=== PATIENT | female | born 1950 | race Caucasian/White ===

== ENCOUNTER → 2020-04-02 10:35 | Outpatient (BNVA) | payer MEDICARE, SELFPAY | PROVIDERS: Visit Provider Advanced Practice Midwife | DX: Z76.89 Persons encountering health services in other specified circumstances (principal) ==

== ENCOUNTER 2020-04-08 11:00 | Outpatient (RCR) | payer MEDICARE, SELFPAY | END 2020-04-10 07:53 | disposition other institution (70) | LOC: HO.OT 11:00 | PROVIDERS: PCP Internal Medicine; Visit Provider Internal Medicine | DX: M65.321 Trigger finger, right index finger (principal); M65.341 Trigger finger, right ring finger | CPT/HCPCS: 29130; 97035; 97110; 97140; 97530; 97760 ==

== ENCOUNTER 2020-05-06 09:59 | Outpatient (REF) | payer MEDICARE, SELFPAY ==
[2020-05-06 10:53] LABS: Basophils Absolute Auto 0.1 X10*3/uL (0.0-0.2); Basophils Percent Auto 1.9 % (0-2); Eosinophils Absolute Auto 0.1 X10*3/uL (0.0-0.4); Eosinophils Percent Auto 2.6 % (0-4); Hematocrit 44.5 % (37-47); Hemoglobin 14.5 g/dl (12.0-16.0); Imm Gran Abs Auto 0.02 X10*3/uL (0.00-0.03); Imm Gran Pct Auto 0.5 % (0.0-0.4); Lymphocytes Absolute Auto 1.5 X10*3/uL (1.2-4.9); MANUAL DIFF FLAG NO; Mean Corpuscular HGB Conc 32.6 g/dl (31.0-35.0); Mean Corpuscular Hemoglobin 29.7 pg (27.0-33.0); Mean Corpuscular Volume 91.2 fL (80-98); Mean Platelet Volume 11.1 fL (9.4-12.3); Monocytes Absolute Auto 0.4 X10*3/uL (0.1-1.2); Monocytes Percent Auto 8.2 % (2-11); Neutrophils Absolute Auto 2.2 X10*3/uL (2.0-8.3); Neutrophils Percent Auto 51.8 % (45-73); Platelet Count 344 X10*3/uL (160-400); Red Blood Count 4.88 X10*6/uL (4.20-5.50); Red Cell Distribution Width 13.9 % (11.0-16.0); White Blood Count 4.3 X10*3/uL (4.8-10.8)
[2020-05-06 11:23] LABS: Alanine Aminotransferase 18 U/L (0-31); Albumin Level 4.4 g/dL (3.5-5.0); Alkaline Phosphatase 97 U/L (39-117); Anion Gap 14 (12-20); Aspartate Amino Transferase 27 U/L (5-31); Bilirubin Total 0.5 mg/dL (0.0-1.0); Blood Urea Nitrogen 12 mg/dL (9-16); Calcium 10.2 mg/dL (8.4-10.2); Carbon Dioxide 26 mmol/L (22-29); Chloride 107 mmol/L (96-108); Cholesterol 219 mg/dL; Estimated Glomerular Filt Rate 56; Glucose Fasting 103 mg/dL (60-99); HDL Cholesterol 67 mg/dL; LDL Cholesterol Calculated 129 mg/dl; Potassium 5.2 mmol/l (3.3-5.1); Sodium 142 mmol/L (135-145); Total Protein 7.9 g/dL (6.5-8.0); Triglycerides 118 mg/dL
== END 2020-05-06 10:00 | disposition home or self-care (01) ==
LOC: HO.LAB 09:59
PROVIDERS: PCP Internal Medicine; Visit Provider Internal Medicine
DX: Z83.3 Family history of diabetes mellitus (principal)
CPT/HCPCS: 36415; 80053; 80061; 85025

== ENCOUNTER 2020-05-07 07:42 | Day surgery (SDC) | payer MEDICARE, SELFPAY ==
[2020-04-28 13:43] VITALS: BMI 31.2
--- NOTE | 2020-05-06 09:02 | HO.ANESPROP2 ---
Documented by User: Nuvia Jackson 05/06/20 09:02 HPI - Anesthesia Eval Consult details Narrative: 70yo F for Colonoscopy PMFSH Past Medical History Medical History Anxiety Arm paresthesia, right Carpal tunnel syndrome CKD (chronic kidney disease), stage III Family history of diabetes mellitus Hair loss Muscle cramps Neuropathy Trigger finger Family History Family History Father Prostate cancer Mother No problems noted. Family/Other FH: mental illness Maternal Aunt No problems noted. Surgical History Surgical History H/O exploratory laparotomy History of cataract surgery History of section History of surgery History of tubal ligation Hx of breast reduction, elective Hx of colonoscopy Social History Social History Smoking Status: Former smoker Tobacco Type: Cigarette Smoking Quit Date: > 10 yrs ago Advance Directives: No Advance Directives Information Provided: No Advance Directives on File: No Meds Allergies Allergy/AdvReac Type Severity Reaction Status Date / Time gabapentin Allergy Unknown somnolence Verified 05/07/20 07:52 pregabalin Allergy Unknown somnolence Verified 05/07/20 07:52 Influenza Vac Split Quad AdvReac Unknown throat pain Verified 05/07/20 07:52 Home Medications Medication Instructions Recorded Confirmed Type amitriptyline 50 mg tablet 50 mg PO BEDTIME 04/01/20 04/28/20 History cholecalciferol (vitamin D3) 50 mcg PO DAILY 04/28/20 04/28/20 History [Vitamin D3] clonazepam 1 tab PO BEDTIME 04/28/20 04/28/20 History diclofenac sodium 1 tab PO BID 04/28/20 04/28/20 History gabapentin 300 mg PO BEDTIME 04/28/20 04/28/20 History Exam Exam Date and Time: May 06, 2020901 Height,Weight and Vital Signs: Height 5 ft Weight 72.575 kg Assessment and Plan Assessment Anesthesia Assessment: Chart Reviewed Documented by User: Jing Mccall 05/07/20 07:53 PMF Past Medical History Medical History Anxiety Arm paresthesia, right Carpal tunnel syndrome CKD (chronic kidney disease), stage III Family history of diabetes mellitus Hair loss Muscle cramps Neuropathy Trigger finger Family History Family History Father Prostate cancer Mother No problems noted. Family/Other FH: mental illness Maternal Aunt No problems noted. Surgical History Surgical History H/O exploratory laparotomy History of cataract surgery History of section History of surgery History of tubal ligation Hx of breast reduction, elective Hx of colonoscopy Social History Social History Smoking Status: Former smoker Tobacco Type: Cigarette Smoking Quit Date: > 10 yrs ago Advance Directives: No Advance Directives Information Provided: No Advance Directives on File: No Meds Allergies Allergy/AdvReac Type Severity Reaction Status Date / Time gabapentin Allergy Unknown somnolence Verified 05/07/20 07:52 pregabalin Allergy Unknown somnolence Verified 05/07/20 07:52 Influenza Vac Split Quad AdvReac Unknown throat pain Verified 05/07/20 07:52 Home Medications Medication Instructions Recorded Confirmed Type amitriptyline 50 mg tablet 50 mg PO BEDTIME 04/01/20 04/28/20 History cholecalciferol (vitamin D3) 50 mcg PO DAILY 04/28/20 04/28/20 History [Vitamin D3] clonazepam 1 tab PO BEDTIME 04/28/20 04/28/20 History diclofenac sodium 1 tab PO BID 04/28/20 04/28/20 History gabapentin 300 mg PO BEDTIME 04/28/20 04/28/20 History Exam Airway Mallampati Class: II TM Dist: >3cm Neck ROM: Full Denture: Upper and Lower Heart: RRR Lungs: CTa BL Assessment and Plan Assessment Anesthesia Assessment: Anesthesia Plan Discussed and Chart Reviewed Final Anesthetic Review NPO: Yes ASA Class: III Final Preanesthetic Review: Meds/Allgs Chart Reviewed and Consent Obtained/Reviewed Patient Risk: Intermediate Procedure Risk: Intermediate Anesthetic Plan Anesthetic Plan: MAC: Disposition: Standard PACU
[2020-05-07 07:53] VITALS: BP 118/72; PULSE 91; RESP 16; TEMP 36.1; O2SAT 96
[2020-05-07] MEDS: Lactated Ringers 1,000 ML 100 ML IVCONT (08:15)
--- NOTE | 2020-05-07 08:40 | P.HPSUR_ITS ---
Pre-Procedural Eval Section B Chief Complaint: HX OF POLYPS Relevant Family History (Specify if Yes): No Relevant Social History: None Present Medications: see Short Stay Collaborative assessment Medical History: Significant History (Anxiety Arm paresthesia, right Carpal tunnel syndrome CKD (chronic kidney disease), stage III Family history of diabetes mellitus Hair loss Muscle cramps Neuropathy Trigger finger) History of Previous Operations: Relevant previous surgery/procedure and date(s) (ex lap, appendectomy, rib surgery) Allergies: Allergies Allergy/AdvReac Type Severity Reaction Status Date / Time gabapentin Allergy Unknown somnolence Verified 05/07/20 07:52 pregabalin Allergy Unknown somnolence Verified 05/07/20 07:52 Influenza Vac Split Quad AdvReac Unknown throat pain Verified 05/07/20 07:52 Review of Systems Sugical H&P ROS: Negative: Constitution, Cardiovascular, Respiratory, Neurological, Psychiatric, Hem-Onc, Allergic/Immunologic, Gastrointestinal, Genitourinary, Musculoskeletal, Integumentary, Endocrine and Eyes/Ears/Nose/Throat Exam Surgical H&P Exam: Normal: HEENT, Normal: Heart, Normal: Lungs, Normal: Ext remities, Normal: Abdomen, Normal: Skin and Normal: Neurological Plan Diagnosis/Plan: Unchanged Patient has been examined and remains a candidate for the planned procedure
--- NOTE | 2020-05-07 08:49 | PM.OP ---
Brief Operative Note Date of Service: 05/07/20 Pre-op diagnosis: hx of polyps, colon screen Post-op diagnosis: same Procedure: see op note Surgeon: Enrico Figueroa MD Anesthesia: MAC Estimated blood loss (mL): 0 Condition: stable Disposition: PACU
--- NOTE | 2020-05-07 08:50 | W.PM.OPN ---
Operative Note Operative Note Date of Service: 05/07/20 Narrative: Operative Information Procedure Description: Colonoscopy COLONOSCOPY Instrument: Olympus variable stiffness pediatric scope 190L Colonoscopy Monitoring: Vital signs and clinical assessment, continuous EKG monitoring, Pulse oximetry, Carbon Dioxide monitoring and blood pressure monitoring were done throughout the procedure. Colon withdrawal time was 10 minutes. Procedure: The patient was placed in the left lateral decubitis position and pre-procedure medications were administered. After a digital rectal examination of the ano-rectum, the video colonoscope was inserted into the rectum and advanced through the colon to the cecum/TI. The colonoscope was slowly withdrawn in a retrograde panoramic fashion and the colon mucosa was carefully examined including a retroflexed view of the rectum. Findings and interventions are described below. Procedure Difficulty: difficult, LLQ pressure applied, looping due to severe diverticular disease Findings: Terminal Ileum-not intubated Cecum: 8-10 mm sessile polyp removed with cold snare, one clip applied due to oozing, which ceased Ascending Colon: normal Transverse Colon -normal Descending Colon:normal Sigmoid Colon: severe diverticulosis with mucosal hypertrophy and narrowing of sigmoid Rectum: Retroflexion with moderate sized internal hemorrhoids, grade I Anorectum - normal Colon preparation: Lolita Bowel Preparation Scale Right colon; 3 Transverse colon: 3 Left colon; 3 (0 = Unprepared colon segment with mucosa not seen due to solid stool that cannot be cleared. 1 = Portion of mucosa of the colon segment seen, but other areas of the colon segment not well seen due to staining, residual stool and/or opaque liquid. 2 = Minor amount of residual staining, small fragments of stool and/or opaque liquid, but mucosa of colon segment seen well. 3 = Entire mucosa of colon segment seen well with no residual staining, small fragments of stool or opaque liquid) Impression and Post Procedure Diagnosis: polyp diverticulosis internal hemorrhoids Plan: High fiber diet leaflet Avoid straining at stool, epsom salts and sitz bath, anusol supps or cream Repeat Colonoscopy in 5-7 years or earlier if clinically indicated Above findings were reviewed with the patient and relevant handouts were provided if indicated.
[2020-05-07 09:18] VITALS: BP 105/37; PULSE 92; RESP 16; TEMP 36.5; O2SAT 97
[2020-05-07 09:34] VITALS: BP 94/51; PULSE 80; RESP 16; O2SAT 99
[2020-05-07 09:35] VITALS: BP 111/65
--- NOTE | 2020-05-07 09:55 | HO.POSTANES ---
Post Anesthesia Evaluation Post Anesthesia Evaluation Vital Signs: Vital Signs Temp Pulse Resp BP Pulse Ox 05/07/20 09:35 111/65 05/07/20 09:34 97.7 F 80 16 94/51 L 99 05/07/20 09:18 97.7 F 92 16 105/37 L 97 05/07/20 07:53 97 F 91 16 118/72 96 Anesthesia: Monitored Mental Status: Awake Pain Control: Satisfactory Nausea/Vomiting: None Hydration: Adequate Anesthesia-Related Issues: No Anes. Related Issues
== END 2020-05-07 10:04 | disposition home or self-care (01) ==
PROVIDERS: PCP Internal Medicine; Visit Provider Internal Medicine Gastroenterology
PROC: 0DJD8ZZ Inspection of Lower Intestinal Tract, Via Natural or Artificial Opening Endoscopic (ICD-10-PCS; CPT 45378; principal; 2020-05-07 08:30)
DX: Z12.11 Encounter for screening for malignant neoplasm of colon (principal); Z86.010 Personal history of colon polyps; D12.0 Benign neoplasm of cecum; K57.30 Diverticulosis of large intestine without perforation or abscess without bleeding; K64.0 First degree hemorrhoids; N18.30 Chronic kidney disease, stage 3 unspecified; Z79.899 Other long term (current) drug therapy; Z88.8 Allergy status to other drugs, medicaments and biological substances; Z88.7 Allergy status to serum and vaccine
CPT/HCPCS: 45385; 88305

== ENCOUNTER 2020-05-14 12:52 | Outpatient (REF) | payer MEDICARE, SELFPAY ==
--- NOTE | 2020-05-14 12:57 | MM_ITS ---
EXAMINATION: MM SCREENING DIGITAL MAMMOGRAPHY, BILATERAL CLINICAL INFORMATION: Screening. Asymptomatic. The lifetime risk of breast cancer based on the Tyrer-Cuzick Model is 4.6%. COMPARISON: Mammography: None TECHNIQUE: Digital mammography is performed in craniocaudal and mediolateral oblique views along with computer-aided detection (CAD). FINDINGS: The breasts are almost entirely fatty (ACR BI-RADS breast composition Category a). There are no significant masses, abnormal calcifications, or other abnormalities. Clips are seen within the right axilla. Dystrophic calcifications are seen retroareolar region of the left breast. MM/MM screening mammo BI IMPRESSION: No specific mammographic findings to suggest malignancy. ASSESSMENT: BI-RADS 1: Negative RECOMMENDATION: Routine annual mammography screening. This patient's information was entered into a reminder system with a target due date for their next mammogram.
== END 2020-05-14 12:53 | disposition home or self-care (01) ==
LOC: HO.MAMMO 12:52
PROVIDERS: PCP Internal Medicine; Visit Provider Internal Medicine
DX: Z12.31 Encounter for screening mammogram for malignant neoplasm of breast (principal)
CPT/HCPCS: 77067

== ENCOUNTER → 2020-06-25 10:08 | Outpatient (BNVA) | payer MEDICARE, SELFPAY | PROVIDERS: PCP Internal Medicine; Visit Provider Nurse Practitioner | DX: D12.6 Benign neoplasm of colon, unspecified (principal) | CPT/HCPCS: Q3014 ==

== ENCOUNTER 2020-06-30 15:00 | Outpatient (RCR) | payer MEDICARE, SELFPAY | END 2020-06-30 16:02 | disposition other institution (70) | LOC: HO.OT 15:00 | PROVIDERS: Visit Provider Physician Assistant | DX: Z47.89 Encounter for other orthopedic aftercare (principal); Z48.811 Encounter for surgical aftercare following surgery on the nervous system | CPT/HCPCS: 97033; 97035; 97110; 97140; 97165; 97530 ==

== ENCOUNTER 2021-01-22 09:12 | Outpatient (REF) | payer MEDICARE, SELFPAY | END 2021-01-22 09:13 | disposition home or self-care (01) | LOC: HO.LAB 09:12 | PROVIDERS: PCP Internal Medicine; Visit Provider Internal Medicine | DX: Z20.822 Contact with and (suspected) exposure to COVID-19 (principal) | CPT/HCPCS: C9803; U0003; U0005 ==

== ENCOUNTER → 2021-05-05 13:36 | Outpatient (BNVA) | payer MEDICARE, SELFPAY | PROVIDERS: Visit Provider Obstetrics & Gynecology ==

== ENCOUNTER 2021-05-07 09:15 | Outpatient (REF) | payer MEDICARE, SELFPAY ==
[2021-05-07 10:51] LABS: Alanine Aminotransferase 22 U/L (0-31); Albumin Level 4.3 g/dL (3.5-5.0); Alkaline Phosphatase 87 U/L (39-117); Anion Gap 14 (12-20); Aspartate Amino Transferase 28 U/L (5-31); Bilirubin Total 0.6 mg/dL (0.0-1.0); Blood Urea Nitrogen 11 mg/dL (9-16); Calcium 10.1 mg/dL (8.4-10.2); Carbon Dioxide 26 mmol/L (22-29); Chloride 106 mmol/L (96-108); Estimated Glomerular Filt Rate 58; Glucose Random 105 mg/dL (60-115); Potassium 4.8 mmol/L (3.3-5.1); Sodium 141 mmol/L (135-145); Total Protein 7.5 g/dL (6.5-8.0)
== END 2021-05-07 09:16 | disposition home or self-care (01) ==
LOC: HO.LAB 09:15
PROVIDERS: PCP Internal Medicine; Visit Provider Internal Medicine
DX: E87.5 Hyperkalemia (principal)
CPT/HCPCS: 36415; 80053

== ENCOUNTER 2021-09-22 11:06 | Outpatient (REF) | payer OTHER, SELFPAY ==
--- NOTE | ~2021-09-22 | MM_ITS ---
EXAMINATION: BONE DENSITOMETRY CLINICAL INDICATION: Asymptomatic menopausal state. COMPARISON: This is the patient's baseline examination. TECHNIQUE: Using a [employer] DXA System (software version: 13.1) manufactured by [employer], dual-energy x-ray absorptiometry was performed of the lumbar spine and left hip. The images are of good technical quality. Summary results are attached. FINDINGS: AP SPINE L1-L4: BMD 1.036 g/cm2, Z-score 0.3, T-score -1.2, osteopenia. LEFT FEMUR, NECK: BMD 0.769 g/cm2, Z-score -0.3, T-score -1.9, osteopenia. LEFT FEMUR, TOTAL: BMD 0.820 g/cm2, Z-score 0.0, T-score -1.5, osteopenia. IDENTIFIED RISK FACTORS: Height loss, menopause. HISTORY OF FRACTURE: None listed. MEDICATIONS: None listed. MM/XR DEXA axial skeleton IMPRESSION: 1. DIAGNOSIS: Osteopenia based on the lowest T-score value of -1.9 in the femoral neck applying World Health Organization criteria. 2. 10-YEAR FRACTURE RISK PREDICTION, FRAX: Major osteoporotic fracture (clinical spine, forearm, hip or shoulder) 6.9%. Hip fracture 1.5%. 3. Treatment Recommendations: NOF guidelines recommend consideration for treatment in postmenopausal women and men age 50 and older presenting with the following: -A hip or vertebral (clinical or morphometric) fracture. -T-score less than or equal to -2.5 at the femoral neck or spine after appropriate evaluation to exclude secondary causes. -Low bone mass at the hip or spine and a 10-year fracture probability by FRAX of greater than or equal to 3% for hip fracture or greater than or equal to 20% for major osteoporotic fracture based on the [place] adapted WHO algorithm. 4. Other Recommendations: All treatment decisions require clinical judgment and consideration of individual patient factors, including patient preferences, comorbidities, previous drug use, risk factors not captured in the FRAX model (e.g. frailty, falls, vitamin D deficiency, increased bone turnover, interval significant decline in bone density) and possible under or overestimation of fracture risk by FRAX. Additional medical evaluation for secondary cause of low bone mineral density may be appropriate. FUTURE SCAN RECOMMENDATION: People with diagnosed cases of osteoporosis or at high risk for fracture should have regular bone mineral density tests. For patients eligible for Medicare, routine testing is allowed once every 2 years. The testing frequency can be increased to one year for patients who have rapidly progressing disease, those who are receiving or discontinuing medical therapy to restore bone mass, or have additional risk factors.
[2021-09-22 11:34] LABS: MANUAL DIFF FLAG NO
[2021-09-22 12:27] LABS: Basophils Absolute Auto 0.1 X10*3/uL (0.0-0.2); Basophils Percent Auto 2.3 % (0-2); Eosinophils Absolute Auto 0.1 X10*3/uL (0.0-0.4); Eosinophils Percent Auto 3.6 % (0-4); Hematocrit 41.9 % (37.0-47.0); Hemoglobin 13.7 g/dl (12.0-16.0); Imm Gran Abs Auto 0.01 X10*3/uL (0.00-0.03); Imm Gran Pct Auto 0.3 % (0.0-0.4); Lymphocytes Absolute Auto 1.1 X10*3/uL (1.2-4.9); Lymphocytes Percent Auto 35.2 % (20-40); Mean Corpuscular HGB Conc 32.7 g/dl (31.0-35.0); Mean Corpuscular Volume 91.7 fL (80.0-98.0); Mean Platelet Volume 11.1 fL (9.4-12.3); Monocytes Absolute Auto 0.3 X10*3/uL (0.1-1.2); Monocytes Percent Auto 9.9 % (2-11); Neutrophils Absolute Auto 1.5 x10*3/uL (2.0-8.3); Neutrophils Percent Auto 48.7 % (45-73); Platelet Count 311 X10*3/uL (160-400); Red Blood Count 4.57 X10*6/uL (4.20-5.50); Red Cell Distribution Width 14.3 % (11.0-16.0)
[2021-09-22 12:58] LABS: Alanine Aminotransferase 17 U/L (0-31); Albumin Level 4.1 g/dL (3.5-5.0); Alkaline Phosphatase 82 U/L (39-117); Anion Gap 13 (12-20); Aspartate Amino Transferase 25 U/L (5-31); Bilirubin Total 0.8 mg/dL (0.0-1.0); Blood Urea Nitrogen 9 mg/dL (9-16); Calcium 10.1 mg/dL (8.4-10.2); Carbon Dioxide 26 mmol/L (22-29); Chloride 108 mmol/L (96-108); Cholesterol 172 mg/dL; Estimated Glomerular Filt Rate 57; Glucose Fasting 94 mg/dL (60-99); HDL Cholesterol 63 mg/dL; LDL Cholesterol Calculated 95 mg/dl; Potassium 5.1 mmol/L (3.3-5.1); Sodium 142 mmol/L (135-145); Total Protein 7.1 g/dL (6.5-8.0); Triglycerides 72 mg/dL
[2021-09-22 13:16] LABS: Appearance Urine HAZY; Color Urine YELLOW; Glucose Urine UA NEG (NEG); Leukocyte Esterase Urine NEG (NEG); Nitrite Urine NEG (NEG); PH 5.5 (5.0-8.0); Specific Gravity - Urine 1.025 (1.005-1.025); Urine Blood NEG (NEG); Urine Ketones NEG (NEG); Urine Protein NEG (NEG-TRACE)
[2021-09-22 13:21] LABS: Thyroid Stimulating Hormone 1.63 uIU/mL (0.32-4.0)
[2021-09-22 13:23] LABS: Folate 17.7 ng/mL (> or = 4.0); Vitamin B12 335 pg/mL (200-900)
== END 2021-09-22 11:07 | disposition home or self-care (01) ==
LOC: HO.MAMMO 11:06
PROVIDERS: Absent Provider Internal Medicine; PCP Internal Medicine; Visit Provider Obstetrics & Gynecology
DX: Z13.820 Encounter for screening for osteoporosis (principal); Z78.0 Asymptomatic menopausal state; R30.0 Dysuria; N18.30 Chronic kidney disease, stage 3 unspecified; E78.5 Hyperlipidemia, unspecified; E55.9 Vitamin D deficiency, unspecified; D64.9 Anemia, unspecified; G62.9 Polyneuropathy, unspecified; M85.80 Other specified disorders of bone density and structure, unspecified site
CPT/HCPCS: 36415; 77080; 80053; 80061; 81003; 82306; 82607; 82746; 84443; 85025

== ENCOUNTER 2021-10-19 12:40 | Outpatient (REF) | payer OTHER, SELFPAY ==
--- NOTE | ~2021-10-19 | MM_ITS ---
EXAMINATION: MM SCREENING DIGITAL BREAST TOMOSYNTHESIS, BILATERAL CLINICAL INFORMATION: Screening. Asymptomatic. Prior reduction mammoplasty, 1994. She or prevertebral The lifetime risk of breast cancer based on the Tyrer-Cuzick Model is 4%. COMPARISON: Mammography: 05/14/2020 (new baseline) TECHNIQUE: Digital breast tomosynthesis is performed in both the craniocaudal and mediolateral oblique views along with computer-aided detection (CAD). Synthesized 2D images are generated from the tomosynthesis. FINDINGS: There are scattered areas of fibroglandular density (ACR BI-RADS breast composition Category b). Parenchymal pattern is similar to prior exam. There is again minor scarring, left retroareolar dystrophic calcifications, and right surgical clips consistent with the prior breast surgery. There is no significant mass or interval architectural abnormality or abnormal calcifications. No significant changes. MM/MM tomosynthesis screening BI IMPRESSION: No significant changes from prior new baseline exam. ASSESSMENT: BI-RADS 2: Benign RECOMMENDATION: Routine annual mammography screening. This patient's information was entered into a reminder system with a target due date for their next mammogram.
== END 2021-10-19 12:41 | disposition home or self-care (01) ==
LOC: HO.MAMMO 12:40
PROVIDERS: PCP Internal Medicine; Visit Provider Internal Medicine
DX: Z12.31 Encounter for screening mammogram for malignant neoplasm of breast (principal)
CPT/HCPCS: 77063; 77067

== ENCOUNTER → 2021-11-05 13:49 | Outpatient (BNVA) | payer OTHER, SELFPAY | PROVIDERS: Visit Provider Obstetrics & Gynecology | DX: M85.80 Other specified disorders of bone density and structure, unspecified site (principal) | CPT/HCPCS: 99212 ==

== ENCOUNTER 2022-01-28 07:59 | Outpatient (REF) | payer OTHER, SELFPAY ==
--- NOTE | ~2022-01-28 | XR_ITS ---
EXAMINATION: XR HAND, RIGHT CLINICAL INFORMATION: Pain. COMPARISON: None TECHNIQUE: PA, lateral, and oblique views of the right hand. FINDINGS: Bony mineralization is mildly diminished. No fracture or dislocation is seen. There is mild osteoarthritic change of the first interphalangeal joint and the second, third and fifth distal interphalangeal joints. There is mild osteoarthritic change of the second proximal interphalangeal joint. There is moderate osteoarthritic change of the first carpometacarpal joint. No erosions or soft tissue calcifications. XR/XR hand RT min 3V IMPRESSION: 1. There are multi-focal osteoarthritic changes of the right hand and wrist, as detailed above. 2. No fracture or dislocation is seen. 3. There is no focal bone erosion. EXAMINATION: XR HAND, LEFT CLINICAL INFORMATION: Pain. COMPARISON: None TECHNIQUE: PA, lateral, and oblique views of the left hand. FINDINGS: Bony mineralization is mildly diminished. No fracture or dislocation is seen. Alignment is anatomic, with a neutral ulnar variance. Joint spaces are maintained. There is mild peripheral osteophyte formation of the second, third and fifth distal interphalangeal joints. There is a small periarticular calcification of the second distal interphalangeal joint. No focal erosions are seen. IMPRESSION: 1. No fracture or dislocation is seen. 2. There is very mild osteoarthritic change of the left second, third and fifth distal interphalangeal joints.
--- NOTE | ~2022-01-28 | XR_ITS ---
EXAMINATION: XR HAND, RIGHT CLINICAL INFORMATION: Pain. COMPARISON: None TECHNIQUE: PA, lateral, and oblique views of the right hand. FINDINGS: Bony mineralization is mildly diminished. No fracture or dislocation is seen. There is mild osteoarthritic change of the first interphalangeal joint and the second, third and fifth distal interphalangeal joints. There is mild osteoarthritic change of the second proximal interphalangeal joint. There is moderate osteoarthritic change of the first carpometacarpal joint. No erosions or soft tissue calcifications. XR/XR hand LT min 3V IMPRESSION: 1. There are multi-focal osteoarthritic changes of the right hand and wrist, as detailed above. 2. No fracture or dislocation is seen. 3. There is no focal bone erosion. EXAMINATION: XR HAND, LEFT CLINICAL INFORMATION: Pain. COMPARISON: None TECHNIQUE: PA, lateral, and oblique views of the left hand. FINDINGS: Bony mineralization is mildly diminished. No fracture or dislocation is seen. Alignment is anatomic, with a neutral ulnar variance. Joint spaces are maintained. There is mild peripheral osteophyte formation of the second, third and fifth distal interphalangeal joints. There is a small periarticular calcification of the second distal interphalangeal joint. No focal erosions are seen. IMPRESSION: 1. No fracture or dislocation is seen. 2. There is very mild osteoarthritic change of the left second, third and fifth distal interphalangeal joints.
== END 2022-01-28 08:00 | disposition home or self-care (01) ==
LOC: HO.HOSX 07:59
PROVIDERS: Visit Provider Physician Assistant
DX: M65.331 Trigger finger, right middle finger (principal); M79.642 Pain in left hand; M79.641 Pain in right hand
CPT/HCPCS: 73130; 99202

== ENCOUNTER 2022-02-18 11:01 | Day surgery (SDC) | payer OTHER, SELFPAY ==
[2022-02-12 11:15] VITALS: BMI 29.5
[2022-02-18 11:56] VITALS: BP 111/67; PULSE 103; RESP 16; TEMP 36.3; O2SAT 98
[2022-02-18 13:34] VITALS: BP 112/63; PULSE 97; RESP 20; O2SAT 99
--- NOTE | 2022-02-18 13:38 | MHC.SHP ---
Pre-Procedural Eval Section A Date of Service: 02/18/22 The patient is an INPATIENT: No Changes since office visit: No Cold of Flu in the past 2 weeks, No New Medical Problems, No Changes in Medication and No Patient answered all questions The History & Physical has been completed within 30 days and I have reviewed it.: Yes Section B Chief Complaint: Trigger finger, right middle finger Allergies: Allergies Allergy/AdvReac Type Severity Reaction Status Date / Time gabapentin Allergy Intermediate somnolence Verified 11/05/21 13:54 pregabalin Allergy Intermediate somnolence Verified 11/05/21 13:54 Influenza Vac Split Quad AdvReac Intermediate throat pain Verified 11/05/21 13:54 Plan I have reviewed the history and physical and performed a pertinent physical examination on my patient. No changes have occurred unless specified.
--- NOTE | 2022-02-18 13:38 | W.PM.OPN ---
Operative Note Operative Note Date of Service: 02/18/22 Narrative: Operative Note Preop diagnosis: 1. Right middle finger Trigger finger Postop diagnosis: 1. Right middle finger Trigger finger Procedure: 1. Right middle finger A1 holly release Surgeon: Bernarda Santillan MD Anesthesia: local block using 1% lidocaine with epinephrine Findings: No locking or catching after A1 holly release EBL: Less than 5 mL Tourniquet time: None Specimens: None Complications: None Disposition: Brought to recovery room in stable condition Plan: Follow-up for 10-14 days for wound check and suture removal Indications: The patient is 71 years old, with a right middle finger trigger finger that has been unresponsive to nonoperative management. The risks and benefits of operative treatment including but not limited to risk of damage to blood vessels, nerves, tendons, infection, persistent pain, persistent symptoms, recurrence or possible need for additional surgery were discussed with the patient and the patient wishes to proceed with surgery. Procedure: Once consent was obtained a local block was performed in the preop area using a combination of 1% lidocaine with epinephrine. The patient was then brought back to the operating suite and placed on the operative table in supine position. A tourniquet was applied to the proximal aspect of the right upper extremity and the limb was prepped and draped in a standard surgical fashion. Once assured that we had a good block, a 1.5 cm oblique incision was made centered over the A1 holly of the right middle finger . The incision was made through the skin to the subcutaneous tissues using a #15 blade. Careful dissection was made down to the level of the A1 holly using tenotomy scissors, with care being taken to protect the nearby neurovascular structures. A longitudinal incision was made in the A1 holly 1st using a #15 blade, then using tenotomy scissors under direct visualization. The A1 holly was noted to be thickened. Following our A1 holly release, we no longer saw any locking or catching of the digit with flexion and extension. Once satisfied with our A1 holly release the wound was copiously irrigated with normal saline and hemostasis was obtained with a brief period of local pressure. The skin edges were reapproximated with some 5.0 nylon suture material and a sterile dressing was applied. The patient appears to have tolerated the procedure well and with no complications. All digits were well vascularized at the conclusion of the case.
== END 2022-02-18 14:08 | disposition home or self-care (01) ==
PROVIDERS: PCP Internal Medicine; Visit Provider Orthopaedic Surgery
PROC: (CPT 26055; principal; 2022-02-18 12:40)
DX: M65.331 Trigger finger, right middle finger (principal); R20.2 Paresthesia of skin; N18.30 Chronic kidney disease, stage 3 unspecified; G62.9 Polyneuropathy, unspecified; E55.9 Vitamin D deficiency, unspecified; E87.5 Hyperkalemia; E78.00 Pure hypercholesterolemia, unspecified; F41.8 Other specified anxiety disorders; L65.9 Nonscarring hair loss, unspecified; Z88.8 Allergy status to other drugs, medicaments and biological substances; Z88.7 Allergy status to serum and vaccine; Z87.891 Personal history of nicotine dependence; Z98.890 Other specified postprocedural states
CPT/HCPCS: 26055; J0171

== ENCOUNTER → 2022-03-30 12:59 | Outpatient (BNVA) | payer OTHER, SELFPAY | PROVIDERS: PCP Internal Medicine; Visit Provider Orthopaedic Surgery | DX: M65.331 Trigger finger, right middle finger (principal); M65.332 Trigger finger, left middle finger; M65.4 Radial styloid tenosynovitis [de Quervain]; G56.01 Carpal tunnel syndrome, right upper limb | CPT/HCPCS: 20550; 99212; J1100 ==

== ENCOUNTER → 2022-07-21 09:56 | Outpatient (REF) | payer OTHER, SELFPAY ==
--- NOTE | 2022-07-21 10:02 | ECG_ITS ---
Test Reason : CHEST PAIN Blood Pressure : / mmHG Vent. Rate : 098 BPM Atrial Rate : 098 BPM P-R Int : 142 ms QRS Dur : 082 ms QT Int : 340 ms P-R-T Axes : 070 002 031 degrees QTc Int : 434 ms Normal sinus rhythm Normal ECG When compared with ECG of 30-JAN-2020 08:43, No significant change was found Referred By: Olivia Palmer Electronically Signed By:Dakota Wu
== END ==
LOC: HO.CARD 09:56
PROVIDERS: PCP Internal Medicine; Visit Provider Internal Medicine
DX: R07.9 Chest pain, unspecified (principal)
CPT/HCPCS: 93005

== ENCOUNTER → 2022-08-23 14:04 | Outpatient (REF) | payer OTHER, SELFPAY ==
--- NOTE | 2022-08-23 14:06 | CA_ITS ---
Acquisition Time: 2022-08-23 14:13:51 Total Exercise Time: 00:04:00 Test Indications: CP Medications: SEE H Protocol: DEMETRIUS Max HR: 155 BPM 106% of Pred: 146 BPM Max BP: 132/078 mmHG Max Work Load: 4.6 METS Exercise stress test with exercise 4 min of Demetrius stage 1 ( stage held due to heart rate 100% MPHR at end of true stage 1), achieving 104% MPHR, with fatigue, without anginal symptoms, with isolated PVCs, with normotensive and brisk chronotropic response to exercise ( heart rate 68% MPHR at baseline with radha to 95% MPHR with 2 min of walking), without EKG changes meeting criteria for ischemia. Test reviewed with Dr Duarte Referred By: Olivia Palmer Overread By: JEFFREY VALDES
== END ==
LOC: HO.CARD 14:04
PROVIDERS: PCP Internal Medicine; Visit Provider Internal Medicine
DX: R07.9 Chest pain, unspecified (principal)
CPT/HCPCS: 93017

== ENCOUNTER 2022-08-27 10:51 | Outpatient (REF) | payer OTHER, SELFPAY ==
--- NOTE | ~2022-08-27 | XR_ITS ---
EXAMINATION: XR WRIST, RIGHT CLINICAL INFORMATION: Wrist pain. COMPARISON: 01/28/2022, right hand. TECHNIQUE: PA, lateral, oblique, and scaphoid views of the right wrist. FINDINGS: Again seen are moderate degenerative changes at the 1st CMC joint with sclerosis and osteophytes. There is no interval change when compared to 01/28/2022. No fractures or dislocations are seen. No chondrocalcinosis. XR/XR wrist RT 2V IMPRESSION: Degenerative changes at the 1st CMC joint without evidence of an acute injury.
--- NOTE | ~2022-08-27 | XR_ITS ---
EXAMINATION: XR BILATERAL HIPS WITH AP PELVIS CLINICAL INFORMATION: Bilateral hip pain. COMPARISON: Lumbar spine 04/24/2019. TECHNIQUE: AP view of the pelvis and 2 additional views of each hip were obtained. FINDINGS: The bones and soft tissues are normal. No fracture. Sacroiliac and hip joints are normal. Pubic symphysis is normal. No abnormal soft tissue calcifications. XR/XR hip BI w PEL1V IMPRESSION: Normal pelvis and hips.
--- NOTE | ~2022-08-27 | XR_ITS ---
EXAMINATION: XR LUMBOSACRAL SPINE WITH OBLIQUES CLINICAL INFORMATION: Bilateral hip and lower back pain. COMPARISON: None available. TECHNIQUE: AP, both oblique, and lateral views of the lumbar spine. Lateral view of the lumbosacral junction. FINDINGS: Some mild spondylitic endplate changes are present. Disc heights are well maintained. Intervertebral disc spaces are well maintained with the exception of some minimal narrowing at the L4-L5 disc space where there is a mild grade 1 anterolisthesis of L4 upon L5. No fractures or bony destructive lesions are seen. XR/XR lumbar spine 6V w bending IMPRESSION: Mild degenerative changes in the spine with mild grade 1 anterolisthesis of L4 upon L5.
== END 2022-08-27 10:52 | disposition home or self-care (01) ==
LOC: HO.XRAY 10:51
PROVIDERS: Absent Provider Internal Medicine; PCP Internal Medicine; Visit Provider Nurse Practitioner Family
DX: M25.531 Pain in right wrist (principal); M47.816 Spondylosis without myelopathy or radiculopathy, lumbar region; M53.3 Sacrococcygeal disorders, not elsewhere classified; M85.80 Other specified disorders of bone density and structure, unspecified site; M25.551 Pain in right hip; M25.552 Pain in left hip
CPT/HCPCS: 72114; 73100; 73521; 99202

== ENCOUNTER → 2022-09-16 13:50 | Outpatient (BNVA) | payer OTHER, SELFPAY | PROVIDERS: PCP Internal Medicine; Visit Provider Nurse Practitioner Family | DX: G89.4 Chronic pain syndrome (principal); M53.3 Sacrococcygeal disorders, not elsewhere classified; M47.816 Spondylosis without myelopathy or radiculopathy, lumbar region; M62.830 Muscle spasm of back; M25.531 Pain in right wrist | CPT/HCPCS: 99212 ==

== ENCOUNTER 2022-09-22 13:00 | Outpatient (RCR) | payer OTHER, SELFPAY ==
--- NOTE | 2022-08-19 14:46 | MHC.OT.EP ---
[address] [phone] Occupational Therapy Plan of Care Patient Name: Clara Carpio Date of Evaluation: 08/19/22 Diagnosis: Right wrist pain Pain Location: 810 right radial wrist, palm and MF, right shoulder. Pain Score: 8 Pain Scale Used: Numeric (0 - 10) Aggravating Factors: Gripping, lifting , pushing.... wrist pain Shoulder pain Alleviating Factors: Heat and cold Assessment: Pt is a 72 yo female with worsening right radial wrist pain over the past few months, now 4 mo s/p CTR and trigger finger release. 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 Pt also with complaint of right shoulder pain with shoulder ROM WFL after AAROM ex. Submax bus assistant strength with Dynamometer bus assistant strength testing. At this time pt will benefit from OT to address right DeQuervains sx and hand strengthening as pain improves Frequency and Duration: The patient will be seen 2 x wk x 6 wks. Short Term Goals: Demo jt protection techniques for right thumb and radial wrist Demo indep with HEP Dec Quick DASH score by 20 pts to 55 pts Tolerate isometric wrist and hand strengthening without inc pain Data Center Architect Goals: Indep with ADL and IADL with activity modifications as needed Indep with HEP for RUE strengthening Demo pain-free wrist and hand AROM Quick DASH score to < 30 pts Treatment Plan: Therapeutic Exercise Therapeutic Activity Home Exercise Program Splinting Patient Education ADL Training Ultrasound Iontophoresis Electronically Signed By: Janelle Le OT CHT CLT Please Sign and return to therapist. Thank you once again for your referral.
--- NOTE | 2022-10-13 09:50 | MHC.OT.DC ---
[address] [phone] F: [phone] Occupational Therapy Discharge Note Patient Name: Clara Carpio Provider: Olivia Palmer Diagnosis: Right wrist pain Date of Surgery: Date of Evaluation: 08/19/22 Date of Discharge: 10/13/22 Treatments to Date: 3 Cancellations to Date: No Shows to Date: Discharge Status: Discharge Summary: Pt last seen 09/22/22 with a 3 wks lapse in treatment due to pt having Covid. Pt with worsening MF PIPj contracture, radial wrist pain with mild edema noted, low strength with wrist ther ex. Pt will benefit from the hand based thumb spica for CMCj support to alternate with forearm based thumb spica for DeQuervains sx. Pt had a scheduled appt with Dr Spangler and has not returned Electronically Signed By: Janelle Le OT CHT CLT Reviewed/agree with student documentation: N/A Therapist: Please Sign and return to therapist, thank you for your referral.
== END 2022-10-13 09:53 | disposition home or self-care (01) ==
LOC: HO.OT 13:00
PROVIDERS: PCP Internal Medicine; Visit Provider Internal Medicine
DX: M79.641 Pain in right hand (principal)
CPT/HCPCS: 29125; 29130; 97033; 97110; 97166; 97760

== ENCOUNTER 2022-10-15 11:11 | Emergency (ER) | payer OTHER, SELFPAY ==
--- NOTE | ~2022-10-15 | XR_ITS ---
EXAMINATION: XR CHEST CLINICAL INFORMATION: Chest pain COMPARISON: None available. TECHNIQUE: 2 views of the chest were obtained. FINDINGS: The lungs are fairly well-expanded and clear of acute process. There is a 5 mm calcified nodule right lower lobe. The heart size and pulmonary vascularity is normal. No gross bony abnormality seen. XR/XR chest 2V IMPRESSION: 5 mm calcified nodule right lower lobe. Otherwise no acute process seen.
--- NOTE | 2022-10-15 11:13 | ECG_ITS ---
Test Reason : chest pain Blood Pressure : / mmHG Vent. Rate : 082 BPM Atrial Rate : 082 BPM P-R Int : 140 ms QRS Dur : 074 ms QT Int : 362 ms P-R-T Axes : 066 006 021 degrees QTc Int : 422 ms Normal sinus rhythm Normal ECG When compared with ECG of 21-JUL-2022 10:10, No significant change was found Referred By: Generic ED Physician Electronically Signed By:DEANNA CAMARENA
--- NOTE | 2022-10-15 11:16 | ED_ITS ---
HPI - General Adult General Chief complaint: Chest Pain Stated complaint: Chest pain, near syncope per EMS Time Seen by Provider: 10/15/22 11:16 Source: patient, EMS and certified court/medical interpreter Mode of arrival: EMS Limitations: language barrier History of Present Illness HPI narrative: Patient is a 72-year-old female with past history of CKD, high cholesterol, and chronic pain presenting with 2 days of constant chest pain. She reports history of intermittent chest pain over the past several years and states she recently h ad a stress test which was ordered by her PCP which she believes was normal. She states her pain was initially 8/10 and completely resolved after receiving nitro from EMS, states pain has returned but is now mild. She also complains of nausea and shortness of breath. She denies any recent lower extremity edema. She denies any cough or fevers. Related Data Previous Rx's Medication Instructions Recorded acetaminophen 500 mg capsule 500 mg PO Q6H PRN fever or pain 30 10/01/21 days #120 caps cholecalciferol (vitamin D3) 50 50 mcg PO DAILY 90 days #90 caps 10/01/21 mcg (2,000 unit) capsule (Vitamin D3) calcium carbonate 600 mg calcium 600 mg PO BID 90 days #180 tabs 03/25/22 (1,500 mg) tablet diclofenac sodium 1 % topical gel 4 g topical QID PRN pain 30 days 08/27/22 (Arthritis Pain (diclofenac)) #100 grams lidocaine 5 % topical patch 1 patch topical DAILY pain 30 days 08/27/22 #30 ea methocarbamol 500 mg tablet 500 mg PO BID PRN muscle spasm 30 09/16/22 days #60 tabs Allergies Allergy/AdvReac Type Severity Reaction Status Date / Time gabapentin Allergy Intermediate somnolence Verified 09/16/22 13:56 pregabalin Allergy Intermediate somnolence Verified 09/16/22 13:56 Influenza Virus Vaccines AdvReac Intermediate Throat pain Verified 09/16/22 1 3:56 Review of Systems Review of Systems: As per HPI Yes all other systems are reviewed and are negative Constitutional: Constitutional: Reports as per HPI PMFSH Past Medical History Medical History Anxiety Arm paresthesia, right Carpal tunnel syndrome CKD (chronic kidney disease), stage III Depression with anxiety Family history of diabetes mellitus Hair loss Hyperkalemia Hypovitaminosis D Insomnia Muscle cramps Neuropathy Obesity (BMI 30-39.9) Osteopenia Pure hypercholesterolemia Trigger finger Surgical History H/O exploratory laparotomy History of carpal tunnel release History of cataract surgery History of section History of surgery History of tubal ligation Hx of breast reduction, elective Hx of colonoscopy Family History Family History Father Prostate cancer Mother No problems noted. Family/Other FH: mental illness Hypertension Tachycardia Maternal Aunt No problems noted. 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 Cognitive needs: No Hearing needs: No Vision needs: No Physical Exam ED Vital Signs: Vital Signs - 24 hr 10/15/22 11:24 10/15/22 14:54 10/15/22 18:41 Temperature 98.4 F 98.5 F Pulse Rate 88 80 81 Respiratory Rate 12 10 L 12 Blood Pressure 103/61 98/59 L 113/68 Pulse Oximetry 96 98 97 Oxygen Delivery Method Room Air Room Air Room Air 10/15/22 19:09 10/16/22 00:36 10/15/22 23:36 Temperature 98.1 F 98.3 F Pulse Rate 73 76 89 Respiratory Rate 11 L 13 Blood Pressure 113/60 104/56 L 113/63 Pulse Oximetry 99 98 Oxygen Delivery Method Room Air Room Air 10/16/22 02:19 10/16/22 03:18 10/16/22 05:19 Temperature 98.1 F Pulse Rate 81 92 87 Respiratory Rate 12 15 12 Blood Pressure 118/69 98/50 L 106/67 Pulse Oximetry 97 97 98 Oxygen Delivery Method Room Air Room Air Room Air 10/16/22 05:46 10/16/22 08:08 Temperature 98.6 F Pulse Rate 86 83 Respiratory Rate 12 16 Blood Pressure 109/72 98/65 Pulse Oximetry 99 98 Oxygen Delivery Method Room Air Room Air BMI result Body Mass Index 27.1 Const General: cooperative, healthy appearing and no acute distress Orientation/consciousness: oriented to person, oriented to place, oriented to time and patient oriented x3 Limitations: no limitations HENMT Head: Yes normocephalic and Yes atraumatic Ears: external ears normal General nose exam: Normal external nose present Face and sinus: Yes face symmetric Mouth: oropharynx normal and moist mucous membranes Throat: Yes uvula midline Eyes Pupils: Equal, round and reactive pupils present Neck Neck: Yes normal visual inspection and Yes supple Resp Effort & Inspection: normal respiratory effort and able to speak in complete sentences Auscultation: clear to auscultation bilaterally Cardio Rate: regular rate Rhythm: regular rhythm Heart sounds: S1 normal heart sound present and S2 normal heart sound present GI Palpation (GI): Soft to palpation and nontender Auscultation: normoactive bowel sounds General: Yes no CVA tenderness Back/Spine/Pelvis Back: no CVA tenderness Skin General skin exam: elasticity normal and turgor normal Neuro General: oriented to person, oriented to place, oriented to time, patient oriented x3, moves all extremities, no focal motor deficits and CN's II-XI intact bilaterally Cranial nerves: Yes Equal, round and reactive pupils present Cognition (Neuro): normal cognition Extrem General: Yes full ROM, Yes no pedal edema and Yes no calf tenderness Psych Mental Status: mental status grossly normal Affect: normal affect Thought process: Normal thought process present Course Course Course Narrative: 13:06 FINDINGS: The lungs are fairly well-expanded and clear of acute process. There is a 5 mm calcified nodule right lower lobe. The heart size and pulmonary vascularity is normal. No gross bony abnormality seen. XR/XR chest 2V IMPRESSION: ?5 mm calcified nodule right lower lobe. Otherwise no acute process seen. Initial troponin negative, HEART score 4, patient reports pain is waxing and waning between 0/10-5/10 Reevaluation(s) Reevaluation #1: Presented case to Dr. Jean, recommends repeat troponin and complete echo. Time: 14:10 Reevaluation #2: Patient signed out to JAC Coker pending results of echo Time: 16:24 Reevaluation #3: Echo results have not transferred over, medical unit secretary reached out to [facility] states that they are unable to see these results. Spoke to patient and patient's son, patient pain free. Will hold patient till echo results are posted. Patient's vital signs are stable. Time: 19:00 Additional Reevaluation(s): Still no results for echo, patient will be held overnight toe results are posted. Still pain free. Vital signs stable. Consultations Consultation #1: I discussed this case with Dr. Jean the [employer] and he reported that he did the ultrasound bedside and he told the PA that the echo was normal. He is unsure why the results did not cross into the computer although he reports that the patient could be discharged as long as she had 2- troponin and is chest pain-free. Patient had 2- troponins her troponins are 2.7. She continues to remain chest pain-free. I explained to her she develops any new or worsening symptoms she can return although she can follow-up with her PCP and call Cardiology for follow-up within the next few weeks. Patient understands. Son was called and updated about this he understands with the plan. Will discharge at this time. Time: 08:49 Medications Administered Discontinued Medications Generic Name Dose Route Start Last Admin Trade Name Laz PRN Reason Stop Dose Admin Acetaminophen 975 mg 10/15/22 13:22 10/15/22 14:26 Acetaminophen 325 Mg Tablet PO 10/15/22 13:23 975 mg ONCE ONE Administration Medical Decision Making Medical Decision Making MDM Narrative: Patient is a 72-year-old female with past history of CKD, high cholesterol, and chronic pain presenting with 2 days of constant chest pain. On exam patient is A+Ox3, well appearing, in no acute distress, VS WNL, BP on low side, will hold off on any additional NTG at this time. EKG without evidence of STEMI. Concern for ACS, ordered labs including troponin, BNP, PT/INR. Lower suspicion for CHF, acute PE (low risk Wells), pneumohorax, aortic dissection, cardiac effusion/tamponade. Patient already received ASA from EMS. Plan: EKG, labs, CXR, pain control, reassess Please refer to course for remaining clinical decision making. Differential Diagnosis Differential Diagnoses: The differential diagnosis associated with the presentation includes As above Admission/Observation Consideration of admission/observation: Escalation of care including admission/observation considered Consult Healthcare Provider Management of the patient was discussed with: Commercial Singer (Dr. Jean) Lab Data MDM Lab Attestation statement: I reviewed the patient's lab results. 10/15/22 12:03 10/15/22 12:03 Labs: Lab Results 10/15/22 10/15/22 10/15/22 Range/Units 12:03 12:03 12:03 WBC 3.8 L (4.8-10.8) X10*3/uL RBC 4.06 L (4.20-5.50) X10*6/uL Hgb 12.1 (12.0-16.0) g/dl Hct 36.9 L (37.0-47.0) % MCV 90.9 (80.0-98.0) fL MCH 29.8 (27.0-33.0) pg MCHC 32.8 (31.0-35.0) g/dl RDW 14.1 (11.0-16.0) % Plt Count 249 (160-400) X10*3/uL MPV 10.0 (9.4-12.3) fL Immature Gran % (Auto) 0.3 (0.0-0.4) % Neut % (Auto) 50.2 (45-73) % Lymph % (Auto) 34.4 (20-40) % [place] % (Auto) 10.6 (2-11) % Eos % (Auto) 2.9 (0-4) % Baso % (Auto) 1.6 (0-2) % Lymph # (Auto) 1.3 (1.2-4.9) X10*3/uL [place] # (Auto) 0.4 (0.1-1.2) X10*3/uL Eos # (Auto) 0.1 (0.0-0.4) X10*3/uL Baso # (Auto) 0.1 (0.0-0.2) X10*3/uL Abs Immat Gran (auto) 0.01 (0.00-0.03) X10*3/uL Absolute Neuts (auto) 1.9 L (2.0-8.3) x10*3/uL Absolute Nucleated RBC 0.000 (0.0-0.012) X10*3/uL Nucleated RBC % (auto) 0.0 (0.0-0.2) /100WBC PT 11.5 (10.0-13.1) SEC INR 1.0 (0.9-1.1) Sodium 142 (135-145) mmol/L Potassium 4.0 D (3.3-5.1) mmol/L Chloride 111 H (96-108) mmol/L Carbon Dioxide 28 (22-29) mmol/L Anion Gap 7 L (12-20) BUN 13 (9-16) mg/dL Creatinine 0.80 (0.5-1.4) mg/dL Estim Creat Clear Calc 59.8 Estimated GFR > 60 Random Glucose 94 (60-115) mg/dL Calcium 9.0 D (8.4-10.2) mg/dL Total Bilirubin 0.5 (0.0-1.0) mg/dL AST 18 (5-31) U/L ALT 12 (0-31) U/L Alkaline Phosphatase 74 (39-117) U/L Troponin I High Sens (<3.5-17.0) ng/L B-Natriuretic Peptide (<100) pg/mL Total Protein 6.0 L (6.5-8.0) g/dL Albumin 3.5 (3.5-5.0) g/dL 10/15/22 10/15/22 10/15/22 Range/Units 12:03 12:03 14:03 WBC (4.8-10.8) X10*3/uL RBC (4.20-5.50) X10*6/uL Hgb (12.0-16.0) g/dl Hct (37.0-47.0) % MCV (80.0-98.0) fL MCH (27.0-33.0) pg MCHC (31.0-35.0) g/dl RDW (11.0-16.0) % Plt Count (160-400) X10*3/uL MPV (9.4-12.3) fL Immature Gran % (Auto) (0.0-0.4) % Neut % (Auto) (45-73) % Lymph % (Auto) (20-40) % [place] % (Auto) (2-11) % Eos % (Auto) (0-4) % Baso % (Auto) (0-2) % Lymph # (Auto) (1.2-4.9) X10*3/uL [place] # (Auto) (0.1-1.2) X10*3/uL Eos # (Auto) (0.0-0.4) X10*3/uL Baso # (Auto) (0.0-0.2) X10*3/uL Abs Immat Gran (auto) (0.00-0.03) X10*3/uL Absolute Neuts (auto) (2.0-8.3) x10*3/uL Absolute Nucleated RBC (0.0-0.012) X10*3/uL Nucleated RBC % (auto) (0.0-0.2) /100WBC PT (10.0-13.1) SEC INR (0.9-1.1) Sodium (135-145) mmol/L Potassium (3.3-5.1) mmol/L Chloride (96-108) mmol/L Carbon Dioxide (22-29) mmol/L Anion Gap (12-20) BUN (9-16) mg/dL Creatinine (0.5-1.4) mg/dL Estim Creat Clear Calc Estimated GFR Random Glucose (60-115) mg/dL Calcium (8.4-10.2) mg/dL Total Bilirubin (0.0-1.0) mg/dL AST (5-31) U/L ALT (0-31) U/L Alkaline Phosphatase (39-117) U/L Troponin I High Sens < 2.7 < 2.7 (<3.5-17.0) ng/L B-Natriuretic Peptide 45 (<100) pg/mL Total Protein (6.5-8.0) g/dL Albumin (3.5-5.0) g/dL Independent Interpretation I performed an independent interpretation of an: EKG and Plain X-Ray Interpretation: EKG: normal sinus rhythm, rate 82bpm, normal GA interval. I independently reviewed the x-ray and agree with the radiologist's interpretation. Radiology Impression Discussion of test interpretation with radiology: I have reviewed the rad iologist's reading. Radiologist Impression: FINDINGS: The lungs are fairly well-expanded and clear of acute process. There is a 5 mm calcified nodule right lower lobe. The heart size and pulmonary vascularity is normal. No gross bony abnormality seen. XR/XR chest 2V IMPRESSION: ?5 mm calcified nodule right lower lobe. Otherwise no acute process seen. ? External Record Review External record reviewed: Inpatient record, Office record and Outpatient record Prescription Management I considered prescription management with: Pain Medication Chronic Conditions Patient?s care impacted by: Other (HLD, CKD) Scores Heart Score History: -1- moderately suspicious ECG: -0- normal Age: -2- > or = 65 Risk factory: -1- 1 or 2 risk factors Troponin: -0- < or = normal limit Score: 4 Risk: 16.6% Critical Care Time Critical Care Time Critical Care Time: No Discharge Plan Discharge Clinical Impression: Chest pain Patient Disposition: Home, Self-Care Instructions: Chest Pain (ED) Prescriptions: No Action calcium carbonate 600 mg calcium (1,500 mg) tablet 600 mg PO BID 90 Days Qty: 180 3RF acetaminophen 500 mg capsule 500 mg PO Q6H PRN (Reason: fever or pain) 30 Days Qty: 120 3RF cholecalciferol (vitamin D3) [Vitamin D3] 50 mcg (2,000 unit) capsule 50 mcg PO DAILY 90 Days Qty: 90 3RF lidocaine 5 % adhesive patch,medicated 1 patch topical DAILY 30 Days Qty: 30 1RF diclofenac sodium [Arthritis Pain (diclofenac)] 1 % gel 4 g topical QID PRN (Reason: pain) 30 Days Qty: 100 1RF Rx Instructions: apply to single knee, ankle, foot; for foot includes sole/toes/top of foot methocarbamol 500 mg tablet 500 mg PO BID PRN (Reason: muscle spasm) 30 Days Qty: 60 0RF Referrals: Olivia Andrade MD [Primary Care Provider] - 2 days Charles Jean MD [Physician] - (call to make a follow up appointment ) Print Language: Turkish
[2022-10-15 11:24] VITALS: BP 103/61; PULSE 88; PULSE 90; RESP 12; TEMP 36.9; O2SAT 100; O2SAT 96; BMI 27.1
--- NOTE | 2022-10-15 11:49 | PC.NURSE ---
Pt is mostly nepali speaking, interp at bedside with provider, reporting the chest pain has been constant today until EMS gave nitro which has resolved the pain. Lab work ordered, EKG obtained, pt reporting dizziness and seeing stars when standing. Son at bedside.
[2022-10-15 12:06] LABS: MANUAL DIFF FLAG NO
[2022-10-15 12:10] LABS: Basophils Absolute Auto 0.1 X10*3/uL (0.0-0.2); Basophils Percent Auto 1.6 % (0-2); Eosinophils Absolute Auto 0.1 X10*3/uL (0.0-0.4); Eosinophils Percent Auto 2.9 % (0-4); Hematocrit 36.9 % (37.0-47.0); Hemoglobin 12.1 g/dl (12.0-16.0); Imm Gran Abs Auto 0.01 X10*3/uL (0.00-0.03); Imm Gran Pct Auto 0.3 % (0.0-0.4); Lymphocytes Absolute Auto 1.3 X10*3/uL (1.2-4.9); Lymphocytes Percent Auto 34.4 % (20-40); Mean Corpuscular HGB Conc 32.8 g/dl (31.0-35.0); Mean Corpuscular Hemoglobin 29.8 pg (27.0-33.0); Mean Corpuscular Volume 90.9 fL (80.0-98.0); Monocytes Absolute Auto 0.4 X10*3/uL (0.1-1.2); Monocytes Percent Auto 10.6 % (2-11); Neutrophils Absolute Auto 1.9 x10*3/uL (2.0-8.3); Neutrophils Percent Auto 50.2 % (45-73); Platelet Count 249 X10*3/uL (160-400); Red Blood Count 4.06 X10*6/uL (4.20-5.50); Red Cell Distribution Width 14.1 % (11.0-16.0); White Blood Count 3.8 X10*3/uL (4.8-10.8)
[2022-10-15 12:12] LABS: Prothrombin Time 11.5 SEC (10.0-13.1)
[2022-10-15 12:22] LABS: Alanine Aminotransferase 12 U/L (0-31); Albumin Level 3.5 g/dL (3.5-5.0); Alkaline Phosphatase 74 U/L (39-117); Anion Gap 7 (12-20); Aspartate Amino Transferase 18 U/L (5-31); Bilirubin Total 0.5 mg/dL (0.0-1.0); Blood Urea Nitrogen 13 mg/dL (9-16); Carbon Dioxide 28 mmol/L (22-29); Chloride 111 mmol/L (96-108); Creatinine Clr Calc Pharmacy 59.8; Estimated Glomerular Filt Rate > 60; Glucose Random 94 mg/dL (60-115); Sodium 142 mmol/L (135-145)
[2022-10-15 12:28] LABS: B Type Natriuretic Peptide 45 pg/mL (<100)
[2022-10-15 12:33] LABS: Troponin-I High Sensitivity < 2.7 ng/L (<3.5-17.0)
[2022-10-15] MEDS: Acetaminophen 325 MG TABLET 975 MG PO (14:26)
[2022-10-15 14:54] VITALS: BP 98/59; PULSE 80; RESP 10; TEMP 36.9; O2SAT 98
--- NOTE | 2022-10-15 15:00 | CA_ITS ---
Transthoracic Echocardiogram Patient (Last, First, Middle): Clara Cruz, Gender: Female Date of : 1950 Age: 72 Procedure Date: 10/15/2022 Procedure Type: Transthoracic Echocardiogram Location: ER Height: 162.56 cm Weight: 71.22 kg BSA: 1.76 m2 Heart Rate: bpm BP: 103 / 61 mmHg Energy Project Engineer: Referring MD: Priscila Moran CLERICAL AIDE Symptoms: chest pain Study Quality: Good ECG Rhythm: Sinus Conclusions: - The left ventricular systolic function is normal. The visually estimated ejection fraction is between 55-60%. - There is mild tricuspid valve regurgitation. Findings Left Ventricle Normal left ventricular cavity size. There is normal left ventricular wall thickness. The left ventricular systolic function is normal. The visually estimated ejection fraction is between 55-60%. There is no evidence of regional wall motion abnormalities. Diastolic function is normal for age. Right Ventricle Normal right ventricular cavity size and systolic function. Atria Both atria are normal in size. Aortic Valve There is a normal trileaflet aortic valve. There is no aortic valve stenosis. There is no aortic valve regurgitation. Mitral Valve The mitral valve appears normal. There is trace mitral valve regurgitation. There is no mitral valve stenosis. Pulmonic Valve The pulmonic valve is likely normal. Tricuspid Valve There is mild tricuspid valve regurgitation. There is no evidence of pulmonary hypertension. Great Vessels The asc aorta is normal in size. Venous The inferior vena cava is normal in size and collapses greater than 50% with inspiration. Pericardium/Pleural There is no evidence of pericardial effusion. Prior Study Comparison No prior study available for comparison. Measurements 2D Linear Measurements IVSd: 0.66 0.6-0.9/0.6-1.0 cm LVIDd: 4.61 3.9-5.3/4.2-5.9 cm LVIDd Index: 2.62 2.4-3.2/2.2-3.1 cm/m2 LVIDs: 3.08 2.0-3.6 cm LVPWd: 0.78 0.7-1.1 cm Ao Root: 2.90 2.1-3.5 cm LA Diam: 3.00 2.7-3.8/3.0-4.0 cm LAIDs Index: 1.70 1.5-2.3 cm/m2 LV Mass: 127.50 67-162/88-224 g LV Mass Index: 72.44 43-95/49-115 g/m2 LVOT Diam: 2.00 3.0+(-)1.3 cm 2D Systolic Function EF 4C: 68.00 >55% EF 2C: 55.10 >55% EF BiP: 60.90 >55% Mitral Valve MV Pk E: 0.62 MV PK A: 1.00 MV Decel Time: 149.00 E/A: 0.60 E'Lateral: 8.70 E'Medial: 6.64 E/E' Med: 9.40 E/E' Lat: 7.20 PHT: 44.00 MVA PHT: 5.00 Decel [place]: 4.18 Aortic Valve AoV Pk [place]: 1.16 AoV Mn [place]: 0.74 AoV VTI: 0.30 AoV Pk Grad: 5.00 Aov Mn Grad: 3.00 TRINA Cont.VTI: 1.90 LVOT LVOT Pk [place]: 0.77 LVOT Mn [place]: 0.50 LVOT VTI: 0.18 LVOT Pk Grad: 2.00 LVOT Mn Grad: 1.00 LVOT Diam: 2.00 LVOT Area: 3.14 Diastolic Function MV Pk E: 0.62 MV Pk A: 1.00 E/A: 0.60 E'Medial: 6.64 E/E' Med: 9.40 E' Laterial: 8.70 E/E' Lat: 7.20 Tricuspid Valve TR Pk [place]: 2.73 TR Pk Grad: 30.00 RA Press: 3.00 RVSP: 33.00 Great Vessels Aorta Ao Root-2D: 2.90 2.0-3.7 cm Ao Asc: 2.50 2.1-3.4 cm Pulmonary Valve PV Pk [place]: 0.67 Peak PV Grad: 2.00 Updated in Other Vendor System with Status of Final Charles Jean MD electronically signed on 10/18/2022 8:38:33 AM with status of Final
[2022-10-15 15:06] LABS: Troponin-I High Sensitivity < 2.7 ng/L (<3.5-17.0)
[2022-10-15 18:41] VITALS: BP 113/68; PULSE 81; RESP 12; O2SAT 97
[2022-10-15 19:09] VITALS: BP 113/60; PULSE 73; RESP 11; TEMP 36.7; O2SAT 99
--- NOTE | 2022-10-15 19:27 | PC.NURSE ---
Pt assessed, denies any chest pain, NSR on monitoring engineer
--- NOTE | 2022-10-15 19:36 | MHC.EDTECH ---
Vital signs stable . warm blanket given.
[2022-10-15 23:36] VITALS: BP 113/63; PULSE 89
[2022-10-16 00:36] VITALS: BP 104/56; PULSE 76; RESP 13; TEMP 36.8; O2SAT 98
[2022-10-16 02:19] VITALS: BP 118/69; PULSE 81; RESP 12; TEMP 36.7; O2SAT 97
[2022-10-16 03:18] VITALS: BP 98/50; PULSE 92; RESP 15; O2SAT 97
[2022-10-16 05:19] VITALS: BP 106/67; PULSE 87; RESP 12; O2SAT 98
--- NOTE | 2022-10-16 05:21 | PC.NURSE ---
pt assessed, slept during the shift
[2022-10-16 05:46] VITALS: BP 109/72; PULSE 86; RESP 12; O2SAT 99
--- NOTE | 2022-10-16 07:21 | PC.NURSE ---
Pt sleeping in bed, respirations even and unlabored. Awaiting echo this morning
[2022-10-16 08:08] VITALS: BP 98/65; PULSE 83; RESP 16; TEMP 37; O2SAT 98
--- NOTE | 2022-10-16 08:10 | PC.NURSE ---
Awake, alert and oriented resp even and unlabored. Pt denies any chest pain or any other complaints, vss
== END 2022-10-16 08:55 | disposition home or self-care (01) ==
PROVIDERS: Registered Nurse Emergency; Emergency Provider Emergency Medicine; PCP Internal Medicine
DX: R07.9 Chest pain, unspecified (principal); R06.02 Shortness of breath; E78.00 Pure hypercholesterolemia, unspecified; N18.30 Chronic kidney disease, stage 3 unspecified; Z79.899 Other long term (current) drug therapy
CPT/HCPCS: 36415; 71046; 80053; 83880; 84484; 85025; 85610; 93005; 93306; 99283; 99285; Q9957

== ENCOUNTER 2022-10-20 13:53 | Outpatient (REF) | payer OTHER, SELFPAY ==
--- NOTE | ~2022-10-20 | MM_ITS ---
EXAMINATION: MM SCREENING DIGITAL BREAST TOMOSYNTHESIS, BILATERAL CLINICAL INFORMATION: Screening. Asymptomatic. Status post reduction mammoplasty. The lifetime risk of breast cancer based on the Tyrer-Cuzick Model is 4%. COMPARISON: Mammography: October 19, 2021 and May 14, 2020 TECHNIQUE: Digital breast tomosynthesis is performed in both the craniocaudal and mediolateral oblique views along with computer-aided detection (CAD). Synthesized 2D images are generated from the tomosynthesis. Additional right breast exaggerated craniocaudal view performed. FINDINGS: The breasts are almost entirely fatty (ACR BI-RADS breast composition Category a). There are no new significant masses, abnormal calcifications, or other abnormalities. Postsurgical change seen bilaterally. MM/MM tomosynthesis screening BI IMPRESSION: No significant changes from prior exam. ASSESSMENT: BI-RADS 2: Benign RECOMMENDATION: Routine annual mammography screening. This patient's information was entered into a reminder system with a target due date for their next mammogram.
== END 2022-10-20 13:54 | disposition home or self-care (01) ==
LOC: HO.MAMMO 13:53
PROVIDERS: PCP Internal Medicine; Visit Provider Internal Medicine
DX: Z12.31 Encounter for screening mammogram for malignant neoplasm of breast (principal)
CPT/HCPCS: 77063; 77067

== ENCOUNTER → 2022-11-09 11:09 | Outpatient (BNVA) | payer OTHER, SELFPAY | PROVIDERS: PCP Internal Medicine; Visit Provider Nurse Practitioner | DX: K21.9 Gastro-esophageal reflux disease without esophagitis (principal); R10.10 Upper abdominal pain, unspecified | CPT/HCPCS: 99212 ==

== ENCOUNTER 2022-11-09 18:18 | Outpatient (REF) | payer OTHER, SELFPAY ==
[2022-11-11 16:12] LABS: H Pylori Breath Test Positive (Negative)
== END 2022-11-09 18:19 | disposition home or self-care (01) ==
LOC: HO.LNP 18:18
PROVIDERS: Visit Provider Nurse Practitioner
DX: R10.10 Upper abdominal pain, unspecified (principal); K21.9 Gastro-esophageal reflux disease without esophagitis
CPT/HCPCS: 83013

== ENCOUNTER 2022-11-22 14:00 | Outpatient (RCR) | payer OTHER, SELFPAY ==
--- NOTE | 2022-11-15 16:37 | MHC.PT.EP ---
[facility] [place] Office [place] Office [place] Office [address] [phone] F: [phone] F: [phone] F: [phone] F: [phone] Physical Therapy Plan of Care Date of Evaluation: Date of Surgery: Diagnosis: RIGHT hip pain LEFT hip pain mild grade 1 anterolisthesis of L4 upon L5 Assessment: Patient is a 72 y.o. mongolian speaking female who is referred to PT by DARIA Bray, with Dx of RIGHT and LEFT hip pain. PT diagnosis is lumbar spine mild grade 1 anterolisthesis of L4 upon L5 with imbalance of core and hip musculature that has caused chronic hip pain. Patient impairments include pain, weakness in LEs and core, limited AROM of hips and lumbar spine, poor posture. Patient current functional limitations are putting on shoes/socks, standing, walking, bathing, dressing, prolonged positions, sleeping. Patient will benefit from skilled PT to address aforementioned impairments and functional limitations to meet established goals. Frequency and Duration: The patient will be seen 2x/week for 4 weeks Short Term Goals: 2 weeks Patient demonstrates consistency and independence with HEP to self manage symptoms. Patient presents with increased R hip flexion 100 degrees to get in/out of tub. Cdl Team Truck Driver Goals: 4 weeks Patient presents with increased R hip flexion strength 4/5 to be able to perform sit to stand without use of hands. Patient presents with increased lumbar flexion AROM 80 degrees to improve lower body dressing. Treatment Plan: Modalities to reduce pain, spasms and effusion. Manual therapy to restore motion and function. Therapeutic exercise to improve strength and flexibility. Neuromuscular re-education for posture and balance. Therapeutic activities to return to functional activities of daily living. Electronically signed by: Saritha Elizondo, PT, DPT Please sign and return to therapist. Thank you for your referral.
--- NOTE | 2022-11-29 15:52 | MHC.PT.DC ---
[facility] [place] Office [place] [facility] [place] [facility] [address] Mehrdad Perez [address] [phone] F: [phone] F: [phone] F: [phone] F: [phone] Physical Therapy Discharge Report Diagnosis: RIGHT hip pain LEFT hip pain mild grade 1 anterolisthesis of L4 upon L5 Date of Surgery: Date of Evaluation: 11/15/22 Date of Discharge: 11/29/22 Treatments to Date: 3 Cancellations to Date: No Shows to Date: Discharge Status: Patient Elected to Stop Physician Discontinued Tx Discharge Summary: Patient most recent visist on 11/22 assessment reads, pt has limited homer for ex. multiple positions trialed. with increase of sx. Pt advised to discuss plan with MD. Patient came to clinic to discontinue remaining PT appointments due to unbearable pain after sessions. Therefore she is discharged at this time. Electronically signed by: Saritha Elizondo, PT, DPT Please sign and return to therapist. Thank you for your referral.
== END 2022-11-29 15:53 | disposition home or self-care (01) ==
LOC: HO.PT 14:00
PROVIDERS: PCP Internal Medicine; Visit Provider Nurse Practitioner Family
DX: M25.551 Pain in right hip (principal); M25.552 Pain in left hip
CPT/HCPCS: 97110; 97162

== ENCOUNTER 2022-11-26 08:13 | Outpatient (REF) | payer OTHER, SELFPAY ==
--- NOTE | ~2022-11-26 | US_ITS ---
EXAMINATION: US ABDOMEN COMPLETE CLINICAL INFORMATION: Upper abdominal pain, unspecified. COMPARISON: None available. TECHNIQUE: Real-time imaging of the abdominal viscera. FINDINGS: PANCREAS: Normal. The visualized pancreatic head and body are normal in appearance. The remainder of the pancreas is obscured from visualization by the overlying bowel gas. ABDOMINAL AORTA: The proximal, mid, and distal segments are normal in caliber. INFERIOR VENA CAVA: Visualized portions are normal. LIVER: Normal. The liver is normal in size. The liver contour is normal. Parenchymal echogenicity is normal. No focal hepatic lesion. There is no intrahepatic biliary duct dilatation seen. GALLBLADDER: Normal. The gallbladder is physiologically distended without evidence of stones, sludge, polyps, wall thickening or pericholecystic fluid. COMMON BILE DUCT: Normal in caliber measuring 0.4 cm in diameter. RIGHT KIDNEY: Normal. No hydronephrosis. No renal calculi or focal parenchymal lesions. The kidney measures 9.5 cm in maximum dimension. LEFT KIDNEY: At the lower pole, a 1.2 cm in maximal diameter benign, simple cyst is seen. No hydronephrosis or renal calculi. The kidney measures 7.9 cm in maximum dimension. SPLEEN: No focal finding. The spleen measures 7.3 cm in maximum dimension. FREE FLUID: None. US/US abdomen complete IMPRESSION: A 1.2 cm benign, simple left renal cyst is seen. This requires no imaging follow-up. The examination is otherwise unremarkable, with imaging of the pancreatic tail technically limited.
== END 2022-11-26 08:14 | disposition home or self-care (01) ==
LOC: HO.US 08:13
PROVIDERS: PCP Internal Medicine; Visit Provider Nurse Practitioner
DX: R10.10 Upper abdominal pain, unspecified (principal); K21.9 Gastro-esophageal reflux disease without esophagitis
CPT/HCPCS: 76700

== ENCOUNTER 2022-12-02 12:57 | Outpatient (REF) | payer OTHER, SELFPAY ==
--- NOTE | ~2022-12-02 | XR_ITS ---
EXAMINATION: XR CLAVICLE, LEFT CLINICAL INFORMATION: Pain. COMPARISON: None available. TECHNIQUE: Straight AP and cephalad angulated AP views of the left clavicle. FINDINGS: There is bony demineralization. The glenohumeral joint is intact and shows mild osteoarthritic change. The acromioclavicular and coracoclavicular intervals are normal. There is moderate osteoarthritic change of the acromioclavicular joint. No fracture or dislocation is seen. There is no soft tissue calcification or foreign body. No left pneumothorax is seen. XR/XR clavicle LT IMPRESSION: 1. There is mild osteoarthritic change of the left glenohumeral joint, and moderate osteoarthritic changes seen of the left acromioclavicular joint. 2. No fracture or dislocation is seen.
== END 2022-12-02 12:58 | disposition home or self-care (01) ==
LOC: HO.XRAY 12:57
PROVIDERS: PCP Internal Medicine; Visit Provider Internal Medicine
DX: M25.512 Pain in left shoulder (principal); G89.4 Chronic pain syndrome
CPT/HCPCS: 73000

== ENCOUNTER 2022-12-02 13:12 | Outpatient (REF) | payer OTHER, SELFPAY ==
[2022-12-02 14:43] LABS: Alanine Aminotransferase 14 U/L (0-31); Albumin Level 3.8 g/dL (3.5-5.0); Alkaline Phosphatase 70 U/L (39-117); Anion Gap 13 (12-20); Aspartate Amino Transferase 21 U/L (5-31); Bilirubin Total 0.6 mg/dL (0.0-1.0); Blood Urea Nitrogen 13 mg/dL (9-16); Calcium 9.9 mg/dL (8.4-10.2); Carbon Dioxide 23 mmol/L (22-29); Chloride 110 mmol/L (96-108); Cholesterol 204 mg/dL; Estimated Glomerular Filt Rate > 60; Glucose Fasting 119 mg/dL (60-99); HDL Cholesterol 54 mg/dL; LDL Cholesterol Calculated 125 mg/dl; Potassium 3.8 mmol/L (3.3-5.1); Sodium 142 mmol/L (135-145); Triglycerides 127 mg/dL
[2022-12-02 14:53] LABS: Vitamin D 25-OH Total 52.1 ng/mL (>30)
== END 2022-12-02 13:13 | disposition home or self-care (01) ==
LOC: HO.LAB 13:12
PROVIDERS: PCP Internal Medicine; Visit Provider Internal Medicine
DX: Z00.00 Encounter for general adult medical examination without abnormal findings (principal); M79.642 Pain in left hand; M79.641 Pain in right hand; M47.816 Spondylosis without myelopathy or radiculopathy, lumbar region; M51.36 Other intervertebral disc degeneration, lumbar region; M25.519 Pain in unspecified shoulder; G89.4 Chronic pain syndrome; R25.2 Cramp and spasm; E55.9 Vitamin D deficiency, unspecified; E78.5 Hyperlipidemia, unspecified
CPT/HCPCS: 36415; 80053; 80061; 82306; 83735; 99212

== ENCOUNTER 2022-12-14 12:57 | Outpatient (AMB) | payer OTHER, SELFPAY ==
--- NOTE | 2022-12-14 13:03 | MHC.OFFVIS ---
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/Harry/Chest pain,unspecified Intake Note: NPV Software Performance Engineer Required: Yes Software Performance Engineer Language: Shoe Cobbler Name: [id number] Benjamin Accompanied by: Son Allergies gabapentin Allergy (Intermediate, Verified 12/14/22 13:06) somnolence pregabalin Allergy (Intermediate, Verified 12/14/22 13:06) somnolence Influenza Virus Vaccines Adverse Reaction (Intermediate, Verified 12/14/22 13:06) Throat pain Medication List - Last Reconciled 12/14/22 by Charles Jean MD acetaminophen 500 mg PO Q6H PRN 30 days bismuth subsalicylate (Bismuth) 2 tabs PO QID 14 days cholecalciferol (vitamin D3) (Vitamin D3) 50 mcg PO DAILY 90 days diclofenac sodium 1% 4 grams topical QID PRN methocarbamol 500 mg PO BID PRN 30 days metronidazole 1,000 mg (2 x 500 mg) PO BID 14 days omeprazole 40 mg PO BID 30 days tetracycline 500 mg PO Q12H underpads (Bed Underpads) Use 1 to 4 bed underpads once a day prn [wipes flushable As directed] HPI HPI Comments History of Present Illness Details Clara is here for consultation regarding chest pains. She gets discomfort in substernal area off and on. Apparently she also has history of cervical rib and has had surgery for the same. She states she gets some pain related to this extra rib but the substernal pain does not seem related. Any case, nothing clearly exertional. Can happen randomly. She also gets palpitations off and on. No known coronary disease or myocardial infarction. [facility] Medical History Anxiety Arm paresthesia, right Carpal tunnel syndrome CKD (chronic kidney disease), stage III Depression with anxiety Family history of diabetes mellitus Hair loss Hyperkalemia Hypovitaminosis D Insomnia Muscle cramps Neuropathy Obesity (BMI 30-39.9) Osteopenia Pure hypercholesterolemia Trigger finger Surgical History H/O exploratory laparotomy History of carpal tunnel release History of cataract surgery History of section History of surgery History of tubal ligation Hx of breast reduction, elective Hx of colonoscopy Family History Father Prostate cancer Mother No problems noted. Family/Other FH: mental illness Hypertension Tachycardia Maternal Aunt No problems noted. 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 Cognitive needs: No Hearing needs: No Vision needs: No Review of Systems Const Denies chills, Denies daytime sleepiness, Denies fatigue, Denies fever(s), Denies frequent falls, Denies night sweats, Denies snoring, Denies weakness, Denies weight gain and Denies weight loss Eyes Denies loss of vision ENT Denies dizziness and Denies hearing loss Card Denies chest pain, Denies chest pain with activity, Denies syncope, Denies rapid heart rate, Denies edema, Denies claudication, Denies leg edema, Denies lightheadedness, Denies palpitations, Denies dyspnea, Denies dyspnea on exertion and Denies orthopnea Resp Denies cough, Denies excessive phlegm production, Denies dyspnea, Denies dyspnea on exertion, Denies snoring and Denies wheezing GI Denies abdominal pain, Denies hematochezia, Denies change in bowel habits, Denies change in stool character, Denies heartburn, Denies nausea and Denies vomiting Denies hematuria, Denies urinary frequency and Denies dysuria Musc Denies arthralgias, Denies muscle weakness, Denies numbness and Denies tingling Skin/Breast Denies nail changes and Denies rash Neuro Denies Abnormal speech present, Denies dizziness, Denies syncope, Denies frequent falls, Denies loss of vision, Denies memory loss, Denies numbness, Denies tingling and Denies weakness Psych Denies depression and Denies memory loss Endo Denies fatigue and Denies palpitations Aller/Immun Denies wheezing Physical Exam Vital Signs: Last Vital Signs Pulse 94 12/14/22 13:04 BP 90/64 12/14/22 13:04 BMI result Body Mass Index 29.3 Const General: comfortable and no acute distress Orientation/consciousness: patient oriented x3 HEENT Other: Unremarkable Head: Yes normal to inspection Neck Neck: Yes normal visual inspection Chest Chest palpation & inspection: normal inspection of the chest Resp Auscultation: clear to auscultation bilaterally Cardio Palpation: normal PMI Heart sounds: S1 normal heart sound present, S2 normal heart sound present, no gallops, no murmurs and no rubs GI Palpation (GI): Soft to palpation Back/Spine/Pelvis Other: unremarkable Skin General skin exam: no rashes or lesions noted Neuro General: patient oriented x3 Speech: No Abnormal speech present Extrem General: Yes normal to inspection Psych Mental Status: mental status grossly normal Assessment & Plan Assessment & Plan (1) Precordial chest pain: Code(s): R07.2 - Precordial pain (2) Heart palpitations: Code(s): R00.2 - Palpitations Plan In the 12 lead EKG, underlying rhythm is sinus at 82/Min; no significant ST-T changes and otherwise unremarkable. Available high sensitivity troponins are unremarkable. In the recent echocardiogram, LVEF 55-60%. No wall motion abnormalities. Normal diastolic function. Mild tricuspid regurgitation. In the stress test, she was able to exercise for 4.6 Mets. Reached 104% of predicted heart rate with fatigue but no clear angina. No EKG evidence of ischemia. Overall, somewhat atypical symptoms. Not clear if it is anything related to the rib issues she has had. From cardiac, we can clarify further with perfusion imaging. With regard to her palpitations, get a Holter monitor. Discussed with son who came for appointment. Used technician semiconductor development for discussion. Orders: Orders CA stress test Today R07.2 - Precordial pain NM cardiolite stress test Today R07.2 - Precordial pain ECG 3 day holter monitor Today R00.2 - Palpitations Medications: Changed From tetracycline 500 mg PO Q12H 14 days 28 caps 0RF A04.8 - Other specified bacterial intestinal infections To tetracycline 500 mg PO Q12H A04.8 - Other specified bacterial intestinal infections Coding Level of Care Code New Pt Level 4 (59121) Diagnoses Precordial chest pain R07.2 Heart palpitations R00.2
[2022-12-14 13:04] VITALS: BP 90/64; PULSE 94; BMI 29.3
== END 2022-12-14 13:31 | disposition home or self-care (01) ==
PROVIDERS: Visit Provider Internal Medicine
DX: R07.2 Precordial pain (principal); R00.2 Palpitations
CPT/HCPCS: 99204

== ENCOUNTER → 2022-12-14 12:57 | Outpatient (BNVA) | payer OTHER, SELFPAY | PROVIDERS: Visit Provider Internal Medicine | DX: R07.2 Precordial pain (principal); R00.2 Palpitations | CPT/HCPCS: 99202 ==

== ENCOUNTER 2022-12-31 09:48 | Outpatient (AMB) | payer OTHER, SELFPAY ==
[2022-12-31 10:19] VITALS: BP 109/62; PULSE 94; RESP 14; BMI 29.1
--- NOTE | 2022-12-31 10:19 | MHC.OFFVIS ---
Intake Vital Signs 12/31/22 10:19 Height 5 ft Weight 149 lb BMI 29.1 BP 109/62 Blood Pressure Location Lt brachial Position Sitting Respiration 14 Pulse 94 Intake Visit Reasons: RIGHT ACROMIOCLAVICULAR INJECTION Allergies gabapentin Allergy (Intermediate, Verified 12/14/22 13:06) somnolence pregabalin Allergy (Intermediate, Verified 12/14/22 13:06) somnolence Influenza Virus Vaccines Adverse Reaction (Intermediate, Verified 12/14/22 13:06) Throat pain HPI RIGHT ACROMIOCLAVICULAR INJECTION HPI Details 72-year-old female presenting today for a right acromioclavicular injection. A certified methods and procedures analyst was present during the visit. The patient was referred by Nancy GEE. Patient presents for scheduled procedure. Denies any recent cough, cold, infection, fever or other significant changes in medical history since last office visit. [facility], [facility] Medical History Anxiety Arm paresthesia, right Carpal tunnel syndrome CKD (chronic kidney disease), stage III Depression with anxiety Family history of diabetes mellitus Hair loss Hyperkalemia Hypovitaminosis D Insomnia Muscle cramps Neuropathy Obesity (BMI 30-39.9) Osteopenia Pure hypercholesterolemia Trigger finger Surgical History H/O exploratory laparotomy History of carpal tunnel release History of cataract surgery History of section History of surgery History of tubal ligation Hx of breast reduction, elective Hx of colonoscopy Family History Father Prostate cancer Mother No problems noted. Family/Other FH: mental illness Hypertension Tachycardia Maternal Aunt No problems noted. 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 Alert and oriented. Mood and affect appropriate. Follows and participates in conversation appropriately. Respiratory effort is unlabored. Able to transition from sit to stand unassisted. Ambulates with bilaterally normal heel strike and toe off. Office Procedures Joint Injection/Drain Joint Injection/Drain Details: Right acromioclavicular injection Primary Site: right shoulder Secondary Site: right shoulder Prep: site was prepped using sterile technique Injected: 20 mg of (Kenalog), with 1 mL of, 0.25% bupivacaine and in the joint Approach Used: other (anterosuperior) Procedure: The patient tolerated the procedure well Coding 11685 - Acromioclavicular with ultrasound guidance (Right) Procedure code (CPT) selection complete Results Reviewed Results Reviewed: No imaging is available for review. Assessment & Plan Assessment & Plan (1) Pain in clavicular joint: Code(s): M25.519 - Pain in unspecified shoulder Plan Patient is status post right acromioclavicular injection. Patient tolerated procedure well and was discharged home in stable condition with discharge instructions. All questions were answered. We will follow-up in two weeks via telephone or in clinic to assess response to therapy. A follow-up appointment was made during today's visit. Scribed for Dr. Hsieh by Clinton Quinn er medical technician, on 12/31/2022. I, Dr. Hsieh, have personally reviewed and agree with the information entered by the scribe. Coding Level of Care Code Procedure Only Diagnoses Pain in clavicular joint M25.519 CPT Codes Coding - Joint 6: 89646 - Acromioclavicular with ultrasound guidance ([id number])
== END 2022-12-31 10:32 | disposition home or self-care (01) ==
PROVIDERS: PCP Internal Medicine; Visit Provider Internal Medicine
DX: M25.511 Pain in right shoulder (principal)
CPT/HCPCS: 20606

== ENCOUNTER → 2022-12-31 09:48 | Outpatient (BNVA) | payer OTHER, SELFPAY | PROVIDERS: PCP Internal Medicine; Visit Provider Internal Medicine | DX: M25.511 Pain in right shoulder (principal) | CPT/HCPCS: 20606; J2795; J3301 ==

== ENCOUNTER → 2023-01-17 08:45 | Outpatient (REF) | payer OTHER, SELFPAY ==
--- NOTE | ~2023-01-17 | NM_ITS ---
Exercise Myocardial perfusion study Indication: Precordial chest pain to evaluate for myocardial ischemia Technique: The patient was brought in for an exercise perfusion study on 01/17/2023. Patient performed exercise as per Demetrius protocol and was injected 25 mCi of sestamibi was given intravenously one target HR was achieved. Images were obtained using the SPECT gamma camera interlaced with the gating device. Images were obtained in supine position. Resting perfusion study was performed on 01/20/2023. Patient was administered 25 mCi of sestamibi intravenously at rest. Images were then obtained in supine position. Images were processed with the software and compared side to side in short axis, horizontal long axis and vertical long axis views. Findings: The stress perfusion study showed non-attenuated images show minimal thinning in the basal septum. Attenuation corrected images show minimally reduced uptake in the apex. Remainder of the LV myocardium is normally perfused.. The gated study shows normal LV systolic function with calculated LVEF of 73%. LV cavity is normal in size. The gated study shows normal systolic wall thickening and contraction of all segments. There is no transient ischemic dilation. Resting study shows no change in perfusion pattern compared to stress perfusion study. Gating at rest reveals normal systolic wall motion with ejection fraction at 56%. The findings are consistent with normal myocardial perfusion. NM/NM cardiolite stress test Impression: 1. Normal myocardial perfusion 2. Gated LVEF is 56% 3. Transient ischemic dilatation not present Stress EKG is negative for ischemia
--- NOTE | 2023-01-17 08:49 | HM_ITS ---
Conclusion: 1. Patient was monitored for total period of 2 days and 20 hours 2. Baseline was normal sinus rhythm with average heart rate of 95 beats per minute 3. No significant pauses noted 4. Frequent sinus tachycardia with 35% of time heart rate greater than 100 beats per minute 5. Frequent PVCs with total burden of 4.3%, mostly isolated with 1 3 beat jamir of nonsustained VT at 163 beats per minute 6. Patient reported to events that correlated with isolated PVCs MTDD
--- NOTE | 2023-01-17 08:49 | CA_ITS ---
Acquisition Time: 2023-01-17 09:14:35 Total Exercise Time: 00:05:58 Test Indications: CHEST PAIN Medications: Protocol: GERARDO Max HR: 153 BPM 104% of Pred: 146 BPM Max BP: 148/070 mmHG Max Work Load: 4.6 METS Exercise stress test exercise 5 min 58 sec of Gerardo protocol achieivng 104% MPHR, with 1/10 chest pressure that increase to 2/10 with exercise, without arrhythmias seen through artifact, with normotensive response to exercise, without EKG changes, Chest pressure resolved with rest. Nuclear images pending. Test reviewed with Dr. Duarte. Referred By: Charles Jean Overread By: Emy Talley
== END ==
LOC: HO.CARD 08:45
PROVIDERS: Visit Provider Internal Medicine
DX: R07.2 Precordial pain (principal); R00.2 Palpitations
CPT/HCPCS: 78452; 93017; 93242; A9500

== ENCOUNTER → 2023-01-17 08:49 | Outpatient (BNV) | payer OTHER, SELFPAY | PROVIDERS: Visit Provider Nurse Practitioner | DX: R00.0 Tachycardia, unspecified (principal) | CPT/HCPCS: 78452; 93016; 93018; 93244 ==

== ENCOUNTER 2023-02-11 09:55 | Outpatient (REF) | payer OTHER, SELFPAY ==
--- NOTE | ~2023-02-11 | MR_ITS ---
EXAMINATION: MR LUMBAR SPINE WITHOUT CONTRAST CLINICAL INFORMATION: Spondylosis without myelopathy or radiculopathy, DDD COMPARISON: Lumbar spine radiographs on 08/27/2022. TECHNIQUE: MRI of the lumbar spine was obtained using routine sequences without contrast. FINDINGS: There are 5 nonrib-bearing lumbar-type vertebrae. Mild levocurvature of the lumbar spine. Preservation of the normal lumbar lordosis. Grade 1 anterolisthesis at L4-L5 and to a lesser extent at L2-L3 and L3-L4. Mild retrolisthesis at L1-L2. No abnormal bone marrow signal. The vertebral body heights are preserved. Multilevel disc desiccation without significant disc height loss. The visualized spinal cord is normal in caliber. No abnormal cord signal. The conus medullaris terminates at T12-L1. T11-T12: No significant spinal canal or neural foraminal narrowing. T12-L1: No significant spinal canal or neural foraminal narrowing. L1-L2: Diffuse disc bulge. Mild bilateral neural foraminal narrowing. L2-L3: Diffuse disc bulge with superimposed left foraminal disc protrusion. Annular fissure. Right facet arthrosis. Mild spinal canal stenosis. Moderate to severe left and mild right neural foraminal narrowing with impingement of the left L2 exiting nerve roots. L3-L4: Diffuse disc bulge with superimposed left foraminal disc protrusion. Bilateral facet arthrosis. Mild spinal canal stenosis. Mild to moderate left and mild right neural foraminal narrowing with mass effect on the left L3 exiting nerve roots. L4-L5: Diffuse disc bulge with superimposed central disc protrusion. Ligamentum flavum hypertrophy. Moderate spinal canal stenosis with mass effect on the cauda equina nerve roots. Moderate to severe left and mild right neural foraminal narrowing with the disc abutting the exiting L4 nerve roots bilaterally. L5-S1: Diffuse disc bulge and bilateral facet arthrosis. No significant spinal canal or neural foraminal narrowing. The paravertebral soft tissues are unremarkable. Left renal cyst. MR/MR lumbar spine wo con IMPRESSION: Multilevel lumbar spondylosis as described above, most notable at L4-L5 where there is moderate spinal canal stenosis with mass effect on the cauda equina nerve roots at this level. There is also moderate to severe left L2-L3 and left L4-L5 neural foraminal narrowing with impingement of the left L2 exiting nerve roots.
== END 2023-02-11 09:56 | disposition home or self-care (01) ==
LOC: HO.MRI 09:55
PROVIDERS: PCP Internal Medicine; Visit Provider Nurse Practitioner Family
DX: M47.816 Spondylosis without myelopathy or radiculopathy, lumbar region (principal); M54.50 Low back pain, unspecified; M79.604 Pain in right leg
CPT/HCPCS: 72148

== ENCOUNTER 2023-02-21 07:44 | Outpatient (AMB) | payer OTHER, SELFPAY ==
--- NOTE | 2023-02-21 07:47 | MHC.PC.OV ---
Vital Signs 02/21/23 07:48 Height 5 ft Weight 150 lb BMI 29.3 BP 104/52 L Blood Pressure Location Lt brachial Position Sitting Pulse 81 Pulse Source Pulse Oximeter Pulse Oximetry (%) 97 Oxygen Delivery Method Room Air Intake Visit Reasons: Bilateral eye lid surgery, 03/02 Allergies gabapentin Allergy (Intermediate, Verified 02/21/23 07:48) somnolence pregabalin Allergy (Intermediate, Verified 02/21/23 07:48) somnolence Influenza Virus Vaccines Adverse Reaction (Intermediate, Verified 02/21/23 07:48) Throat pain Tobacco use date assessed: 11/29/22 Fall risk assessment: No Falls in past year Last assessed Fall Risk: 02/21/23 Dental Screening Dental Screen Date: 02/21/23 Did you have a dental visit in the last 12 months?: Yes Did you have a dental problem in the last 6 months where you did not have access to dental care?: No Was dental information given to patient?: Patient has dentist HPI HPI Comments History of Present Illness Details 72-year-old female past medical history significant for CTS, insomnia, hypercholestermia, CKD III, osteopenia, chronic pain syndrome, GERD, lumbar degenerative disc disease and heart palpitations. Review of the notes patient has been following with Cardiology for palpitations and all cardiac workup has been negative including stress EKG negative for ischemia negative Holter and echocardiogram with normal LVEF showed mild tricuspid regurgitation.[facility], Donato Barrera, patient reports she is unsure what type of anesthesia is under but states she does not think she is going under general anesthesia. Preop lab work in EKG ordered. Patient denies any chest pain, palpitations, shortness of breath or syncope. EKG: Normal sinus rhythm Normal ECG When compared with ECG of 15-OCT-2022 11:14, No significant change was found PFSH Medical History Anxiety Arm paresthesia, right Carpal tunnel syndrome CKD (chronic kidney disease), stage III Depression with anxiety Family history of diabetes mellitus Hair loss Hyperkalemia Hypovitaminosis D Insomnia Muscle cramps Neuropathy Obesity (BMI 30-39.9) Osteopenia Pure hypercholesterolemia Trigger finger Surgical History H/O exploratory laparotomy History of carpal tunnel release History of cataract surgery History of section History of surgery History of tubal ligation Hx of breast reduction, elective Hx of colonoscopy Family History Father Prostate cancer Mother No problems noted. Family/Other FH: mental illness Hypertension Tachycardia Maternal Aunt No problems noted. 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 1. Little interest or pleasure in doing things: not at all 2. Feeling down, depressed, or hopeless: not at all 3. Trouble falling or staying asleep, or sleeping too much: not at all 4. Feeling tired or having little energy: not at all 5. Poor appetite or overeating: not at all 6. Feeling bad about yourself - or that you are a failure or have let yourself or your family down: not at all 7. Trouble concentrating on things, such as reading the newspaper or watching television: not at all 8. Moving or speaking so slowly that other people could have noticed. Or the opposite - being so fidgety or restless that you have been moving around a lot more than usual: not at all 9. Thoughts that you would be better off or of hurting yourself in some way: not at all Total score: 0 Depression Screening Interpretation: Negative [id number] - PHQ-9 Billing: Yes Source: Developed by Drs. Oskar Robertson, Jennifer Jernigan, Garcia Doshi and colleagues, with an educational alessandro from [employer]. Thrive Questionnaire Date Thrive assessed: 08/02/22 AUDIT C Alcohol Use Questionnaire (AUDIT-C) 1. How often do you have a drink containing alcohol?: Monthly or less 2. How many drinks containing alcohol do you have on a typical day when you are drinking?: 1 or 2 3. How often do you have six or more drinks on one occasion?: Never Total Score: 1 Score Reviewed/Action Taken: No TOBIAS-7 AMB Questionnaire TOBIAS-7 Date TOBIAS - 7 assessed: 08/02/22 Source: Developed by Drs. Oskar Robertson, Jennifer Jernigan, Garcia Doshi and colleagues, with an educational alessandro from [employer]. Review of Systems Const Denies chills, Denies fatigue, Denies fever(s) and Denies poor appetite Eyes Denies no additional complaints ENT Reports Normal hearing present Card Denies chest pain, Denies syncope, Denies rapid heart rate and Denies dyspnea Resp Denies cough and Denies dyspnea GI Denies change in stool character, Denies constipation, Denies diarrhea, Denies nausea and Denies vomiting Denies urinary frequency, Denies dysuria and Denies urinary urgency Neuro Reports Normal hearing present, Denies confusion and Denies syncope Psych Denies confusion Endo Denies fatigue Physical exam (Primary Care) Vital Signs: Last Vital Signs Pulse 81 02/21/23 07:48 BP 104/52 L 02/21/23 07:48 Pulse Ox 97 02/21/23 07:48 Oxygen Delivery Method Room Air 02/21/23 07:48 BMI result Body Mass Index 29.3 Tobacco/Smoking Status: Tobacco use Status Tobacco use date assessed 11/29/22 02/21/23 07:55 Patient Tobacco Use Status Former Tobacco user 02/21/23 07:55 Tobacco use type Cigarette 02/21/23 07:55 e-Cigarette/Vaping Use Never Used 02/21/23 07:55 PHQ-9: PHQ-9 Score PHQ-9: Total score 0 02/21/23 08:10 Depression Screening Interpretation: Negative Thrive Assessment: Date of Thrive Assessment Date Thrive assessed 08/02/22 02/21/23 07:55 Const General: No confusion Orientation/consciousness: No confusion HENMT Head: Yes normocephalic and Yes atraumatic Eyes Conjunctivae: conjunctivae normal Chest Chest palpation & inspection: normal inspection of the chest Resp Effort & Inspection: normal respiratory effort Auscultation: clear to auscultation bilaterally, no crackles, no rhonchi and no wheezes Cardio Rate: regular rate Rhythm: regular rhythm Heart sounds: S1 normal heart sound present and S2 normal heart sound present GI Inspection: Yes normal to inspection Neuro General: No confusion Cranial nerves: Yes Normal hearing present Extrem General: No edema Assessment and Plan Assessment & Plan (1) Preop examination: Code(s): Z01.818 - Encounter for other preprocedural examination Plan: Preop labs and EKG unremarkable. Patient is of average risk to undergo scheduled eye surgery, no further workup needed at this time and patient can proceed with scheduled surgery. Plan Keep scheduled follow up with pcp. Orders: Orders TSH reflex Free T4 Today Z01.812 - Encounter for preprocedural laboratory examination Prothrombin Time INR Today Z01.812 - Encounter for preprocedural laboratory examination Complete Blood Count Auto Diff Today Z01.812 - Encounter for preprocedural laboratory examination Comprehensive Met. Panel Today Z01.812 - Encounter for preprocedural laboratory examination ECG 12 lead EKG Today Z01.818 - Encounter for other preprocedural examination Coding Level of Care Code Est Pt Level 3 (47265) Diagnoses Preop examination Z01.818
[2023-02-21 07:48] VITALS: BP 104/52; PULSE 81; O2SAT 97; BMI 29.3
== END 2023-02-21 09:36 | disposition home or self-care (01) ==
PROVIDERS: PCP Internal Medicine; Visit Provider Nurse Practitioner Family
DX: Z01.818 Encounter for other preprocedural examination (principal)
CPT/HCPCS: 99213

== ENCOUNTER 2023-02-21 08:13 | Outpatient (REF) | payer OTHER, SELFPAY ==
--- NOTE | 2023-02-21 08:17 | ECG_ITS ---
Test Reason : preop Blood Pressure : / mmHG Vent. Rate : 081 BPM Atrial Rate : 081 BPM P-R Int : 150 ms QRS Dur : 082 ms QT Int : 350 ms P-R-T Axes : 065 008 032 degrees QTc Int : 406 ms Normal sinus rhythm Normal ECG When compared with ECG of 15-OCT-2022 11:14, No significant change was found Referred By: Jazmine Nieto Electronically Signed By:MICHAEL PEDERSEN
[2023-02-21 08:23] LABS: MANUAL DIFF FLAG NO
[2023-02-21 08:50] LABS: Basophils Absolute Auto 0.1 X10*3/uL (0.0-0.2); Basophils Percent Auto 1.9 % (0-2); Eosinophils Absolute Auto 0.1 X10*3/uL (0.0-0.4); Eosinophils Percent Auto 2.3 % (0-4); Hemoglobin 13.1 g/dl (12.0-16.0); Imm Gran Abs Auto 0.07 X10*3/uL (0.00-0.03); Imm Gran Pct Auto 1.4 % (0.0-0.4); Lymphocytes Absolute Auto 1.6 X10*3/uL (1.2-4.9); Mean Corpuscular HGB Conc 32.8 g/dl (31.0-35.0); Mean Corpuscular Hemoglobin 30.4 pg (27.0-33.0); Mean Corpuscular Volume 92.8 fL (80.0-98.0); Mean Platelet Volume 10.8 fL (9.4-12.3); Monocytes Absolute Auto 0.4 X10*3/uL (0.1-1.2); Monocytes Percent Auto 8.9 % (2-11); Neutrophils Absolute Auto 2.6 x10*3/uL (2.0-8.3); Neutrophils Percent Auto 53.5 % (45-73); Platelet Count 310 X10*3/uL (160-400); Red Blood Count 4.31 X10*6/uL (4.20-5.50); Red Cell Distribution Width 14.8 % (11.0-16.0); White Blood Count 4.9 X10*3/uL (4.8-10.8)
[2023-02-21 08:52] LABS: INTERNATIONAL NORM RATIO 0.9 (0.9-1.1); Prothrombin Time 10.4 SEC (11.1-13.3)
[2023-02-21 09:31] LABS: Alanine Aminotransferase 17 U/L (0-31); Albumin Level 3.7 g/dL (3.5-5.0); Alkaline Phosphatase 77 U/L (39-117); Anion Gap 8 (12-20); Aspartate Amino Transferase 22 U/L (5-31); Bilirubin Total 0.4 mg/dL (0.0-1.0); Blood Urea Nitrogen 13 mg/dL (9-16); Calcium 9.9 mg/dL (8.4-10.2); Carbon Dioxide 27 mmol/L (22-29); Chloride 109 mmol/L (96-108); Estimated Glomerular Filt Rate > 60; Glucose Random 94 mg/dL (60-115); Potassium 3.8 mmol/L (3.3-5.1); Sodium 140 mmol/L (135-145); Total Protein 6.5 g/dL (6.5-8.0)
[2023-02-21 09:48] LABS: TSH reflex Free T4 1.92 uIU/mL (0.32-4.0)
== END 2023-02-21 08:14 | disposition home or self-care (01) ==
LOC: HO.LAB 08:13
PROVIDERS: PCP Internal Medicine; Visit Provider Nurse Practitioner Family
DX: Z01.818 Encounter for other preprocedural examination (principal)
CPT/HCPCS: 36415; 80053; 84443; 85025; 85610; 93005

== ENCOUNTER 2023-03-10 13:43 | Outpatient (AMB) | payer OTHER, SELFPAY ==
[2023-03-10 13:49] VITALS: BP 82/64; PULSE 84; BMI 28.8
--- NOTE | 2023-03-10 13:49 | MHC.OFFVIS ---
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 Name: Manpreet Glasgow [id number] Accompanied by: Son Allergies gabapentin Allergy (Intermediate, Verified 03/10/23 13:51) somnolence pregabalin Allergy (Intermediate, Verified 03/10/23 13:51) somnolence Influenza Virus Vaccines Adverse Reaction (Intermediate, Verified 03/10/23 13:51) Throat pain Medication List - Last Reconciled 03/10/23 by Charles Jean MD acetaminophen 500 mg PO Q6H PRN 30 days bismuth subsalicylate (Bismuth) 2 tabs PO QID 14 days cetirizine (All Day Allergy (cetirizine)) 10 mg PO DAILY PRN 90 days cholecalciferol (vitamin D3) (Vitamin D3) 50 mcg PO DAILY 90 days diclofenac sodium 1% 4 grams topical QID PRN methocarbamol 500 mg PO BID PRN metronidazole 1,000 mg PO BID mupirocin 2% 1 appl topical BID 2 weeks omeprazole 40 mg PO DAILY underpads (Bed Underpads) Use 1 to 4 bed underpads once a day prn [wipes flushable As directed] HPI HPI Comments History of Present Illness Details Clara returns for follow-up. Recently seen in consultation regarding some chest pain and palpitations. She also has a history of cervical rib/surgery and hence there was some concern if the symptoms are related to that rather. No known coronary disease or myocardial infarction or cardiomyopathy. She has undergone a comprehensive workup including echocardiogram, stress test and Holter. Overall, feels fine. No new complaints. [facility] Medical History Anxiety Arm paresthesia, right Carpal tunnel syndrome CKD (chronic kidney disease), stage III Depression with anxiety Family history of diabetes mellitus Hair loss Hyperkalemia Hypovitaminosis D Insomnia Muscle cramps Neuropathy Obesity (BMI 30-39.9) Osteopenia Pure hypercholesterolemia Trigger finger Surgical History History of carpal tunnel release Hx of colonoscopy Hx of breast reduction, elective History of surgery History of section H/O exploratory laparotomy History of tubal ligation History of cataract surgery Family History Father Prostate cancer Mother No problems noted. Family/Other FH: mental illness Hypertension Tachycardia Maternal Aunt No problems noted. 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 Cognitive needs: No Hearing needs: No Vision needs: No Review of Systems Const Denies weakness ENT Denies dizziness Card Denies chest pain, Denies chest pain with activity, Denies syncope, Denies rapid heart rate, Denies pedal edema, Denies edema, Denies leg edema, Denies lightheadedness, Denies palpitations, Denies dyspnea, Denies dyspnea on exertion and Denies orthopnea Resp Denies cough, Denies dyspnea and Denies dyspnea on exertion GI Denies hematochezia and Denies change in stool character Musc Denies abnormal gait, Denies muscle cramps, Denies muscle weakness, Denies numbness, Denies radiating pain into limb and Denies tingling Neuro Denies abnormal gait, Denies dizziness, Denies syncope, Denies numbness, Denies tingling and Denies weakness Endo Denies palpitations Physical Exam Vital Signs: Last Vital Signs Pulse 84 03/10/23 13:49 BP 82/64 L 03/10/23 13:49 BMI result Body Mass Index 28.8 Const General: comfortable and no acute distress Orientation/consciousness: patient oriented x3 HEENT Other: Unremarkable Head: Yes normal to inspection Neck Neck: Yes normal visual inspection Chest Chest palpation & inspection: normal inspection of the chest Resp Auscultation: clear to auscultation bilaterally Cardio Palpation: normal PMI Heart sounds: S1 normal heart sound present, S2 normal heart sound present, no gallops, no murmurs and no rubs GI Palpation (GI): Soft to palpation Back/Spine/Pelvis Other: unremarkable Skin General skin exam: no rashes or lesions noted Neuro General: patient oriented x3 Extrem General: Yes normal to inspection Psych Mental Status: mental status grossly normal Assessment & Plan Assessment & Plan (1) Precordial chest pain: Code(s): R07.2 - Precordial pain (2) Heart palpitations: Code(s): R00.2 - Palpitations (3) Arterial hypotension: Code(s): I95.9 - Hypotension, unspecified Qualifiers: Hypotension type: idiopathic hypotension Qualified Code(s): I95.0 - Idiopathic hypotension (4) Premature ventricular contraction: Code(s): I49.3 - Ventricular premature depolarization Plan In the 12 lead EKG, underlying rhythm is sinus at 82/Min; no significant ST-T changes and otherwise unremarkable. Available high sensitivity troponins are unremarkable. In the recent echocardiogram, LVEF 55-60%. No wall motion abnormalities. Normal diastolic function. Mild tricuspid regurgitation. Myocardial perfusion imaging study unremarkable at 4.6 Mets exercise capacity. Reached 104% of max predicted heart rate. Had described /10 -2/10 chest pressure but no EKG changes. Holter shows underlying sinus rhythm but frequent sinus tachycardia. PVCs with a burden of 4.3%. Overall, findings discussed with patient. Chest pain probably non-cardiac and will hold off further workup at this time. May have something to do with cervical rib issue. Not clear. With normal perfusion, no further testing indicated. With regard to the palpitations, could be related to sinus tach/PVCs. She already has low blood pressure and hence is no room to add any medications for these. As he overall burden of PVCs is fairly low, not of major significance. With regard to the low blood pressure, she states she frequently has low blood pressures, but she does not have any symptoms like dizziness or presyncope. In this instance, may just try to increase the fluid intake as well as salt intake and hopefully that will stabilize this. Plan discussed with patient and she understands and agrees. Discussed with family who came for appointment. Total time spent including review of data, counseling, documentation, coordination of care-32 minutes. Medications: Changed From metronidazole 1,000 mg (2 x 500 mg) PO BID 14 days 56 tabs 0RF A04.8 - Other specified bacterial intestinal infections To metronidazole 1,000 mg PO BID A04.8 - Other specified bacterial intestinal infections From methocarbamol 500 mg PO BID 30 days PRN 60 tabs 0RF muscle spasm G89.4 - Chronic pain syndrome, M47.816 - Spondylosis without myelopathy or radiculopathy, lumbar region, M53.3 - Sacrococcygeal disorders, not elsewhere classified, M62.830 - Muscle spasm of back To methocarbamol 500 mg PO BID PRN muscle spasm G89.4 - Chronic pain syndrome, M47.816 - Spondylosis without myelopathy or radiculopathy, lumbar region, M53.3 - Sacrococcygeal disorders, not elsewhere classified, M62.830 - Muscle spasm of back Coding Level of Care Code Est Pt Level 4 (42307) Diagnoses Precordial chest pain R07.2 Heart palpitations R00.2 Idiopathic hypotension I95.0 Hypotension type: idiopathic hypotension Premature ventricular contraction I49.3
== END 2023-03-10 14:06 | disposition home or self-care (01) ==
PROVIDERS: PCP Internal Medicine; Visit Provider Internal Medicine
DX: R07.2 Precordial pain (principal); R00.2 Palpitations; I95.0 Idiopathic hypotension; I49.3 Ventricular premature depolarization
CPT/HCPCS: 99214

== ENCOUNTER → 2023-03-10 13:43 | Outpatient (BNVA) | payer OTHER, SELFPAY | PROVIDERS: PCP Internal Medicine; Visit Provider Internal Medicine | DX: R07.2 Precordial pain (principal); R00.2 Palpitations; I95.0 Idiopathic hypotension; I49.3 Ventricular premature depolarization | CPT/HCPCS: 99212 ==

== ENCOUNTER 2023-03-21 12:53 | Outpatient (AMB) | payer OTHER, SELFPAY ==
--- NOTE | 2023-03-21 12:54 | A.OFFVIS_ITS ---
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 Language: Police Justice Name: Daughter in-law Accompanied by: Family/Other Allergies gabapentin Allergy (Intermediate, Verified 03/21/23 12:59) somnolence pregabalin Allergy (Intermediate, Verified 03/21/23 12:59) somnolence Influenza Virus Vaccines Adverse Reaction (Intermediate, Verified 03/21/23 12:59 ) Throat pain Medication List - Last Reconciled 03/21/23 by GERARD Bray acetaminophen 500 mg PO Q6H PRN 30 days bismuth subsalicylate (Bismuth) 2 tabs PO QID 14 days cetirizine (All Day Allergy (cetirizine)) 10 mg PO DAILY PRN 90 days cholecalciferol (vitamin D3) (Vitamin D3) 50 mcg PO DAILY 90 days clonazepam 0.5 mg PO DAILY PRN diclofenac sodium 1% 4 grams topical QID PRN fluoxetine 10 mg PO DAILY methocarbamol 500 mg PO BID PRN metronidazole 1,000 mg PO BID mupirocin 2% 1 appl topical BID 2 weeks omeprazole 40 mg PO DAILY peg 3350-electrolytes 236-22.74-6.74 -5.86 gram (Golytely) 240 mL PO Q10M 1 day underpads (Bed Underpads) Use 1 to 4 bed underpads once a day prn [wipes flushable As directed] HPI HPI Comments History of Present Illness Details Patient presents today to discuss recent lumbar spine MRI results. She continues to endorse low back pain with right sided radiculopathy in L5 distribution. SLR testing positive bilaterally, L4 distribution on left and L5 distribution on right with cramping and tingling in right lower lateral leg and toes. Walking, prolonged standing, bending or cold weather increases her pain. She reports weakness in her right lower extremity and cannot use walker or cane due to undergoing exercises and splinting/bracing for left middle trigger finger and carpal tunnel syndrome on the right. Patient is holding on to her family with walking as observed today. She is interested to undergo interventional treatments for her radicular back symptoms prior to considering Neurosurgery evaluation. Patient reports muscle relaxant has been partially helpful. Denies any recent cough, cold, infection, fever or other significant changes in medical history since last office visit. Patient denies any bladder or bowel incontinence or saddle anesthesia. PRIOR: Patient presents today for follow up back pain and to assess response to physical therapy. Patient reports very low tolerance for PT or HEP due to increase symptoms and unbearable pain after PT sessions. She attempted total of 3 sessions of PT with severe exacerbation of axial low back pain with radiation into her right lower extremity anteriorly with weakness, intermittent numbness and tingling. Pain is worse with prolonged walking or standing but does not necessarily go away with rest or sitting. PRIOR: Patient reports she went to [facility] ER on 10/15/22 with chest pain and ongoing left clavicle pain. Echocardiogram and EKG were normal. Stress tests few months ago was also normal. She has follow up with Cardiology soon. CXR taken in ER showed 5 mm calcified nodule right lower lobe, otherwise no acute process seen. 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 Since then she feels her left clavicle has been disproportionate and asymmetrical and has been causing significant discomfort with deep inspiration or raising her both arms with overhead reaches or carrying heavy objects. We will obtain bilateral shoulder xrays to help us differentiate with costoclavicular syndrome as she does have localized tenderness and pain in AC joint, worse on the left. Patient also reports intermittent numbness and tinglings in both hands, worse on the right and has known right Carpal tunnel syndrome, early on EMG. She follows with [facility] with last visit in 03/2022. Denies any fever, neck or shoulder pain, dizziness, chest pain, shortness of breaths, bladder or bowel incontinence or saddle anesthesia. PRIOR: Patient is a pleasant 72 years [place] Leonean speaking female with osteopenia, CKD, presents today for initial evaluation of chronic lower back pain, hips and bilateral hand pain. Denies any recent trauma, injury or falls. Her back pain is mostly axial and also radiates to her right lower extremity laterally and left lower extremity anteriorly and laterally with numbness, tingling and weakness. She also reports bilateral hand pain, worse on the right for which she follows with Dr. Santillan and currently performing OT therapy. For today's visit, we concentrated on her back symptoms. I could not reproduce her bilateral radicular symptoms with seated SLR testing today. She does have significant bilateral hip and sacroiliac joint pain with testing which significantly exacerbate her pain. Patient denies any previous back surgery but received multiple steroid injections in the past while leaving in [place]. Patient has not completed physical therapy for her back pain but is currently undergoing OT for bilateral hand pain. She is in significant pain to pursue PT for her back or hip pain at this time. Patient denies any fever, chills, weight loss, shortness of breaths, chest pain, bladder or bowel incontinence or saddle anesthesia. Reports bilateral weakness in her legs. Ambulates with slow, antalgic gait with mild limping with the use of walker. Location Lower back, bilateral hand pain Duration Constant Characteristics of symptom or complaint Pulsing, stabbing, sharp, pinching, tingling, dull, aching, hurting, heavy Aggravating or associated factors Prolonged sitting, standing, walking, changing positions, weather changes Relieving factors Tylenol, tizanidine, PT in the past for knee pain, OT- presently for hands Treatment Back cortisone injections in [place], last in 1996. [facility] Medical History Obesity (BMI 30-39.9) Osteopenia Pure hypercholesterolemia Hyperkalemia Depression with anxiety Insomnia Hypovitaminosis D Anxiety Hair loss Arm paresthesia, right CKD (chronic kidney disease), stage III Family history of diabetes mellitus Trigger finger Carpal tunnel syndrome Muscle cramps Neuropathy Surgical History History of carpal tunnel release Hx of colonoscopy Hx of breast reduction, elective History of surgery History of section H/O exploratory laparotomy History of tubal ligation History of cataract surgery Family History Father Prostate cancer Mother No problems noted. Family/Other FH: mental illness Hypertension Tachycardia Maternal Aunt No problems noted. 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 Alert and oriented. Mood and affect appropriate. Follows and participates in conversation appropriately. Respiratory effort is unlabored. Able to transition from sit to stand with assistance of her family. Ambulates with bilaterally normal heel strike and toe off, but feels unsteady on the right. Back/Spine/Pelvis Other: Lumbar flexion and extension reproduce pain, worse with extension. Facet loading positive bilaterally. +Sammie sign on the right, negative on the left. +Shahab's test reproduces lateral hip and anterior thigh on the right, lateral hip stretching sensation on the left. Valsalva maneuver is negative. Cervical Spine: cervical muscular tenderness and No Cervical spine tenderness Thoracic/Lumbar Spine: thoracic and lumbar spine normal to inspection, Lasegue's sign positive bilateral and localized, pain with thoraco-lumbar ROM, paraspinal muscle tenderness on the right greater than left, thoraco-lumbar ROM limited, No thoracic spinal tenderness and lumbar spinal tenderness Pelvis: buttock tenderness on the right and no sciatic notch tenderness Sacroiliac joints: bilaterally tender to palpation Results Reviewed Results Reviewed: MR LUMBAR SPINE WITHOUT CONTRAST 02/11/23 CLINICAL INFORMATION: Spondylosis without myelopathy or radiculopathy, DDD COMPARISON: Lumbar spine radiographs on 08/27/2022. TECHNIQUE: MRI of the lumbar spine was obtained using routine sequences without contrast. FINDINGS: There are 5 nonrib-bearing lumbar-type vertebrae. Mild levocurvature of the lumbar spine. Preservation of the normal lumbar lordosis. Grade 1 anterolisthesis at L4-L5 and to a lesser extent at L2-L3 and L3-L4. Mild retrolisthesis at L1-L2. No abnormal bone marrow signal. The vertebral body heights are preserved. Multilevel disc desiccation without significant disc height loss. The visualized spinal cord is normal in caliber. No abnormal cord signal. The conus medullaris terminates at T12-L1. T11-T12: No significant spinal canal or neural foraminal narrowing. T12-L1: No significant spinal canal or neural foraminal narrowing. L1-L2: Diffuse disc bulge. Mild bilateral neural foraminal narrowing. L2-L3: Diffuse disc bulge with superimposed left foraminal disc protrusion. Annular fissure. Right facet arthrosis. Mild spinal canal stenosis. Moderate to severe left and mild right neural foraminal narrowing with impingement of the left L2 exiting nerve roots. L3-L4: Diffuse disc bulge with superimposed left foraminal disc protrusion. Bilateral facet arthrosis. Mild spinal canal stenosis. Mild to moderate left and mild right neural foraminal narrowing with mass effect on the left L3 exiting nerve roots. L4-L5: Diffuse disc bulge with superimposed central disc protrusion. Ligamentum flavum hypertrophy. Moderate spinal canal stenosis with mass effect on the cauda equina nerve roots. Moderate to severe left and mild right neural foraminal narrowing with the disc abutting the exiting L4 nerve roots bilaterally. L5-S1: Diffuse disc bulge and bilateral facet arthrosis. No significant spinal canal or neural foraminal narrowing. The paravertebral soft tissues are unremarkable. Left renal cyst. IMPRESSION: Multilevel lumbar spondylosis as described above, most notable at L4-L5 where there is moderate spinal canal stenosis with mass effect on the cauda equina nerve roots at this level. There is also moderate to severe left L2-L3 and left L4-L5 neural foraminal narrowing with impingement of the left L2 exiting nerve roots. Assessment & Plan Assessment & Plan (1) Lumbar spinal stenosis: Code(s): M48.061 - Spinal stenosis, lumbar region without neurogenic claudication (2) Lumbar degenerative disc disease: Code(s): M51.36 - Other intervertebral disc degeneration, lumbar region (3) Sacroiliac joint pain: Code(s): M53.3 - Sacrococcygeal disorders, not elsewhere classified (4) Lumbar spondylosis: Code(s): M47.816 - Spondylosis without myelopathy or radiculopathy, lumbar region (5) Lumbar radiculopathy, chronic: Code(s): M54.16 - Radiculopathy, lumbar region Plan MRI of lumbar spine results were discussed today with patient and her family. For ongoing radicular pain, will proceed with Bilateral L4-L5 TFESI with local and fluoroscopy. If no relief, will proceed with [facility] evaluation as well as consider diagnostic SIJ injections. Expectations, risks and benefits were reviewed. Patient is aware she will be contacted to schedule this procedure. All questions were answered and the patient is in agreement of plan. Follow-up after injections and sooner as needed. Coding Level of Care Code Est Pt Level 4 (37323) Diagnoses Lumbar spinal stenosis M48.061 Lumbar degenerative disc disease M51.36 Sacroiliac joint pain M53.3 Lumbar spondylosis M47.816 Lumbar radiculopathy, chronic M54.16
[2023-03-21 12:58] VITALS: BP 114/57; PULSE 89; O2SAT 99; BMI 28.9
== END 2023-03-21 13:26 | disposition home or self-care (01) ==
PROVIDERS: PCP Internal Medicine; Visit Provider Nurse Practitioner Family
DX: M48.061 Spinal stenosis, lumbar region without neurogenic claudication (principal); M51.36 Other intervertebral disc degeneration, lumbar region; M53.3 Sacrococcygeal disorders, not elsewhere classified; M47.816 Spondylosis without myelopathy or radiculopathy, lumbar region; M54.16 Radiculopathy, lumbar region
CPT/HCPCS: 99214

== ENCOUNTER → 2023-03-21 12:53 | Outpatient (BNVA) | payer OTHER, SELFPAY | PROVIDERS: PCP Internal Medicine; Visit Provider Nurse Practitioner Family | DX: M48.061 Spinal stenosis, lumbar region without neurogenic claudication (principal); M51.36 Other intervertebral disc degeneration, lumbar region; M53.3 Sacrococcygeal disorders, not elsewhere classified; M47.816 Spondylosis without myelopathy or radiculopathy, lumbar region; M54.16 Radiculopathy, lumbar region | CPT/HCPCS: 99212 ==

== ENCOUNTER 2023-04-21 06:10 | Day surgery (SDC) | payer OTHER, SELFPAY ==
[2023-04-19 09:46] VITALS: BMI 28.7
--- NOTE | 2023-04-20 09:45 | HO.ANESPROP2 ---
Documented by User: Nuvia Jackson NP 04/20/23 09:50 HPI - Anesthesia Eval Consult details Narrative: 73yo F for Upper Endoscopy and Colonoscopy Recent full cardiac w/u through [facility] for CP and palps. Test results reassuring that CP likely noncardiac PMFSH Active Problems Active Problems: All Active Problems (Updated 03/21/23 @ 13:31 by GERARD Bray) Lumbar radiculopathy, chronic (Acute) Lumbar spinal stenosis (Acute) Premature ventricular contraction (Acute) Arterial hypotension (Acute) Heart palpitations (Acute) Precordial chest pain (Acute) Urge urinary incontinence (Acute) Costoclavicular syndrome (Acute) Lumbar degenerative disc disease (Acute) Low back pain radiating to right lower extremity (Acute) Cramps of left lower extremity (Acute) Pain in clavicular joint (Acute) H. pylori infection (Acute) GERD (gastroesophageal reflux disease) (Acute) Upper abdominal pain (Acute) Muscle spasm of back (Acute) Chronic pain syndrome (Acute) Bilateral hip pain (Acute) Sacroiliac joint pain (Acute) Lumbar spondylosis (Acute) Lumbar pain (Acute) Bilateral hand pain (Acute) Right wrist pain (Acute) Osteopenia (Acute) Chest pain (Acute) Physical exam (Acute) De Quervain's tenosynovitis, right (Acute) Trigger finger, left middle finger (Acute) Carpal tunnel syndrome of right wrist (Acute) Trigger finger, right middle finger (Acute) Well woman exam (Acute) Tubular adenoma of colon (Acute) Obesity (BMI 30-39.9) (Acute) Osteopenia (Acute) CKD (chronic kidney disease), stage III (Acute) Pure hypercholesterolemia (Acute) Hyperkalemia (Acute) Depression with anxiety (Acute) Insomnia (Acute) Hypovitaminosis D (Acute) Family history of diabetes mellitus (Acute) Trigger finger (Acute) Carpal tunnel syndrome (Acute) Muscle cramps (Acute) Neuropathy (Acute) Past Medical History Medical History (Updated 03/21/23 @ 13:31 by GERARD Bray) Obesity (BMI 30-39.9) Osteopenia Pure hypercholesterolemia Hyperkalemia Depression with anxiety Insomnia Hypovitaminosis D Anxiety Hair loss Arm paresthesia, right CKD (chronic kidney disease), stage III Family history of diabetes mellitus Trigger finger Carpal tunnel syndrome Muscle cramps Neuropathy Family History Family History Father Prostate cancer Mother No problems noted. Family/Other FH: mental illness Hypertension Tachycardia Maternal Aunt No problems noted. Son In good health Sister Nasopharyngeal cancer Surgical History Surgical History (Updated 04/19/23 @ 09:36 by Britney Jurado RN) Hx of hand surgery History of carpal tunnel release Hx of colonoscopy Hx of breast reduction, elective History of surgery History of section H/O exploratory laparotomy History of tubal ligation History of cataract surgery Social History Social History Household Members: Family Housing: House Alcohol intake: current Alcohol intake frequency: holidays/special occasions only Alcohol type: wine Patient Tobacco Use Status: Former Tobacco user Tobacco use type: Cigarette e-Cigarette/Vaping Use: Never Used Second Hand Smoke Exposure: No service: No Current occupational status: disabled 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 Cognitive needs: No Hearing needs: No Vision needs: No Meds Allergies Allergy/AdvReac Type Severity Reaction Status Date / Time gabapentin Allergy Intermediate somnolence Verified 03/21/23 12:59 pregabalin Allergy Intermediate somnolence Verified 03/21/23 12:59 Influenza Virus Vaccines AdvReac Intermediate Throat pain Verified 03/21/23 12:59 Home Medications Medication Instructions Recorded Confirmed Last Taken Type methocarbamol 500 mg tablet 500 mg PO BID PRN muscle spasm 03/10/23 04/19/23 Unknown History clonazepam 0.5 mg tablet 0.5 mg PO DAILY PRN Anxiety 03/21/23 04/19/23 Unknown History fluoxetine 10 mg capsule 10 mg PO DAILY 03/21/23 04/19/23 Unknown History Exam Exam Date and Time: April 20, 2023 0945 Height,Weight and Vital Signs: Height 5 ft Weight 66.678 kg Pertinent Lab Results Pertinent Lab Results: Laboratory Tests 02/21/23 08:22 WBC 4.9 Hgb 13.1 Hct 40.0 Plt Count 310 Sodium 140 Potassium 3.8 Chloride 109 H Carbon Dioxide 27 BUN 13 Creatinine 0.88 Narrative Narrative: EKG 02/2023 Vent. Rate : 081 BPM Atrial Rate : 081 BPM P-R Int : 150 ms QRS Dur : 082 ms QT Int : 350 ms P-R-T Axes : 065 008 032 degrees QTc Int : 406 ms Normal sinus rhythm Normal ECG When compared with ECG of 15-OCT-2022 11:14, No significant change was found NM cardiolite stress test 02/2023 Impression: 1. Normal myocardial perfusion 2. Gated LVEF is 56% 3. Transient ischemic dilatation not present Stress EKG is negative for ischemia Holter 01/2023 Conclusion: 1. Patient was monitored for total period of 2 days and 20 hours 2. Baseline was normal sinus rhythm with average heart rate of 95 beats per minute 3. No significant pauses noted 4. Frequent sinus tachycardia with 35% of time heart rate greater than 100 beats per minute 5. Frequent PVCs with total burden of 4.3%, mostly isolated with 1 3 beat jamir of nonsustained VT at 163 beats per minute 6. Patient reported to events that correlated with isolated PVCs ECHO 10/2022 Conclusions: - The left ventricular systolic function is normal. The visually estimated ejection fraction is between 55-60%. - There is mild tricuspid valve regurgitation. Assessment and Plan Assessment Anesthesia Assessment: Chart Reviewed Documented by User: Jhon Hsieh MD 04/21/23 14:06 [facility] Past Medical History Medical History (Updated 03/21/23 @ 13:31 by GERARD Bray) Obesity (BMI 30-39.9) Osteopenia Pure hypercholesterolemia Hyperkalemia Depression with anxiety Insomnia Hypovitaminosis D Anxiety Hair loss Arm paresthesia, right CKD (chronic kidney disease), stage III Family history of diabetes mellitus Trigger finger Carpal tunnel syndrome Muscle cramps Neuropathy Family History Family History Father Prostate cancer Mother No problems noted. Family/Other FH: mental illness Hypertension Tachycardia Maternal Aunt No problems noted. Son In good health Sister Nasopharyngeal cancer Family history of problems with anesthesia: No Surgical History Surgical History (Updated 04/19/23 @ 09:36 by Britney Jurado RN) Hx of hand surgery History of carpal tunnel release Hx of colonoscopy Hx of breast reduction, elective History of surgery History of section H/O exploratory laparotomy History of tubal ligation History of cataract surgery History of Problems with Anesthesia: No Social History Social History Household Members: Family Housing: House Alcohol intake: current Alcohol intake frequency: holidays/special occasions only Alcohol type: wine Patient Tobacco Use Status: Former Tobacco user Tobacco use type: Cigarette e-Cigarette/Vaping Use: Never Used Second Hand Smoke Exposure: No service: No Current occupational status: disabled 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 Cognitive needs: No Hearing needs: No Vision needs: No Meds Allergies Allergy/AdvReac Type Severity Reaction Status Date / Time gabapentin Allergy Intermediate somnolence Verified 03/21/23 12:59 pregabalin Allergy Intermediate somnolence Verified 03/21/23 12:59 Influenza Virus Vaccines AdvReac Intermediate Throat pain Verified 03/21/23 12:59 Home Medications Medication Instructions Recorded Confirmed Last Taken Type methocarbamol 500 mg tablet 500 mg PO BID PRN muscle spasm 03/10/23 04/19/23 Unknown History clonazepam 0.5 mg tablet 0.5 mg PO DAILY PRN Anxiety 03/21/23 04/19/23 Unknown History fluoxetine 10 mg capsule 10 mg PO DAILY 03/21/23 04/19/23 Unknown History Exam Airway Mallampati Class: II Assessment and Plan Assessment Anesthesia Assessment: Anesthesia Plan Discussed Final Anesthetic Review Family History of Problems with Anesthesia: No History of Problems with Anesthesia: No NPO: Yes ASA Class: II Final Preanesthetic Review: No Changes in Pt Med Stat, Meds/Allgs Chart Reviewed, Consent Obtained/Reviewed and Anes Risks/Benef Reviewed Patient Risk: Intermediate Procedure Risk: Low Anesthetic Plan Disposition: Standard PACU
[2023-04-21 06:37] VITALS: BMI 28.5
[2023-04-21 06:46] VITALS: BP 110/69; PULSE 84; RESP 16; TEMP 36.9; O2SAT 98
[2023-04-21] MEDS: Lactated Ringers 1,000 ML 100 ML IVCONT (06:59)
--- NOTE | 2023-04-21 07:35 | MHC.SHP ---
Pre-Procedural Eval Section A Date of Service: 04/21/23 Section B Chief Complaint: GERD, abdominal pain Relevant Family History (Specify if Yes): No Relevant Social History: None Present Medications: see Short Stay Collaborative assessment Medical History: Significant History History of Previous Operations: Relevant previous surgery/procedure and date(s) Allergies: Allergies Allergy/AdvReac Type Severity Reaction Status Date / Time gabapentin Allergy Intermediate somnolence Verified 03/21/23 12:59 pregabalin Allergy Intermediate somnolence Verified 03/21/23 12:59 Influenza Virus Vaccines AdvReac Intermediate Throat pain Verified 03/21/23 12:59 Review of Systems Sugical H&P ROS: Negative: Constitution, Cardiovascular, Respiratory, Neurological, Psychiatric, Hem-Onc, Allergic/Immunologic, Gastrointestinal, Genitourinary, Musculoskeletal, Integumentary, Endocrine and Eyes/Ears/Nose/Throat Exam Surgical H&P Exam: Normal: HEENT, Normal: Heart, Normal: Lungs, Normal: Extremities, Normal: Abdomen, Normal: Skin and Normal: Neurological Plan Diagnosis/Plan: Unchanged I have reviewed the history and physical and performed a pertinent physical examination on my patient. No changes have occurred unless specified. EGD and colonoscopy for further assessment of pain and altered bowel habits Time Spent With Patient Time: Total time managing care of this patient today ____ minutes.
--- NOTE | 2023-04-21 07:38 | W.PM.OPN ---
Operative Note Operative Note Date of Service: 04/21/23 Narrative: Operative Information Procedure Description: EGD, Colonoscopy Indication: abdominal pain, altered bowel habit Anesthesia: MAC FLEXIBLE TRANSORAL UPPER GASTROINTESTINAL ENDOSCOPY AND COLONOSCOPY PROCEDURE NOTE UPPER ENDOSCOPY Consent: Indications for the procedure and potential complications of bleeding, perforation, reaction to medications and missed diagnosis were discussed with the patient and informed consent was obtained. Instrument: Olympus GIF H 190 J mid size upper endoscope Monitoring: Vital signs and clinical assessment, continuous EKG monitoring, Pulse oximetry, Carbon Dioxide monitoring and blood pressure monitoring were done throughout the procedure. Procedure: The patient was placed in the left lateral decubitis position and pre-procedure medications were administered and a bite block was placed. The endoscope was inserted into the mouth and advanced under direct vision to the third part of duodenum. A careful inspection was made as the upper endoscope was withdrawn including a retroflexed examination of the proximal stomach; Findings and interventions are described below. Findings: Larynx:normal Esophagus: GE junction at 35 cm, diaphragm hiatus at 35 cm, mild bogginess and erythema at GEJ, bx taken Stomach: Normal mucosa. Biopsies were obtained. Grade 2 flap valve on retroflexed examination of the cardia. Duodenum: Normal bulb and descending duodenum, bx taken Intervention: Biopsies as noted above COLONOSCOPY Instrument: Olympus variable stiffness pediatric scope 190L Colonoscopy Monitoring: Vital signs and clinical assessment, continuous EKG monitoring, Pulse oximetry, Carbon Dioxide monitoring and blood pressure monitoring were done throughout the procedure. Colon withdrawal time was 8 minutes. Procedure: The patient was placed in the left lateral decubitis position and pre-procedure medications were administered. After a digital rectal examination of the ano-rectum, the video colonoscope was inserted into the rectum and advanced through the colon to the cecum/TI. The colonoscope was slowly withdrawn in a retrograde panoramic fashion and the colon mucosa was carefully examined including a retroflexed view of the rectum. Findings and interventions are described below. Procedure Difficulty:moderate Findings: Terminal Ileum-normal, bx taken Random colon bx taken Cecum: 4-6 mm sessile polyp removed with cold forceps Ascending Colon: normal Transverse Colon -normal Descending Colon:normal Sigmoid Colon: severe diverticulosis with narrowing of lumen and hypertrophic mucosa Rectum: Retroflexion with medium sized internal hemorrhoids, grade I Anorectum - normal Colon preparation: [place] Bowel Preparation Scale Right colon; 2 Transverse colon: 2 Left colon; 2 (0 = Unprepared colon segment with mucosa not seen due to solid stool that cannot be cleared. 1 = Portion of mucosa of the colon segment seen, but other areas of the colon segment not well seen due to staining, residual stool and/or opaque liquid. 2 = Minor amount of residual staining, small fragments of stool and/or opaque liquid, but mucosa of colon segment seen well. 3 = Entire mucosa of colon segment seen well with no residual staining, small fragments of stool or opaque liquid) Impression and Post Procedure Diagnosis: Endoscopy Findings: esophagitis Colonoscopy Findings: polyp internal hemorrhoids diverticular disease-severe Plan: Await Pathology results Repeat Colonoscopy in 5-7 years due to polyp or earlier if clinically indicated High fiber diet leaflet avoid straining at stool, epsom salts and sitz bath, anusol supps or cream if bx neg then GES Above findings were reviewed with the patient and relevant handouts were provided if indicated.
--- NOTE | 2023-04-21 07:44 | PC.NURSE ---
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
[2023-04-21 08:23] VITALS: BP 103/62; PULSE 89; RESP 16; TEMP 36.1; O2SAT 99
[2023-04-21 08:38] VITALS: BP 111/60; PULSE 65; RESP 16; TEMP 36.1; O2SAT 98
== END 2023-04-21 09:51 | disposition home or self-care (01) ==
PROVIDERS: PCP Internal Medicine; Visit Provider Internal Medicine Gastroenterology
PROC: (CPT 43239; principal; 2023-04-21 07:30)
DX: K20.90 Esophagitis, unspecified without bleeding (principal); K22.89 Other specified disease of esophagus; K21.9 Gastro-esophageal reflux disease without esophagitis; K62.1 Rectal polyp; K57.30 Diverticulosis of large intestine without perforation or abscess without bleeding; K64.0 First degree hemorrhoids; K56.2 Volvulus; Z86.010 Personal history of colon polyps; N18.30 Chronic kidney disease, stage 3 unspecified; E78.00 Pure hypercholesterolemia, unspecified; Z87.891 Personal history of nicotine dependence; Z79.899 Other long term (current) drug therapy
CPT/HCPCS: 43239; 45380; 88305; 88342; J2704

== ENCOUNTER → 2023-04-21 06:10 | Outpatient (BNV) | payer OTHER, SELFPAY | PROVIDERS: PCP Internal Medicine; Visit Provider Internal Medicine Gastroenterology | DX: R19.4 Change in bowel habit (principal); K20.90 Esophagitis, unspecified without bleeding; D12.0 Benign neoplasm of cecum; K57.30 Diverticulosis of large intestine without perforation or abscess without bleeding; K64.0 First degree hemorrhoids | CPT/HCPCS: 43239; 45380 ==

== ENCOUNTER 2023-05-04 13:27 | Outpatient (AMB) | payer OTHER, SELFPAY ==
--- NOTE | 2023-05-04 13:31 | A.OFFVIS_ITS ---
Intake Vital Signs 05/04/23 13:36 Height 5 ft Weight 148 lb 9.465 oz BMI 29.0 BP 96/52 L Blood Pressure Location Rt brachial Position Sitting Pulse 100 Intake Visit Reasons: s/p egd/colon [place] Intake Note: Patient presents to in office visit today in follow up of EGD and colonoscopy. CC: Patient reports that she has been constipated and took some lactulose from her sister and that helped her go to the BR. She states she has been doing well from GERD with medication. 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 Press Tender Required: Yes Drill Press Tender Name: daugher in law/[employer] SUPERVISOR Accompanied by: daugher in law Allergies gabapentin Allergy (Intermediate, Verified 06/09/23 10:30) somnolence pregabalin Allergy (Intermediate, Verified 06/09/23 10:30) somnolence Influenza Virus Vaccines Adverse Reaction (Intermediate, Verified 06/09/23 10:30) Throat pain HPI s/p egd/colon [place] HPI Details Assessment & Plan (1) Upper abdominal pain: Code(s): R10.10 - Upper abdominal pain, unspecified Plan: Sami #V live She was apparently mis-booked for discuss colonoscopy but she is actually here for a possible EGD with new GERD and abdominal pain. Her problems started about a year ago with GERD and acid brash. When she started having the sx she was taken off of her gabapentin and pregabalin which are now listed as allergies. This is the only medication change. She can not ID any particular food triggers - she only questions if her full dentures and chewing is a part of the problem. She has not been tried on any medications as of yet. She has tried her sisters pantoprazole with good results. Three of her sisters had cholecystectomies. She has frequent gastric to RUQ pain that tends to be worse in the evening but eating makes it feel worse. She suffers CIC that is only occasional. It we will start by getting an H pylori breath test (she says she has a history of H pylori infection) and ultrasound to see if gallstones are part of the problem and start on a trial of omeprazole 40 mg once a day. Also ordering EGD in case these tests are not revealing but if we find some other explain will pathology we may cancel this. She is aware of the plan. At this point I will see her back after the ultrasound. (2) GERD (gastroesophageal reflux diseas e): Code(s): K21.9 - Gastro-esophageal reflux disease without esophagitis Orders: Orders H Pylori Breath Te st Today K21.9 - Gastro-eso phageal reflux dis ease without esoph agitis, R10.10 - U pper abdominal pedro n, unspecified US abdomen complet e Today K21.9 - Gastro-eso phageal reflux dis ease without esoph agitis, R10.10 - U pper abdominal pedro n, unspecified Medications: New omeprazole 40 mg PO DAILY 30 days 30 caps 3RF LABS: Laboratory Tests 11/09/22 12:12 H. pylori Breath T est Positive EGD/COLONOSCOPY Findings: Larynx:normal Esophagus: GE junction at 35 cm, diaphragm hiatus at 35 cm, mild bogginess and erythema at GEJ, bx taken Stomach: Normal mucosa. Biopsies were obtained. Grade 2 flap valve on retroflexed examination of the cardia. Duodenum: Normal bulb and descending duodenum, bx taken Findings: Terminal Ileum-normal, bx taken Random colon bx taken Cecum: 4-6 mm sessile polyp removed with cold forceps Ascending Colon: normal Transverse Colon -normal Descending Colon:normal Sigmoid Colon: severe diverticulosis with narrowing of lumen and hypertrophic mucosa Rectum: Retroflexion with medium sized internal hemorrhoids, grade I Anorectum - normal Impression and Post Procedure Diagnosis: Endoscopy Findings: esophagitis Colonoscopy Findings: polyp internal hemorrhoids diverticular disease-severe Plan: Await Pathology results Repeat Colonoscopy in 5-7 years due to polyp or earlier if clinically indicated High fiber diet leaflet avoid straining at stool, epsom salts and sitz bath, anusol supps or cream if bx neg then GES BIOPSY Received: 04/21/23 Diagnosis A. Duodenum, biopsy: Duodenal mucosa with preserved villi and no specific change. B. Stomach, biopsy: Gastric antral and body mucosa with mild chronic inactive gastritis; negative for H pylori, intestinal metaplasia and dysplasia. C. Gastroesophageal junction, biopsy: Squamocolumnar mucosa with mild chronic inflammation; negative for intestinal metaplasia and dysplasia. D. Esophagus, distal, biopsy: Squamous mucosa with no specific change; no columnar mucosa present. E. Colon, cecal polyp: Benign inflammatory polyp; no adenomatous dysplasia seen. F. Terminal ileum, biopsy: Ileal mucosa with no specific change. G. Colon, random, biopsy: Colonic mucosa with focal reactive lymphoid follicle and no specific change; no evidence of microscopic colitis... . ULTRASOUND OF THE ABDOMEN 11/30/22 FINDINGS: PANCREAS: Normal. The visualized pancreatic head and body are normal in appearance. The remainder of the pancreas is obscured from visualization by the overlying bowel gas. ABDOMINAL AORTA: The proximal, mid, and distal segments are normal in caliber. INFERIOR VENA CAVA: Visualized portions are normal. LIVER: Normal. The liver is normal in size. The liver contour is normal. Parenchymal echogenicity is normal. No focal hepatic lesion. There is no intrahepatic biliary duct dilatation seen. GALLBLADDER: Normal. The gallbladder is physiologically distended without evidence of stones, sludge, polyps, wall thickening or pericholecystic fluid. COMMON BILE DUCT: Normal in caliber measuring 0.4 cm in diameter. RIGHT KIDNEY: Normal. No hydronephrosis. No renal calculi or focal parenchymal lesions. The kidney measures 9.5 cm in maximum dimension. LEFT KIDNEY: At the lower pole, a 1.2 cm in maximal diameter benign, simple cyst is seen. No hydronephrosis or renal calculi. The kidney measures 7.9 cm in maximum dimension. SPLEEN: No focal finding. The spleen measures 7.3 cm in maximum dimension. FREE FLUID: None. US/US abdomen complete IMPRESSION: A 1.2 cm benign, simple left renal cyst is seen. This requires no imaging follow-up. The examination is otherwise unremarkable, with imaging of the pancreatic tail technically limited. . TODAY'S VISIT Sami #Niece translates per pt request The procedure should be repeated in 5 years due to the finding of a tubular adenoma. The procedure was well tolerated. The results were explained and the patient is agreeable to the follow-up interval as stated. The bowel pattern has returned to normal. Education was provided to tell any 1st degree relatives about their findings to be sure that they are screened by age 45. Educated that they will be put on a recall list when it is time for their repeat scope but should they move out of state or away from the hospital they will need to remember along with their primary to repeat the procedure in a timely fashion to avoid any adverse complications. On 03/10/2023 I treated the HP with quadruple therapy for HP. All symptoms have resolved well after treating the H pylori. She is now only taking her omeprazole once a day and is not having trouble with heartburn either. We go over possibly attempting a wean to see if she even needs the omeprazole at all although I am fine with continuing to prescribe it if she does need it. She has been struggling somewhat with constipation and her sister is on lactulose which she tried with good success. I have no problem prescribing this for her. She requests refills of her vitamin-D but Dr. Argueta her primary is the prescriber so I direct her to call her. Return office visit in 3 months [facility] Medical History Obesity (BMI 30-39.9) Osteopenia Pure hypercholesterolemia Hyperkalemia Depression with anxiety Insomnia Hypovitaminosis D Anxiety Hair loss Arm paresthesia, right CKD (chronic kidney disease), stage III Family history of diabetes mellitus Trigger finger Carpal tunnel syndrome Muscle cramps Neuropathy Surgical History Hx of blepharoplasty Hx of hand surgery History of carpal tunnel release Hx of colonoscopy Hx of breast reduction, elective History of surgery History of section H/O exploratory laparotomy History of tubal ligation History of cataract surgery Family History Father Prostate cancer Mother No problems noted. Family/Other FH: mental illness Hypertension Tachycardia Maternal Aunt No problems noted. 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 Cognitive needs: No Hearing needs: No Vision needs: No Review of Systems Const Denies fatigue, Denies fever(s), Denies night sweats, Denies poor appetite and Denies weight loss ENT Reports Normal hearing present, Denies dental pain, Denies dysphagia, Denies hearing loss, Denies mouth pain, Denies odynophagia, Denies throat swelling, Denies tongue swelling and Reports other (Dentition adequate) Card Reports no additional complaints Resp Reports no additional complaints GI Denies abdominal pain, Denies melena, Denies bloating, Denies hematochezia, Reports constipation, Denies GI cramping, Denies dysphagia, Denies excessive fl atus, Denies early satiety, Reports heartburn, Denies diarrhea, Denies nausea, Denies odynophagia, Denies vomiting and Denies hematemesis Skin/Breast Denies pruritus, Denies lesions, Denies rash and Denies jaundice Neuro Reports Normal hearing present and Denies Abnormal speech present Endo Denies fatigue Aller/Immun Denies throat swelling and Denies tongue swelling Physical Exam Vital Signs: Last Vital Signs Pulse 100 05/04/23 13:36 BP 96/52 L 05/04/23 13:36 BMI result Body Mass Index 29.0 Const General: cooperative, no acute distress, well developed and well groomed Nutritional Appearance: well nourished and overweight Orientation/consciousness: oriented to person, oriented to place and oriented to time Limitations: language barrier HEENT Head: Yes normocephalic and Yes atraumatic Eyes General: appearance normal, both eyes and all related structures Pupils: Equal, round and reactive pupils present Neck Neck: Yes normal visual inspection and Yes no lymphadenopathy Thyroid: Thyroid normal Resp Effort & Inspection: normal respiratory effort and able to speak in complete sentences Auscultation: clear to auscultation bilaterally Cardio Rate: regular rate Rhythm: regular rhythm Heart sounds: Normal, physiologic split S2 sound present Peripheral pulses: radial pulses present and posterior tibial pulses present GI Inspection: No distended, No Abdominal panniculus present and Yes obesity Palpation (GI): Soft to palpation, nontender, no guarding, not rigid and No hepatosplenomegaly present Percussion: Yes normal to percussion Auscultation: normal bowel sounds Rectal Exam - Female: deferred Skin General skin exam: no rashes or lesions noted, turgor normal, skin not dry, no jaundice, No spider nevi and no striae Rashes: no rashes Nails: normal Neuro General: oriented to person, oriented to place and oriented to time Cranial nerves: Yes Equal, round and reactive pupils present and Yes Normal hearing present Speech: No Abnormal speech present Extrem General: Yes normal to inspection, No clubbing, No cyanosis and No edema Psych Appearance: grossly normal and well kempt Mental Status: mental status grossly normal Speech and movement: Normal speech and movement present Affect: normal affect Attitude: cooperative Thought process: Normal thought process present and not confabulating Thought content: Normal thought content present Insight: Limited insight present (Psych) Judgement: Limited judgement present (Psych) Results Reviewed Results Reviewed: Laboratory Tests 11/09/22 12:12 H. pylori Breath Test Positive EGD/COLONOSCOPY Findings: Larynx:normal Esophagus: GE junction at 35 cm, diaphragm hiatus at 35 cm, mild bogginess and erythema at GEJ, bx taken Stomach: Normal mucosa. Biopsies were obtained. Grade 2 flap valve on retroflexed examination of the cardia. Duodenum: Normal bulb and descending duodenum, bx taken Findings: Terminal Ileum-normal, bx taken Random colon bx taken Cecum: 4-6 mm sessile polyp removed with cold forceps Ascending Colon: normal Transverse Colon -normal Descending Colon:normal Sigmoid Colon: severe diverticulosis with narrowing of lumen and hypertrophic mucosa Rectum: Retroflexion with medium sized internal hemorrhoids, grade I Anorectum - normal Impression and Post Procedure Diagnosis: Endoscopy Findings: esophagitis Colonoscopy Findings: polyp internal hemorrhoids diverticular disease-severe Plan: Await Pathology results Repeat Colonoscopy in 5-7 years due to polyp or earlier if clinically indicated High fiber diet leaflet avoid straining at stool, epsom salts and sitz bath, anusol supps or cream if bx neg then GES BIOPSY Received: 04/21/23 Diagnosis A. Duodenum, biopsy: Duodenal mucosa with preserved villi and no specific change. B. Stomach, biopsy: Gastric antral and body mucosa with mild chronic inactive gastritis; negative for H pylori, intestinal metaplasia and dysplasia. C. Gastroesophageal junction, biopsy: Squamocolumnar mucosa with mild chronic inflammation; negative for intestinal metaplasia and dysplasia. D. Esophagus, distal, biopsy: Squamous mucosa with no specific change; no c olumnar mucosa present. E. Colon, cecal polyp: Benign inflammatory polyp; no adenomatous dysplasia seen. F. Terminal ileum, biopsy: Ileal mucosa with no specific change. G. Colon, random, biopsy: Colonic mucosa with focal reactive lymphoid follicle and no specific change; no evidence of microscopic colitis... . ULTRASOUND OF THE ABDOMEN 11/30/22 FINDINGS: PANCREAS: Normal. The visualized pancreatic head and body are normal in appearance. The remainder of the pancreas is obscured from visualization by the overlying bowel gas. ABDOMINAL AORTA: The proximal, mid, and distal segments are normal in caliber. INFERIOR VENA CAVA: Visualized portions are normal. LIVER: Normal. The liver is normal in size. The liver contour is normal. Parenchymal echogenicity is normal. No focal hepatic lesion. There is no intrahepatic biliary duct dilatation seen. GALLBLADDER: Normal. The gallbladder is physiologically distended without evidence of stones, sludge, polyps, wall thickening or pericholecystic fluid. COMMON BILE DUCT: Normal in caliber measuring 0.4 cm in diameter. RIGHT KIDNEY: Normal. No hydronephrosis. No renal calculi or focal parenchymal lesions. The kidney measures 9.5 cm in maximum dimension. LEFT KIDNEY: At the lower pole, a 1.2 cm in maximal diameter benign, simple cyst is seen. No hydronephrosis or renal calculi. The kidney measures 7.9 cm in maximum dimension. SPLEEN: No focal finding. The spleen measures 7.3 cm in maximum dimension. FREE FLUID: None. US/US abdomen complete IMPRESSION: A 1.2 cm benign, simple left renal cyst is seen. This requires no imaging follow-up. The examination is otherwise unremarkable, with imaging of the pancreatic tail technically limited. Assessment & Plan Assessment & Plan (1) Constipation: Code(s): K59.00 - Constipation, unspecified (2) H. pylori infection: Comment: Eradication confirmed by direct biopsy on EGD Code(s): A04.8 - Other specified bacterial intestinal infections (3) GERD (gastroesophageal reflux disease): Code(s): K21.9 - Gastro-esophageal reflux disease without esophagitis (4) Tubular adenoma of colon: Comment: 04/2023 negative scope repeat in 5 years; 04/25/2020 scope 8-10 mm sessile tubular adenoma aeb repeat 3 years Code(s): D12.6 - Benign neoplasm of colon, unspecified Plan Sami #Niece translates per pt request The procedure should be repeated in 5 years due to the finding of a tubular adenoma. The procedure was well tolerated. The results were explained and the patient is agreeable to the follow-up interval as stated. The bowel pattern has returned to normal. Education was provided to tell any 1st degree relatives about their findings to be sure that they are screened by age 45. Educated that they will be put on a recall list when it is time for their repeat scope but should they move out of state or away from the hospital they will need to remember along with their primary to repeat the procedure in a timely fashion to avoid any adverse complications. On 03/10/2023 I treated the HP with quadruple therapy for HP. All symptoms have resolved well after treating the H pylori. She is now only taking her omeprazole once a day and is not having trouble with heartburn either. We go over possibly attempting a wean to see if she even needs the omeprazole at all although I am fine with continuing to prescribe it if she does need it. She has been struggling somewhat with constipation and her sister is on lactulose which she tried with good success. I have no problem prescribing this for her. She requests refills of her vitamin-D but Dr. Argueta her primary is the prescriber so I direct her to call her. Return office visit in 3 months Medications: New lactulose 20 grams (30 mL) PO BID 3,000 mL 3RF K59.00 - Constipation, unspecified Changed From omeprazole 40 mg PO BID 180 caps 1RF A04.8 - Other specified bacterial intestinal infections To omeprazole 40 mg PO DAILY 90 caps 1RF A04.8 - Other specified bacterial intestinal infections Coding Level of Care Code Est Pt Level 3 (56035) Diagnoses Constipation K59.00 H. pylori infection A04.8 GERD (gastroesophageal reflux disease) K21.9 Tubular adenoma of colon D12.6
[2023-05-04 13:36] VITALS: BP 96/52; PULSE 100; BMI 29.0
== END 2023-05-04 14:17 | disposition home or self-care (01) ==
PROVIDERS: PCP Internal Medicine; Visit Provider Nurse Practitioner
DX: K59.00 Constipation, unspecified (principal); A04.8 Other specified bacterial intestinal infections; K21.9 Gastro-esophageal reflux disease without esophagitis; D12.6 Benign neoplasm of colon, unspecified
CPT/HCPCS: 99213

== ENCOUNTER → 2023-05-04 13:27 | Outpatient (BNVA) | payer OTHER, SELFPAY | PROVIDERS: PCP Internal Medicine; Visit Provider Nurse Practitioner | DX: K59.00 Constipation, unspecified (principal); K21.9 Gastro-esophageal reflux disease without esophagitis; A04.8 Other specified bacterial intestinal infections; D12.6 Benign neoplasm of colon, unspecified | CPT/HCPCS: 99212 ==

== ENCOUNTER 2023-05-10 13:37 | Outpatient (AMB) | payer OTHER, SELFPAY ==
--- NOTE | 2023-05-10 13:56 | MHC.OFFVIS ---
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 No complaints. Last Pap/HPV was many years ago with no history of abnormal Pap smear last 25 year Last Mammogram was BI-RADS 2 in 10/26 Last Colonoscopy was in 04/28 Last DEXA scan was in the low risk category in 09/25 [facility] Medical History Obesity (BMI 30-39.9) Osteopenia Pure hypercholesterolemia Hyperkalemia Depression with anxiety Insomnia Hypovitaminosis D Anxiety Hair loss Arm paresthesia, right CKD (chronic kidney disease), stage III Family history of diabetes mellitus Trigger finger Carpal tunnel syndrome Muscle cramps Neuropathy Surgical History Hx of blepharoplasty Hx of hand surgery History of carpal tunnel release Hx of colonoscopy Hx of breast reduction, elective History of surgery History of section H/O exploratory laparotomy History of tubal ligation History of cataract surgery Family History Father Prostate cancer Mother No problems noted. Family/Other FH: mental illness Hypertension Tachycardia Maternal Aunt No problems noted. 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 Cognitive needs: No Hearing needs: No Vision needs: No Female Reproductive History Menstrual Age of Menarche: 89 control method: permanent sterilization Total pregnancies: 2 Full term: 1 Number of Living Children: 1 Date of Mammogram: 10/20/22 Date of last Bone Density Screenin09/22/21 Review of Systems Const All systems reviewed & are unremarkable except as noted in HPI and below Card Reports as per HPI Resp Reports as per HPI GI Reports as per HPI and Reports no additional complaints Reports as per HPI Physical Exam Vital Signs: Last Vital Signs BP 100/60 05/10/23 13:59 BMI result Body Mass Index 29.3 Const General: cooperative, healthy appearing and comfortable Chest Chest palpation & inspection: normal inspection of the chest and normal palpation of entire chest wall Breast/axilla inspection: normal inspection of the breasts and normal inspection of the axillae Breast/axilla palpation: normal palpation of the breasts, normal palpation of the axillae and no axillary lymphadenopathy Resp Effort & Inspection: normal respiratory effort Auscultation: clear to auscultation bilaterally Percussion: percussion normal Cardio Palpation: normal PMI Rate: regular rate Rhythm: regular rhythm Heart sounds: no murmurs and no rubs Peripheral pulses: Peripheral pulses 2+ throughout GI Inspection: Yes normal to inspection Palpation (GI): Soft to palpation, nontender, no guarding, not rigid and No hepatosplenomegaly present Percussion: Yes normal to percussion Auscultation: normal bowel sounds Rectal Exam - Female: deferred General: Yes bladder normal to palpation External Female Exam: No lesion Speculum Exam - Vagina: normal appearance of the vagina, normal palpation, normal vaginal discharge and not erythematous Speculum Exam - Cervix: normal appearance of the cervix and normal palpation Bimanual exam- vagina & uterus: normal bimanual exam, normal palpation, uterine size normal, bladder normal to palpation, consistency normal and normal palpation Bimanual Exam- Adnexa, other: normal adnexae, no masses and no tenderness Assessment & Plan Assessment & Plan (1) Well woman exam: Code(s): Z01.419 - Encounter for gynecological examination (general) (routine) without abnormal findings Plan: Co testing not indicated since the patient 's age is above 65 with no history of abnormal Pap smears last 25 years. Counseled the patient about the recommended dietary allowance of 1200 mg of Calcium & 800 IU of vitamin D. Instructions given to patient to schedule next screen Mammogram in 10/27 The patient was instructed to perform monthly self-breast exams and to schedule a follow-up appointment and an annual exam in a year; All questions answered and the patient verbalized understanding. Coding Level of Care Code Est Pt Prev Care >65y(61902) Diagnoses Well woman exam Z01.419
[2023-05-10 13:59] VITALS: BP 100/60; BMI 29.3
== END 2023-05-10 14:25 | disposition home or self-care (01) ==
LOC: HO.HWS 13:37
PROVIDERS: PCP Internal Medicine; Visit Provider Obstetrics & Gynecology
DX: Z01.419 Encounter for gynecological examination (general) (routine) without abnormal findings (principal)
CPT/HCPCS: 99397

== ENCOUNTER → 2023-05-10 13:37 | Outpatient (BNVA) | payer OTHER, SELFPAY | PROVIDERS: PCP Internal Medicine; Visit Provider Obstetrics & Gynecology ==

== ENCOUNTER 2023-05-11 06:09 | Outpatient (REF) | payer OTHER, SELFPAY ==
--- NOTE | ~2023-05-11 | FL_ITS ---
EXAMINATION: XR FLUOROSCOPY WITH IMAGES CLINICAL INFORMATION: Radiculopathy, lumbar region. COMPARISON: None available. TECHNIQUE: Fluoroscopy Supervised By: Dr. Jhon Hsieh. Fluoroscopy Time: 0.5 minute. Cumulative Dose: 24.6 mGy. DAP: 1.66 Gycm2. Images: 3. FINDINGS: Images demonstrate needle placement and contrast injection adjacent to the bilateral lower lumbar spine FL/FL guidance in treatment room IMPRESSION: Fluoroscopic guidance for lumbar pain management procedure.
== END 2023-05-11 06:10 | disposition home or self-care (01) ==
LOC: CF 06:09
PROVIDERS: Visit Provider Internal Medicine
DX: M54.16 Radiculopathy, lumbar region (principal)
CPT/HCPCS: 64483; J1100; J2795; Q9967

== ENCOUNTER 2023-05-11 09:24 | Outpatient (AMB) | payer OTHER, SELFPAY ==
--- NOTE | 2023-05-11 09:37 | MHC.OFFVIS ---
Intake Vital Signs 05/11/23 09:38 05/11/23 10:37 BP 104/62 104/62 Blood Pressure Location Rt brachial Lt brachial Position Sitting Sitting Respiration 12 12 Pulse 77 86 Pulse Source Pulse Oximeter Pulse Oximeter Pulse Oximetry (%) 97 99 Oxygen Delivery Method Room Air Room Air Intake Visit Reasons: Jacob L4-L5 TFESI/CONFIRMED Allergies gabapentin Allergy (Intermediate, Verified 05/11/23 09:38) somnolence pregabalin Allergy (Intermediate, Verified 05/11/23 09:38) somnolence Influenza Virus Vaccines Adverse Reaction (Intermediate, Verified 05/11/23 09:38) Throat pain HPI Jacob L4-L5 TFESI/CONFIRMED HPI Details Patient presents for scheduled procedure. Denies any recent cough, cold, infection, fever or other significant changes in medical history since last office visit. [facility] Medical History Obesity (BMI 30-39.9) Osteopenia Pure hypercholesterolemia Hyperkalemia Depression with anxiety Insomnia Hypovitaminosis D Anxiety Hair loss Arm paresthesia, right CKD (chronic kidney disease), stage III Family history of diabetes mellitus Trigger finger Carpal tunnel syndrome Muscle cramps Neuropathy Surgical History Hx of blepharoplasty Hx of hand surgery History of carpal tunnel release Hx of colonoscopy Hx of breast reduction, elective History of surgery History of section H/O exploratory laparotomy History of tubal ligation History of cataract surgery Family History Father Prostate cancer Mother No problems noted. Family/Other FH: mental illness Hypertension Tachycardia Maternal Aunt No problems noted. 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 The patient was placed in the prone position on the fluoroscopy table. The lumbosacral area was prepped with chloraprep, allowed to dry and draped in sterile fashion. Using fluoroscopy, the skin overlying our target was anesthetized with 0.5% lidocaine. A 22 gauge 3.5 inch spinal needle was advanced to the safe triangle in the upper pole of the L4 foramen. No paresthesias were elicited with needle placement and aspiration was negative for blood and CSF. Correct needle position was confirmed with approximately 1 ml contrast dye (Omnipaque 180 mg/ml) injected under real-time fluoroscopy. No evidence of vascular or intrathecal uptake was seen and there was both epidural and peripheral spread of the contrast agent. 7 mg dexamethasone plus 1 ml containing 0.5% lidocaine was slowly injected. The needle was flushed and removed. The same procedure was repeated for the other side. The skin was cleansed and a sterile bandages were applied. The patient tolerated the procedure well and no complications were encountered. Following the procedure the patient's vital signs were stable. The patient was discharged home in good condition with post-procedural instructions. Time Out: Immediately prior to the procedure, the following was verbally confirmed that there is a signed consent form and that the correct patient, planned procedure, site and side are consistent with documentation and that necessary equipment and/or blood products are available prior to the start of the case. Complications: none EBL: <5 cc 25947 - Lumbar/Sacral (bilateral) Procedure code (CPT) selection complete Assessment & Plan Assessment & Plan (1) Lumbar radiculopathy, chronic: Code(s): M54.16 - Radiculopathy, lumbar region Plan Patient is status post bilateral L4/L5 TFESIs. Patient tolerated procedure well and was discharged home in stable condition with discharge instructions. All questions were answered. We will follow-up via telephone or in clinic to assess response to therapy. A follow-up appointment was made during today's visit. Orders: Orders FL guidance in treatment room Today M54.16 - Radiculopathy, lumbar region Coding Level of Care Code Procedure Only Diagnoses Lumbar radiculopathy, chronic M54.16 CPT Codes Transforaminal Epidural Steroid Inj - TESI 3: 12652 - Lumbar/Sacral ([id number])
[2023-05-11 09:38] VITALS: BP 104/62; PULSE 77; RESP 12; O2SAT 97
[2023-05-11 10:37] VITALS: BP 104/62; PULSE 86; RESP 12; O2SAT 99
== END 2023-05-11 10:35 | disposition home or self-care (01) ==
LOC: HO.PMCPRC 09:24
PROVIDERS: PCP Internal Medicine; Visit Provider Internal Medicine
DX: M54.16 Radiculopathy, lumbar region (principal)
CPT/HCPCS: 64483

== ENCOUNTER 2023-05-11 14:45 | Outpatient (AMB) | payer OTHER, SELFPAY ==
[2023-05-11 14:48] VITALS: BP 90/62; PULSE 88; O2SAT 99; BMI 29.4
--- NOTE | 2023-05-11 14:48 | MHC.PC.OV ---
Vital Signs 05/11/23 14:48 05/11/23 15:21 Height 5 ft Weight 150 lb 5.684 oz BMI 29.4 BP 90/62 98/64 Blood Pressure Location Lt brachial Lt brachial Position Sitting Sitting Pulse 88 Pulse Source Pulse Oximeter Pulse Oximetry (%) 99 Oxygen Delivery Method Room Air Intake Visit Reasons: Physical Exam Intake Note: Patient is here today for a physical. 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 Allergies gabapentin Allergy (Intermediate, Verified 05/11/23 15:10) somnolence pregabalin Allergy (Intermediate, Verified 05/11/23 15:10) somnolence Influenza Virus Vaccines Adverse Reaction (Intermediate, Verified 05/11/23 15:10) Throat pain Medication List - Last Reconciled 05/11/23 by GERARD Maria acetaminophen 500 mg PO Q6H PRN 30 days cetirizine (All Day Allergy (cetirizine)) 10 mg PO DAILY PRN 90 days cholecalciferol (vitamin D3) (Vitamin D3) 50 mcg PO DAILY 90 days clonazepam 0.5 mg PO DAILY PRN fluoxetine 10 mg PO DAILY lactulose 20 grams (30 mL) PO BID methocarbamol 500 mg PO BID PRN mupirocin 2% 1 appl topical BID 2 weeks omeprazole 40 mg PO DAILY underpads (Bed Underpads) Use 1 to 4 bed underpads once a day prn [wipes flushable As directed] Tobacco use date assessed: 05/11/23 Fall risk assessment: No Falls in past year Last assessed Fall Risk: 05/11/23 Dental Screening Dental Screen Date: 05/11/23 Did you have a dental visit in the last 12 months?: Yes Did you have a dental problem in the last 6 months where you did not have access to dental care?: No Was dental information given to patient?: Patient has dentist HPI Physical Exam HPI Details Patient is a 73-year-old female who presents today for physical exam. Patient of Dr. Mcdonald. Medical history significant for depression with anxiety-followed by Psychiatry, CKD, hypercholesterolemia, osteopenia, lumbar spondylosis-followed by [facility] pain [facility], GERD, constipation among others. Mammogram normal 10/2022. Bone density screen 09/2021 with osteopenia. Colonoscopy 04/2023 polyp removed and repeat in 5-7 years was done by Dr. Figueroa. Today we discussed patient's need for pneumonia and tetanus vaccines, patient has declined. Denies shortness of breath or chest pain. Ambulates with a walker. Eye exam up-to-date per patient. Patient is a Mohawk-speaking and her daughter and lab was helping with interpretation. [facility] Medical History Obesity (BMI 30-39.9) Osteopenia Pure hypercholesterolemia Hyperkalemia Depression with anxiety Insomnia Hypovitaminosis D Anxiety Hair loss Arm paresthesia, right CKD (chronic kidney disease), stage III Family history of diabetes mellitus Trigger finger Carpal tunnel syndrome Muscle cramps Neuropathy Surgical History Hx of blepharoplasty Hx of hand surgery History of carpal tunnel release Hx of colonoscopy Hx of breast reduction, elective History of surgery History of section H/O exploratory laparotomy History of tubal ligation History of cataract surgery Family History Father Prostate cancer Mother No problems noted. Family/Other FH: mental illness Hypertension Tachycardia Maternal Aunt No problems noted. 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 1. Little interest or pleasure in doing things: not at all 2. Feeling down, depressed, or hopeless: not at all 3. Trouble falling or staying asleep, or sleeping too much: not at all 4. Feeling tired or having little energy: not at all 5. Poor appetite or overeating: not at all 6. Feeling bad about yourself - or that you are a failure or have let yourself or your family down: not at all 7. Trouble concentrating on things, such as reading the newspaper or watching television: not at all 8. Moving or speaking so slowly that other people could have noticed. Or the opposite - being so fidgety or restless that you have been moving around a lot more than usual: not at all 9. Thoughts that you would be better off or of hurting yourself in some way: not at all Total score: 0 Depression Screening Interpretation: Negative Depression Screening Done: Yes 11860 - PHQ-9 Billing: Yes Source: Developed by Drs. Oskar Robertson, Jennifer Jernigan, Garcia Doshi and colleagues, with an educational alessandro from [employer]. Thrive Questionnaire Date Thrive assessed: 08/02/22 I am a: Patient What is your living situation today?: I have a steady place to live Within the past 12 months, did the food you bought not last and you didn't have the money to get more?: Never true Within the past 12 months, did you worry whether your food would run out before you got money to buy more?: Never true Do you have trouble paying for medicines?: No Do you have trouble getting transportation to medical appointments?: No Do you have trouble paying your heating and electricity bill?: No Do you have trouble taking care of your child, family member or friend?: No Do you have trouble with day-to-day activities such as bathing, preparing meals, shopping, managing finances, etc.?: No Are you currently unemployed and looking for a job?: No Are you interested in more education?: No Currently or been in a relationship where the following occur: no concerns reported AUDIT C Alcohol Use Questionnaire (AUDIT-C) 1. How often do you have a drink containing alcohol?: Never 2. How many drinks containing alcohol do you have on a typical day when you are drinking?: 1 or 2 3. How often do you have six or more drinks on one occasion?: Never Total Score: 0 Score Reviewed/Action Taken: No TOBIAS-7 AMB Questionnaire TOIBAS-7 Date TOBIAS - 7 assessed: 05/11/23 Feeling nervous, anxious, or on edge: 0 = Not at all Not being able to stop or control worryin = Not at all Worrying too much about different things: 0 = Not at all Trouble relaxin = Not at all Being so restless that it is hard to sit still: 0 = Not at all Becoming easily annoyed or irritable: 0 = Not at all Feeling afraid as if something awful might happen: 0 = Not at all Total TOBIAS-7 score (0-4 normal; 5-9 mild; 10-14 moderate; 15-21 severe): 0 Source: Developed by Drs. Oskar Robertson, Jennfier Jernigan, Garcia Doshi and colleagues, with an educational alessandro from [employer]. TOBIAS-7 Assessment Billing TOBIAS-7 Assessment Tool: TOBIAS-7 Assessment 71103 Review of Systems Const Denies body aches, Denies chills, Denies fever(s) and Denies headache(s) Eyes Denies change in vision ENT Denies dizziness, Denies otalgia, Denies headache(s), Denies nasal discharge, Denies sinus pain and Denies sore throat Card Denies chest pain, Denies edema, Denies lightheadedness and Denies dyspnea Resp Denies cough, Denies dyspnea and Denies wheezing GI Reports constipation (Intermittent), Denies diarrhea, Denies nausea and Denies vomiting Denies dysuria Musc Reports back pain, Denies myalgias and Reports arthralgias Skin/Breast Denies rash Neuro Denies dizziness and Denies headache(s) Aller/Immun Denies wheezing Physical exam (Primary Care) Vital Signs: Last Vital Signs Pulse 88 05/11/23 14:48 BP 90/62 05/11/23 14:48 Pulse Ox 99 05/11/23 14:48 Oxygen Delivery Method Room Air 05/11/23 14:48 BMI result Body Mass Index 29.4 Tobacco/Smoking Status: Tobacco use Status Tobacco use date assessed 05/11/23 05/11/23 14:49 Patient Tobacco Use Status Former Tobacco user 05/11/23 14:49 Tobacco use type Cigarette 05/11/23 14:49 e-Cigarette/Vaping Use Never Used 05/11/23 14:49 PHQ-9: PHQ-9 Score PHQ-9: Total score 0 05/11/23 14:49 Depression Screening Interpretation: Negative Thrive Assessment: Date of Thrive Assessment Date Thrive assessed 08/02/22 05/11/23 14:49 Currently or been in a relationship where the following occur: no concerns reported Const Other: Ambulates with a walker General: cooperative and no acute distress Orientation/consciousness: patient oriented x3 HENMT Head: Yes normocephalic and Yes atraumatic Ears: TM's normal bilaterally Face and sinus: Yes sinuses nontender Mouth: oropharynx normal and moist mucous membranes Throat: Yes posterior oropharynx normal Eyes General: appearance normal, both eyes and all related structures Pupils: Equal, round and reactive pupils present EOM: EOMs intact bilaterally Neck Neck: Yes normal visual inspection, Yes full ROM and Yes no lymphadenopathy Thyroid: Thyroid normal Resp Effort & Inspection: normal respiratory effort and able to speak in complete sentences Auscultation: clear to auscultation bilaterally, no crackles, no rales, no rhonchi and no wheezes Cardio Rate: regular rate Rhythm: regular rhythm Heart sounds: S1 normal heart sound present, S2 normal heart sound present and no murmurs GI Palpation (GI): Soft to palpation, not firm, nontender, no guarding, not rigid and no hepatosplenomegaly Auscultation: normal bowel sounds General: No CVA tenderness Back/Spine/Pelvis Back: No CVA tenderness Skin General skin exam: no rashes or lesions noted Neuro General: patient oriented x3 Cranial nerves: Yes Equal, round and reactive pupils present Gait exam (Neuro): Normal gait present Extrem General: Yes full ROM and No edema Assessment and Plan Assessment & Plan (1) GERD (gastroesophageal reflux disease): Code(s): K21.9 - Gastro-esophageal reflux disease without esophagitis Plan: Stable with omeprazole Avoid GERD trigger foods Do not lay down 2-3 hours after evening meal (2) CKD (chronic kidney disease), stage III: Code(s): N18.30 - Chronic kidney disease, stage 3 unspecified Plan: Recent renal blood work stable Avoid nephrotoxic medications (3) Pure hypercholesterolemia: Code(s): E78.00 - Pure hypercholesterolemia, unspecified Plan: Low-cholesterol diet LDL 125 11/2022 (4) Depression with anxiety: Code(s): F41.8 - Other specified anxiety disorders Plan: Continue to follow-up with Psychiatry Dr. Lamas (5) Adult general medical exam: Code(s): Z00.00 - Encounter for general adult medical examination without abnormal findings Plan Follow-up with PCP in 6 months or sooner as needed Medications: Refilled cholecalciferol (vitamin D3) (Vitamin D3) 50 mcg PO DAILY 90 days 90 caps 3RF Coding Level of Care Code Est Pt Prev Care >65y(56703) Diagnoses GERD (gastroesophageal reflux disease) K21.9 CKD (chronic kidney disease), stage III N18.30 Pure hypercholesterolemia E78.00 Depression with anxiety F41.8 Adult general medical exam Z00.00 Additional Codes TOBIAS-7 Assessment Billing - TOBIAS-7 Assessment Tool: TOBIAS-7 Assessment 99145 ([id number])
[2023-05-11 15:21] VITALS: BP 98/64
== END 2023-05-11 15:25 | disposition home or self-care (01) ==
PROVIDERS: PCP Internal Medicine; Visit Provider Nurse Practitioner Family
DX: Z00.00 Encounter for general adult medical examination without abnormal findings (principal); K21.9 Gastro-esophageal reflux disease without esophagitis; N18.30 Chronic kidney disease, stage 3 unspecified; E78.00 Pure hypercholesterolemia, unspecified; F41.8 Other specified anxiety disorders
CPT/HCPCS: 99397

== ENCOUNTER 2023-06-09 10:12 | Outpatient (AMB) | payer OTHER, SELFPAY ==
--- NOTE | 2023-06-09 10:26 | MHC.OFFVIS ---
Intake Vital Signs 06/09/23 10:29 Height 5 ft Weight 148 lb 6 oz BMI 29.0 BP 98/64 Blood Pressure Location Lt brachial Position Sitting Pulse 92 Pulse Source Pulse Oximeter Pulse Oximetry (%) 100 Oxygen Delivery Method Room Air Intake Visit Reasons: s/p anton L4-L5 TFESI/Confirmed Intake Note: Pain today 11/13 Building Drafter Required: Yes Building Drafter Language: [employer] Name: Daughter Accompanied by: Daughter Allergies gabapentin Allergy (Intermediate, Verified 06/09/23 10:30) somnolence pregabalin Allergy (Intermediate, Verified 06/09/23 10:30) somnolence Influenza Virus Vaccines Adverse Reaction (Intermediate, Verified 06/09/23 10:30) Throat pain HPI HPI Comments History of Present Illness Details Patient presents today to assess response to Bilateral L4-L5 TFESI on 05/11/[address] Hsieh. Patient reports 100% ongoing pain relief in left leg, 40% pain relief in right leg, and mild low back pain relief with partial improvement in her functioning and sleep. Patient continues to endorse right-sided low back pain that extends to her right upper buttock and into right lateral hip, anterior thigh and occasionally into her right groin with internal hip rotation. Pain increases with walking, prolonged standing and bending. She is interested to proceed with diagnostic right sacroiliac joint injection as next steps. Patient is hesitant toward spine surgery but will consider Neurosurgical evaluation if no pain relief with SIJ injection. Her symptoms are also consistent with right hip pathology. Patient denies any bladder or bowel incontinence or saddle anesthesia. Past Procedures: 05/11/23: Bilateral L4-L5 TFESI-100% left leg pain relief, 40% right leg pain relief, mild low back pain relief PRIOR: Patient presents today for follow up back pain and to assess response to physical therapy. Patient reports very low tolerance for PT or HEP due to increase symptoms and unbearable pain after PT sessions. She attempted total of 3 sessions of PT with severe exacerbation of axial low back pain with radiation into her right lower extremity anteriorly with weakness, intermittent numbness and tingling. Pain is worse with prolonged walking or standing but does not necessarily go away with rest or sitting. PRIOR: Patient reports she went to [facility] on 10/15/22 with chest pain and ongoing left clavicle pain. Echocardiogram and EKG were normal. Stress tests few months ago was also normal. She has follow up with Cardiology soon. CXR taken in ER showed 5 mm calcified nodule right lower lobe, otherwise no acute process seen. 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 Since then she feels her left clavicle has been disproportionate and asymmetrical and has been causing significant discomfort with deep inspiration or raising her both arms with overhead reaches or carrying heavy objects. We will obtain bilateral shoulder xrays to help us differentiate with costoclavicular syndrome as she does have localized tenderness and pain in AC joint, worse on the left. Patient also reports intermittent numbness and tinglings in both hands, worse on the right and has known right Carpal tunnel syndrome, early on EMG. She follows with [facility] with last visit in 03/2022. Denies any fever, neck or shoulder pain, dizziness, chest pain, shortness of breaths, bladder or bowel incontinence or saddle anesthesia. PRIOR: Patient is a pleasant 72 years Romansh speaking female with osteopenia, CKD, presents today for initial evaluation of chronic lower back pain, hips and bilateral hand pain. Denies any recent trauma, injury or falls. Her back pain is mostly axial and also radiates to her right lower extremity laterally and left lower extremity anteriorly and laterally with numbness, tingling and weakness. She also reports bilateral hand pain, worse on the right for which she follows with Dr. Santillan and currently performing OT therapy. For today's visit, we concentrated on her back symptoms. I could not reproduce her bilateral radicular symptoms with seated SLR testing today. She does have significant bilateral hip and sacroiliac joint pain with testing which significantly exacerbate her pain. Patient denies any previous back surgery but received multiple steroid injections in the past while leaving in [place]. Patient has not completed physical therapy for her back pain but is currently undergoing OT for bilateral hand pain. She is in significant pain to pursue PT for her back or hip pain at this time. Patient denies any fever, chills, weight loss, shortness of breaths, chest pain, bladder or bowel incontinence or saddle anesthesia. Reports bilateral weakness in her legs. Ambulates with slow, antalgic gait with mild limping with the use of walker. Location Lower back, bilateral hand pain Duration Constant Characteristics of symptom or complaint Pulsing, stabbing, sharp, pinching, tingling, dull, aching, hurting, heavy Aggravating or associated factors Prolonged sitting, standing, walking, changing positions, weather changes Relieving factors Tylenol, tizanidine, PT in the past for knee pain, OT-presently for hands Treatment Back cortisone injections in [place], last in 1996. [facility] Medical History Obesity (BMI 30-39.9) Osteopenia Pure hypercholesterolemia Hyperkalemia Depression with anxiety Insomnia Hypovitaminosis D Anxiety Hair loss Arm paresthesia, right CKD (chronic kidney disease), stage III Family history of diabetes mellitus Trigger finger Carpal tunnel syndrome Muscle cramps Neuropathy Surgical History Hx of blepharoplasty Hx of hand surgery History of carpal tunnel release Hx of colonoscopy Hx of breast reduction, elective History of surgery History of section H/O exploratory laparotomy History of tubal ligation History of cataract surgery Family History Father Prostate cancer Mother No problems noted. Family/Other FH: mental illness Hypertension Tachycardia Maternal Aunt No problems noted. 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 Alert and oriented. Mood and affect appropriate. Follows and participates in conversation appropriately. Respiratory effort is unlabored. No cough. Able to transition from sit to stand with assistance of her family. Ambulates with bilaterally normal heel strike and toe off, but unsteady on the right. Back/Spine/Pelvis Other: Lumbar flexion and extension reproduce pain, worse with extension. Facet loading positive bilaterally. +Sammie sign on the right, negative on the left. +Shahab's test reproduces right lateral hip and anterior thigh on the right. +mild right groin pain with right internal hip rotations. Cervical Spine: cervical muscular tenderness and No Cervical spine tenderness Thoracic/Lumbar Spine: thoracic and lumbar spine normal to inspection, Lasegue's sign positive on the right and diffuse, pain with thoraco-lumbar ROM, paraspinal muscle tenderness on the right greater than left, thoraco-lumbar ROM limited, No thoracic spinal tenderness and lumbar spinal tenderness Pelvis: buttock tenderness on the right and no sciatic notch tenderness Sacroiliac joints: on the right tender to palpation and on the left nontender Results Reviewed Results Reviewed: MR LUMBAR SPINE WITHOUT CONTRAST 02/11/23 CLINICAL INFORMATION: Spondylosis without myelopathy or radiculopathy, DDD COMPARISON: Lumbar spine radiographs on 08/27/2022. TECHNIQUE: MRI of the lumbar spine was obtained using routine sequences without contrast. FINDINGS: There are 5 nonrib-bearing lumbar-type vertebrae. Mild levocurvature of the lumbar spine. Preservation of the normal lumbar lordosis. Grade 1 anterolisthesis at L4-L5 and to a lesser extent at L2-L3 and L3-L4. Mild retrolisthesis at L1-L2. No abnormal bone marrow signal. The vertebral body heights are preserved. Multilevel disc desiccation without significant disc height loss. The visualized spinal cord is normal in caliber. No abnormal cord signal. The conus medullaris terminates at T12-L1. T11-T12: No significant spinal canal or neural foraminal narrowing. T12-L1: No significant spinal canal or neural foraminal narrowing. L1-L2: Diffuse disc bulge. Mild bilateral neural foraminal narrowing. L2-L3: Diffuse disc bulge with superimposed left foraminal disc protrusion. Annular fissure. Right facet arthrosis. Mild spinal canal stenosis. Moderate to severe left and mild right neural foraminal narrowing with impingement of the left L2 exiting nerve roots. L3-L4: Diffuse disc bulge with superimposed left foraminal disc protrusion. Bilateral facet arthrosis. Mild spinal canal stenosis. Mild to moderate left and mild right neural foraminal narrowing with mass effect on the left L3 exiting nerve roots. L4-L5: Diffuse disc bulge with superimposed central disc protrusion. Ligamentum flavum hypertrophy. Moderate spinal canal stenosis with mass effect on the cauda equina nerve roots. Moderate to severe left and mild right neural foraminal narrowing with the disc abutting the exiting L4 nerve roots bilaterally. L5-S1: Diffuse disc bulge and bilateral facet arthrosis. No significant spinal canal or neural foraminal narrowing. The paravertebral soft tissues are unremarkable. Left renal cyst. IMPRESSION: Multilevel lumbar spondylosis as described above, most notable at L4-L5 where there is moderate spinal canal stenosis with mass effect on the cauda equina nerve roots at this level. There is also moderate to severe left L2-L3 and left L4-L5 neural foraminal narrowing with impingement of the left L2 exiting nerve roots. Assessment & Plan Assessment & Plan (1) Lumbar spinal stenosis: Code(s): M48.061 - Spinal stenosis, lumbar region without neurogenic claudication (2) Lumbar degenerative disc disease: Code(s): M51.36 - Other intervertebral disc degeneration, lumbar region (3) Sacroiliac joint pain: Code(s): M53.3 - Sacrococcygeal disorders, not elsewhere classified (4) Lumbar spondylosis: Code(s): M47.816 - Spondylosis without myelopathy or radiculopathy, lumbar region (5) Lumbar radiculopathy, chronic: Code(s): M54.16 - Radiculopathy, lumbar region Plan Schedule diagnostic right sacroiliac joint injection with local and fluoroscopy. If no relief, will proceed with [facility] evaluation and right hip MRI. Expectations, risks and benefits were reviewed. Patient is aware she will be contacted to schedule this procedure. Refill provided for methocarbamol per patient request. All questions were answered and the patient is in agreement of plan. Follow-up after injections and sooner as needed. Medications: Changed From methocarbamol 500 mg PO BID PRN muscle spasm G89.4 - Chronic pain syndrome, M47.816 - Spondylosis without myelopathy or radiculopathy, lumbar region, M53.3 - Sacrococcygeal disorders, not elsewhere classified, M62.830 - Muscle spasm of back To methocarbamol 500 mg PO BID 30 days PRN 60 tabs 3RF muscle spasm G89.4 - Chronic pain syndrome, M47.816 - Spondylosis without myelopathy or radiculopathy, lumbar region, M53.3 - Sacrococcygeal disorders, not elsewhere classified, M62.830 - Muscle spasm of back Coding Level of Care Code Est Pt Level 3 (28518) Diagnoses Lumbar spinal stenosis M48.061 Lumbar degenerative disc disease M51.36 Sacroiliac joint pain M53.3 Lumbar spondylosis M47.816 Lumbar radiculopathy, chronic M54.16
[2023-06-09 10:29] VITALS: BP 98/64; PULSE 92; O2SAT 100; BMI 29.0
== END 2023-06-09 11:19 | disposition home or self-care (01) ==
PROVIDERS: PCP Internal Medicine; Visit Provider Nurse Practitioner Family
DX: M48.061 Spinal stenosis, lumbar region without neurogenic claudication (principal); M51.36 Other intervertebral disc degeneration, lumbar region; M53.3 Sacrococcygeal disorders, not elsewhere classified; M47.816 Spondylosis without myelopathy or radiculopathy, lumbar region; M54.16 Radiculopathy, lumbar region
CPT/HCPCS: 99213

== ENCOUNTER → 2023-06-09 10:12 | Outpatient (BNVA) | payer OTHER, SELFPAY | PROVIDERS: PCP Internal Medicine; Visit Provider Nurse Practitioner Family | DX: M48.061 Spinal stenosis, lumbar region without neurogenic claudication (principal); M51.36 Other intervertebral disc degeneration, lumbar region; M53.3 Sacrococcygeal disorders, not elsewhere classified; M47.816 Spondylosis without myelopathy or radiculopathy, lumbar region; M54.16 Radiculopathy, lumbar region | CPT/HCPCS: 99212 ==

== ENCOUNTER 2023-09-27 06:22 | Outpatient (REF) | payer OTHER, SELFPAY ==
--- NOTE | ~2023-09-27 | FL_ITS ---
EXAMINATION: XR FLUOROSCOPY WITH IMAGES CLINICAL INFORMATION: Sacral coccygeal disorders, not elsewhere classified COMPARISON: None available. TECHNIQUE: Fluoroscopy Supervised By: Dr. Tai Bethea. Fluoroscopy Time: 0.1 minutes Cumulative Dose: 1.02 mGy. DAP: 0.279 Gycm2. Images: 2. FINDINGS: 2 images are obtained. The first image, a needle is positioned over the right SI joint. The second image, contrast is been injected through the needle. Please see Dr. Bethea's procedure note for full details. FL/FL guidance in treatment room IMPRESSION: Fluoroscopic guidance was performed for Dr. Bethea's evaluation of the right SI joint. Please see procedure note for full details.
== END 2023-09-27 06:23 | disposition home or self-care (01) ==
LOC: CF 06:22
PROVIDERS: Visit Provider Anesthesiology
DX: M53.3 Sacrococcygeal disorders, not elsewhere classified (principal); M48.061 Spinal stenosis, lumbar region without neurogenic claudication; M51.36 Other intervertebral disc degeneration, lumbar region; M47.816 Spondylosis without myelopathy or radiculopathy, lumbar region; M54.16 Radiculopathy, lumbar region
CPT/HCPCS: 27096; J2795; Q9967

== ENCOUNTER 2023-09-27 14:47 | Outpatient (AMB) | payer OTHER, SELFPAY ==
--- NOTE | 2023-09-27 15:15 | MHC.OFFVIS ---
Intake Visit Reasons: RIGHT DIAGNOSTIC SIJ INJECTION Allergies gabapentin Allergy (Intermediate, Verified 06/09/23 10:30) somnolence pregabalin Allergy (Intermediate, Verified 06/09/23 10:30) somnolence Influenza Virus Vaccines Adverse Reaction (Intermediate, Verified 06/09/23 10:30) Throat pain PFSH Medical History Obesity (BMI 30-39.9) Osteopenia Pure hypercholesterolemia Hyperkalemia Depression with anxiety Insomnia Hypovitaminosis D Anxiety Hair loss Arm paresthesia, right CKD (chronic kidney disease), stage III Family history of diabetes mellitus Trigger finger Carpal tunnel syndrome Muscle cramps Neuropathy Surgical History Hx of blepharoplasty Hx of hand surgery History of carpal tunnel release Hx of colonoscopy Hx of breast reduction, elective History of surgery History of section H/O exploratory laparotomy History of tubal ligation History of cataract surgery Family History Father Prostate cancer Mother No problems noted. Family/Other FH: mental illness Hypertension Tachycardia Maternal Aunt No problems noted. 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 Informed consent was explained thoroughly to the patient. All questions about benefits and risks for the procedure were answered. Patient came to the operating room and was positioned prone on the operating table with the pillow under the pelvis. Time out was performed delineating name and of the patient, allergies and the nature of the procedure. The lower back and buttocks of the patient were prepped with ChloraPrep prepped and draped with sterile utility towels. C-arm was brought over the operating field and sq picture of patient's pelvis was demonstrated on the screen. For the right joint tilting C-arm contralateral to the site of the joint the most posterior portion of the joints was superimposed with anterior silhouette of the joint. Skin was injected in the projection of the joint slightly medial to the location of the joint with 25 gauge 1/2 inch needle using local lidocaine 2% .After that 22 gauge 3 and 1/2 inch needle was driven to the right joint in tunnel vision fashion. When needle entered the joint capsule injection of the contrast was performed demonstrating intra-articular and minimally periarticular spread of the contrast. After that 4 cc. of ropivacaine 0.5% was injected into the joint. Upon completion of the injections the needle was removed Sterile dressing was applied. Upon completion of the injection patient was taken outside of the operating room to the recovery room where recovered uneventfully. (4) Lumbar spondylosis: Code(s): M47.816 - Spondylosis without myelopathy or radiculopathy, lumbar region Category: Medical (5) Lumbar radiculopathy, chronic: Code(s): M54.16 - Radiculopathy, lumbar region Category: Medical Plan Schedule diagnostic right sacroiliac joint injection with local and fluoroscopy. If no relief, will proceed with [facility] evaluation and right hip MRI. Expectations, risks and benefits were reviewed. Patient is aware she will be contacted to schedule this procedure. Refill provided for methocarbamol per patient request. All questions were answered and the patient is in agreement of plan. Follow-up after injections and sooner as needed. Orders: Orders FL guidance in treatment room Today M53.3 - Sacrococcygeal disorders, not elsewhere classified Coding Level of Care Code Procedure Only Diagnoses Lumbar spinal stenosis M48.061 Lumbar degenerative disc disease M51.36 Sacroiliac joint pain M53.3 Lumbar spondylosis M47.816 Lumbar radiculopathy, chronic M54.16
== END 2023-09-27 15:12 | disposition home or self-care (01) ==
LOC: HO.PMCPRC 14:47
PROVIDERS: PCP Internal Medicine; Visit Provider Anesthesiology
DX: M48.061 Spinal stenosis, lumbar region without neurogenic claudication (principal); M51.36 Other intervertebral disc degeneration, lumbar region; M53.3 Sacrococcygeal disorders, not elsewhere classified; M47.816 Spondylosis without myelopathy or radiculopathy, lumbar region; M54.16 Radiculopathy, lumbar region
CPT/HCPCS: 27096

== ENCOUNTER 2023-10-04 13:04 | Outpatient (AMB) | payer OTHER, SELFPAY ==
--- NOTE | 2023-10-04 13:06 | MHC.OFFVIS ---
Vital Signs 10/04/23 13:09 Height 5 ft Weight 150 lb BMI 29.3 BP 112/60 Blood Pressure Location Lt brachial Position Sitting Pulse 98 Pulse Source Pulse Oximeter Pulse Oximetry (%) 99 Oxygen Delivery Method Room Air Intake Visit Reasons: RIGHT DIAGNOSTIC SIJ INJECTION Intake Note: Pain today 4/10 Residential Door Unit Installer Required: Yes Residential Door Unit Installer Name: family Accompanied by: Family/Other Allergies gabapentin Allergy (Intermediate, Verified 10/04/23 13:09) somnolence pregabalin Allergy (Intermediate, Verified 10/04/23 13:09) somnolence Influenza Virus Vaccines Adverse Reaction (Intermediate, Verified 10/04/23 13:09) Throat pain HPI Comments Details: Patient presents today to assess response to Right Diagnostic SIJ injection on 09/27/[address] Bethea. Patient reports 70-75 % right SIJ area after procedure for over 8 hours. Patient reports the next day after injection her pain was 1/10 with some residual numbness in her RLE but no pain. She reports better tolerance with walking, prolonged sitting or standing or changing her positions, and improved sleep. Patient is interested to proceed with therapeutic injections. Patient denies any bladder or bowel incontinence or saddle anesthesia. Past Procedures: 09/27/23: Right Diagnostic SIJ [id number]% pain relief for 8 hours, 90% for 24 hours the 2nd day after injection 05/11/23: Bilateral L4-L5 [id number]-100% left leg pain relief, 40% right leg pain relief, mild low back pain relief PRIOR: Patient presents today for follow up back pain and to assess response to physical therapy. Patient reports very low tolerance for PT or HEP due to increase symptoms and unbearable pain after PT sessions. She attempted total of 3 sessions of PT with severe exacerbation of axial low back pain with radiation into her right lower extremity anteriorly with weakness, intermittent numbness and tingling. Pain is worse with prolonged walking or standing but does not necessarily go away with rest or sitting. PRIOR: Patient reports she went to [facility] on 10/15/22 with chest pain and ongoing left clavicle pain. Echocardiogram and EKG were normal. Stress tests few months ago was also normal. She has follow up with Cardiology soon. CXR taken in ER showed 5 mm calcified nodule right lower lobe, otherwise no acute process seen. 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 Since then she feels her left clavicle has been disproportionate and asymmetrical and has been causing significant discomfort with deep inspiration or raising her both arms with overhead reaches or carrying heavy objects. We will obtain bilateral shoulder xrays to help us differentiate with costoclavicular syndrome as she does have localized tenderness and pain in AC joint, worse on the left. Patient also reports intermittent numbness and tinglings in both hands, worse on the right and has known right Carpal tunnel syndrome, early on EMG. She follows with Hand Specialist with last visit in 03/2022. Denies any fever, neck or shoulder pain, dizziness, chest pain, shortness of breaths, bladder or bowel incontinence or saddle anesthesia. PRIOR: Patient is a pleasant 72 years Senegalese speaking female with osteopenia, CKD, presents today for initial evaluation of chronic lower back pain, hips and bilateral hand pain. Denies any recent trauma, injury or falls. Her back pain is mostly axial and also radiates to her right lower extremity laterally and left lower extremity anteriorly and laterally with numbness, tingling and weakness. She also reports bilateral hand pain, worse on the right for which she follows with Dr. Santillan and currently performing OT therapy. For today's visit, we concentrated on her back symptoms. I could not reproduce her bilateral radicular symptoms with seated SLR testing today. She does have significant bilateral hip and sacroiliac joint pain with testing which significantly exacerbate her pain. Patient denies any previous back surgery but received multiple steroid injections in the past while leaving in [place]. Patient has not completed physical therapy for her back pain but is currently undergoing OT for bilateral hand pain. She is in significant pain to pursue PT for her back or hip pain at this time. Patient denies any fever, chills, weight loss, shortness of breaths, chest pain, bladder or bowel incontinence or saddle anesthesia. Reports bilateral weakness in her legs. Ambulates with slow, antalgic gait with mild limping with the use of walker. Location Lower back, bilateral hand pain Duration Constant Characteristics of symptom or complaint Pulsing, stabbing, sharp, pinching, tingling, dull, aching, hurting, heavy Aggravating or associated factors Prolonged sitting, standing, walking, changing positions, weather changes Relieving factors Tylenol, tizanidine, PT in the past for knee pain, OT-presently for hands Treatment Back cortisone injections in [place], last in 1996. [facility] Medical History Obesity (BMI 30-39.9) Osteopenia Pure hypercholesterolemia Hyperkalemia Depression with anxiety Insomnia Hypovitaminosis D Anxiety Hair loss Arm paresthesia, right CKD (chronic kidney disease), stage III Family history of diabetes mellitus Trigger finger Carpal tunnel syndrome Muscle cramps Neuropathy Surgical History Hx of blepharoplasty Hx of hand surgery History of carpal tunnel release Hx of colonoscopy Hx of breast reduction, elective History of surgery History of section H/O exploratory laparotomy History of tubal ligation History of cataract surgery Family History Father Prostate cancer Mother No problems noted. Family/Other FH: mental illness Hypertension Tachycardia Maternal Aunt No problems noted. 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 Alert and oriented. Mood and affect appropriate. Follows and participates in conversation appropriately. Respiratory effort is unlabored. No cough. Able to transition from sit to stand with assistance of her family. Uses walker with seat with ambulation. Ambulates with bilaterally normal heel strike and toe off, but unsteady on the right. Back/Spine/Pelvis Other: Lumbar flexion and extension reproduce mild pain. Facet loading positive bilaterally. +Sammie sign on the right, mild TTP, negative on the left. +Shahab's test on the right. +Mild right groin pain with right internal hip rotations. Cervical Spine: loss of normal cervical lordosis, cervical muscular tenderness and No Cervical spine tenderness Thoracic/Lumbar Spine: thoracic and lumbar spine normal to inspection, No Thoracic/lumbar spine scar(s), Lasegue's sign negative, straight leg raise negative bilaterally, pain with thoraco-lumbar ROM, paraspinal muscle tenderness on the right greater than left, thoraco-lumbar ROM limited, No thoracic spinal tenderness and lumbar spinal tenderness Pelvis: buttock tenderness on the right and no sciatic notch tenderness Sacroiliac joints: on the right tender to palpation and on the left nontender Results Reviewed Results Reviewed: MR LUMBAR SPINE WITHOUT CONTRAST 02/11/23 CLINICAL INFORMATION: Spondylosis without myelopathy or radiculopathy, DDD COMPARISON: Lumbar spine radiographs on 08/27/2022. TECHNIQUE: MRI of the lumbar spine was obtained using routine sequences without contrast. FINDINGS: There are 5 nonrib-bearing lumbar-type vertebrae. Mild levocurvature of the lumbar spine. Preservation of the normal lumbar lordosis. Grade 1 anterolisthesis at L4-L5 and to a lesser extent at L2-L3 and L3-L4. Mild retrolisthesis at L1-L2. No abnormal bone marrow signal. The vertebral body heights are preserved. Multilevel disc desiccation without significant disc height loss. The visualized spinal cord is normal in caliber. No abnormal cord signal. The conus medullaris terminates at T12-L1. T11-T12: No significant spinal canal or neural foraminal narrowing. T12-L1: No significant spinal canal or neural foraminal narrowing. L1-L2: Diffuse disc bulge. Mild bilateral neural foraminal narrowing. L2-L3: Diffuse disc bulge with superimposed left foraminal disc protrusion. Annular fissure. Right facet arthrosis. Mild spinal canal stenosis. Moderate to severe left and mild right neural foraminal narrowing with impingement of the left L2 exiting nerve roots. L3-L4: Diffuse disc bulge with superimposed left foraminal disc protrusion. Bilateral facet arthrosis. Mild spinal canal stenosis. Mild to moderate left and mild right neural foraminal narrowing with mass effect on the left L3 exiting nerve roots. L4-L5: Diffuse disc bulge with superimposed central disc protrusion. Ligamentum flavum hypertrophy. Moderate spinal canal stenosis with mass effect on the cauda equina nerve roots. Moderate to severe left and mild right neural foraminal narrowing with the disc abutting the exiting L4 nerve roots bilaterally. L5-S1: Diffuse disc bulge and bilateral facet arthrosis. No significant spinal canal or neural foraminal narrowing. The paravertebral soft tissues are unremarkable. Left renal cyst. IMPRESSION: Multilevel lumbar spondylosis as described above, most notable at L4-L5 where there is moderate spinal canal stenosis with mass effect on the cauda equina nerve roots at this level. There is also moderate to severe left L2-L3 and left L4-L5 neural foraminal narrowing with impingement of the left L2 exiting nerve roots. Assessment & Plan Assessment & Plan (1) Lumbar degenerative disc disease: Code(s): M51.36 - Other intervertebral disc degeneration, lumbar region Category: Medical (2) Sacroiliac joint pain: Code(s): M53.3 - Sacrococcygeal disorders, not elsewhere classified Category: Medical (3) Lumbar spondylosis: Code(s): M47.816 - Spondylosis without myelopathy or radiculopathy, lumbar region Category: Medical (4) Chronic pain syndrome: Code(s): G89.4 - Chronic pain syndrome Category: Medical Plan Schedule therapeutic right sacroiliac joint injection with local and fluoroscopy. Diagnostic right SIJ injection provided good results with improved functioning, mobility and sleep. Expectations, risks and benefits were reviewed. Patient is aware she will be contacted to schedule this procedure. All questions were answered and the patient is in agreement of plan. Follow-up after injections and sooner as needed. Coding Level of Care Code Est Pt Level 3 (64975) Diagnoses Lumbar degenerative disc disease M51.36 Sacroiliac joint pain M53.3 Lumbar spondylosis M47.816 Chronic pain syndrome G89.4
[2023-10-04 13:09] VITALS: BP 112/60; PULSE 98; O2SAT 99; BMI 29.3
== END 2023-10-04 13:27 | disposition home or self-care (01) ==
PROVIDERS: PCP Internal Medicine; Visit Provider Nurse Practitioner Family
DX: M51.36 Other intervertebral disc degeneration, lumbar region (principal); M53.3 Sacrococcygeal disorders, not elsewhere classified; M47.816 Spondylosis without myelopathy or radiculopathy, lumbar region; G89.4 Chronic pain syndrome
CPT/HCPCS: 99213

== ENCOUNTER → 2023-10-04 13:04 | Outpatient (BNVA) | payer OTHER, SELFPAY | PROVIDERS: PCP Internal Medicine; Visit Provider Nurse Practitioner Family | DX: M51.36 Other intervertebral disc degeneration, lumbar region (principal); M53.3 Sacrococcygeal disorders, not elsewhere classified; M47.816 Spondylosis without myelopathy or radiculopathy, lumbar region; G89.4 Chronic pain syndrome | CPT/HCPCS: 99212 ==

== ENCOUNTER 2023-10-05 09:47 | Outpatient (REF) | payer OTHER, SELFPAY ==
[2023-10-05 09:55] LABS: MANUAL DIFF FLAG NO
[2023-10-05 10:55] LABS: Basophils Percent Auto 2.1 % (0-2); Eosinophils Percent Auto 4.9 % (0-4); Hematocrit 43.2 % (37.0-47.0); Imm Gran Abs Auto 0.02 X10*3/uL (0.00-0.03); Imm Gran Pct Auto 0.5 % (0.0-0.4); Lymphocytes Percent Auto 36.7 % (20-40); Mean Corpuscular Volume 91.3 fL (80.0-98.0); Neutrophils Absolute Auto 1.7 x10*3/uL (2.0-8.3); Platelet Count 294 X10*3/uL (160-400); Red Blood Count 4.73 X10*6/uL (4.20-5.50); White Blood Count 3.8 X10*3/uL (4.8-10.8)
[2023-10-05 11:44] LABS: Alkaline Phosphatase 86 U/L (39-117); Anion Gap 13 (12-20); Bilirubin Total 0.3 mg/dL (0.0-1.0); Blood Urea Nitrogen 18 mg/dL (9-16); Calcium 9.6 mg/dL (8.4-10.2); Carbon Dioxide 25 mmol/L (22-29); Chloride 108 mmol/L (96-108); Cholesterol 214 mg/dL (<200); Estimated Glomerular Filt Rate > 60; Glucose Fasting 85 mg/dL (60-99); HDL Cholesterol 60 mg/dL (>40); LDL Cholesterol Calculated 131 mg/dL (<100); Sodium 142 mmol/L (135-145); Triglycerides 115 mg/dL (<150)
[2023-10-05 12:05] LABS: Vitamin D 25-OH Total 44.4 ng/mL (>30)
== END 2023-10-05 09:48 | disposition home or self-care (01) ==
LOC: HO.LAB 09:47
PROVIDERS: PCP Internal Medicine; Visit Provider Internal Medicine
DX: Z00.00 Encounter for general adult medical examination without abnormal findings (principal); E55.9 Vitamin D deficiency, unspecified; D72.819 Decreased white blood cell count, unspecified
CPT/HCPCS: 36415; 80053; 80061; 82306; 85025

== ENCOUNTER 2023-10-24 12:43 | Outpatient (REF) | payer OTHER, SELFPAY ==
--- NOTE | ~2023-10-24 | MM_ITS ---
EXAMINATION: MM SCREENING DIGITAL BREAST TOMOSYNTHESIS, BILATERAL CLINICAL INFORMATION: Screening. Asymptomatic. The patient is status post bilateral breast reduction. COMPARISON: Mammography: This study is compared with prior exams dating back to 2022. TECHNIQUE: Digital breast tomosynthesis is performed in both the craniocaudal and mediolateral oblique views along with computer-aided detection (CAD). Synthesized 2D images are generated from the tomosynthesis. FINDINGS: There are scattered areas of fibroglandular density (ACR BI-RADS breast composition Category b). There are no significant masses, abnormal calcifications, or other abnormalities. Post reduction changes are present in each breast. There are surgical clips in the superior aspect of the right breast in the axillary tail. MM/MM tomosynthesis screening BI IMPRESSION: No mammographic evidence of malignancy. ASSESSMENT: BI-RADS BI-RADS 2 - Benign Findings RECOMMENDATION: Routine annual mammography screening. 1 year F/U This examination should not preclude the clinical evaluation of a suspicious palpable abnormality. This patient's information was entered into a reminder system with a target due date for their next mammogram.
== END 2023-10-24 12:44 | disposition home or self-care (01) ==
LOC: HO.MAMMO 12:43
PROVIDERS: PCP Internal Medicine; Visit Provider Internal Medicine
DX: Z12.31 Encounter for screening mammogram for malignant neoplasm of breast (principal)
CPT/HCPCS: 77063; 77067

== ENCOUNTER → 2023-10-24 13:00 | Outpatient (BNV) | payer OTHER, SELFPAY | PROVIDERS: PCP Internal Medicine; Visit Provider Radiology Diagnostic Radiology | DX: Z12.31 Encounter for screening mammogram for malignant neoplasm of breast (principal) | CPT/HCPCS: 77063; 77067 ==

== ENCOUNTER 2023-11-02 11:51 | Outpatient (REF) | payer OTHER, SELFPAY ==
[2023-11-02 13:39] LABS: Influenza A PCR NEGATIVE (Negative); Influenza B PCR NEGATIVE (Negative); Resp Syncy Virus RNA Qual PCR NEGATIVE (Negative); SARS COV2 PCR INHOUSE NEGATIVE (Negative)
== END 2023-11-02 11:52 | disposition home or self-care (01) ==
LOC: HO.LAB 11:51
PROVIDERS: PCP Internal Medicine; Visit Provider Internal Medicine
DX: R09.89 Other specified symptoms and signs involving the circulatory and respiratory systems (principal)
CPT/HCPCS: 0241U

== ENCOUNTER 2023-11-15 10:29 | Outpatient (AMB) | payer OTHER, SELFPAY ==
--- NOTE | 2023-11-15 10:30 | A.OFFPC_ITS ---
Vital Signs 11/15/23 10:31 Height 5 ft Weight 152 lb BMI 29.7 BP 92/62 Blood Pressure Location Lt brachial Position Sitting Intake Visit Reasons: Gastroesophageal reflux disease (GERD) Intake Note: Patient here for a follow up GERD, c/o cough Web Applications Architect Required: No Accompanied by: SPORTS MANAGEMENT INTERN Allergies gabapentin Allergy (Intermediate, Verified 11/15/23 10:43) somnolence pregabalin Allergy (Intermediate, Verified 11/15/23 10:43) somnolence Influenza Virus Vaccines Adverse Reaction (Intermediate, Verified 11/15/23 10:43) Throat pain Medication List - Last Reconciled 11/15/23 by Olivia Palmer MD acetaminophen 500 mg PO Q6H PRN 30 days cetirizine (All Day Allergy (cetirizine)) 10 mg PO DAILY PRN 90 days cholecalciferol (vitamin D3) (Vitamin D3) 50 mcg PO DAILY 90 days clonazepam 0.5 mg PO DAILY PRN fluoxetine 10 mg PO DAILY lactulose mL PO methocarbamol 500 mg PO BID PRN 30 days mupirocin 2% 1 appl topical BID 2 weeks omeprazole 40 mg PO DAILY underpads (Bed Underpads) Use 1 to 4 bed underpads once a day prn [wipes flushable As directed] Tobacco use date assessed: 11/15/23 Fall risk assessment: No Falls in past year Last assessed Fall Risk: 11/15/23 Dental Screening Dental Screen Date: 11/15/23 Did you have a dental visit in the last 12 months?: Yes Did you have a dental problem in the last 6 months where you did not have access to dental care?: No Was dental information given to patient?: Patient has dentist HPI HPI Comments History of Present Illness Details This is a 73-year-old female with mild major depression, generalized anxiety disorder, chronic lumbar radiculopathy, pure hypercholesterolemia, GERD and seasonal allergic rhinitis due to pollen that comes accompanied by SPORTS MANAGEMENT INTERN complaining of some occasional dry cough that started about 3 weeks ago. She said it was worse when it started but it resolve on its own. She was negative for influenza, COVID-19 and RSV. No fever. No chest pain or shortness on breath. Depression with anxiety stable with medications and this is follow by Psychiatry. Has low back pain due to chronic lumbar radiculopathy and walks with a walker for gait stability. Chronic lumbar radiculopathy is follow by pain management. Has elevated cholesterol but her [place] risk score is 2.1% therefore no need for statins. Dietary changes were advised. GERD stable with PPIs. On antihistamines as needed for her allergic rhinitis. She always has low blood pressure but does not have any symptoms such as dizziness or feeling like she is going to faint. [facility] Medical History (Updated 11/15/23 @ 11:01 by Olivia Palmer MD) Obesity (BMI 30-39.9) Osteopenia Pure hypercholesterolemia Hyperkalemia Depression with anxiety Insomnia Hypovitaminosis D Anxiety Hair loss Arm paresthesia, right CKD (chronic kidney disease), stage III Family history of diabetes mellitus Trigger finger Carpal tunnel syndrome Muscle cramps Neuropathy Surgical History Hx of blepharoplasty Hx of hand surgery History of carpal tunnel release Hx of colonoscopy Hx of breast reduction, elective History of surgery History of section H/O exploratory laparotomy History of tubal ligation History of cataract surgery Family History Father Prostate cancer Mother No problems noted. Family/Other FH: mental illness Hypertension Tachycardia Maternal Aunt No problems noted. 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 1. Little interest or pleasure in doing things: not at all 2. Feeling down, depressed, or hopeless: several days 3. Trouble falling or staying asleep, or sleeping too much: not at all 4. Feeling tired or having little energy: several days 5. Poor appetite or overeating: several days 6. Feeling bad about yourself - or that you are a failure or have let yourself or your family down: not at all 7. Trouble concentrating on things, such as reading the newspaper or watching television: not at all 8. Moving or speaking so slowly that other people could have noticed. Or the opposite - being so fidgety or restless that you have been moving around a lot more than usual: not at all 9. Thoughts that you would be better off or of hurting yourself in some way: not at all Total score: 3 Depression Screening Interpretation: Positive Depression Screening Follow-up: Existing condition, In treatment, Community Mental Health Worker F/U and Follow- up Visit Requested Depression Screening Done: Yes 20381 - PHQ-9 Billing: Yes Source: Developed by Drs. Oskar Robertson, Jennifer Jernigan, Garcia Doshi and colleagues, with an educational alessandro from [employer]. Thrive Questionnaire Date Thrive assessed: 11/15/23 I am a: Patient What is your living situation today?: I have a steady place to live Within the past 12 months, did the food you bought not last and you didn't have the money to get more?: Never true Within the past 12 months, did you worry whether your food would run out before you got money to buy more?: Never true Do you have trouble paying for medicines?: No Do you have trouble getting transportation to medical appointments?: No Do you have trouble paying your heating and electricity bill?: No Do you have trouble taking care of your child, family member or friend?: No Do you have trouble with day-to-day activities such as bathing, preparing meals, shopping, managing finances, etc.?: No Are you currently unemployed and looking for a job?: No Are you interested in more education?: No Please select the resources that you would like help with: None Currently or been in a relationship where the following occur: no concerns reported THRIVE Score: 0 AUDIT C Alcohol Use Questionnaire (AUDIT-C) 1. How often do you have a drink containing alcohol?: Never Total Score: 0 Score Reviewed/Action Taken: No TOBIAS-7 AMB Questionnaire TOBIAS-7 Date TOBIAS - 7 assessed: 11/15/23 Feeling nervous, anxious, or on edge: 1 = Several days Not being able to stop or control worryin = Not at all Worrying too much about different things: 0 = Not at all Trouble relaxin = Not at all Being so restless that it is hard to sit still: 0 = Not at all Becoming easily annoyed or irritable: 0 = Not at all Feeling afraid as if something awful might happen: 0 = Not at all Total TOBIAS-7 score (0-4 normal; 5-9 mild; 10-14 moderate; 15-21 severe): 1 Source: Developed by Drs. Oskar Robertson, Jennifer Jernigan, Garcia Doshi and colleagues, with an educational alessandro from [employer]. TOBIAS-7 Assessment Billing TOBIAS-7 Assessment Tool: TOBIAS-7 Assessment 58406 Review of Systems Const All systems reviewed & are unremarkable except as noted in HPI and below Card Denies chest pain at rest, Denies chest pain with activity, Denies edema, Denies irregular heart rhythm, Denies claudication, Denies dyspnea, Denies dyspnea on exertion, Denies orthopnea, Denies paroxysmal nocturnal dyspnea and Denies slow heart rate Resp Reports cough, Denies dyspnea and Denies dyspnea on exertion Musc Reports back pain Physical exam (Primary Care) Vital Signs: Last Vital Signs BP 92/62 11/15/23 10:31 BMI result Body Mass Index 29.7 BMI Assessment/Plan discussion: High BMI High, discussed plan: lifestyle, weight reduction, dietary and physical activity Tobacco/Smoking Status: Tobacco use Status Tobacco use date assessed 11/15/23 11/15/23 10:40 Patient Tobacco Use Status Former Tobacco user 11/15/23 10:40 Tobacco use type Cigarette 11/15/23 10:40 e-Cigarette/Vaping Use Never Used 11/15/23 10:40 PHQ-9: PHQ-9 Score PHQ-9: Total score 3 11/15/23 10:40 Depression Screening Interpretation: Positive Depression Screening Follow-up: Existing condition, In treatment, Community Mental Health Worker F/U and Follow- up Visit Requested Thrive Assessment: Date of Thrive Assessment Date Thrive assessed 11/15/23 11/15/23 10:40 Currently or been in a relationship where the following occur: no concerns reported Const General: cooperative, comfortable and well groomed Limitations: ambulation with walker Resp Effort & Inspection: normal respiratory effort Auscultation: clear to auscultation bilaterally Cardio Jugular venous distension: no JVD Rate: regular rate Rhythm: regular rhythm Heart sounds: S1 normal heart sound present and S2 normal heart sound present Skin General skin exam: no rashes or lesions noted Neuro General: no focal motor deficits Extrem General: Yes full ROM Assessment and Plan Assessment & Plan (1) GERD (gastroesophageal reflux disease): Code(s): K21.9 - Gastro-esophageal reflux disease without esophagitis Qualifiers: Esophagitis presence: esophagitis presence not specified Qualified Code(s): K21.9 - Gastro-esophageal reflux disease without esophagitis Plan: Continue PPIs as needed. (2) Lumbar radiculopathy, chronic: Code(s): M54.16 - Radiculopathy, lumbar region Plan: Follow-up with pain management. (3) Pure hypercholesterolemia: Code(s): E78.00 - Pure hypercholesterolemia, unspecified Plan: Start low-cholesterol diet. No need for statins. (4) Mild major depression: Code(s): F32.0 - Major depressive disorder, single episode, mild Plan: Continue fluoxetine. Follow-up with psychiatry. (5) TOBIAS (generalized anxiety disorder): Code(s): F41.1 - Generalized anxiety disorder Plan: Continue benzodiazepines as needed. Follow-up with psychiatry. (6) Seasonal allergic rhinitis due to pollen: Code(s): J30.1 - Allergic rhinitis due to pollen Plan: Continue antihistamines as needed. Medications: Refilled cholecalciferol (vitamin D3) (Vitamin D3) 50 mcg PO DAILY 90 days 90 caps 3RF cetirizine (All Day Allergy (cetirizine)) 10 mg PO DAILY 90 days PRN 90 tabs 0RF allergy symptoms Coding Level of Care Code Est Pt Level 4 (96328) Complex EM visit Add On G2211 Diagnoses Gastroesophageal reflux disease, unspecified whether esophagitis present K21.9 Esophagitis presence: esophagitis presence not specified Lumbar radiculopathy, chronic M54.16 Pure hypercholesterolemia E78.00 Mild major depression F32.0 TOBIAS (generalized anxiety disorder) F41.1 Seasonal allergic rhinitis due to pollen J30.1 Additional Codes TOBIAS-7 Assessment Billing - TOBIAS-7 Assessment Tool: TOBIAS-7 Assessment 33407 ([id number]) Time Spent (min) 25
[2023-11-15 10:31] VITALS: BP 92/62; BMI 29.7
== END 2023-11-15 11:50 | disposition home or self-care (01) ==
PROVIDERS: PCP Internal Medicine; Visit Provider Internal Medicine
DX: K21.9 Gastro-esophageal reflux disease without esophagitis (principal); F32.0 Major depressive disorder, single episode, mild; M54.16 Radiculopathy, lumbar region; E78.00 Pure hypercholesterolemia, unspecified; F41.1 Generalized anxiety disorder; J30.1 Allergic rhinitis due to pollen
CPT/HCPCS: 99214; G2211

== ENCOUNTER 2023-12-27 06:26 | Outpatient (REF) | payer OTHER, SELFPAY ==
--- NOTE | ~2023-12-27 | FL_ITS ---
EXAMINATION: XR FLUOROSCOPY WITH IMAGES CLINICAL INFORMATION: Sacrococcygeal disorders, not elsewhere classified. COMPARISON: 09/27/2023. TECHNIQUE: Fluoroscopy provided to: Dr. Bethea Fluoroscopy time: 0.1 minutes DAP: 0.026 mGycm2 Images: 1 FINDINGS: Solitary image demonstrates needle and contrast injection in the right SI joint synovial segment. FL/FL guidance in treatment room IMPRESSION: Fluoroscopic guidance. Please refer to the full operative report for details. Electronically signed by: Ciro Talley MD 02/28/2024 01:12 PM EDT
== END 2023-12-27 06:27 | disposition home or self-care (01) ==
LOC: CF 06:26
PROVIDERS: Visit Provider Anesthesiology
DX: M48.061 Spinal stenosis, lumbar region without neurogenic claudication (principal); M53.3 Sacrococcygeal disorders, not elsewhere classified; M47.816 Spondylosis without myelopathy or radiculopathy, lumbar region; M51.36 Other intervertebral disc degeneration, lumbar region; M54.16 Radiculopathy, lumbar region
CPT/HCPCS: 27096; J2795; J3301; Q9967

== ENCOUNTER 2023-12-27 14:44 | Outpatient (AMB) | payer OTHER, SELFPAY ==
[2023-12-27 14:47] VITALS: BP 115/57; PULSE 87; RESP 17; O2SAT 95; BMI 29.7
--- NOTE | 2023-12-27 14:47 | A.OFFVIS_ITS ---
Vital Signs 12/27/23 14:47 12/27/23 15:12 Height 5 ft 5 ft Weight 152 lb 152 lb BMI 29.7 29.7 BP 115/57 L 103/54 L Blood Pressure Location Lt brachial Lt brachial Position Sitting Sitting Respiration 17 17 Pulse 87 92 Pulse Source Pulse Oximeter Pulse Oximeter Pulse Oximetry (%) 95 97 Oxygen Delivery Method Room Air Room Air Comment Pre-op post-op Intake Visit Reasons: RIGHT THERAPEUTIC SIJ INJECTION Allergies gabapentin Allergy (Intermediate, Verified 12/27/23 15:13) somnolence pregabalin Allergy (Intermediate, Verified 12/27/23 15:13) somnolence Influenza Virus Vaccines Adverse Reaction (Intermediate, Verified 12/27/23 15:13) Throat pain PFSH Medical History (Updated 11/15/23 @ 11:01 by Olivia Palmer MD) Obesity (BMI 30-39.9) Osteopenia Pure hypercholesterolemia Hyperkalemia Depression with anxiety Insomnia Hypovitaminosis D Anxiety Hair loss Arm paresthesia, right CKD (chronic kidney disease), stage III Family history of diabetes mellitus Trigger finger Carpal tunnel syndrome Muscle cramps Neuropathy Surgical History Hx of blepharoplasty Hx of hand surgery History of carpal tunnel release Hx of colonoscopy Hx of breast reduction, elective History of surgery History of section H/O exploratory laparotomy History of tubal ligation History of cataract surgery Family History Father Prostate cancer Mother No problems noted. Family/Other FH: mental illness Hypertension Tachycardia Maternal Aunt No problems noted. 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 Cognitive needs: No Hearing needs: No Vision needs: No Female Reproductive History Menstrual Age of Menarche: 89 Physical Exam Vital Signs: Last Vital Signs Pulse 92 12/27/23 15:12 Resp 17 12/27/23 15:12 BP 103/54 L 12/27/23 15:12 Pulse Ox 97 12/27/23 15:12 Oxygen Delivery Method Room Air 12/27/23 15:12 BMI result Body Mass Index 29.7 Assessment & Plan Assessment & Plan (1) Lumbar spinal stenosis: Code(s): M48.061 - Spinal stenosis, lumbar region without neurogenic claudication Category: Medical (2) Lumbar degenerative disc disease: Code(s): M51.36 - Other intervertebral disc degeneration, lumbar region Category: Medical (3) Sacroiliac joint pain: Code(s): M53.3 - Sacrococcygeal disorders, not elsewhere classified Category: Medical Plan: Right diagnostic sacroiliac joint injection. Informed consent was explained thoroughly to the patient. All questions about benefits and risks for the procedure were answered. Patient came to the operating room and was positioned prone on the operating table with the pillow under the pelvis. Time out was performed delineating name and of the patient, allergies and the nature of the procedure. The lower back and buttocks of the patient were prepped with ChloraPrep prepped and draped with sterile utility towels. C-arm was brought over the operating field and sq picture of patient's pelvis was demonstrated on the screen. For the right joint tilting C-arm contralateral to the site of the joint the most posterior portion of the joints was superimposed with anterior silhouette of the joint. Skin was injected in the projection of the joint slightly medial to the location of the joint with 25 gauge 1/2 inch needle using local lidocaine 2% .After that 22 gauge 3 and 1/2 inch needle was driven to the right joint in tunnel vision fashion. When needle entered the joint capsule injection of the contrast was performed demonstrating intra-articular and minimally periarticular spread of the contrast. After that 4 cc. of ropivacaine 0.5% mixed with Kenalog 40 mg was injected into the joint. Upon completion of the injections the needle was removed Sterile dressing was applied. Upon completion of the injection patient was taken outside of the operating room to the recovery room where recovered uneventfully. (4) Lumbar spondylosis: Code(s): M47.816 - Spondylosis without myelopathy or radiculopathy, lumbar region Category: Medical (5) Lumbar radiculopathy, chronic: Code(s): M54.16 - Radiculopathy, lumbar region Category: Medical Plan Schedule diagnostic right sacroiliac joint injection with local and fluoroscopy. If no relief, will proceed with [facility] evaluation and right hip MRI. Expectations, risks and benefits were reviewed. Patient is aware she will be contacted to schedule this procedure. Refill provided for methocarbamol per patient request. All questions were answered and the patient is in agreement of plan. Follow-up after injections and sooner as needed. Orders: Orders FL guidance in treatment room Today M53.3 - Sacrococcygeal disorders, not elsewhere classified Coding Level of Care Code Procedure Only Diagnoses Lumbar spinal stenosis M48.061 Lumbar degenerative disc disease M51.36 Sacroiliac joint pain M53.3 Lumbar spondylosis M47.816 Lumbar radiculopathy, chronic M54.16
[2023-12-27 15:12] VITALS: BP 103/54; PULSE 92; RESP 17; O2SAT 97; BMI 29.7
== END 2023-12-27 15:14 | disposition home or self-care (01) ==
LOC: HO.PMCPRC 14:44
PROVIDERS: PCP Internal Medicine; Visit Provider Anesthesiology
DX: M53.3 Sacrococcygeal disorders, not elsewhere classified (principal)
CPT/HCPCS: 27096

== ENCOUNTER 2024-01-20 12:49 | Outpatient (AMB) | payer OTHER, SELFPAY ==
--- NOTE | 2024-01-20 12:57 | MHC.OFFVIS ---
Vital Signs 01/20/24 13:01 Height 5 ft Weight 150 lb BMI 29.3 BP 113/60 Blood Pressure Location Lt brachial Position Sitting Pulse 75 Pulse Source Pulse Oximeter Pulse Oximetry (%) 98 Oxygen Delivery Method Room Air Intake Visit Reasons: RIGHT THERAPEUTIC SIJ INJECTION Intake Note: Pain today 08/13 Professional Shopper Required: Yes Professional Shopper Language: Frisian Accompanied by: Other Relationship Allergies gabapentin Allergy (Intermediate, Verified 01/20/24 13:00) somnolence pregabalin Allergy (Intermediate, Verified 01/20/24 13:00) somnolence Influenza Virus Vaccines Adverse Reaction (Intermediate, Verified 01/20/24 13:00) Throat pain HPI Comments Details: Patient presents today to assess response to Right Therapeutic SIJ injection on 12/27/[address] Bethea. Patient reports 70%ongoing pain relief in right sided low back pain in the projection of right sacroiliac joint area since procedure. She reports better tolerance with walking, prolonged sitting or standing or changing her positions, and improved sleep. Patient is content with outcome of recent therapeutic injection and will continue to monitor longevity of steroidal injection. Denies any recent cough, cold, infection, fever, any significant changes in her medical history, medications or recent hospitalizations. Past Procedures: 12/27/23: Right Therapeutic SIJ injection -70% ongoing pain relief 09/27/23: Right Diagnostic SIJ [id number] pain relief for 8 hours, 90% for 24 hours the 2nd day after injection 05/11/23: Bilateral L4-L5 TFESI-100% left leg pain relief, 40% right leg pain relief, mild low back pain relief PRIOR: Patient presents today for follow up back pain and to assess response to physical therapy. Patient reports very low tolerance for PT or HEP due to increase symptoms and unbearable pain after PT sessions. She attempted total of 3 sessions of PT with severe exacerbation of axial low back pain with radiation into her right lower extremity anteriorly with weakness, intermittent numbness and tingling. Pain is worse with prolonged walking or standing but does not necessarily go away with rest or sitting. PRIOR: Patient reports she went to [facility] on 10/15/22 with chest pain and ongoing left clavicle pain. Echocardiogram and EKG were normal. Stress tests few months ago was also normal. She has follow up with Cardiology soon. CXR taken in ER showed 5 mm calcified nodule right lower lobe, otherwise no acute process seen. 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 Since then she feels her left clavicle has been disproportionate and asymmetrical and has been causing significant discomfort with deep inspiration or raising her both arms with overhead reaches or carrying heavy objects. We will obtain bilateral shoulder xrays to help us differentiate with costoclavicular syndrome as she does have localized tenderness and pain in AC joint, worse on the left. Patient also reports intermittent numbness and tinglings in both hands, worse on the right and has known right Carpal tunnel syndrome, early on EMG. She follows with [facility] with last visit in 03/2022. Denies any fever, neck or shoulder pain, dizziness, chest pain, shortness of breaths, bladder or bowel incontinence or saddle anesthesia. PRIOR: Patient is a pleasant 72 years Frisian speaking female with osteopenia, CKD, presents today for initial evaluation of chronic lower back pain, hips and bilateral hand pain. Denies any recent trauma, injury or falls. Her back pain is mostly axial and also radiates to her right lower extremity laterally and left lower extremity anteriorly and laterally with numbness, tingling and weakness. She also reports bilateral hand pain, worse on the right for which she follows with Dr. Santillan and currently performing OT therapy. For today's visit, we concentrated on her back symptoms. I could not reproduce her bilateral radicular symptoms with seated SLR testing today. She does have significant bilateral hip and sacroiliac joint pain with testing which significantly exacerbate her pain. Patient denies any previous back surgery but received multiple steroid injections in the past while leaving in [place]. Patient has not completed physical therapy for her back pain but is currently undergoing OT for bilateral hand pain. She is in significant pain to pursue PT for her back or hip pain at this time. Patient denies any fever, chills, weight loss, shortness of breaths, chest pain, bladder or bowel incontinence or saddle anesthesia. Reports bilateral weakness in her legs. Ambulates with slow, antalgic gait with mild limping with the use of walker. Location Lower back, bilateral hand pain Duration Constant Characteristics of symptom or complaint Pulsing, stabbing, sharp, pinching, tingling, dull, aching, hurting, heavy Aggravating or associated factors Prolonged sitting, standing, walking, changing positions, weather changes Relieving factors Tylenol, tizanidine, PT in the past for knee pain, OT-presently for hands Treatment Back cortisone injections in [place], last in 1996. [facility] Medical History Obesity (BMI 30-39.9) Osteopenia Pure hypercholesterolemia Hyperkalemia Depression with anxiety Insomnia Hypovitaminosis D Anxiety Hair loss Arm paresthesia, right CKD (chronic kidney disease), stage III Family history of diabetes mellitus Trigger finger Carpal tunnel syndrome Muscle cramps Neuropathy Surgical History Hx of blepharoplasty Hx of hand surgery History of carpal tunnel release Hx of colonoscopy Hx of breast reduction, elective History of surgery History of section H/O exploratory laparotomy History of tubal ligation History of cataract surgery Family History Father Prostate cancer Mother No problems noted. Family/Other FH: mental illness Hypertension Tachycardia Maternal Aunt No problems noted. 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 Alert and oriented. Mood and affect appropriate. Follows and participates in conversation appropriately. Respiratory effort is unlabored. No cough. Able to transition from sit to stand with assistance of her family. Uses walker with ambulation. Ambulates with bilaterally normal heel strike and toe off. General: Yes no CVA tenderness Back/Spine/Pelvis Back: no CVA tenderness Cervical Spine: cervical ROM normal, loss of normal cervical lordosis and No Cervical spine tenderness Thoracic/Lumbar Spine: thoracic and lumbar spine normal to inspection, No Thoracic/lumbar spine scar(s), Lasegue's sign negative, straight leg raise negative bilaterally, pain with thoraco-lumbar ROM, thoraco-lumbar ROM limited, No thoracic spinal tenderness and lumbar spinal tenderness Pelvis: no sciatic notch tenderness Sacroiliac joints: on the right tender to palpation and on the left nontender Results Reviewed Results Reviewed: MR LUMBAR SPINE WITHOUT CONTRAST 02/11/23 CLINICAL INFORMATION: Spondylosis without myelopathy or radiculopathy, DDD COMPARISON: Lumbar spine radiographs on 08/27/2022. TECHNIQUE: MRI of the lumbar spine was obtained using routine sequences without contrast. FINDINGS: There are 5 nonrib-bearing lumbar-type vertebrae. Mild levocurvature of the lumbar spine. Preservation of the normal lumbar lordosis. Grade 1 anterolisthesis at L4-L5 and to a lesser extent at L2-L3 and L3-L4. Mild retrolisthesis at L1-L2. No abnormal bone marrow signal. The vertebral body heights are preserved. Multilevel disc desiccation without significant disc height loss. The visualized spinal cord is normal in caliber. No abnormal cord signal. The conus medullaris terminates at T12-L1. T11-T12: No significant spinal canal or neural foraminal narrowing. T12-L1: No significant spinal canal or neural foraminal narrowing. L1-L2: Diffuse disc bulge. Mild bilateral neural foraminal narrowing. L2-L3: Diffuse disc bulge with superimposed left foraminal disc protrusion. Annular fissure. Right facet arthrosis. Mild spinal canal stenosis. Moderate to severe left and mild right neural foraminal narrowing with impingement of the left L2 exiting nerve roots. L3-L4: Diffuse disc bulge with superimposed left foraminal disc protrusion. Bilateral facet arthrosis. Mild spinal canal stenosis. Mild to moderate left and mild right neural foraminal narrowing with mass effect on the left L3 exiting nerve roots. L4-L5: Diffuse disc bulge with superimposed central disc protrusion. Ligamentum flavum hypertrophy. Moderate spinal canal stenosis with mass effect on the cauda equina nerve roots. Moderate to severe left and mild right neural foraminal narrowing with the disc abutting the exiting L4 nerve roots bilaterally. L5-S1: Diffuse disc bulge and bilateral facet arthrosis. No significant spinal canal or neural foraminal narrowing. The paravertebral soft tissues are unremarkable. Left renal cyst. IMPRESSION: Multilevel lumbar spondylosis as described above, most notable at L4-L5 where there is moderate spinal canal stenosis with mass effect on the cauda equina nerve roots at this level. There is also moderate to severe left L2-L3 and left L4-L5 neural foraminal narrowing with impingement of the left L2 exiting nerve roots. Assessment & Plan Assessment & Plan (1) Lumbar degenerative disc disease: Code(s): M51.36 - Other intervertebral disc degeneration, lumbar region Category: Medical (2) Sacroiliac joint pain: Code(s): M53.3 - Sacrococcygeal disorders, not elsewhere classified Category: Medical (3) Lumbar spondylosis: Code(s): M47.816 - Spondylosis without myelopathy or radiculopathy, lumbar region Category: Medical (4) Chronic pain syndrome: Code(s): G89.4 - Chronic pain syndrome Category: Medical Plan Patient is one month status post therapeutic right sacroiliac joint injection with good results and improved functioning, mobility and sleep. Patient will continue monitor effects of therapeutic injection and notify our office when her symptoms return to baseline. She ?is aware that she can not receive another injection in that area for three months.? All questions were answered and the patient is in agreement of plan. Follow-up as needed. Coding Level of Care Code Est Pt Level 3 (83887) Diagnoses Lumbar degenerative disc disease M51.36 Sacroiliac joint pain M53.3 Lumbar spondylosis M47.816 Chronic pain syndrome G89.4
[2024-01-20 13:01] VITALS: BP 113/60; PULSE 75; O2SAT 98; BMI 29.3
== END 2024-01-20 13:06 | disposition home or self-care (01) ==
PROVIDERS: PCP Internal Medicine; Visit Provider Nurse Practitioner Family
DX: M51.36 Other intervertebral disc degeneration, lumbar region (principal); M53.3 Sacrococcygeal disorders, not elsewhere classified; M47.816 Spondylosis without myelopathy or radiculopathy, lumbar region; G89.4 Chronic pain syndrome
CPT/HCPCS: 99213

== ENCOUNTER → 2024-01-20 12:49 | Outpatient (BNVA) | payer OTHER, SELFPAY | PROVIDERS: PCP Internal Medicine; Visit Provider Nurse Practitioner Family | DX: M51.36 Other intervertebral disc degeneration, lumbar region (principal); M53.3 Sacrococcygeal disorders, not elsewhere classified; M47.816 Spondylosis without myelopathy or radiculopathy, lumbar region; G89.4 Chronic pain syndrome | CPT/HCPCS: 99212 ==

== ENCOUNTER 2024-05-02 09:09 | Outpatient (REF) | payer OTHER, SELFPAY ==
[2024-05-02 09:56] LABS: MANUAL DIFF FLAG NO
[2024-05-02 10:57] LABS: Basophils Absolute Auto 0.1 X10*3/uL (0.0-0.2); Eosinophils Absolute Auto 0.2 X10*3/uL (0.0-0.4); Eosinophils Percent Auto 4.9 % (0-4); Hemoglobin 13.9 g/dl (12.0-16.0); Imm Gran Abs Auto 0.01 X10*3/uL (0.00-0.03); Imm Gran Pct Auto 0.3 % (0.0-0.4); Lymphocytes Absolute Auto 1.4 X10*3/uL (1.2-4.9); Lymphocytes Percent Auto 39.1 % (20-40); Mean Corpuscular HGB Conc 33.1 g/dl (31.0-35.0); Mean Corpuscular Hemoglobin 29.8 pg (27.0-33.0); Mean Corpuscular Volume 89.9 fL (80.0-98.0); Mean Platelet Volume 10.5 fL (9.4-12.3); Monocytes Absolute Auto 0.4 X10*3/uL (0.1-1.2); Monocytes Percent Auto 11.4 % (2-11); Neutrophils Absolute Auto 1.5 x10*3/uL (2.0-8.3); Neutrophils Percent Auto 42.3 % (45-73); Platelet Count 301 X10*3/uL (160-400); Red Blood Count 4.67 X10*6/uL (4.20-5.50); White Blood Count 3.5 X10*3/uL (4.8-10.8)
[2024-05-02 11:50] LABS: Alanine Aminotransferase 23 U/L (0-31); Albumin Level 4.1 g/dL (3.5-5.0); Alkaline Phosphatase 81 U/L (39-117); Anion Gap 15 (12-20); Aspartate Amino Transferase 30 U/L (5-31); Bilirubin Total 0.4 mg/dL (0.0-1.0); Blood Urea Nitrogen 10 mg/dL (9-16); Calcium 10.1 mg/dL (8.4-10.2); Carbon Dioxide 28 mmol/L (22-29); Chloride 107 mmol/L (96-108); Cholesterol 228 mg/dL (<200); Estimated Glomerular Filt Rate > 60; Glucose Fasting 96 mg/dL (60-99); HDL Cholesterol 64 mg/dL (>40); Iron 111 mcg/dL (30-160); LDL Cholesterol Calculated 141 mg/dL (<100); Percent Iron Saturation 38 % (15-50); Potassium 4.6 mmol/L (3.3-5.1); Sodium 145 mmol/L (135-145); Total Iron Binding Capacity 292 mcg/dL (228-428); Total Protein 7.1 g/dL (6.5-8.0); Triglycerides 118 mg/dL (<150); Unsaturated Iron Binding 181 ug/dL
[2024-05-02 11:55] LABS: Vitamin D 25-OH Total 48.4 ng/mL (>30)
[2024-05-02 12:01] LABS: Folate 13.2 ng/mL (> or = 4.0); Vitamin B12 288 pg/mL (200-900)
== END 2024-05-02 09:10 | disposition home or self-care (01) ==
LOC: HO.LAB 09:09
PROVIDERS: PCP Internal Medicine; Visit Provider Internal Medicine
DX: D64.9 Anemia, unspecified (principal); E53.8 Deficiency of other specified B group vitamins; R51.9 Headache, unspecified; G89.29 Other chronic pain; E78.5 Hyperlipidemia, unspecified; E55.9 Vitamin D deficiency, unspecified
CPT/HCPCS: 36415; 80053; 80061; 82306; 82607; 82746; 83540; 85025

== ENCOUNTER 2024-05-15 13:47 | Outpatient (AMB) | payer OTHER, SELFPAY ==
--- NOTE | 2024-05-15 13:50 | A.OFFVIS_ITS ---
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 No complaints. Last Pap/HPV was many years ago with no history of abnormal Pap smear last 25 years Last Mammogram was BI-RADS 2 in 10/27 Last Colonoscopy was in 04/28 Last DEXA scan was in the low risk category in 09/25 [facility] Medical History Obesity (BMI 30-39.9) Osteopenia Pure hypercholesterolemia Hyperkalemia Depression with anxiety Insomnia Hypovitaminosis D Anxiety Hair loss Arm paresthesia, right CKD (chronic kidney disease), stage III Family history of diabetes mellitus Trigger finger Carpal tunnel syndrome Muscle cramps Neuropathy Surgical History Hx of blepharoplasty Hx of hand surgery History of carpal tunnel release Hx of colonoscopy Hx of breast reduction, elective History of surgery History of section H/O exploratory laparotomy History of tubal ligation History of cataract surgery Family History Father Prostate cancer Mother No problems noted. Family/Other FH: mental illness Hypertension Tachycardia Maternal Aunt No problems noted. 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 Cognitive needs: No Hearing needs: No Vision needs: No Female Reproductive History Menstrual Age of Menarche: 11 Total pregnancies: 2 Full term: 1 Date of Mammogram: 10/24/23 (bi rad 2) Review of Systems Const All systems reviewed & are unremarkable except as noted in HPI and below Card Reports as per HPI Resp Reports as per HPI GI Reports as per HPI and Reports no additional complaints Reports as per HPI Physical Exam Const General: cooperative, healthy appearing and comfortable Chest Chest palpation & inspection: normal inspection of the chest and normal palpation of entire chest wall Breast/axilla inspection: normal inspection of the breasts and normal inspection of the axillae Breast/axilla palpation: normal palpation of the breasts, normal palpation of the axillae and no axillary lymphadenopathy Resp Effort & Inspection: normal respiratory effort Auscultation: clear to auscultation bilaterally Percussion: percussion normal Cardio Palpation: normal PMI Rate: regular rate Rhythm: regular rhythm Heart sounds: no murmurs and no rubs Peripheral pulses: Peripheral pulses 2+ throughout GI Inspection: Yes normal to inspection Palpation (GI): Soft to palpation, nontender, no guarding, not rigid and No hepatosplenomegaly present Percussion: Yes normal to percussion Auscultation: normal bowel sounds Rectal Exam - Female: deferred General: Yes bladder normal to palpation External Female Exam: No lesion Speculum Exam - Vagina: normal appearance of the vagina, normal palpation, normal vaginal discharge and not erythematous Speculum Exam - Cervix: normal appearance of the cervix and normal palpation Bimanual exam- vagina & uterus: normal bimanual exam, normal palpation, uterine size normal, bladder normal to palpation, consistency normal and normal palpation Bimanual Exam- Adnexa, other: normal adnexae, no masses and no tenderness Assessment & Plan Assessment & Plan (1) Well woman exam: Code(s): Z01.419 - Encounter for gynecological examination (general) (routine) without abnormal findings Category: Medical Plan: Co testing not indicated since the patient 's age is above 65 with no history of abnormal Pap smears last 25 years. Counseled the patient about the recommended dietary allowance of 1200 mg of Calcium & 800 IU of vitamin D. Instructions given to patient to schedule next screening Mammogram in 10/28. Will order DEXA scan . The patient was instructed to perform monthly self-breast exams and to schedule a 2 week DEXA scan follow-up appointment and an annual exam in a year; All questions answered and the patient verbalized understanding. Orders: Orders XR DEXA axial skeleton Today Z78.0 - Asymptomatic menopausal state Coding Level of Care Code Est Pt Prev Care >65y(37936) Diagnoses Well woman exam Z01.419
== END 2024-05-15 14:12 | disposition home or self-care (01) ==
PROVIDERS: PCP Internal Medicine; Visit Provider Obstetrics & Gynecology
DX: Z01.419 Encounter for gynecological examination (general) (routine) without abnormal findings (principal)
CPT/HCPCS: 99397

== ENCOUNTER → 2024-05-15 13:47 | Outpatient (BNVA) | payer OTHER, SELFPAY | PROVIDERS: PCP Internal Medicine; Visit Provider Obstetrics & Gynecology | DX: Z01.419 Encounter for gynecological examination (general) (routine) without abnormal findings (principal) | CPT/HCPCS: 99397 ==

== ENCOUNTER 2024-05-16 10:49 | Outpatient (AMB) | payer OTHER, SELFPAY ==
--- NOTE | 2024-05-16 10:56 | A.OFFPC_ITS ---
Vital Signs 05/16/24 10:57 Height 5 ft Weight 150 lb BMI 29.3 BP 112/70 Blood Pressure Location Lt brachial Position Sitting Intake Visit Reasons: Annual Exam Intake Note: Patient here for an annual physical exam Pit Inspector Required: No Accompanied by: Self / Same As Patient Allergies gabapentin Allergy (Intermediate, Verified 05/16/24 11:05) somnolence pregabalin Allergy (Intermediate, Verified 05/16/24 11:05) somnolence Influenza Virus Vaccines Adverse Reaction (Intermediate, Verified 05/16/24 11:05) Throat pain Medication List - Last Reconciled 05/16/24 by Olivia Palmer MD acetaminophen 500 mg PO Q6H PRN 30 days [adult diapers pull-ups As directed] cetirizine (All Day Allergy (cetirizine)) 10 mg PO DAILY PRN 90 days cholecalciferol (vitamin D3) (Vitamin D3) 50 mcg PO DAILY 90 days clonazepam 0.5 mg PO DAILY PRN fluoxetine 10 mg PO DAILY latex gloves (Latex Gloves, Large) As directed methocarbamol 500 mg PO BID PRN 30 days mupirocin 2% 1 appl topical BID 2 weeks omeprazole 40 mg PO DAILY [over bed table As directed] underpads (Bed Underpads) Use 1 to 4 bed underpads once a day prn [wipes flushable As directed] Tobacco use date assessed: 11/15/23 Fall risk assessment: No Falls in past year Last assessed Fall Risk: 05/16/24 Dental Screening Dental Screen Date: 11/15/23 HPI HPI Comments History of Present Illness Details The patient is a 74-year-old female presenting for an annual physical examination. She has a history of anxiety for which she uses clonazepam as needed and depression managed with fluoxetine 10 mg. She reports previous facial paralysis experienced in [place], with concerns about associated neurological symptoms. Additionally, she has hypertension, currently well- controlled with a blood pressure of 112/70 mmHg. The patient has elevated cholesterol levels but was assessed with a Chula risk score of 3.5%, suggesting no immediate need for medication. She is known to be allergic to both the influenza vaccine and gabapentin. The patient's review of systems includes muscle spasms for which she uses metocarbamol as needed and GERD managed with omeprazole. She also reported a recurring low white blood cell count, being stable at 3.5 recently. She has had various surgeries, including blepharoplasty, bilateral carpal tunnel releases, section, and cataract surgery. - Mammography in 2023 showed normal resu lts. - Colonoscopy in 2022 was completed with results not discussed. - Current medications include Tylenol, c etirizine, vitamin D, clonazepam, fluoxetine, metocarbamol, and omeprazole. - Vaccination history includes shingles vaccine in the current year and tetanus decision pending. - Chula risk score calculated at 3. 5%, no medication required for cholesterol management presently. - Discussions on tetanus and pneumococca l vaccine options conducted. - Low white cell count noted routinely; renal and liver function are normal, glucose level at 96, and normal vitamin D, B12, folic acid, and hemoglobin levels. - Hypercholesterolemia with a total chol esterol of 228, good HDL levels noted. [facility] Medical History (Updated 05/16/24 @ 12:15 by Olivia Palmer MD) Obesity (BMI 30-39.9) Osteopenia Pure hypercholesterolemia Hyperkalemia Depression with anxiety Insomnia Hypovitaminosis D Anxiety Hair loss Arm paresthesia, right CKD (chronic kidney disease), stage III Family history of diabetes mellitus Trigger finger Carpal tunnel syndrome Muscle cramps Neuropathy Surgical History Hx of blepharoplasty Hx of hand surgery History of carpal tunnel release Hx of colonoscopy Hx of breast reduction, elective History of surgery History of section H/O exploratory laparotomy History of tubal ligation History of cataract surgery Family History Father Prostate cancer Mother No problems noted. Family/Other FH: mental illness Hypertension Tachycardia Maternal Aunt No problems noted. 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 Cognitive needs: No Hearing needs: No Vision needs: No Female Reproductive History Menstrual Age of Menarche: 11 Questionnaire Thrive Questionnaire Date Thrive assessed: 11/15/23 I am a: Patient What is your living situation today?: I choose not to answer this question Within the past 12 months, did the food you bought not last and you didn't have the money to get more?: I choose not to answer this question Within the past 12 months, did you worry whether your food would run out before you got money to buy more?: I choose not to answer this question Do you have trouble paying for medicines?: I choose not to answer this question Do you have trouble getting transportation to medical appointments?: I choose not to answer this question Do you have trouble paying your heating and electricity bill?: I choose not to answer this question Do you have trouble taking care of your child, family member or friend?: I choose not to answer this question Do you have trouble with day-to-day activities such as bathing, preparing meals, shopping, managing finances, etc.?: I choose not to answer this question Are you currently unemployed and looking for a job?: I choose not to answer this question Are you interested in more education?: I choose not to answer this question Please select the resources that you would like help with: None Currently or been in a relationship where the following occur: I choose not to answer THRIVE Score: 0 AUDIT C Alcohol Use Questionnaire (AUDIT-C) 1. How often do you have a drink containing alcohol?: Never Total Score: 0 Score Reviewed/Action Taken: No TOBIAS-7 AMB Questionnaire TOBIAS-7 Date TOBIAS - 7 assessed: 11/15/23 Feeling nervous, anxious, or on edge: 0 = Not at all Not being able to stop or control worryin = Not at all Worrying too much about different things: 0 = Not at all Trouble relaxin = Not at all Being so restless that it is hard to sit still: 0 = Not at all Becoming easily annoyed or irritable: 0 = Not at all Feeling afraid as if something awful might happen: 0 = Not at all Total TOBIAS-7 score (0-4 normal; 5-9 mild; 10-14 moderate; 15-21 severe): 0 Source: Developed by Drs. Oskar Robertson, Jennifer Jernigan, Garcia Doshi and colleagues, with an educational alessandro from [employer]). TOBIAS-7 Assessment Billing TOBIAS-7 Assessment Tool: TOBIAS-7 Assessment 10807 Review of Systems Const Details: - Neurological: Reports previous facial paralysis. - Musculoskeletal: Reports ongoing muscle spasms. - Gastrointestinal: Reports GERD. - Psychological: Reports symptoms controlled with fluoxetine. Physical exam (Primary Care) Vital Signs: Last Vital Signs BP 112/70 05/16/24 10:57 BMI result Body Mass Index 29.3 Tobacco/Smoking Status: Tobacco use Status Tobacco use date assessed 11/15/23 05/16/24 10:57 Patient Tobacco Use Status Former Tobacco user 05/16/24 11:11 Tobacco use type Cigarette 05/16/24 11:11 e-Cigarette/Vaping Use Never Used 05/16/24 11:11 Thrive Assessment: Date of Thrive Assessment Date Thrive assessed 11/15/23 05/16/24 10:57 Currently or been in a relationship where the following occur: I choose not to answer Const Other: General: Cooperative, healthy appearing, comfortable, no acute distress and well developed Orientation: Patient oriented x3 Limitations: No limitations Head: Normal to inspection Ears: Hearing grossly normal bilaterally Nose: Normal external nose present Face and sinus: Normal facial exam Eyes: Appearance normal, both eyes and all related structures Neck: Normal visual inspection and Yes full ROM Respiratory: Normal respiratory effort and able to speak in complete sentences. Clear to auscultation bilaterally Cardiovascular: Regular rate and rhythm. Normal S1 and S2 GI: Normal to inspection. Soft to palpation and nontender Skin: No rashes or lesions noted Neuro: Patient oriented x3, no neurological deficits noted, able to move arms and bend knees Extremities: Normal to inspection, some issues with the hip noted, left hand pain Office Procedures Flu Questionnaire Does the patient have a severe egg allergy?: No Immunizations Fluarix Triv [id number] (PF) 45 mcg (15 mcg x 3)/0.5 mL IM syringe Performing Provider: Olivia Palmer MD Performing Location: [facility] Documented (not given) by: KELLY Gomes on 05/16/24 11:02 Reason Not Given: Patient Refused pneumoc 20-shanika conj-dip cr(PF) 0.5 mL IM syringe Performing Provider: Olivia Palmer MD Performing Location: [facility] Administered by: KACIE Valdez on 05/16/24 11:25 Dose Route Admin Location Dispensed Lot Number Expiration Date NDC [employer] 0.5 mL IM Left Deltoid 0.5 mL [id number] 08/04/25 7294-0687-84 [employer]YETH/PFIZER VIS Given Date VIS Provided VIS Publication Date 05/16/24 Single Vaccine 21 Eligibility Eligibility Date Funding Source Not VFC Eligible 05/16/24 Private tetanus-diphtheria toxoids-Td 2 Lf unit-2 Lf unit/0.5 mL IM suspension Performing Provider: Olivia Palmer MD Performing Location: [facility] Administered by: KACIE Valdez on 05/16/24 11:25 Dose Route Admin Location Dispensed Lot Number Expiration Date ND [employer] 0.5 mL IM Left Deltoid 0.5 mL [id number] 07/16/24 [id number] [employer] VIS Given Date VIS Provided VIS Publication Date 05/16/24 Single Vaccine 21 Eligibility Eligibility Date Funding Source Not VFC Eligible 05/16/24 [facility] Coding Level of Care Code Est Pt Level 3 (57968) Est Pt Prev Care >65y(86495) Diagnoses Physical exam Z00.00 Mild major depression F32.0 Chronic headaches R51.9; G89.29 Left hand pain M79.642 Additional Codes TOBIAS-7 Assessment Billing - TOBIAS-7 Assessment Tool: TOBIAS-7 Assessment 23982 ([id number]) Time Spent (min) 33 Assessment & Plan Assessment & Plan (1) Physical exam: Code(s): Z00.00 - Encounter for general adult medical examination without abnormal findings Category: Medical (2) Mild major depression: Code(s): F32.0 - Major depressive disorder, single episode, mild Category: Medical (3) Chronic headaches: Code(s): R51.9 - Headache, unspecified; G89.29 - Other chronic pain Category: Medical (4) Left hand pain: Code(s): M79.642 - Pain in left hand Category: Medical Plan - Continue current management of GERD with omeprazole. - Maintain depression management with fluoxetine. - Continue as-needed use of clonazepam for anxiety; warnings about sedation and addiction risks discussed. - Continue use of metocarbamol for muscle spasms as needed. - Maintain Tylenol use for general pain management as needed. - Monitor cholesterol levels, no immediate pharmaceutical intervention required due to low Chula risk score. - Further allergies to influenza vaccine and gabapentin noted; avoid administration. - Consider patient decision on receiving tetanus and pneumococcal vaccines. Patient was informed and verbally consented to the use of an ambient scribe for clinic note documentation during this visit. Today, we discussed the patient's current health management and confirmed continuation with the current medication regimen, reinforcing the need for careful use of clonazepam due to potential side effects including sedation and addiction. I emphasized maintaining proactive management of cardiovascular risk factors, particularly given the patient's Chula risk score of 3.5%. Additionally, we evaluated vaccination options, where the patient considered but did not confirm receiving the tetanus and pneumococcal vaccines. We reviewed the implications of her normal and elevated lab results, indicating stable management and no new interventions were necessary. Orders: Orders Td State Immunization Today Z23 - Encounter for immunization Pneumococcal 20 Immunization Today Z23 - Encounter for immunization Influenza [id number] Immunization Today Z23 - Encounter for immunization Patient Instructions: - Continue current medications as prescribed. - Consider decision on tetanus and pneumococcal vaccines. - Monitor cholesterol and maintain heart-healthy lifestyle choices. - Follow up with any neurological symptoms or changes in condition. - Return for routine health assessments and management reviews.
[2024-05-16 10:57] VITALS: BP 112/70; BMI 29.3
== END 2024-05-16 11:24 | disposition home or self-care (01) ==
PROVIDERS: PCP Internal Medicine; Visit Provider Internal Medicine
DX: Z00.00 Encounter for general adult medical examination without abnormal findings (principal); F32.0 Major depressive disorder, single episode, mild; R51.9 Headache, unspecified; G89.29 Other chronic pain; M79.642 Pain in left hand; Z23 Encounter for immunization

== ENCOUNTER → 2024-05-16 10:49 | Outpatient (BNVA) | payer OTHER, SELFPAY | PROVIDERS: PCP Internal Medicine; Visit Provider Internal Medicine | DX: Z00.00 Encounter for general adult medical examination without abnormal findings (principal); Z23 Encounter for immunization; F32.0 Major depressive disorder, single episode, mild; M79.642 Pain in left hand; R51.9 Headache, unspecified; G89.29 Other chronic pain | CPT/HCPCS: 90471; 90677; 90714; 96127; 99397 ==

== ENCOUNTER 2024-06-19 10:41 | Outpatient (REF) | payer OTHER, SELFPAY ==
--- NOTE | ~2024-06-19 | MR_ITS ---
EXAMINATION: MR BRAIN WITHOUT AND WITH CONTRAST CLINICAL INFORMATION: Trigeminal neuralgia, left-sided. COMPARISON: None available. TECHNIQUE: Multiplanar, multisequence MRI of the brain was obtained before and after the intravenous administration of 6.5 mL Gadavist without reported immediate complications.. FINDINGS: Submitted for interpretation on June 21, 2024. No restricted diffusion. No acute intracranial hemorrhage, mass effect, midline shift, hydrocephalus or herniation. Troy-white matter differentiation is normal. Posterior cranial fossa contents demonstrated no signal abnormality or acute intracranial hemorrhage. Meckel's caves , cisternal segments and entry zones of the trigeminal nerves demonstrated normal signal and morphology pattern without enhancing lesion. The anterior inferior cerebral arteries are type I pattern. Flow-void signal within the main cerebral vessels is normal. The cochlear and vestibular components of the 8th cranial nerves demonstrated normal signal without enhancing mass. No abnormal enhancement within the intra-axial or the extra-axial compartments of the cranium. Breast and demonstrates no signal abnormality or enhancing lesion. Prominent Virchow-Ugo spaces in the deep white matter and the parietal regions. Nonspecific few scattered subcortical and deep white matter hyperintense T2 FLAIR signal foci the most conspicuous in the left frontal region near the left precentral gyrus. Sellar/suprasellar region demonstrated no masses or signal abnormality. Craniocervical junction is intact and normal. Cavernous sinuses demonstrated no signal abnormality or enhancing lesion. Prominence of the extra-axial CSF spaces and cerebral sulci. MR/MR head/brain wo/w con IMPRESSION: No signal abnormality or enhancing lesions at the trigeminal cranial nerves. No vascular abnormality. No acute brain abnormality. Electronically signed by: Anand Awan MD 06/21/2024 07:41 AM EST
[2024-06-19] MEDS: gadobutroL 7.5 ML VIAL IVPUSH (11:58)
== END 2024-06-19 10:42 | disposition home or self-care (01) ==
LOC: HO.MRI 10:41
PROVIDERS: PCP Internal Medicine; Visit Provider Psychiatry & Neurology Neurology
DX: G50.0 Trigeminal neuralgia (principal)
CPT/HCPCS: 70553; A9585

== ENCOUNTER → 2024-06-19 11:02 | Outpatient (BNV) | payer OTHER, SELFPAY | PROVIDERS: PCP Internal Medicine; Visit Provider Radiology Diagnostic Radiology | DX: G50.0 Trigeminal neuralgia (principal) | CPT/HCPCS: 70553 ==

== ENCOUNTER 2024-06-22 11:20 | Outpatient (REF) | payer OTHER, SELFPAY ==
--- NOTE | ~2024-06-22 | MM_ITS ---
EXAMINATION: Dual-Energy X-ray Absorptiometry - Bone Density Study HISTORY: Estrogen deficiency TECHNIQUE: [email or web address] Dual energy absorptiometry (DEXA) of the lumbar spine, total left hip, and femoral neck was performed. COMPARISON: Comparison is made with the prior examination dated 09/22/2021. FINDINGS: The bone mineral density of the lumbar spine is 1.031 with a T-score of -1.2, and a Z-score of 0.4. This represents a BMD change of -0.5% compared to the prior exam. This is not statistically significant. The bone mineral density of the left total hip is 0.884 with a T-score of -1.0, and a Z-score of 0.7. This represents BMD change of 7.8% compared to the prior exam. This is statistically significant. The bone mineral density of the left femoral neck is 0.881 with a T-score of -1.1, and a Z-score of 0.8. This represents BMD change of 14.6% compared to the prior exam. FRACTURE RISK: The FRAX index suggests a ten year probability of major osteoporotic fracture of 6.0%, and of hip fracture 1.0%. MM/XR DEXA axial skeleton IMPRESSION: Based on bone mineral density, and according to World Health Organization (WHO) criteria, the diagnosis is consistent with osteopenia. All bone density values are in grams per centimeter squared. At this facility, the least significant change in BMD with 95% confidence is 0.022 at the lumbar spine, 0.027 at the hip, and 0.023 at the distal 1/3 radius. Electronically signed by: Oskar Prescott MD 06/22/2024 02:40 PM [facility]
== END 2024-06-22 11:21 | disposition home or self-care (01) ==
LOC: HO.MAMMO 11:20
PROVIDERS: PCP Internal Medicine; Visit Provider Obstetrics & Gynecology
DX: Z13.820 Encounter for screening for osteoporosis (principal); Z78.0 Asymptomatic menopausal state
CPT/HCPCS: 77080

== ENCOUNTER → 2024-06-22 11:30 | Outpatient (BNV) | payer OTHER, SELFPAY | PROVIDERS: PCP Internal Medicine; Visit Provider Radiology Diagnostic Radiology | DX: Z78.0 Asymptomatic menopausal state (principal) | CPT/HCPCS: 77086 ==

== ENCOUNTER 2024-08-29 12:17 | Outpatient (AMB) | payer OTHER, SELFPAY ==
--- NOTE | 2024-08-29 12:24 | A.OFFVIS_ITS ---
Vital Signs 08/29/24 12:25 Height 5 ft Weight 148 lb BMI 28.9 BP 101/55 L Blood Pressure Location Lt brachial Position Sitting Pulse 92 Intake Visit Reasons: Gastroesophageal reflux disease (GERD) Intake Note: Patient follow up for GERD. Patient cc: chronic abdominal pain, acid reflex on and off, and also a bad taste from tongue. Patient tried Linzess from her sister and she would like to get it on the pharmacy. Automatic Typewriter Inspector Required: No Accompanied by: Son Allergies gabapentin Allergy (Intermediate, Verified 08/29/24 12:24) somnolence pregabalin Allergy (Intermediate, Verified 08/29/24 12:24) somnolence Influenza Virus Vaccines Adverse Reaction (Intermediate, Verified 08/29/24 12:24) Throat pain HPI HPI Gastroesophageal reflux disease (GERD): Details: Assessment & Plan (1) Constipation: Code(s): K59.00 - Constipation, unspecified (2) H. pylori infection: Comment: Eradication confirmed by direct biopsy on EGD Code(s): A04.8 - Other specified bacterial intestinal infections (3) GERD (gastroesophageal reflux disease): Code(s): K21.9 - Gastro-esophageal reflux disease without esophagitis (4) Tubular adenoma of colon: Comment: 04/2023 negative scope repeat in 5 years; 04/25/2020 scope 8-10 mm sessile tubular adenoma aeb repeat 3 years Code(s): D12.6 - Benign neoplasm of colon, unspecified Plan Latvian #Niece translates per pt request The procedure should be repeated in 5 years due to the finding of a tubular adenoma. The procedure was well tolerated. The results were explained and the patient is agreeable to the follow-up interval as stated. The bowel pattern has returned to normal. Education was provided to tell any 1st degree relatives about their findings to be sure that they are screened by age 45. Educated that they will be put on a recall list when it is time for their repeat scope but should they move out of state or away from the hospital they will need to remember along with their primary to repeat the procedure in a timely fashion to avoid any adverse complications. On 03/10/2023 I treated the HP with quadruple therapy for HP. All symptoms have resolved well after treating the H pylori. She is now only taking her omeprazole once a day and is not having trouble with heartburn either. We go over possibly attempting a wean to see if she even needs the omeprazole at all although I am fine with continuing to prescribe it if she does need it. She has been struggling somewhat with constipation and her sister is on lactulose which she tried with good success. I have no problem prescribing this for her. She requests refills of her vitamin-D but Dr. Argueta her primary is the prescriber so I direct her to call her. Return office visit in 3 months Medications: New lactulose 20 grams (30 mL) PO BID 3,000 mL 3RF K59.00 - Constipation, unspecified Changed From omeprazole 40 mg PO BID 180 caps 1RF A04.8 - Other specified bacterial intestinal infections To omeprazole 40 mg PO DAILY 90 caps 1RF A04.8 - Other specified bacterial intestinal infections TODAY'S VISIT Latvian #[id number] She is here today with a male family member who is not comfortable translating but is supportive wtih the history. She woke up this am with epigastric pain. This is only with her pills, food does not upset her stomach. The pain does not move and feels like pressure. If she eats just food the pain will slowly suside, but at its worst it is 10/10. The only new medication was nyquil, and the only other new thing was CTR and she did find that the pain meds caused CIC. But since she has been moving her bowels well. Since this just started today I suggest she avoid Nyquil and watch and wait; partaking in a light diet. Also, since CIC has been a problem will start low dose Linzess and titrate. She requests bentyl as well, she used it with good effect int he past but it made her sleepy - yet she is willing to take it now to offset the pain. Next available [facility] Medical History (Updated 08/29/24 @ 13:17 by BHARATI Dalton) Family history of diabetes mellitus Muscle cramps Physical exam Muscle spasm of back H. pylori infection Adult general medical exam Physical exam Obesity (BMI 30-39.9) Osteopenia Pure hypercholesterolemia Hyperkalemia Depression with anxiety Insomnia Hypovitaminosis D Anxiety Hair loss Arm paresthesia, right CKD (chronic kidney disease), stage III Trigger finger Carpal tunnel syndrome Neuropathy Surgical History Hx of blepharoplasty Hx of hand surgery History of carpal tunnel release Hx of colonoscopy Hx of breast reduction, elective History of surgery History of section H/O exploratory laparotomy History of tubal ligation History of cataract surgery Family History Father Prostate cancer Mother No problems noted. Family/Other FH: mental illness Hypertension Tachycardia Maternal Aunt No problems noted. 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 Cognitive needs: No Hearing needs: No Vision needs: No Female Reproductive History Menstrual Age of Menarche: 11 Review of Systems Const Denies fatigue, Denies fever(s), Denies night sweats, Denies poor appetite and Denies weight loss ENT Reports Normal hearing present, Denies dental pain, Denies dysphagia, Denies hearing loss, Denies mouth pain, Denies odynophagia, Denies throat swelling, Denies tongue swelling and Reports other (Dentition adequate) Card Reports no additional complaints Resp Reports cough GI Details: Reports abdominal pain, Denies melena, Denies bloating, Denies hematochezia, Reports constipation, Denies GI cramping, Denies dysphagia, Denies excessive flatus, Denies early satiety, Reports heartburn, Denies diarrhea, Denies nausea, Denies odynophagia, Denies vomiting and Denies hematemesis Skin/Breast Denies pruritus, Denies lesions, Denies rash and Denies jaundice Neuro Reports Normal hearing present and Denies Abnormal speech present Endo Denies fatigue Aller/Immun Denies throat swelling and Denies tongue swelling Physical Exam Vital Signs: Last Vital Signs Pulse 92 08/29/24 12:25 BP 101/55 L 08/29/24 12:25 BMI result Body Mass Index 28.9 Const General: cooperative, no acute distress, well developed and well groomed Nutritional Appearance: average body habitus and well nourished Orientation/consciousness: oriented to person, oriented to place and oriented to time Limitations: language barrier HEENT Head: Yes normocephalic and Yes atraumatic Eyes General: appearance normal, both eyes and all related structures Pupils: Equal, round and reactive pupils present Neck Neck: Yes normal visual inspection and Yes no lymphadenopathy Thyroid: Thyroid normal Resp Effort & Inspection: normal respiratory effort and able to speak in complete sentences Auscultation: clear to auscultation bilaterally Cardio Rate: regular rate Rhythm: regular rhythm Heart sounds: Normal, physiologic split S2 sound present Peripheral pulses: radial pulses present and posterior tibial pulses present GI Inspection: No distended, No Abdominal panniculus present and Yes obesity Palpation (GI): Soft to palpation, Tenderness to palpation present (GI) in the epigastrum, no guarding, not rigid and No hepatosplenomegaly present Percussion: Yes normal to percussion Auscultation: normal bowel sounds Rectal Exam - Female: deferred Skin General skin exam: no rashes or lesions noted, turgor normal, skin not dry, no jaundice, No spider nevi and no striae Rashes: no rashes Nails: normal Neuro General: oriented to person, oriented to place and oriented to time Cranial nerves: Yes Equal, round and reactive pupils present and Yes Normal hearing present Speech: No Abnormal speech present Extrem General: Yes normal to inspection, No clubbing, No cyanosis and No edema Psych Appearance: grossly normal and well kempt Mental Status: mental status grossly normal Speech and movement: Normal speech and movement present Affect: normal affect Attitude: cooperative Thought process: Normal thought process present and not confabulating Thought content: Normal thought content present Insight: Limited insight present (Psych) Judgement: Limited judgement present (Psych) Assessment & Plan Assessment & Plan (1) Constipation: Code(s): K59.00 - Constipation, unspecified Category: Medical (2) GERD (gastroesophageal reflux disease): Code(s): K21.9 - Gastro-esophageal reflux disease without esophagitis Category: Medical Qualifiers: Esophagitis presence: esophagitis presence not specified Qualified Code(s): K21.9 - Gastro-esophageal reflux disease without esophagitis (3) Upper abdominal pain: Code(s): R10.10 - Upper abdominal pain, unspecified Category: Medical (4) Abdominal cramping: Code(s): R10.9 - Unspecified abdominal pain Category: Medical Plan Latvian #[id number] She is here today with a male family member who is not comfortable translating but is supportive wtih the history. She woke up this am with epigastric pain. This is only with her pills, food does not upset her stomach. The pain does not move and feels like pressure. If she eats just food the pain will slowly subside, but at its worst it is 10/10. The only new medication was nyquil, and the only other new thing was CTR and she did find that the pain meds caused CIC. But since she has been moving her bowels well. Since this just started today I suggest she avoid Nyquil and watch and wait; partaking in a light diet. Also, since CIC has been a problem will start low dose Linzess and titrate. She requests bentyl as well, she used it with good effect int he past but it made her sleepy - yet she is willing to take it now to offset the pain. Next available Medications: New linaclotide (Linzess) 72 mcg PO QAM 30 caps 6RF K59.00 - Constipation, unspecified, R10.10 - Upper abdominal pain, unspecified dicyclomine 10 mg PO QID PRN 90 caps 0RF abdominal pain R10.9 - Unspecified abdominal pain Refilled omeprazole 40 mg PO DAILY 90 caps 1RF A04.8 - Other specified bacterial intestinal infections Coding Level of Care Code Est Pt Level 3 (11593) Diagnoses Constipation K59.00 Gastroesophageal reflux disease, unspecified whether esophagitis present K21.9 Esophagitis presence: esophagitis presence not specified Upper abdominal pain R10.10 Abdominal cramping R10.9
[2024-08-29 12:25] VITALS: BP 101/55; PULSE 92; BMI 28.9
--- OUTSIDE RECORDS SUMMARY | 2024-08-29 14:39 | XMS_ITS | Encounter Summary ---
Author Organization [facility] Address [address] [place] [address] Care Team Providers Care Stereo Equipment Installer Name Role Phone Olivia Palmer MD Primary Care Provider Reason for Visit * Therapy (Routine) - Authorized Specialty Diagnoses / Procedures Referred By Frederic silva Referred To Contact Occupational Therapy Diagnoses S/P carpal tunnel release S/P trigger finger release Pillar pain, post-operative Salome Spangler MD [address] [facility] [address] [place] [address] Phone: tel: fax: Referral ID Status Reason Start Date Expiration Date Visits Requested Visits Authorized [id number] Authorized Specialty Services Required Consult and Treat 06/18/2024 06/18/2025 20 20 Encounter Details Date Type Department Care Team (Late st Contact Info) Description 08/10/2024 11:15 AM EST Treatment [facility] [address] [facility] [address] [place] [address] Melvi Welsh, CARMEN Pillar pain of extremity (Primary Dx) Social History Tobacco Use Types Packs/Day Years Used Date Smoking Tobacco: Never Smokeless Tobacco: Never Alcohol Use Standard Drinks/Week Comments Never 0 (1 standard drink = 0.6 oz pur e alcohol) Comments Unknown Sex and Gender Information Value Date Recorded Sex Assigned at Female 04/11/2024 11:55 AM EST Legal Sex Female 6:14 PM EST Gender Identity Female 04/11/2024 11:55 AM EST Sexual Orientation Straight 04/11/2024 11 :55 AM EST documented as of this encounter Progress Notes * Melvi Welsh OT - 08/10/2024 11:15 AM EST Occupational Therapy Occupational Therapy Treatment Patient Name: Clara Carpio Today's Date: 08/10/2024 Subjective Subjective: ITS STILL SORE VISIT # 8 LEFT CTR AND TRIGGER RELEASES Problem List Patient Active Problem List Diagnosis Acquired trigger finger of left middle finger Acquired trigger finger of right little finger Chronic kidney disease, stage 2 (mild) Cyst of kidney, acquired De Quervain's disease (radial styloid tenosynovitis) Gastroesophageal reflux disease Hyperkalemia Left carpal tunnel syndrome Osteopenia S/P trigger finger release Pillar pain, post-operative Pillar pain of extremity Pain: Pain Assessment Pain Assessment: 0-10 Pain Score: 5 - Moderate pain Pain Type: (CRAMPING PRESSURE) Pain Location: (BASE OF PALM) Pain Frequency: Constant/continuous Patient's Pain Goal: 2 Objective General Visit Information: General Observation/Findings/Presence Chart Reviewed: Yes Extremity Assessments: Modalities: Ultrasound Ultrasound Location: PALM AND SCARS Ultrasound Parameters: .3 WCM AT 50 PERCENT PULSED X 10 MINS Ultrasound Goals: Pain Procedure: Therapeutic Exercise Therapeutic Exercise Activity 1: FLUIDOTHERAPY FOR AROM, STRETCHING AND DESENSITIZATION X 20 MINS, U/S, SOFT TISSE SCAR MOBILIZATION, METACARPAL JOINT MOBILIZATION, PROM ALL DIGITS, PRAYER STRETCH, NERVE GLIDES Splinting and Casting: Treatment: SEE ABOVE EDUCATION; CONTINUE WITH PRAYER STRETCHES AND NERVE GLIDES ADL/IADL Assessment: Assessment/Plan Plan OT Plan: ULTRASOUND AND THERAPEUTIC EXERCISE OT Frequency : (1 TO 2 TIMES PER WEEK) Duration: (VISIT # 8) Goals: Goals Addressed None documented in this encounter Plan of Treatment Upcoming Encounters Date Type Department Care Team (Late st Contact Info) Description 11/20/2024 3:45 PM EDT Office Visit Orthopedic Surgery - [place] [address] [facility] [address] [place] [id number] Salome Spangler MD [address] [facility] [address] [place] [phone] documented as of this encounter Goals Goal Patient Goal Type Associated Problems Recent Progress Patient-Stated? Author <enter goal here> General Yes Melvi Welsh OT Note: HAVE LESS PAIN AND MORE STRENGTH LEFT HAND STGS 6 TO 8 VISITS General On track(08/17/ 025 10:48 AM EDT) No Melvi Welsh OT Note: # 1 NO VISIBLE EDEMA / MET 08/17 # 2 PARTICIPATE IN SCAR MANAGEMENT TO HAVE NO ADHERENCE # 3 IMPROVE LEFT WRIST EXTENSION FROM 40 TO 55 DEGREES WITH FAIR PLUS STRENGTH TO WEIGHTBEAR # 4 IMPROVE LEFT THUMB EXTENSION FROM 40 TO 55 DEGREES UPON REACH # 5 ACHIEVE ALL DIGIT FLEXION WITHIN 1 CM OF THE DPC / MET 08/17 # 6 IMPROVE LEFT TECHNICIAN SUPPORT ENGINEER FROM 2 TO 10 POUNDS = WITH THE RIGHT/ MET AT 15 POUNDS ON 08/17 documented as of this encounter Visit Diagnoses Diagnosis Pillar pain of extremity- Primary documented in this encounter Care Teams Stereo Equipment Installer Relationship Specialty Start Date End Date Olivia Palmer MD [address] [place] [address] PCP - General Internal Medicine 04/10/24 documented as of this encounter
--- OUTSIDE RECORDS SUMMARY | 2024-08-29 14:40 | XMS_ITS | Data Portability ---
Author Organization [employer] [employer] Address [address] [place] [phone] Care Team Providers Care Parking Lot Chauffeur Name Role Phone HIM DAVI OTHER Assessment Encounter Date Assessment Date Assessment LastModified by Organization Details LastModified Time 11/03/2023 11/03/2023 I provided real -time medical direction via phone for this encounter and was available for additional phone-based assistance as needed. I have reviewed and agree with the Assessment and Plan as documented by the Network Operations Technician. Patient given the opportunity to ask questions. Our service contacted for an assessment of: cough As per above, patient has had a non-productive cough for approx a week. She was seen yesterday by her PCP who preformed tests and started her on an antibiotic. PCP called patient this AM and told her that all the tests were normal. Per cryptoanalysis teacher on the scene, Non-toxic. Stable vitals. No distress. Impression: Cough Plan: Robitussin prescription sent to her pharmacy. F/u with PCP [email or web address] Not available 11/03/2023 13:22:48 Plan of Treatment Reminders Order Date Submit Date Provider Last Modified By Organization Details Last Modified Time Details Appointments None recorded. Lab None recorded. Referral None recorded. Procedures None recorded. Surgeries None recorded. Imaging None recorded. Medication Orders Robitussin Cough-Chest Congestion DM 5 mg-100 mg/5 mL oral liquid 2023 024 [id number], [address] [facility], [place], [address], 13:18:48 Patient TargetsNo targets recorded. Patient InstructionsNo instructions recorded. Reason for Referral None Reported. Medical Equipment None Reported. Medications Name Sig Start Date Stop Date Status Note LastModified by Organization Details LastModified Time tolterodine ER 2 mg capsule,exte nded release 24 hr TAKE 1 CAPSULE BY MOUTH EVERY DAY active Not Available Not Available No t Available methocarbamo l 500 mg tablet TAKE 1 TABLET BY MOUTH TWICE A DAY NEEDED FOR MUSCLE SPASM active Not Available Not Available No t Available cetirizine 10 mg tablet TAKE 1 TABLET ORALLY DAILY NEEDED FOR ALLERGY SYMPTOMS FOR 90 DAYS active Not Available Not Available Not Available clonazepam 0.5 mg tablet TAKE 1 TABLET BY MOUTH EVERYDAY AT BEDTIME active Not Available Not Available No t Available metronidazol e 500 mg tablet TAKE 2 TABLETS BY MOUTH TWICE A DAY FOR 14 DAYS active Not Available Not Available No t Available omeprazole 40 mg capsule,jamaal yed release TAKE 1 CAPSULE BY MOUTH TWICE A DAY active Not Available Not Available No t Available tramadol 50 mg tablet TAKE 1 TABLET BY MOUTH EVERY 4 TO 6 HOURS NEEDED FOR PAIN active Not Available Not Available No t Available amoxicillin 500 mg tablet active Not Available Not Available Not Available calcium 600 mg (as calcium carbonate 1,500 mg) tablet TAKE 1 TABLET BY MOUTH TWICE A DAY FOR 90 DAYS active Not Available Not Available No t Available fluoxetine 10 mg capsule TAKE 1 CAPSULE BY MOUTH EVERY DAY active Not Available Not Available No t Available mupirocin 2 % topical ointment APPLY TOPICALLY 2 TIMES A DAY FOR 2 WEEKS active Not Available Not Available Not Available estradiol 0.01% (0.1 mg/gram) vaginal cream USE DIRECTED: 1 GRAM PER VAGINA 3X PER WEEK active Not Available Not Available No t Available Stomach Relief 262 mg chewable tablet CHEW 2 TABLETS BY MOUTH 4 TIMES A DAY FOR 14 DAYS active Not Available Not Available Not Available lactulose 10 gram/15 mL oral solution TAKE 30MLS BY MOUTH TWICE DAILY active Not Available Not Available Not Available Lubricant Eye Drops 0.5 % INSTILL 1 DROP INTO BOTH EYES TWICE A DAY active Not Available Not Available Not Available diclofenac 1 % topical gel PLEASE SEE ATTACHED FOR DETAILED DIRECTIONS active Not Available Not Available N ot Available cholecalcife rol (vitamin D3) 50 mcg (2,000 unit) capsule TAKE 1 CAPSULE BY MOUTH EVERY DAY FOR 90 DAYS active Not Available Not Available No t Available GaviLyte-G 236 gram-22.74 gram-6.74 gram-5.86 gram oral solution PLEASE SEE ATTACHED FOR DETAILED DIRECTIONS active Not Available Not Available N ot Available Myrbetriq 25 mg tablet,exten ded release TAKE 1 TABLET BY MOUTH EVERY DAY active Not Available Not Available No t Available Robitussin Cough-Chest Congestion DM 5 mg-100 mg/5 mL oral liquid Take 5 mL 3 times a day by oral route as needed for 10 days, for cough. 2023 active Not Available Not Available Not Avai lable Vitals Date Recorded Heart rate Respiratory rate Body weight Body temperature Oxygen saturation Oxygen saturation in Arterial blood by Pulse oximetry Systolic blood pressure Diastolic blood pressure Provider Name and Address Organization Details Last Updated DateTime 4 90 /min 16 /min 26862.8 g 98.9 [degF] 98 % 98 % 105 mm[Hg] 68 mm[Hg] Not Available [facility] - production 4 13:14:01 Social History None recorded. Functional Status None recorded. Mental Status None recorded. Family History Nothing Reported. Medical History No medical history recorded. Gynecological HistoryNo gynecological history recorded. Obstetrics History GPAL:G 0 P 0 0 0 0 Past Encounters Encounter ID Performer Location Encounter Start Date Encounter Closed Date Diagnosis/Indication Diagnosis SNOMED-CT Code Diagnosis ICD10 Code Diagnosis Note [id number] Migdalia Fisher MD [facility] [address] [place] [phone] 11/03/2023 13:13:58 11/04/2023 10:33:41 Cough 19091483 R05.9 Health Concerns Section Related Observation LastModified by Organization Detai ls LastModified Time None Recorded Concern Status LastModified by Organization Details LastModified Time None Recorded Advance Directives Directive None Recorded Payers Encounter Date Sequence Insurance Name Policy Number Policy Scales Covered Member ID Scales Member ID Guarantor Name 11/03/2023 1 [facility] - DOS ON OR AFTER 2022 - DUAL ELIGIBLE - INTERMEDIATE OPTIONS AND ONE CARE (MEDICARE REPLACEMENT/ADV ANTAGE - HMO) Clara Carpio [id number] Clara Carpio Notes Date Note Type Note Provider Name and Address Organization Details Recorded Time 11/03/2023 text/html [facility] Nurse Triage Notes (Matias Carrasco): Chief Complaints: ENT, Cough, Headache, Syncope/Dizziness/ Lightheadedness, Chest Pain, Nausea/Vomiting Comments: Archery Equipment Repairer verified the member's name//address and phone number. Mbr's TELEPHONE MAINTENANCE MECHANIC, Jada, calling reporting member started with itchy throat a few days ago. TELEPHONE MAINTENANCE MECHANIC reports symptoms have continued to worsen. Mbr now with loss of voice, body aches, headache, stomachache, chills, and sometimes vomiting due to excessive amount of coughing. Mbr also reports pain in chest from coughing. TELEPHONE MAINTENANCE MECHANIC reports mbr had Flu, RSV & COVID testing that all came back negative. Education provided on the response time and the member was advised to monitor reported s/s and seek emergency treatment if needed -Michael Carrasco RN .................. .................. .................. .................. .................. .................. .................. ............... Network Operations Technician Note From Carlo Stewart: Pt co cough. Pt was seen yesterday and RX for augmentin she started today. Pt denies sob cp fever [place] NVD. Baseline vitals assessed. Lungs clear. Pt sts she Covid and flu strep negative, pt sts pcp called today with results. Pt requesting something for her cough. [facility] contacted and RX for benzonatate called in. Pt education on signs indicating the ER. Pt advised to follow up with pcp. .................. .................. .................. .................. .................. .................. .................. ............... Disposition: Parris Fisher MD [address] [facility],[address], [place], [phone], [place] [facility] [facility] 11/03/2023 13:23:00 OBGyn Episode No OBEpisode recorded.
--- OUTSIDE RECORDS SUMMARY | 2024-08-29 14:40 | XMS_ITS | Encounter Summary ---
Author Organization [employer] Address [address] [place] [address] Care Team Providers Care Hr Leader Name Role Phone Olivia Palmer MD Primary Care Provider [phone] Reason for Visit * Therapy (Routine) - Authorized Specialty Diagnoses / Procedures Referred By Frederic silva Referred To Contact Occupational Therapy Diagnoses S/P carpal tunnel release S/P trigger finger release Pillar pain, post-operative Salome Spangler MD 175 [facility] [address] [place] [address] Phone: tel: fax: Referral ID Status Reason Start Date Expiration Date Visits Requested Visits Authorized [id number] Authorized Specialty Services Required Consult and Treat 06/18/2024 06/18/2025 20 20 Encounter Details Date Type Department Care Team (Late st Contact Info) Description 08/08/2024 12:30 PM EST Treatment [facility] [address] [facility] [address] [place] [address] Melvi Welhs OT Pillar pain of extremity (Primary Dx); S/P trigger finger release Social History Tobacco Use Types Packs/Day Years [...] Progress Notes * Melvi Welsh OT - 08/08/2024 12:30 PM EST Occupational Therapy Occupational Therapy Treatment Patient Name: Clara Carpio Today's Date: 08/08/2024 Subjective Subjective: I CAN MOVE THE FINGERS VISIT # 7 LEFT CTR AND TRGGER RELEASES Problem List Patient Active Problem List [...] STRETCHING AND DESENSITIZATION X 20 MINS, U/S, SCAR MOBILIZATION, METACARPAL JOINT MOBILIZATION, PROM ALL DIGITS, DRUJ DISTRACTION, DORSAL ANDVOLAR GLIDES, TENDON GLIDES Splinting and Casting: Treatment: SEE ABOVE ADL/IADL Assessment: Assessment/Plan Plan OT Plan: ULTRASOUND AND THERAPEUTIC EXERCISE OT Frequency : (1 TO 2 TIMES A WEEK) Duration: (VISIT # 7) Goals: Goals Addressed This Visit's Progress STGS 6 TO 8 VISITS On track # 1 NO VISIBLE EDEMA # 2 PARTICIPATE IN SCAR MANAGEMENT TO HAVE NO ADHERENCE # 3 IMPROVE LEFT WRIST EXTENSION FROM 40 TO 55 DEGREES WITH FAIR PLUS STRENGTH TO WEIGHTBEAR # 4 IMPROVE LEFT THUMB EXTENSION FROM 40 TO 55 DEGREES UPON REACH # 5 ACHIEVE ALL DIGIT FLEXION WITHIN 1 CM OF THE DPC # 6 IMPROVE LEFT ADVANCED PRACTICE PROVIDER FROM 2 TO 10 POUNDS = WITH THE RIGHT documented in this encounter Plan of Treatment Upcoming Encounters Date Type Department Care Team (Late st Contact Info) Description 11/20/2024 3:45 PM EDT Office Visit Orthopedic Surgery - [place] 175 [facility] [address] [place] [address] Salome Spangler MD 175 [facility] [address] [place] [address] documented as of this encounter Goals Goal Patient Goal Type Associated Problems Recent Progress Patient-Stated? Author <enter goal here> General Yes eMlvi Welsh, OT Note: HAVE LESS PAIN AND MORE STRENGTH LEFT HAND STGS 6 TO 8 VISITS General On track( 025 10:48 AM EDT) No Melvi Welsh, OT Note: # 1 NO VISIBLE EDEMA [...] / MET 08/17 # 6 IMPROVE LEFT ADVANCED PRACTICE PROVIDER FROM 2 TO 10 POUNDS = WITH THE RIGHT/ MET AT 15 POUNDS ON 08/17 documented as of this encounter Visit Diagnoses Diagnosis Pillar pain of extremity- Primary S/P trigger finger release documented in this encounter Care Teams Hr Leader Relationship Specialty Start Date End Date Olivia Palmer MD [address] [place] [phone] PCP - General Internal Medicine 04/10/24 documented as of this encounter
--- OUTSIDE RECORDS SUMMARY | 2024-08-29 14:40 | XMS_ITS | Clinical Summary ---
Author Organization [facility] Address [address] [place] [address] Phone Care Team Providers Care Gang Worker Name Role Phone Olivia Palmer MD Primary Care Provider [phone] Allergies Active Allergy Reactions Criticality Noted Date Comments Flu Vaccine [id number](36mo,Up) Muscular Issues 03/26/2024 Gabapentin Nausea And Vomiting 03/26/2024 Haemophilus Influenzae Type B 2022 Pregabalin 01/11/2023 Medications acetaminophen (TYLENOL) 500 mg capsule Take by mouth. Activ e calcium carbonate 1,500 mg (600 mg elemental calcium) tablet Take 600 mg by mouth. Active cholecalciferol (VITAMIN D-3) 50 mcg (2,000 unit) capsule Take 1 Dose by mouth. Active tiZANidine (ZANAFLEX) 4 mg tablet Take 1 tablet (4 mg total) by mouth. Active triamcinolone acetonide (KENALOG-40) 40 mg/mL injection 1 mL (40 mg total) by Other route. 4 Active clonazePAM (KlonoPIN) 0.5 mg tablet Take 1 tablet (0.5 mg total) by mouth 2 (two) times a day. Active FLUoxetine (PROzac) 10 mg capsule Take 1 capsule (10 mg total) by mouth 1 (one) time each day. Active oxyCODONE (ROXICODONE) 5 mg immediate release tablet Take 1 tablet (5 mg total) by mouth every 6 (six) hours if needed for severe pain for up to 6 doses. Max Daily Amount: 20 mg 6 tablet 4 Active acetaminophen (TYLENOL) 500 mg tablet Take 1 tablet (500 mg total) by mouth every 8 (eight) hours if needed for mild pain for up to 30 doses. 30 tablet 4 Active amoxicillin (AMOXIL) 500 mg tablet Active bismuth subsalicylate (PEPTO BISMOL) 262 mg chewable tablet CHEW 2 TABLETS BY MOUTH 4 TIMES A DAY FOR 14 DAYS Active carBAMazepine (TEGretol) 200 mg tablet PLEASE SEE ATTACHED FOR DETAILED DIRECTIONS 4 Active cetirizine (ZyrTEC) 10 mg tablet TAKE 1 TABLET ORALLY DAILY NEEDED FOR ALLERGY SYMPTOMS FOR 90 DAYS Active estradioL (ESTRACE) 0.01 % (0.1 mg/gram) vaginal cream USE DIRECTED: 1 GRAM PER VAGINA 3X PER WEEK Active dextromethorphan- guaifenesin 5-100 mg/5 mL liquid Take 5 mL 3 times a day by oral route as needed for 10 days, for cough. 4 Active methocarbamoL (ROBAXIN) 500 mg tablet TAKE 1 TABLET BY MOUTH TWICE A DAY NEEDED FOR MUSCLE SPASM Active lactulose (CHRONULAC) solution TAKE 30MLS BY MOUTH TWICE DAILY 4 Active metroNIDAZOLE (FLAGYL) 500 mg tablet TAKE 2 TABLETS BY MOUTH TWICE A DAY FOR 14 DAYS Active mirabegron (Myrbetriq) 25 mg 24 hr tablet Take 1 tablet (25 mg total) by mouth 1 (one) time each day. Active mupirocin (BACTROBAN) 2 % ointment Apply topically 3 (three) times a day. Active omeprazole (PriLOSEC) [address] capsule Take 1 capsule (40 mg total) by mouth 2 (two) times a day. Active polyethylene glycol (GaviLyte-G) 236-22.74-6.74 -5.86 gram solution PLEASE SEE ATTACHED FOR DETAILED DIRECTIONS Active tetracycline (ACHROMYCIN,SUMYC IN) 500 mg capsule Take 1 capsule (500 mg total) by mouth. Active tolterodine LA (DETROL LA) 2 mg 24 hr capsule Take 1 capsule (2 mg total) by mouth 1 (one) time each day. Active traMADoL (ULTRAM) 50 mg tablet Take 1 tablet (50 mg total) by mouth. 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) 12/23/2023 Cyst of kidney, acquired 03/22/2023 Chronic kidney disease, stage 2 (mild) Gastroesophageal reflux disease 03/21/2023 Hyperkalemia 03/21/2023 Osteopenia 03/21/2023 Encounters Date Type Department Care Team Description 08/17/2024 11:00 AM EDT Office Visit Orthopedic Surgery [facility] [address] [phone] Salome Spangler MD S/P carpal tunnel release (Primary Dx); Pillar pain, post-operative; Acquired trigger finger of right little finger 08/17/2024 10:15 AM EDT Treatment [facility] [address] [phone] Melvi Welsh OT Pillar pain of extremity (Primary Dx) 08/15/2024 12:30 PM EDT Treatment [facility] [address] [place] [phone] Melvi Welsh OT Pillar pain of extremity (Primary Dx) 08/10/2024 11:15 AM EST Treatment [facility] [address] [place] [phone] Melvi Welsh OT Pillar pain of extremity (Primary Dx) 08/08/2024 12:30 PM EST Treatment [facility] [address] [place] [phone] Melvi Welsh OT Pillar pain of extremity (Primary Dx); S/P trigger finger release 08/01/2024 9:45 AM EST Treatment [facility] [address] [place] [phone] WelshMelvi estrella OT Pillar pain of extremity (Primary Dx); S/P trigger finger release 07/30/2024 12:30 PM EST Treatment [facility] [address] [place] [phone] Melvi Welsh OT S/P trigger finger release (Primary Dx); Pillar pain of extremity 07/20/2024 11:15 AM EST Treatment [facility] [address] [place] [phone] Melvi Welsh OT Pillar pain of extremity (Primary Dx); S/P trigger finger release 07/18/2024 12:30 PM EST Treatment [facility] [address] [place] [phone] Melvi Welsh OT Pillar pain of extremity (Primary Dx) 07/02/2024 12:30 PM EST Treatment [facility] [address] [place] [phone] Melvi Welsh OT Pillar pain of extremity (Primary Dx) 06/26/2024 12:30 PM EST Evaluation [facility] [address] [place] [phone] Melvi Welsh OT Pillar pain, post-operative (Primary Dx); Pillar pain of extremity 06/26/2024 Plan of Care Documentation [facility] [address] [place] [phone] 06/18/2024 10:30 AM EST Office Visit Orthopedic Surgery - [place] [address] [phone] Salome Spangler MD Pillar pain, post-operative (Primary Dx); S/P carpal tunnel release; S/P trigger finger release from Last 3 Months Surgical History Surgery Date Site/Laterality Comments CARPAL TUNNEL RELEASE Right 2019 OTHER SURGICAL HISTORY FIRST RIB REMOVAL IRIDOTOMY / IRIDECTOMY CARPAL TUNNEL RELEASE 04/11/2024 Left w/ long finger A1 holly release Medical History Medical History Date Comments Chronic pain disorder Social History Tobacco Use Types Packs/Day Years Used Date Smoking Tobacco: Never Smokeless Tobacco: Never Tobacco Cessation:Counseling Given: Not Answered Alcohol Use Standard Drinks/Week Comments Never 0 (1 standard drink = 0.6 oz pur e alcohol) Comments Unknown Sex and Gender Information Value Date Recorded Sex Assigned at Female 04/11/2024 11:55 AM EST Legal Sex Female 6:14 PM EST Gender Identity Female 04/11/2024 11:55 AM EST Sexual Orientation Straight 04/11/2024 11 :55 AM EST Obstetrics History Last Filed Vital Signs Vital Sign Reading Time Taken Comments Blood Pressure 105/59 04/11/2024 1:51 PM EST Pulse 83 04/11/2024 1:51 PM EST Temperature 36.5 ??C (97.7 ??F) 04/11/2024 1:34 PM ES T Respiratory Rate 16 04/11/2024 1:34 PM EST Oxygen Saturation 100% 04/11/2024 1:51 PM EST Inhaled Oxygen Concentration - - Weight 68 kg (150 lb) 08/17/2024 11:16 AM EDT Height 152.4 cm (5') 08/17/2024 11:16 AM EDT Body Mass Index 29.29 08/17/2024 11:16 AM EDT Plan of Treatment Upcoming Encounters Date Type Department Care Team (Late st Contact Info) Description 11/20/2024 3:45 PM EDT Office Visit Orthopedic Surgery - [place] [address] [phone] Salome Spangler MD [address] [phone] Health Maintenance Due Date Last Done Comments RSV Immunization Patients 60 + Years Old (1 - 1-dose 75+ series) 2023 Depression Screening 07/05/2023 Hepatitis C Screening 07/05/2023 Medicare Annual Wellness Visit 07/05/2023 Osteoporosis Screening (Bone Density Screening) 07/05/2023 Social Influencers of Health Screening 07/05/2023 Zoster Vaccines (2 of 2) 11/16/2023 09/21/2023 COVID-19 Vaccine ( - 2023-2 5 season) 2024 11/17/2021, 10/15/2020, 09/17/2020 Influenza Vaccine (#1) 2024 05/21/2019 Falls Risk Assessment 04/11/2025 04/11/2024 DTaP,Tdap,and Td Vaccines (2 - Td or Tdap) 05/16/2034 05/16/2024 Pneumococcal Vaccine: 50+ Years Completed 05/16/2024 HIB Vaccines Aged Out No longer eligi ble based on patient's age to complete this topic HPV Vaccines Aged Out No longer eligi ble based on patient's age to complete this topic Hepatitis A Vaccines Aged Out No long er eligible based on patient's age to complete this topic Hepatitis B Vaccines Aged Out No long er eligible based on patient's age to complete this topic IPV Vaccines Aged Out No longer eligi ble based on patient's age to complete this topic MMR Vaccines Aged Out No longer eligi ble based on patient's age to complete this topic Meningococcal ACWY Vaccine Aged Out N o longer eligible based on patient's age to complete this topic Meningococcal B Vacine Aged Out No lo nger eligible based on patient's age to complete this topic RSV Immunization Patients Under 20 months Aged Out No longer eligible b ased on patient's age to complete this topic Varicella Vaccines Aged Out No longer eligible based on patient's age to complete this topic Goals Goal Patient Goal Type Associated Problems Recent Progress Patient-Stated? Author <enter goal here> General Yes Melvi Welsh, OT Note: HAVE LESS PAIN AND [...] / MET 08/17 # 6 IMPROVE LEFT INSULATION AND FLOORING ASSEMBLER FROM 2 TO 10 POUNDS = WITH THE RIGHT/ MET AT 15 POUNDS ON 08/17 Insurance [employer] MEDICARE Member Subscriber Plan / Payer (Ef fective 2019-Present) Name:Ludwig Cruza Relation to Subscriber:Self Name:Clara Cruz Payer ID:[id number] Group ID:[id number] Type:Not on file Address: [place] [address] [phone] Care Teams Gang Worker Relationship Specialty Start Date End Date Olivia Palmer MD [address] [place] [address] PCP - General Internal Medicine 04/10/24
--- OUTSIDE RECORDS SUMMARY | 2024-08-29 14:40 | XMS_ITS | Encounter Summary ---
Author Organization [employer] Address [address] [place] [address] Care Team Providers Care Canoe Inspector Name Role Phone Olivia Palmer MD Primary Care Provider [phone] Reason for Visit * Therapy (Routine) - Authorized Specialty Diagnoses / Procedures Referred By Frederic silva Referred To Contact Occupational Therapy Diagnoses S/P carpal tunnel release S/P trigger finger release Pillar pain, post-operative Salome Spangler MD 175 [facility] [address] [place] [address] Phone: tel: fax: Referral ID Status Reason Start Date Expiration Date Visits Requested Visits Authorized [id number] Authorized Specialty Services Required Consult and Treat 06/18/2024 06/18/2025 20 20 Encounter Details Date Type Department Care Team (Late st Contact Info) Description 07/30/2024 12:30 PM EST Treatment [facility] 175 [facility] [address] [place] [address] Melvi Welsh OT S/P trigger finger release (Primary Dx); Pillar pain of extremity Social History Tobacco Use Types Packs/Day Years [...] Progress Notes * Melvi Welsh OT - 07/30/2024 12:30 PM EST Occupational Therapy Occupational Therapy Treatment Patient Name: Clara Carpio Today's Date: 07/30/2024 Subjective Subjective: PAIN HERE POINTING TO ULNAR PALM VISIT # 5 LEFT CTR AND TRIGGER RELEASES Problem List [...] Score: 5 - Moderate pain Pain Type: (CRAMPING) Pain Location: (PALM AND SCARS) Pain Frequency: Constant/continuous Patient's Pain Goal: 2 Objective General Visit Information: General Observation/Findings/Presence Chart Reviewed: Yes Family/Caregiver Present: Yes Extremity Assessments: Modalities: Ultrasound Ultrasound Location: PALM AND SCARS Ultrasound Parameters: .3 WCM AT 50 PERCENT PULSED X 10 MINS Ultrasound Goals: Pain Procedure: Therapeutic Exercise Therapeutic Exercise Activity 1: FLUIDOTHERAPY FOR AROM, STRETCHING AND DESENSITIZATION X 20 MINS, U/S, SCAR MOBILIZATION, METACARPAL JOINT MOBILIZATION, PROM DIGITS AND THUMB, DRUJ DISTRACTION, DORSAL AND VOLAR GLIDES Splinting and Casting: Treatment: SEE ABOVE ADL/IADL Assessment: Assessment/Plan Plan OT Plan: ULTRASOUND AND THERAPEUTIC EXERCISE OT Frequency : (1 TO 2 DAYS PER WEEK) Duration: (VISIT # 5) Goals: Goals Addressed None documented in this encounter Plan of Treatment Upcoming Encounters Date Type Department Care Team (Late st Contact Info) Description 11/20/2024 3:45 PM EDT Office Visit Orthopedic Surgery [facility] 175 [facility] [address] [place] [phone] Salome Spangler MD 175 [facility] [address] [place] [phone] documented as of this encounter Goals Goal Patient Goal Type Associated Problems Recent Progress Patient-Stated? Author <enter goal here> General Yes Melvi Welsh, OT Note: HAVE LESS PAIN AND MORE STRENGTH LEFT HAND STGS 6 TO 8 VISITS General On track(08/17/ 025 10:48 AM EDT) No Melvi Welsh, [...] / MET 08/17 # 6 IMPROVE LEFT SEMICONDUCTOR PROCESSING GROUP LEADER FROM 2 TO 10 POUNDS = WITH THE RIGHT/ MET AT 15 POUNDS ON 08/17 documented as of this encounter Visit Diagnoses Diagnosis S/P trigger finger release- Primary Pillar pain of extremity documented in this encounter Care Teams Canoe Inspector Relationship Specialty Start Date End Date Olivia Palmer MD [address] [place] [address] PCP - General Internal Medicine 04/10/24 documented as of this encounter
--- OUTSIDE RECORDS SUMMARY | 2024-08-29 14:40 | XMS_ITS | Clinical Summary ---
Author Organization [facility] Address [address] [place] [address] Phone Care Team Providers Care Cracker Sprayer Name Role Phone Olivia Andrade MD Primary Care Provider [phone] Allergies Active Allergy Reactions Criticality Noted Date Comments Gabapentin 01/11/2023 Influenza Vaccine Surface Ad juvant, Inactivated 01/11/2023 Pregabalin 01/11/2023 Medications Cholecalciferol 50 MCG (1999) capsule Take 1 Dose by mouth Active Acetaminophen 500 MG capsule Take by mouth Activ e bismuth subsalicylate (PEPTO BISMOL) 262 MG chewable tablet Chew 524 mg 4 (four) times a day (before meals and nightly) Active cetirizine (ZyrTEC) 10 MG tablet Take 10 mg by mouth 1 (one) time each day Active methocarbamol (ROBAXIN) 500 MG tablet Take 500 mg by mouth in the morning and 500 mg at noon and 500 mg in the evening and 500 mg before bedtime. Active metroNIDAZOLE (FLAGYL) 500 MG tablet Take 500 mg by mouth in the morning and 500 mg in the evening and 500 mg before bedtime. Active mupirocin (BACTROBAN) 2 % ointment Apply topically 3 (three) times a day Active omeprazole (PriLOSEC) [address] capsule Take 40 mg by mouth 1 (one) time each day Do not crush or chew. Active tetracycline (ACHROMYCIN,SUMYCI N) 500 MG capsule Take 500 mg by mouth in the morning and 500 mg at noon and 500 mg in the evening and 500 mg before bedtime. Active clonazePAM (KlonoPIN) 0.5 MG tablet Take 0.5 mg by mouth in the morning and 0.5 mg in the evening. Active FLUoxetine (PROzac) 10 MG capsule Take 10 mg by mouth in the morning. Active tiZANidine (ZANAFLEX) 4 MG tablet Take 4 mg by mouth 1 (one) time each day Active Active Problems Problem Noted Date Diagnosed Date Cyst of kidney 03/22/2023 Gastroesophageal reflux disease 03/21/2023 Hyperkalemia 03/21/2023 Chronic kidney disease, stage 2 (mild) Osteopenia 03/21/2023 Family History Medical History Relation Comments Cancer Father Relation Status Comments Father Mother Social History Tobacco Use Types Packs/Day Years Used Date Smoking Tobacco: Never Alcohol Use Standard Drinks/Week Comments Never 0 (1 standard drink = 0.6 oz pur e alcohol) Comments Unknown Sex and Gender Information Value Date Recorded Sex Assigned at Not on file Legal Sex Female 9:43 AM EDT Gender Identity Not on file Sexual Orientation Not on file Last Filed Vital Signs Vital Sign Reading Time Taken Comments Blood Pressure 111/70 03/26/2024 2:11 PM EDT Pulse 82 03/26/2024 2:11 PM EDT Temperature - - Respiratory Rate - - Oxygen Saturation 97% 03/26/2024 2:11 PM EDT Inhaled Oxygen Concentration - - Weight 70 kg (154 lb 6.4 oz) 03/26/2024 2:11 PM EDT Height 152.4 cm (5') 03/26/2024 2:11 PM EDT Body Mass Index 30.15 03/26/2024 2:11 PM EDT Plan of Treatment Upcoming Encounters Date Type Department Care Team (Late st Contact Info) Description 04/01/2025 2:30 PM EDT Office Visit [facility] [address] [place] [address] Ajith Abel MD [address] [facility] [address] [place] [address] Health Maintenance Due Date Last Done Comments Pneumococcal Vaccine: 65+ Ye ars (1 of 2 - PCV) 1956 Influenza Vaccine (#1) 2024 Hepatitis B Vaccine Aged Out No longe r eligible based on patient's age to complete this topic Insurance [facility] ([id number]) [facility] ([id number]) Care Teams Cracker Sprayer Relationship Specialty Start Date End Date Olivia Andrade MD [address] [place] [address] PCP - General Internal Medicine 12/08/22
--- OUTSIDE RECORDS SUMMARY | 2024-08-29 14:40 | XMS_ITS | Encounter Summary ---
Author Organization [employer] Address [address] [place] [address] Care Team Providers Care Vice President Of Procurement Name Role Phone Olivia Palmer MD Primary Care Provider [phone] Reason for Visit * Therapy (Routine) - Authorized Specialty Diagnoses / Procedures Referred By Frederic t Referred To Contact Occupational Therapy Diagnoses S/P carpal tunnel release S/P trigger finger release Pillar pain, post-operative Salome Spangler MD [address] [facility] [address] [place] [address] Phone: tel: fax: Referral ID Status Reason Start Date Expiration Date Visits Requested Visits Authorized [id number] Authorized Specialty Services Required Consult and Treat 06/18/2024 06/18/2025 20 20 Encounter Details Date Type Department Care Team (Late st Contact Info) Description 08/15/2024 12:30 PM EDT Treatment [facility] [address] [facility] [address] [place] [address] Melvi Welsh, CARMEN Pillar pain [...] Progress Notes * Melvi Welsh OT - 08/15/2024 12:30 PM EDT Occupational Therapy Occupational Therapy Treatment Patient Name: Clara Carpio Today's Date: 08/15/2024 Subjective Subjective: THE PAIN IS BAD TODAY, I DONT KNOW WHY VISIT # 9 LEFT CTR AND TRIGGER RELEASE Problem List Patient Active Problem List Diagnosis [...] Pain Assessment Pain Assessment: 0-10 Pain Score: 7 Pain Type: (PRESSURE SHARP ULNAR WRIST THIS DATE) Pain Location: (BASE OF PALM AND ULNAR WRIST) Pain Frequency: Constant/continuous Patient's Pain Goal: 2 Objective General Visit Information: General Observation/Findings/Presence Chart Reviewed: Yes Extremity Assessments: Modalities: Paraffin Bath LUE Number Minutes Paraffin: (15 MINS AT 126 DEGREES) LUE Paraffin Location: (HAND AND WRIST) Ultrasound Ultrasound Location: BASE OF PALM Ultrasound Parameters: .3 WCM AT 50 PERCENT PULSED X 10 MINS Ultrasound Goals: Pain Procedure: Therapeutic Exercise Therapeutic Exercise Activity 1: PARAFFIN, U/S, SOFT TISSUE MOBILIZATION AT PALM, METACARPAL JOINT MOBILIZATION, DRUJ DISTRACTION, PROM ALL DIGITS, NERVE GLIDES Splinting and Casting: Treatment: SEE ABOVE ADL/IADL Assessment: Assessment/Plan Plan OT Plan: PRAFFIN, U/S AND THEREX OT Frequency : (1 TO 2 TIMES A WEEK) Duration: (VISIT # 9) Goals: Goals Addressed None documented in this encounter Plan of Treatment Upcoming Encounters Date Type Department Care Team (Late st Contact Info) Description 11/20/2024 3:45 PM EDT Office Visit Orthopedic Surgery [facility] [address] [place] [address] Salome Spangler MD 175 [facility] [address] [place] [address] documented as of this encounter Goals Goal [...] / MET 08/17 # 6 IMPROVE LEFT CASE SEALER FROM 2 TO 10 POUNDS = WITH THE RIGHT/ MET AT 15 POUNDS ON 08/17 documented as of this encounter Visit Diagnoses Diagnosis Pillar pain of extremity- Primary documented in this encounter Care Teams Vice President Of Procurement Relationship Specialty Start Date End Date Olivia Palmer MD [address] [place] [address] PCP - General Internal Medicine 04/10/24 documented as of this encounter
--- OUTSIDE RECORDS SUMMARY | 2024-08-29 14:40 | XMS_ITS | Encounter Summary ---
Author Organization [employer] Address [address] [place] [address] Care Team Providers Care Conveyor Belt Operator Name Role Phone Olivia Palmer MD Primary Care Provider Reason for Visit * Reason Comments Post-op Surgery follow up fo r TF release on 04/11/24 Post-op Surgery follow up fo r eCTR On 04/11/24 Encounter Details Date Type Department Care Team (Late st Contact Info) Description 08/17/2024 11:00 AM EDT Office Visit Orthopedic Surgery - [place] [address] [phone] Salome Spangler MD [address] [address] S/P carpal tunnel release (Primary Dx); Pillar pain, post-operative; Acquired trigger finger of right little finger Social History Tobacco Use Types Packs/Day Years [...] AM EST documented as of this encounter Last Filed Vital Signs Vital Sign Reading Time Taken Comments Blood Pressure - - Pulse - - Temperature - - Respiratory Rate - - Oxygen Saturation - - Inhaled Oxygen Concentration - - Weight 68 kg (150 lb) 08/17/2024 11:16 AM EDT Height 152.4 cm (5') 08/17/2024 11:16 AM EDT Body Mass Index 29.29 08/17/2024 11:16 AM EDT documented in this encounter Progress Notes * Salome Spangler MD - 08/17/2024 11:00 AM EDT CHIEF COMPLAINT/REASON FOR VISIT: Follow-up for left palm pain SUBJECTIVE: Patient is here today companied by her son. Patient is Gibraltarian-speaking and so we have some and at the base of the palm. We have [facility] [employer]# [id number] assisting us here today. The patient had undergone a left endoscopic carpal tunnel release and left long A1 holly release back in April 11, 2024. While she ended up getting good resolution of the tingling she has had quite a bit of problems with persistent palmar pain and sensitivity. She has been going to therapy. She is able now to make a fist. Of note she is also recently started to develop a little bit of catching of the left finger on the righthand. as found it helpful. She still has sensitivity at the base of the palm which is bothersome. It makes it difficult to do cooking. She is also aware of a small bump on the volar surface of both the ring and small finger on the left hand. OBJECTIVE: On exam the patient is able to make a fist with her left hand and open it up. She describes pain atthe base of the palm however when she tries to bring her thumb up and over to the small finger. Shedoes have intact sensation to light touch on the fingertips. She can abduct and adduct the fingers and she can again circumduct the thumb. What she does have on the volar surface of the fingers of the ring and small overlying the proximal phalanx is a small volar retinacular ganglion. There is no locking or catching. They are minimally tender with palpation. Patient continues to have some aching when I palpate the base of the palm at the hypothenar and thenar eminences. She is able to flex and extend the wrist. On her right hand she is able to flex and extend her fingers but she does have a slight catch of the small finger. There is no flexion contracture. She has discomfort with palpation over the A1 holly. ASSESSMENT: 1. S/P carpal tunnel release 2. Pillar pain, post-operative 3. Acquired trigger finger of right little finger Patient should continue with her exercises and scar massage at the base of the palm. She has 1 morevisit with therapy. Mom sorry she is having this persistent problem the general trend for most patients is that it will continue to get better gradually over time. She may wish to use a splint. She then with her left hand reached into her pocket and pulled out a splint and said that is what she uses and it seems reasonable in shape and support. Hopefully she will notice improvement as we move into the warmer months. For the small finger that is triggering she can do heat massage range of motion and if it does not seem to resolve spontaneously she could have a steroid injection. She will try to work this out on her own but return if there is no response and she can get an injection of cortisone by either myself or by [facility]. PLAN: 3-month follow-up May call sooner if she needs to come in for an injection Salome Spangler MD documented in this encounter Plan of Treatment Upcoming Encounters Date Type Department Care Team (Late st Contact Info) Description 11/20/2024 3:45 PM EDT Office Visit Orthopedic Surgery - [place] [address] [phone] Salome Spangler MD [address] [place] [phone] documented as of this encounter Goals [...] / MET 08/17 # 6 IMPROVE LEFT MEAL ATTENDANT FROM 2 TO 10 POUNDS = WITH THE RIGHT/ MET AT 15 POUNDS ON 08/17 documented as of this encounter Visit Diagnoses Diagnosis S/P carpal tunnel release- Primary Other postprocedural status Pillar pain, post-operative Acquired trigger finger of right little finger documented in this encounter Care Teams Conveyor Belt Operator Relationship Specialty Start Date End Date Olivia Palmer MD [address] [place] [phone] PCP - General Internal Medicine 04/10/24 documented as of this encounter
--- OUTSIDE RECORDS SUMMARY | 2024-08-29 14:40 | XMS_ITS | Encounter Summary ---
Author Organization [employer] Address [address] [place] [address] Care Team Providers Care Plant Maintenance Manager Name Role Phone Olivia Palmer MD Primary Care Provider [phone] Reason for Visit * Therapy (Routine) - Authorized Specialty Diagnoses / Procedures Referred By Frederic silva Referred To Contact Occupational Therapy Diagnoses S/P carpal tunnel release S/P trigger finger release Pillar pain, post-operative Salome Spangler MD 175 [facility] [address] [place] [address] Phone: tel: fax: Referral ID Status Reason Start Date Expiration Date Visits Requested Visits Authorized [id number] Authorized Specialty Services Required Consult and Treat 06/18/2024 06/18/2025 20 20 Encounter Details Date Type Department Care Team (Late st Contact Info) Description 08/17/2024 10:15 AM EDT Treatment [facility] 175 [facility] [address] [place] [phone] Melvi Welsh, OT Pillar pain of extremity (Primary Dx) Social [...] of this encounter Progress Notes * Melvi Welsh, OT - 08/17/2024 10:15 AM EDT Occupational Therapy Occupational Therapy Treatment Patient Name: Clara Carpio Today's Date: 08/17/2024 Subjective Subjective: BETTER TODAY VISIT # 10 LEFT CTR AND TRIGGER RELEASE Problem List [...] Score: 5 - Moderate pain Pain Type: (PRESSURE) Pain Location: (BASE OF PALM AND ULNAR WRIST) Pain Frequency: Constant/continuous Patient's Pain Goal: 2 Objective General Visit Information: General Observation/Findings/Presence Chart Reviewed: Yes Extremity Assessments: Modalities: Paraffin Bath LUE Number Minutes Paraffin: (15 MINS AT 128 DEGREES) LUE Paraffin Location: (HAND AND WRIST) Ultrasound Ultrasound Location: BASE OF PALM Ultrasound Parameters: .3 WCM AT 50 PERCENT PULSED X 10 MINS Ultrasound Goals: Pain Procedure: Therapeutic Exercise Therapeutic Exercise Activity 1: PARAFFIN, U/S, SOFT TISSUE MOBILIZATION , METACARPAL JOINT MOBILIZATION, DRUJ DISTRACTION, PROM ALL DIGITS, OPPOSTION, NERVE GLIDES, SUSTAINABILITY CONSULTANT TO 15 POUNDS Splinting and Casting: Treatment: SEE ABOVE EDUCATION; CONTINUE WITH FREQUENT NERVE AND TENDON GLIDES ADL/IADL Assessment: Assessment/Plan Plan OT Plan: PARAFFIN, U/S AND THEREX OT Frequency : (1 TO 2 TIMES A WEEK) Duration: (VISIT # 10) Goals: Goals Addressed This Visit's Progress STGS 6 TO 8 VISITS On track # 1 NO VISIBLE EDEMA / MET [...] / MET 08/17 # 6 IMPROVE LEFT SUSTAINABILITY CONSULTANT FROM 2 TO 10 POUNDS = WITH THE RIGHT/ MET AT 15 POUNDS ON 08/17 documented in this encounter Plan of Treatment Upcoming Encounters Date Type Department Care Team (Late st Contact Info) Description 11/20/2024 3:45 PM EDT Office Visit Orthopedic Surgery - [place] 175 [facility] [address] [place] [phone] Salome Spangler MD 175 [facility] [address] [place] [phone] documented as of this encounter Goals Goal Patient Goal Type Associated Problems Recent Progress Patient-Stated? Author <enter goal here> General Yes Melvi Welsh OT Note: HAVE LESS PAIN AND MORE STRENGTH LEFT HAND STGS 6 TO 8 VISITS General On track( 025 10:48 AM EDT) No Melvi Welsh [...] / MET 08/17 # 6 IMPROVE LEFT SUSTAINABILITY CONSULTANT FROM 2 TO 10 POUNDS = WITH THE RIGHT/ MET AT 15 POUNDS ON 08/17 documented as of this encounter Visit Diagnoses Diagnosis Pillar pain of extremity- Primary documented in this encounter Care Teams Plant Maintenance Manager Relationship Specialty Start Date End Date Olivia Palmer MD [address] [place] [phone] PCP - General Internal Medicine 04/10/24 documented as of this encounter
--- OUTSIDE RECORDS SUMMARY | 2024-08-29 14:40 | XMS_ITS | Encounter Summary ---
Author Organization [employer] Address [address] [place] [address] Care Team Providers Care Stewarding Supervisor Name Role Phone Olivia Palmer MD Primary Care Provider [phone] Reason for Visit * Therapy (Routine) - Authorized Specialty Diagnoses / Procedures Referred By Frederic silva Referred To Contact Occupational Therapy Diagnoses S/P carpal tunnel release S/P trigger finger release Pillar pain, post-operative Salome Spangler MD 175 [facility] [address] [place] [address] Phone: tel: fax: Referral ID Status Reason Start Date Expiration Date Visits Requested Visits Authorized [id number] Authorized Specialty Services Required Consult and Treat 06/18/2024 06/18/2025 20 20 Encounter Details Date Type Department Care Team (Late st Contact Info) Description 08/01/2024 9:45 AM EST Treatment [facility] 175 [facility] [address] [place] [address] Melvi Welsh OT Pillar pain of extremity [...] Progress Notes * Melvi Welsh OT - 08/01/2024 9:45 AM EST Occupational Therapy Occupational Therapy Treatment Patient Name: Clara Carpio Today's Date: 08/01/2024 Subjective Subjective: GOOD VISIT # 6 LEFT CTR AND TRIGGER RELEASE Problem List [...] Splinting and Casting: Treatment: SEE ABOVE EDUCATION; EMPHASIZE FREQUENT ROM ADL/IADL Assessment: Assessment/Plan Plan OT Plan: ULTRASOUND AND THERAPEUTIC EXERCISE OT Frequency : (1 TO 2 TIMES A WEEK) Duration: (VISIT # 6) Goals: Goals Addressed None documented in this encounter Plan of Treatment Upcoming Encounters Date Type Department Care Team (Late st Contact Info) Description 11/20/2024 3:45 PM EDT Office Visit Orthopedic Surgery [facility] [address] [phone] Salome Spangler MD 175 [facility] [address] [place] [phone] documented as of this encounter Goals Goal [...] / MET 08/17 # 6 IMPROVE LEFT PATENT COUNSEL FROM 2 TO 10 POUNDS = WITH THE RIGHT/ MET AT 15 POUNDS ON 08/17 documented as of this encounter Visit Diagnoses Diagnosis Pillar pain of extremity- Primary S/P trigger finger release documented in this encounter Care Teams Stewarding Supervisor Relationship Specialty Start Date End Date Olivia Palmer MD [address] [place] [address] PCP - General Internal Medicine 04/10/24 documented as of this encounter
== END 2024-08-29 13:23 | disposition home or self-care (01) ==
LOC: HO.HGI 12:18
PROVIDERS: PCP Internal Medicine; Visit Provider Nurse Practitioner
DX: K59.00 Constipation, unspecified (principal); K21.9 Gastro-esophageal reflux disease without esophagitis; R10.10 Upper abdominal pain, unspecified; R10.9 Unspecified abdominal pain
CPT/HCPCS: 99213

== ENCOUNTER → 2024-08-29 12:17 | Outpatient (BNVA) | payer OTHER, SELFPAY | PROVIDERS: PCP Internal Medicine; Visit Provider Nurse Practitioner | DX: K21.9 Gastro-esophageal reflux disease without esophagitis (principal); K59.00 Constipation, unspecified; R10.10 Upper abdominal pain, unspecified; R10.9 Unspecified abdominal pain | CPT/HCPCS: 99212 ==

== ENCOUNTER 2024-09-18 11:02 | Outpatient (AMB) | payer OTHER, SELFPAY ==
--- NOTE | 2024-09-18 11:02 | A.OFFVIS_ITS ---
Intake Visit Reasons: DEXA follow up Head Of Geography Required: Yes Head Of Geography Language: Bag Loader Services: Head Of Geography Present (in person) Head Of Geography Name: KELLY Muniz Information Interpreted: non-clinical & clinical Call Center Operator: Call Center Operator Present (KELLY Muniz) Allergies gabapentin Allergy (Intermediate, Verified 08/29/24 12:24) somnolence pregabalin Allergy (Intermediate, Verified 08/29/24 12:24) somnolence Influenza Virus Vaccines Adverse Reaction (Intermediate, Verified 08/29/24 12:24) Throat pain HPI Comments Details: Presenting for DEXA scan follow-up which showed the following: The bone mineral density of the lumbar spine is 1.031 with a T-score of -1.2, and a Z-score of 0.4. This represents a BMD change of -0.5% compared to the prior exam. This is not statistically significant. The bone mineral density of the left total hip is 0.884 with a T-score of -1.0, and a Z-score of 0.7. This represents BMD change of 7.8% compared to the prior exam. This is statistically significant. The bone mineral density of the left femoral neck is 0.881 with a T-score of -1.1, and a Z-score of 0.8. This represents BMD change of 14.6% compared to the prior exam. FRACTURE RISK: The FRAX index suggests a ten year probability of major osteoporotic fracture of 6.0%, and of hip fracture 1.0%. [facility] Medical History Family history of diabetes mellitus Muscle cramps Physical exam Muscle spasm of back H. pylori infection Adult general medical exam Physical exam Obesity (BMI 30-39.9) Osteopenia Pure hypercholesterolemia Hyperkalemia Depression with anxiety Insomnia Hypovitaminosis D Anxiety Hair loss Arm paresthesia, right CKD (chronic kidney disease), stage III Trigger finger Carpal tunnel syndrome Neuropathy Surgical History Hx of blepharoplasty Hx of hand surgery History of carpal tunnel release Hx of colonoscopy Hx of breast reduction, elective History of surgery History of section H/O exploratory laparotomy History of tubal ligation History of cataract surgery Family History Father Prostate cancer Mother No problems noted. Family/Other FH: mental illness Hypertension Tachycardia Maternal Aunt No problems noted. 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 FRAX risk and T score showed no evidence of osteoporosis. Discussed with the patient all the options f or osteoporosis prevention including lifestyle modifications including Ca+D supplements 1200 mg po qd/800 MIU, Weight bearing exercises and proteine supplements. The patient verbalized understanding and agreed plan will repeat DEXA in 2 years. Coding Level of Care Code Est Pt Level 3 (33386) Diagnoses Osteopenia M85.80
--- OUTSIDE RECORDS SUMMARY | 2024-09-18 13:28 | XMS_ITS | Data Portability ---
Author Organization [employer] Address [address] [place] [phone] Care Team Providers Care Marine Meteorologist Name Role Phone HIM DAVI OTHER Assessment Encounter Date Assessment Date Assessment LastModified by Organization Details LastModified Time 11/03/2023 11/03/2023 I provided real -time medical direction via phone for this encounter and was available for additional phone-based assistance as needed. I have reviewed and agree with the Assessment and Plan as documented by the Pathology Transcriptionist. Patient given the opportunity to ask questions. Our service contacted for an assessment of: cough As per above, patient has had a non-productive cough for approx a week. She was seen yesterday by her PCP who preformed tests and started her on an antibiotic. PCP called patient this AM and told her that all the tests were normal. Per title insurance agent on the scene, Non-toxic. Stable vitals. No [...] mg-100 mg/5 mL oral liquid 2023 024 [facility][id number], [address] [facility], [place], [address], 13:18:48 Patient TargetsNo targets recorded. Patient InstructionsNo [...] Updated DateTime 4 90 /min 16 /min 00400.8 g 98.9 [degF] 98 % 98 % [...] SNOMED-CT Code Diagnosis ICD10 Code Diagnosis Note [id number] Migdalia Fisher MD Main - [facility] [address] [place] [phone] 11/03/2023 13:13:58 11/04/2023 10:33:41 Cough [id number] R05.9 Health Concerns Section Related Observation LastModified by Organization Detai ls LastModified Time None Recorded Concern Status LastModified by Organization Details LastModified Time None Recorded Advance Directives Directive None Recorded Payers Encounter Date Sequence Insurance Name Policy Number Policy Scales Covered Member ID Scales Member ID Guarantor Name 11/03/2023 1 [facility] - DOS ON OR AFTER 2022 - DUAL ELIGIBLE - [employer] AND ONE CARE (MEDICARE REPLACEMENT/ADV ANTAGE - HMO) Clara Carpio [id number] Clara Carpio Notes Date Note Type Note Provider Name and Address Organization Details Recorded Time 11/03/2023 text/html [facility] Nurse Triage Notes (Matias Carrasco): Chief Complaints: ENT, Cough, Headache, Syncope/Dizziness/ Lightheadedness, Chest Pain, Nausea/Vomiting Comments: Anime Artist verified the member's name//address and phone number. Mbr's WIND TECHNICIAN, Jada, calling reporting member started with itchy throat a few days ago. WIND TECHNICIAN reports symptoms have continued to worsen. Mbr now with loss of voice, body aches, headache, stomachache, chills, and sometimes vomiting due to excessive amount of coughing. Mbr also reports pain in chest from coughing. WIND TECHNICIAN reports mbr had Flu, RSV & COVID testing that all came back negative. Education provided on the response time and the member was advised to monitor reported s/s and seek emergency treatment if needed -Michael Carrasco RN .................. .................. .................. .................. .................. .................. .................. ............... Pathology Transcriptionist Note From Carlo Stewart: Pt co cough. Pt was seen yesterday and RX for augmentin she started today. Pt denies sob cp fever [place] NVD. Baseline vitals assessed. Lungs clear. Pt sts she Covid and flu strep negative, pt sts pcp called today with results. Pt requesting something for her cough. [facility] contacted and RX for benzonatate called in. Pt education on signs indicating the ER. Pt advised to follow up with pcp. .................. .................. .................. .................. .................. .................. .................. ............... Disposition: Parris Fisher MD [address] [facility],[address], [place], [address], [place] [employer] 11/03/2023 13:23:00 OBGyn Episode No OBEpisode recorded.
--- OUTSIDE RECORDS SUMMARY | 2024-09-18 13:28 | XMS_ITS | Clinical Summary ---
Author Organization [facility] Address [address] [place] [address] Phone Care Team Providers Care Assistant In Nursing Name Role Phone Olivia Andrade MD Primary Care Provider [phone] Allergies Active Allergy Reactions Criticality Noted Date [...] Visit [facility] [address] [place] [address] Ajith Abel MD [address] [facility] [address] [place] [address] Health Maintenance Due Date Last Done Comments Pneumococcal Vaccine: 50+ Ye ars (1 of 2 - PCV) 1969 Influenza Vaccine (Season Ended) 2025 Hepatitis B Vaccine Aged Out No longe r eligible based on patient's age to complete this topic Insurance [facility] ([id number]) [facility] ([id number]) Care Teams Assistant In Nursing Relationship Specialty Start Date End Date Olivia Andrade MD [address] [place], [place] PCP - General Internal Medicine 12/08/22
--- OUTSIDE RECORDS SUMMARY | 2024-09-18 13:28 | XMS_ITS | Clinical Summary ---
Author Organization [facility] Address [address] [place] [address] Phone Care Team Providers Care Chef'S Assistant Name Role Phone Olivia Palmer MD Primary Care Provider [phone] Allergies Active Allergy Reactions Criticality Noted Date Comments Flu Vaccine [id number](36mo,Up) Muscular Issues 03/26/2024 Gabapentin Nausea And Vomiting [...] 11:00 AM EDT Office Visit Orthopedic Surgery [facility] [address] [phone] Salome Spangler MD S/P carpal tunnel release (Primary Dx); Pillar pain, post-operative; Acquired trigger finger of right little finger 08/17/2024 10:15 AM EDT Treatment [facility] [address] [phone] Melvi Welsh OT Pillar pain of extremity (Primary Dx) 08/15/2024 12:30 PM EDT [facility] [address] [place] [phone] Melvi Welsh OT Pillar pain of extremity (Primary Dx) 08/10/2024 11:15 AM EST [facility] [address] [place] [phone] Melvi Welsh OT Pillar pain of extremity (Primary Dx) 08/08/2024 12:30 PM EST [facility] [address] [place] [phone] Melvi Welsh OT Pillar pain of extremity (Primary Dx); S/P trigger finger release 08/01/2024 9:45 AM EST Treatment [facility] Occup[facility] [address] [place] [phone] WelshMelvi estrella OT Pillar pain of extremity (Primary Dx); S/P trigger finger release 07/30/2024 12:30 PM EST Treatment [facility] Therapy [address] [place] [phone] Melvi Welsh OT S/P trigger finger release (Primary Dx); Pillar pain of extremity 07/20/2024 11:15 AM EST Treatment [facility] [address] [phone] Melvi Welsh OT Pillar pain of extremity (Primary Dx); S/P trigger finger release 07/18/2024 12:30 PM EST Treatment [facility] Therapy [address] [place] [phone] Melvi Welsh OT Pillar pain of extremity (Primary Dx) 07/02/2024 12:30 PM EST Treatment [facility] Therapy [address] [place] [phone] Melvi Welsh OT Pillar pain of extremity (Primary Dx) 06/26/2024 12:30 PM EST Evaluation [facility] Occupational Therapy [address] [place] [phone] Melvi Welsh OT Pillar pain, post-operative (Primary Dx); Pillar pain of extremity 06/26/2024 Plan of Care Documentation [facility] Occupational Therapy [address] [place] [phone] from Last 3 Months Surgical History Surgery [...] PM EDT Office Visit Orthopedic Surgery - [place] [address] [phone] Salome Spangler MD [address] [phone] Health Maintenance Due Date Last Done Comments RSV Immunization Adult Patients (1 - 1-dose 75+ series) 2023 Depression Screening 07/05/2023 Hepatitis C Screening 07/05/2023 Medicare Annual Wellness Visit 07/05/2023 Osteoporosis Screening (Bone Density Screening) 07/05/2023 Social Influencers of Health Screening 07/05/2023 Zoster Vaccines (2 of 2) 11/16/2023 09/21/2023 COVID-19 Vaccine (4 - 2023-2 5 season) 2024 11/17/2021, 10/15/2020, 09/17/2020 Influenza Vaccine (Season Ended) 2025 05/21/2019 Falls Risk Assessment 04/11/2025 04/11/2024 DTaP,Tdap,and [...] age to complete this topic Meningococcal B Vaccine Aged Out No l onger eligible based on patient's age to complete [...] / MET 08/17 # 6 IMPROVE LEFT STAFF CLIMATE SCIENTIST FROM 2 TO 10 POUNDS = WITH THE RIGHT/ MET AT 15 POUNDS ON 08/17 Insurance [facility] MEDICARE Member Subscriber Plan / Payer (Ef fective 2019-Present) Name:Clara Cruz Relation to Subscriber:Self Name:Clara Cruz Payer ID:[id number] Group ID:[id number] Type:Not on file Address: [facility] [address] [id number] Care Teams Chef'S Assistant Relationship Specialty Start Date End Date Olivia Palmer MD [address] [place] [phone] PCP - General Internal Medicine 04/10/24
== END 2024-09-18 11:28 | disposition home or self-care (01) ==
LOC: HO.HWS 11:02
PROVIDERS: PCP Internal Medicine; Visit Provider Obstetrics & Gynecology
DX: M85.80 Other specified disorders of bone density and structure, unspecified site (principal)
CPT/HCPCS: 99213

== ENCOUNTER → 2024-09-18 11:02 | Outpatient (BNVA) | payer OTHER, SELFPAY | PROVIDERS: PCP Internal Medicine; Visit Provider Obstetrics & Gynecology | DX: M85.80 Other specified disorders of bone density and structure, unspecified site (principal) | CPT/HCPCS: 99212 ==

== ENCOUNTER 2024-11-01 15:42 | Outpatient (AMB) | payer OTHER, SELFPAY ==
--- OUTSIDE RECORDS SUMMARY | 2024-11-01 15:44 | XMS_ITS | Clinical Summary ---
Author Organization [facility] Address [address] [place] [address] Phone Care Team Providers Care Blood Bank Assistant Name Role Phone Olivia Andrade MD Primary Care Provider [phone] Allergies Active Allergy Reactions Criticality Noted Date [...] Visit [facility] [address] [place] [address] Ajith Abel MD [address] [place] [address] Health Maintenance Due Date Last Done Comments Pneumococcal Vaccine: 50+ Ye ars (1 of 2 - PCV) 1969 Influenza Vaccine (Season Ended) 2025 Hepatitis B Vaccine Aged Out No longe r eligible based on patient's age to complete this topic Insurance [facility] ([id number]) [facility] ([id number]) Care Teams Blood Bank Assistant Relationship Specialty Start Date End Date Olivia Andrade MD [address] [place], [place] PCP - General Internal Medicine 12/08/22
--- NOTE | 2024-11-01 15:49 | A.OFFVIS_ITS ---
Vital Signs 11/01/24 15:50 Height 5 ft Weight 154 lb BMI 30.1 BP 97/49 L Blood Pressure Location Lt brachial Position Sitting Pulse 95 Pulse Oximetry (%) 97 Oxygen Delivery Method Room Air Intake Visit Reasons: cic Intake Note: Patient follow up for CIC. Patient cc: abdominal bloating, acid reflux and constipation. Denies any other GI issues. Waterproof Material Folder Required: Yes Accompanied by: Family/Other Allergies gabapentin Allergy (Intermediate, Verified 11/01/24 15:48) somnolence pregabalin Allergy (Intermediate, Verified 11/01/24 15:48) somnolence Influenza Virus Vaccines Adverse Reaction (Intermediate, Verified 11/01/24 15:48) Throat pain HPI HPI cic: Details: Assessment & Plan (1) Constipation: Code(s): K59.00 - Constipation, unspecified Category: Medical (2) GERD (gastroesophageal reflux disease): Code(s): K21.9 - Gastro-esophageal reflux disease without esophagitis Category: Medical Qualifiers: Esophagitis presence: esophagitis presence not specified Qualified Code(s): K21.9 - Gastro-esophageal reflux disease without esophagitis (3) Upper abdominal pain: Code(s): R10.10 - Upper abdominal pain, unspecified Category: Medical (4) Abdominal cramping: Code(s): R10.9 - Unspecified abdominal pain Category: Medical Plan [place] #[id number] She is here today with a male family member who is not comfortable translating but is supportive with the history. She woke up this am with epigastric pain. This is only with her pills, food does not upset her stomach. The pain does not move and feels like pressure. If she eats just food the pain will slowly subside, but at its worst it is 10/10. The only new medication was nyquil, and the only other new thing was CTR and she did find that the pain meds caused CIC. But since she has been moving her bowels well. Since this just started today I suggest she avoid Nyquil and watch and wait; partaking in a light diet. Also, since CIC has been a problem will start low dose Linzess and titrate. She requests bentyl as well, she used it with good effect in the past but it made her sleepy - yet she is willing to take it now to offset the pain. Next available Medications: New linaclotide (Linzess) 72 mcg PO QAM 30 caps 6RF K59.00 - Constipation, unspecified, R10.10 - Upper abdominal pain, unspecified dicyclomine 10 mg PO QID PRN 90 caps 0RF abdominal pain R10.9 - Unspecified abdominal pain Refilled omeprazole 40 mg PO DAILY 90 caps 1RF A04.8 - Other specified bacterial intestinal infections TODAY'S VISIT [place] #friend translates per pt request She feels that the Linzess at 72 micro g is working well to move her bowels. However, she never received the dicyclomine and she really would like to keep it on hand so I will try re sending it as I am not sure what happened. She continues on her omeprazole with good control of her GERD. She says she is now only having epigastric pain randomly in intermittently. Before it was definitely caused by NyQuil so it is possible that what she is eating is at times piquing this symptom. return office visit in 6 months [facility] Medical History (Updated 11/01/24 @ 16:05 by BHARATI Dalton) Upper abdominal pain Well woman exam Family history of diabetes mellitus Muscle cramps Physical exam Muscle spasm of back H. pylori infection Adult general medical exam Physical exam Obesity (BMI 30-39.9) Osteopenia Pure hypercholesterolemia Hyperkalemia Depression with anxiety Insomnia Hypovitaminosis D Anxiety Hair loss Arm paresthesia, right CKD (chronic kidney disease), stage III Trigger finger Carpal tunnel syndrome Neuropathy Surgical History Hx of blepharoplasty Hx of hand surgery History of carpal tunnel release Hx of colonoscopy Hx of breast reduction, elective History of surgery History of section H/O exploratory laparotomy History of tubal ligation History of cataract surgery Family History Father Prostate cancer Mother No problems noted. Family/Other FH: mental illness Hypertension Tachycardia Maternal Aunt No problems noted. 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 Cognitive needs: No Hearing needs: No Vision needs: No Female Reproductive History Menstrual Age of Menarche: 11 Review of Systems Const Denies fatigue, Denies fever(s), Denies night sweats, Denies poor appetite and Denies weight loss ENT Reports Normal hearing present, Denies dental pain, Denies dysphagia, Denies hearing loss, Denies mouth pain, Denies odynophagia, Denies throat swelling, Denies tongue swelling and Reports other (Dentition adequate) Card Reports no additional complaints Resp Reports no additional complaints GI Details: Denies abdominal pain, Denies melena, Denies bloating, Denies hematochezia, Reports constipation, Denies GI cramping, Denies dysphagia, Denies excessive flatus, Denies early satiety, Reports heartburn, Denies diarrhea, Denies nausea, Denies odynophagia, Denies vomiting and Denies hematemesis Skin/Breast Denies pruritus, Denies lesions, Denies rash and Denies jaundice Neuro Reports Normal hearing present and Denies Abnormal speech present Endo Denies fatigue Aller/Immun Denies throat swelling and Denies tongue swelling Physical Exam Vital Signs: Last Vital Signs Pulse 95 11/01/24 15:50 BP 97/49 L 11/01/24 15:50 Pulse Ox 97 11/01/24 15:50 Oxygen Delivery Method Room Air 11/01/24 15:50 BMI result Body Mass Index 30.1 Const General: cooperative, no acute distress, well developed and well groomed Nutritional Appearance: well nourished and obese Orientation/consciousness: oriented to person, oriented to place and oriented to time Limitations: language barrier HEENT Head: Yes normocephalic and Yes atraumatic Eyes General: appearance normal, both eyes and all related structures Pupils: Equal, round and reactive pupils present Neck Neck: Yes normal visual inspection and Yes no lymphadenopathy Thyroid: Thyroid normal Resp Effort & Inspection: normal respiratory effort and able to speak in complete sentences Auscultation: clear to auscultation bilaterally Cardio Rate: regular rate Rhythm: regular rhythm Heart sounds: Normal, physiologic split S2 sound present Peripheral pulses: radial pulses present and posterior tibial pulses present GI Inspection: No distended, Yes Abdominal panniculus present and Yes obesity Palpation (GI): Soft to palpation, nontender, no guarding, not rigid and No hepatosplenomegaly present Percussion: Yes normal to percussion Auscultation: normal bowel sounds Rectal Exam - Female: deferred Skin General skin exam: no rashes or lesions noted, turgor normal, skin not dry, no jaundice, No spider nevi and no striae Rashes: no rashes Nails: normal Neuro General: oriented to person, oriented to place and oriented to time Cranial nerves: Yes Equal, round and reactive pupils present and Yes Normal hearing present Speech: No Abnormal speech present Extrem General: Yes normal to inspection, No clubbing, No cyanosis and No edema Psych Appearance: grossly normal and well kempt Mental Status: mental status grossly normal Speech and movement: Normal speech and movement present Affect: normal affect Attitude: cooperative Thought process: Normal thought process present and not confabulating Thought content: Normal thought content present Insight: Good insight present (Psych) Judgement: Good judgement present (Psych) Assessment & Plan Assessment & Plan (1) Abdominal cramping: Code(s): R10.9 - Unspecified abdominal pain Category: Medical (2) GERD (gastroesophageal reflux disease): Code(s): K21.9 - Gastro-esophageal reflux disease without esophagitis Category: Medical Qualifiers: Esophagitis presence: esophagitis presence not specified Qualified Code(s): K21.9 - Gastro-esophageal reflux disease without esophagitis (3) Constipation: Code(s): K59.00 - Constipation, unspecified Category: Medical Plan [place] #friend translates per pt request She feels that the Linzess at 72 micro g is working well to move her bowels. However, she never received the dicyclomine and she really would like to keep it on hand so I will try re sending it as I am not sure what happened. She continues on her omeprazole with good control of her GERD. She says she is now only having epigastric pain randomly in intermittently. Before it was definitely caused by NyQuil so it is possible that what she is eating is at times piquing this symptom. return office visit in 6 months Medications: Refilled dicyclomine 10 mg PO QID PRN 90 caps 3RF abdominal pain R10.9 - Unspecified abdominal pain linaclotide (Linzess) 72 mcg PO QAM 30 caps 6RF K59.00 - Constipation, unspecified, R10.10 - Upper abdominal pain, unspecified omeprazole 40 mg PO DAILY 90 caps 1RF A04.8 - Other specified bacterial intestinal infections Coding Level of Care Code Est Pt Level 3 (62032) Diagnoses Abdominal cramping R10.9 Gastroesophageal reflux disease, unspecified whether esophagitis present K21.9 Esophagitis presence: esophagitis presence not specified Constipation K59.00
[2024-11-01 15:50] VITALS: BP 97/49; PULSE 95; O2SAT 97; BMI 30.1
== END 2024-11-01 16:08 | disposition home or self-care (01) ==
LOC: HO.HGI 15:43
PROVIDERS: PCP Internal Medicine; Visit Provider Nurse Practitioner
DX: R10.9 Unspecified abdominal pain (principal); K21.9 Gastro-esophageal reflux disease without esophagitis; K59.00 Constipation, unspecified
CPT/HCPCS: 99213

== ENCOUNTER → 2024-11-01 15:42 | Outpatient (BNVA) | payer OTHER, SELFPAY | PROVIDERS: PCP Internal Medicine; Visit Provider Nurse Practitioner | DX: K21.9 Gastro-esophageal reflux disease without esophagitis (principal); K59.00 Constipation, unspecified; R10.9 Unspecified abdominal pain | CPT/HCPCS: 99212 ==

== ENCOUNTER 2024-11-14 16:20 | Emergency (ER) | payer OTHER, SELFPAY ==
--- NOTE | ~2024-11-14 | XR_ITS ---
CLINICAL HISTORY: rib pain 4 view, chest and right ribs Comparison: None Findings: Age indeterminate nondisplaced fracture of the right anterolateral 4th and 5th ribs. Calcified granuloma in the right lower lobe. No consolidation or effusion. Normal heart size. Aortic atherosclerosis. Surgical clips in the right breast. IMPRESSION: Age indeterminate nondisplaced fracture of the right anterolateral 4th and 5th ribs. This document has been electronically signed by: Lalita Elizabeth MD on 11/14/2024 18:14:04
--- NOTE | 2024-11-14 16:33 | ED.GENADULT ---
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 Patient states she was reaching for an item with a table at her side, reached to far and felt the table dig into her ribs and felt a clicking sensation. Since then the patient has had increasing pain and radiation to the top of her right ilium and right buttock. Patient has not taken any medications for pain. She states the pain is worse with deep inspiration and while walking. Denies chest pain, shortness of breath, abdominal pain, urinary symptoms, nausea, vomiting, headaches, visual changes. MD complaint: r rib pain Onset (ago): day(s) (4) Location: abdomen (Right lower ribs) Radiation: other (Right hip, right buttock) Severity: moderate Quality: aching, sharp and constant Pain Consistency: constant Relieving factors: none Exacerbating factors: movement and other (Deep inspiration) Associated symptoms: denies other symptoms Treatments prior to arrival: none Related Data Home Medications ?Medication ?Instructions ?Recorded ?Confirmed clonazepam 0.5 mg tablet 0.5 mg PO DAILY PRN Anxiety 03/21/23 05/16/24 fluoxetine 10 mg capsule 10 mg PO DAILY 03/21/23 05/16/24 Previous Rx's ?Medication ?Instructions ?Recorded mupirocin 2 % topical ointment 1 appl topical BID 2 weeks #15 12/30/22 grams methocarbamol 500 mg tablet 500 mg PO BID PRN muscle spasm 30 06/09/23 days #60 tabs cholecalciferol (vitamin D3) 50 50 mcg PO DAILY 90 days #90 caps 11/15/23 mcg (2,000 unit) capsule (Vitamin D3) adult diapers pull-ups #240 ea 02/15/24 latex gloves (Latex Gloves, Large) #200 ea 02/15/24 underpads (Bed Underpads) #100 ea 02/15/24 wipes flushable #240 ea 02/15/24 over bed table #1 ea 02/22/24 acetaminophen 500 mg capsule 500 mg PO Q6H PRN fever or pain 30 05/16/24 days #120 caps dicyclomine 10 mg capsule 10 mg PO QID PRN abdominal pain 11/01/24 #90 caps linaclotide 72 mcg capsule 72 mcg PO QAM #30 caps 11/01/24 (Linzess) omeprazole 40 mg capsule,delayed 40 mg PO DAILY #90 caps 11/01/24 release cetirizine 10 mg tablet (All Day 10 mg PO DAILY PRN allergy 11/13/24 Allergy (cetirizine)) symptoms 90 days #90 tabs naproxen 500 mg tablet 500 mg PO BID PRN pain #14 tabs 11/14/24 Allergies Allergy/AdvReac Type Severity Reaction Status Date / Time gabapentin Allergy Intermediate somnolence Verified 11/14/24 16:53 pregabalin Allergy Intermediate somnolence Verified 11/14/24 16:53 Influenza Virus Vaccines AdvReac Intermediate Throat pain Verified 11/14/24 16:53 Review of Systems Review of Systems: CONST: Negative for fever, body aches and chills. HENT: Negative for neck pain/stiffness, headache, congestion, sore throat, swelling. EYES: Negative for discharge/pain or vision changes. RESP: Negative for cough/hemoptysis and shortness of breath. CV: Negative chest pain, difficulty breathing, palpitations. ABD: Negative pain, nausea, vomiting. POS R lower rib pain radiating to right hip, right buttock : Negative increase frequency, dysuria, blood in urine or stool. MUSC: Negative for muscle aches, edema. SKIN: Negative rash, lesions/sores. NEURO: Negative headache, dizziness, weakness. Yes all other systems are reviewed and are negative PMFSH Past Medical History Attestation statement: The following information was validated with the patient. Source: old records reviewed and nursing notes reviewed Medical History Upper abdominal pain Well woman exam Family history of diabetes mellitus Muscle cramps Physical exam Muscle spasm of back H. pylori infection Adult general medical exam Physical exam Obesity (BMI 30-39.9) Osteopenia Pure hypercholesterolemia Hyperkalemia Depression with anxiety Insomnia Hypovitaminosis D Anxiety Hair loss Arm paresthesia, right CKD (chronic kidney disease), stage III Trigger finger Carpal tunnel syndrome Neuropathy Surgical History Hx of blepharoplasty Hx of hand surgery History of carpal tunnel release Hx of colonoscopy Hx of breast reduction, elective History of surgery History of section H/O exploratory laparotomy History of tubal ligation History of cataract surgery Family History Family History Father Prostate cancer Mother No problems noted. Family/Other FH: mental illness Hypertension Tachycardia Maternal Aunt No problems noted. 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 HEENT: ?NC, AT. MMM. EOMI, clear conjunctiva, oropharynx clear. HEART:? Normal rate and regular rhythm, normal S1/S1, no m/r/g LUNGS:? CTAB, moving air well. No crackles or wheezes are heard. ABDOMEN: ?Soft, nontender, nondistended with good bowel sounds heard. Right lower ribs TTP without edema, ecchymosis, erythema, no bony abnormalities palpated. Positive right straight leg test BACK: No CVAT, no obvious deformity. EXTREMITIES: ?Without cyanosis, clubbing or edema. NEUROLOGICAL: ?Grossly nonfocal. Alert and oriented, moving all 4 extremities. Observed to ambulate with normal gait. Skin: ?Warm and dry without any rash. Course Reevaluation(s) Reevaluation #1: Patient's xray shows two right rib fractures. patient physical exam positive for right rib tenderness. Patient given incentive spirometry. Patient will be discharged with pain meds. 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 Time: 20:13 Medications Administered Discontinued Medications Generic Name Dose Route Start Last Admin Trade Name Laz PRN Reason Stop Dose Admin Acetaminophen 975 mg 11/14/24 17:07 11/14/24 17:17 Acetaminophen 325 Mg Tablet PO 11/14/24 17:08 975 mg ONCE ONE Administration Cyclobenzaprine HCl 10 mg 11/14/24 17:07 11/14/24 17:17 Cyclobenzaprine Hcl 10 Mg Tablet PO 11/14/24 17:08 10 mg ONCE ONE Administration Medical Decision Making Medical Decision Making MDM Narrative: 74-year-old female with medical history of HLD, CKDIII, anxiety, depression, presents to the emergency department due to 3 days of right-sided rib pain that radiates to the right ilium and right buttock. Patient states she was reaching for an item with a table at her side, reached to far and felt the table dig into her ribs and felt a clicking sensation. Since then the patient has had increasing pain and radiation to the top of her right ilium and right buttock. Patient has not taken any medications for pain. She states the pain is worse with deep inspiration and while walking VSS, in no acute distress, nontoxic appearing. Physical exam reveals TTP over right lower ribs without erythema, edema, ecchymosis, no bony abnormalities observed. Mild tenderness over right ilium, no abnormalities noted. Abdomen soft nontender. No CVA tenderness. We will obtain rib/chest XR, UA. We will medicate with 975 mg of p.o. Tylenol, 10 mg cyclobenzaprine. Course 17:51- UA unremarkable for infection or blood in the urine-less likely UTI/renal calculi. Awaiting official read of x-ray. Patient states her pain has not improved at all after being medicated with Tylenol and cyclobenzaprine. Differential Diagnosis Differential Diagnoses: The differential diagnosis associated with the presentation includes Rib fracture Overlying rib strain Kidney stone UTI Admission/Observation Consideration of admission/observation: Escalation of care including admission/observation considered Lab Data Labs: Lab Results 11/14/24 Range/Units 17:10 Urine Color Yellow Urine Appearance Clear Urine pH 5.5 (5.0-9.0) Ur Specific [place] 1.010 (1.005-1.025) Urine Protein Negative (Neg-Trace) mg/dL Urine Glucose (UA) Negative (Negative) mg/dL Urine Ketones Negative (Negative) mg/dL Urine Blood Negative (Negative) Urine Nitrite Negative (Negative) Ur Leukocyte Esterase Small (1+) H (Negative) Urine RBC 0-2 (0-2) /HPF Urine WBC 0-5 (0-5) /HPF Ur Squamous Epith Cells 0-2 (0-2) /HPF Urine Bacteria None Seen (None Seen) Hyaline Casts 0-2 (0-2) /LPF Discharge Plan Discharge Clinical Impression: Fracture, ribs Patient Disposition: Home, Self-Care Instructions: Rib Fracture (ED) Additional Instructions: You will need follow-up with primary care provider. Recommend using incentive spirometry every hour to prevent lung collapse and pneumonia. Return to the ED immediately for any severe worsening pain, coughing up blood, chest pain on inspiration, weakness, dizziness, bluish black discoloration, or any other concerning symptoms. Jasmyn HERNÁNDEZ will need extended hours to work with patient to help with pain meds and incentive spirometry. 4 view, chest and right ribs Comparison: None Findings: Age indeterminate nondisplaced fracture of the right anterolateral 4th and 5th ribs. Calcified granuloma in the right lower lobe. No consolidation or effusion. Normal heart size. Aortic atherosclerosis. Surgical clips in the right breast. IMPRESSION: Age indeterminate nondisplaced fracture of the right anterolateral 4th and 5th ribs. This document has been electronically signed by: Lalita Elizabeth MD on 11/14/2024 18:14:04 Dictated By: Lalita Elizabeth MD Signed By: <Electronically signed by Lalita Elizabeth MD in [place]> 11/14/241813 Prescriptions: New naproxen 500 mg tablet 500 mg PO BID PRN (Reason: pain) Qty: 14 0RF No Action mupirocin 2 % ointment 1 appl topical BID 14 Days Qty: 15 0RF (DME) wipes flushable See Rx Instructions .Route .MEDSUPPLY Qty: 240 6RF Rx Instructions: As directed (DME) underpads [Bed Underpads] Pad See Rx Instructions .Route Qty: 100 11RF Rx Instructions: Use 1 to 4 bed underpads once a day prn (DME) latex gloves [Latex Gloves, Large] Misc See Rx Instructions .Route Qty: 200 11RF Rx Instructions: As directed (DME) adult diapers pull-ups Large See Rx Instructions .Route .MEDSUPPLY Qty: 240 11RF Rx Instructions: As directed (DME) over bed table See Rx Instructions .Route .MEDSUPPLY Qty: 1 0RF Rx Instructions: As directed cetirizine [All Day Allergy (cetirizine)] 10 mg tablet 10 mg PO DAILY PRN (Reason: allergy symptoms) 90 Days Qty: 90 0RF cholecalciferol (vitamin D3) [Vitamin D3] 50 mcg (2,000 unit) capsule 50 mcg PO DAILY 90 Days Qty: 90 3RF fluoxetine 10 mg capsule 10 mg PO DAILY clonazepam 0.5 mg tablet 0.5 mg PO DAILY PRN (Reason: Anxiety) methocarbamol 500 mg tablet 500 mg PO BID PRN (Reason: muscle spasm) 30 Days Qty: 60 3RF acetaminophen 500 mg capsule 500 mg PO Q6H PRN (Reason: fever or pain) 30 Days Qty: 120 3RF Linzess 72 mcg capsule 72 mcg PO QAM Qty: 30 6RF dicyclomine 10 mg capsule 10 mg PO QID PRN (Reason: abdominal pain) Qty: 90 3RF omeprazole 40 mg capsule,delayed release(DR/EC) 40 mg PO DAILY Qty: 90 1RF Referrals: [facility] General Surgeons [Provider Group] (Rib fractures) Interventions: ED Discharge Assessment Last Done: 11/14/24 21:04 Discharge Date/Time: 11/14/24 21:05 Print Language: [place]
[2024-11-14 16:49] VITALS: BP 114/65; PULSE 88; RESP 16; TEMP 36.4; O2SAT 98
[2024-11-14 16:51] VITALS: BP 114/65; PULSE 88; RESP 16; TEMP 36.4; O2SAT 98; BMI 34.5
[2024-11-14] MEDS: Cyclobenzaprine HCl 10 MG TABLET PO (17:17)
[2024-11-14] MEDS: Acetaminophen 325 MG TABLET 975 MG PO (17:17)
[2024-11-14 17:18] LABS: Appearance Urine Clear; Color Urine Yellow; Glucose Urine UA Negative (Negative); Leukocyte Esterase Urine Small (1+) (Negative); Nitrite Urine Negative (Negative); PH 5.5 (5.0-9.0); UMIC TRIGGER UACC YES; Urine Blood Negative (Negative); Urine Ketones Negative (Negative); Urine Protein Negative (Neg-Trace)
[2024-11-14 17:34] LABS: Bacteria Urine None Seen (None Seen); Hyaline Casts Urine 0-2 /LPF (0-2); RBC Urine 0-2 /HPF (0-2); Squamous Epithelial Cell Urine 0-2 /HPF (0-2); UACC Culture Trigger YES; WBC Urine 0-5 /HPF (0-5)
--- NOTE | 2024-11-14 17:49 | PC.NURSE ---
Pt to ED for right flank pain since Sun 03/15 radiates to groin. [place] speking only. A/O x 3, calm and cooperative. U/A ordered and pending.
--- OUTSIDE RECORDS SUMMARY | 2024-11-14 18:22 | XMS_ITS | Data Portability ---
Author Organization [employer] [employer] [facility] Address [address] [place] [phone] Care Team Providers Care Gallery Or Museum Guide Name Role Phone HIM DAVI OTHER Assessment Encounter Date Assessment Date Assessment LastModified by Organization Details LastModified Time 11/03/2023 11/03/2023 I provided real -time medical direction via phone for this encounter and was available for additional phone-based assistance as needed. I have reviewed and agree with the Assessment and Plan as documented by the Mannequin Coloring Artist. Patient given the opportunity to ask questions. Our service contacted for an assessment of: cough As per above, patient has had a non-productive cough for approx a week. She was seen yesterday by her PCP who preformed tests and started her on an antibiotic. PCP called patient this AM and told her that all the tests were normal. Per outcomes manager on the scene, Non-toxic. Stable vitals. No [...] mg-100 mg/5 mL oral liquid 2023 024 [facility]/Pharmacy #[id number], [address] [facility], [place], [address], 13:18:48 Patient TargetsNo targets recorded. Patient InstructionsNo [...] Updated DateTime 4 90 /min 16 /min 80902.8 g 98.9 [degF] 98 % 98 % [...] SNOMED-CT Code Diagnosis ICD10 Code Diagnosis Note [id number] Migdalia Fisher MD Main - instED [address] [place] [phone] 11/03/2023 13:13:58 11/04/2023 10:33:41 Cough 89911430 R05.9 Health Concerns Section Related Observation LastModified by Organization Detai ls LastModified Time None Recorded Concern Status LastModified by Organization Details LastModified Time None Recorded Advance Directives Directive None Recorded Payers Insurance Date Sequence Insurance Name Policy Number Policy Scales Covered Member ID Scales Member ID Guarantor Name 11/03/2023 1 [facility] - DOS ON OR AFTER 2022 - DUAL ELIGIBLE - ASSISTED OPTIONS AND ONE CARE (MEDICARE REPLACEMENT/ADV ANTAGE - HMO) Clara Carpio [id number] Clara Carpio Notes Date Note Type Note Provider Name and Address Organization Details Recorded Time 11/03/2023 text/html CRC Nurse Triage Notes (Matias Carrasco): Chief Complaints: ENT, Cough, Headache, Syncope/Dizziness/ Lightheadedness, Chest Pain, Nausea/Vomiting Comments: Auto Machinist verified the member's name//address and phone number. Mbr's COMPLEX COMMERCIAL LITIGATION PARALEGAL, Jada, calling reporting member started with itchy throat a few days ago. COMPLEX COMMERCIAL LITIGATION PARALEGAL reports symptoms have continued to worsen. Mbr now with loss of voice, body aches, headache, stomachache, chills, and sometimes vomiting due to excessive amount of coughing. Mbr also reports pain in chest from coughing. COMPLEX COMMERCIAL LITIGATION PARALEGAL reports mbr had Flu, RSV & COVID testing that all came back negative. Education provided on the response time and the member was advised to monitor reported s/s and seek emergency treatment if needed -Michael Carrasco RN .................. .................. .................. .................. .................. .................. .................. ............... Mannequin Coloring Artist Note From Carlo Stewart: Pt co cough. Pt was seen yesterday and RX for augmentin she started today. Pt denies sob cp fever [place] NVD. Baseline vitals assessed. Lungs clear. Pt sts she Covid and flu strep negative, pt sts pcp called today with results. Pt requesting something for her cough. [facility] [place] and RX for benzonatate called in. Pt education on signs indicating the ER. Pt advised to follow up with pcp. .................. .................. .................. .................. .................. .................. .................. ............... Disposition: Parris Fisher MD [address] [facility],[address], [place], [address], [place] - [employer] 11/03/2023 13:23:00 OBGyn Episode No OBEpisode recorded.
[2024-11-14 21:04] VITALS: BP 99/51; PULSE 87; RESP 18; TEMP 36.4; O2SAT 98
== END 2024-11-14 21:05 | disposition home or self-care (01) ==
PROVIDERS: Emergency Provider Emergency Medicine Emergency Medical Services
DX: S22.41XA Multiple fractures of ribs, right side, initial encounter for closed fracture (principal); W22.09XA Striking against other stationary object, initial encounter; R10.9 Unspecified abdominal pain; Y93.89 Activity, other specified; Y92.030 Kitchen in apartment as the place of occurrence of the external cause; Y99.9 Unspecified external cause status
CPT/HCPCS: 71101; 81001; 87086; 94010; 99284

== ENCOUNTER → 2024-11-14 17:07 | Outpatient (BNV) | payer OTHER, SELFPAY | PROVIDERS: Emergency Provider Emergency Medicine Emergency Medical Services; Visit Provider Radiology Diagnostic Radiology | DX: S22.41XA Multiple fractures of ribs, right side, initial encounter for closed fracture (principal) | CPT/HCPCS: 71101 ==

== ENCOUNTER 2024-11-28 13:47 | Outpatient (AMB) | payer OTHER, SELFPAY ==
--- NOTE | 2024-11-28 14:26 | MHC.OFFVIS ---
Vital Signs 11/28/24 14:39 Height 4 ft 11 in Weight 153 lb 0.013 oz BMI 30.9 BP 106/64 Blood Pressure Location Lt brachial Position Sitting Pulse 74 Pulse Source Pulse Oximeter Pulse Oximetry (%) 100 Oxygen Delivery Method Room Air Intake Visit Reasons: [facility] [place] fu ([facility] pt) atherosclerotic CVD, Follow-up exam Social Services Coordinator Services: Social Services Coordinator Offered & Declined Allergies gabapentin Allergy (Intermediate, Verified 11/28/24 14:34) somnolence pregabalin Allergy (Intermediate, Verified 11/28/24 14:34) somnolence Influenza Virus Vaccines Adverse Reaction (Intermediate, Verified 11/28/24 14:34) Throat pain Medication List - Last Reconciled 11/28/24 by Jannie Lee LPN acetaminophen 500 mg PO Q6H PRN 30 days [adult diapers pull-ups As directed] cetirizine (All Day Allergy (cetirizine)) 10 mg PO DAILY PRN 90 days cholecalciferol (vitamin D3) (Vitamin D3) 50 mcg PO DAILY 90 days dicyclomine 10 mg PO QID PRN fluoxetine 10 mg PO DAILY latex gloves (Latex Gloves, Large) As directed linaclotide (Linzess) 72 mcg PO QAM methocarbamol 500 mg PO BID PRN 30 days mupirocin 2% 1 appl topical BID 2 weeks naproxen 500 mg PO BID PRN omeprazole 40 mg PO DAILY [over bed table As directed] underpads (Bed Underpads) Use 1 to 4 bed underpads once a day prn [wipes flushable As directed] Is last menstrual period known: No Post menopausal: Yes Patient : No HPI Comments Details: This is a 74-year-old female patient coming in for a hospital discharge follow-up, accompanied by her daughter. Patient was previously seen in the office for chest pain where patient underwent a myocardial perfusion study which was normal. Recently, patient was at the store where she injured herself by over reaching the shelves. Following couple of days of persistent pain, patient was seen in the ER where they diagnosed with fracture in her right anterolateral 4th and 5th ribs. Patient states that other than the intermittent pain, she is denying any exertional chest pain, shortness of breath, palpitations, dizziness, orthopnea, PND, leg edema, presyncope, or syncope. Recent x-ray also showed that patient had some atherosclerotic disease in the aortic valve and therefore would like to be checked out. PFSH Medical History Upper abdominal pain Well woman exam Family history of diabetes mellitus Muscle cramps Physical exam Muscle spasm of back H. pylori infection Adult general medical exam Physical exam Obesity (BMI 30-39.9) Osteopenia Pure hypercholesterolemia Hyperkalemia Depression with anxiety Insomnia Hypovitaminosis D Anxiety Hair loss Arm paresthesia, right CKD (chronic kidney disease), stage III Trigger finger Carpal tunnel syndrome Neuropathy Surgical History Hx of blepharoplasty Hx of hand surgery History of carpal tunnel release Hx of colonoscopy Hx of breast reduction, elective History of surgery History of section H/O exploratory laparotomy History of tubal ligation History of cataract surgery Family History Father Prostate cancer Mother No problems noted. Family/Other FH: mental illness Hypertension Tachycardia Maternal Aunt No problems noted. 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 Cognitive needs: No Hearing needs: No Vision needs: No Female Reproductive History Menstrual Age of Menarche: 11 Physical Exam Vital Signs: Last Vital Signs Pulse 74 11/28/24 14:39 BP 106/64 11/28/24 14:39 Pulse Ox 100 11/28/24 14:39 Oxygen Delivery Method Room Air 11/28/24 14:39 BMI result Body Mass Index 30.9 Const General: cooperative, healthy appearing, comfortable and no acute distress Orientation/consciousness: patient oriented x3 HEENT Head: Yes normal to inspection Neck Neck: Yes normal visual inspection, Yes trachea midline and Yes supple Chest Chest palpation & inspection: normal inspection of the chest Resp Effort & Inspection: normal respiratory effort Auscultation: clear to auscultation bilaterally, no crackles, no rales, no rhonchi and no wheezes Cardio Jugular venous distension: no JVD Palpation: normal PMI Rate: regular rate Rhythm: regular rhythm Heart sounds: S1 normal heart sound present, S2 normal heart sound present, no click, no gallops, no murmurs and no rubs Peripheral pulses: Peripheral pulses 2+ throughout GI Inspection: Yes normal to inspection Palpation (GI): Soft to palpation Auscultation: normal bowel sounds Skin General skin exam: no rashes or lesions noted Neuro General: patient oriented x3 Extrem General: Yes normal to inspection, No no pedal edema and No calf tenderness Psych Appearance: grossly normal Mental Status: mental status grossly normal Speech and movement: Normal speech and movement present Assessment & Plan Assessment & Plan (1) Aortic atherosclerosis: Code(s): I70.0 - Atherosclerosis of aorta Category: Medical (2) Hyperlipidemia: Code(s): E78.5 - Hyperlipidemia, unspecified Category: Medical (3) Hospital discharge follow-up: Code(s): Z09 - Encounter for follow-up examination after completed treatment for conditions other than malignant neoplasm Plan 11/14/2024-x-ray of the ribs showed atherosclerosis in the aortic valve. Patient would like to be checked out in regards to this. Patient has no clear-cut anginal symptoms. Looking back at history patient's with elevated cholesterol and LDL levels. Most recent LDL from April 29 at 141. We will start patient on low-dose Crestor. Patient states that she has history of muscle aches with atorvastatin in the past. Recommended Co Q10 enzyme to help of symptoms. We will repeat a lipid profile and liver function in 3 months. Given her ongoing untreated hyperlipidemia and findings of aortic atherosclerosis, we will proceed with a coronary CTA for coronary artery disease. Blood pressure within normal limits. Advised heart healthy diet, regular exercise, med compliance, and management of vascular risk factors. Follow-up after completion of the coronary CTA. In the interim, patient will call the office with any concerns or change in symptoms. This note was generated using voice recognition software. While every effort has been made to ensure accuracy and proper heritage consultant, there may be occasional errors that could affect the content or meaning of the described symptoms. Orders: Orders Basic Metabolic Panel Today E78.5 - Hyperlipidemia, unspecified, I70.0 - Atherosclerosis of aorta Liver Panel 3 Months E78.5 - Hyperlipidemia, unspecified CT Cardiac Coronary Angio Today E78.5 - Hyperlipidemia, unspecified, I70.0 - Atherosclerosis of aorta Lipid Panel 3 Months E78.5 - Hyperlipidemia, unspecified Medications: New rosuvastatin 5 mg PO DAILY 90 tabs 3RF Coding Level of Care Code Est Pt Level 4 (58387) Complex EM visit Add On G2211 Diagnoses Aortic atherosclerosis I70.0 Hyperlipidemia E78.5 Hospital discharge follow-up Z09 Time Spent (min) 34 Comment Time spent in reviewing the chart, test results, assessment, counseling and documentation.
[2024-11-28 14:39] VITALS: BP 106/64; PULSE 74; O2SAT 100; BMI 30.9
--- OUTSIDE RECORDS SUMMARY | 2024-11-28 16:23 | XMS_ITS | Data Portability ---
Author Organization [employer] [facility], [place] [facility] Address [address] [place] [phone] Care Team Providers Care Autoclave Operator Name Role Phone HIM CCA OTHER Assessment Encounter Date Assessment Date Assessment LastModified by Organization Details LastModified Time 11/03/2023 11/03/2023 I provided real -time medical direction via phone for this encounter and was available for additional phone-based assistance as needed. I have reviewed and agree with the Assessment and Plan as documented by the Photographer News. Patient given the opportunity to ask questions. Our service contacted for an assessment of: cough As per above, patient has had a non-productive cough for approx a week. She was seen yesterday by her PCP who preformed tests and started her on an antibiotic. PCP called patient this AM and told her that all the tests were normal. Per scagliola mechanic on the scene, Non-toxic. Stable vitals. No [...] mg/5 mL oral liquid 2023 024 [facility]/Pharmacy #[id number], [address] [facility], [place], [address], 13:18:48 Patient TargetsNo targets recorded. Patient InstructionsNo [...] Updated DateTime 4 90 /min 16 /min 49744.8 g 98.9 [degF] 98 % 98 % [...] SNOMED-CT Code Diagnosis ICD10 Code Diagnosis Note [id number] Migdalia Fisher MD Main - inst[facility] [address] [place] [phone] 11/03/2023 13:13:58 11/04/2023 10:33:41 Cough 72741385 R05.9 Health Concerns Section Related Observation LastModified by Organization Detai ls LastModified Time None Recorded Concern Status LastModified by Organization Details LastModified Time None Recorded Advance Directives Directive None Recorded Payers Insurance Date Sequence Insurance Name Policy Number Policy Scales Covered Member ID Scales Member ID Guarantor Name 11/03/2023 1 [facility] - DOS ON OR AFTER 2022 - DUAL ELIGIBLE - SNF OPTIONS AND ONE CARE (MEDICARE REPLACEMENT/ADV ANTAGE - HMO) Clara Carpio [id number] Clara Carpio Notes Date Note Type Note Provider Name and Address Organization Details Recorded Time 11/03/2023 text/html CRC Nurse Triage Notes (Matias Carrasco): Chief Complaints: ENT, Cough, Headache, Syncope/Dizziness/ Lightheadedness, Chest Pain, Nausea/Vomiting Comments: Shingles Roofer Helper verified the member's name//address and phone number. Mbr's MOBILE MECHANIC, Jada, calling reporting member started with itchy throat a few days ago. MOBILE MECHANIC reports symptoms have continued to worsen. Mbr now with loss of voice, body aches, headache, stomachache, chills, and sometimes vomiting due to excessive amount of coughing. Mbr also reports pain in chest from coughing. MOBILE MECHANIC reports mbr had Flu, RSV & COVID testing that all came back negative. Education provided on the response time and the member was advised to monitor reported s/s and seek emergency treatment if needed -Michael Carrasco RN .................. .................. .................. .................. .................. .................. .................. ............... Photographer News Note From Carlo Stewart: Pt co cough. Pt was seen yesterday and RX for augmentin she started today. Pt denies sob cp fever [place] NVD. Baseline vitals assessed. Lungs clear. Pt sts she Covid and flu strep negative, pt sts pcp called today with results. Pt requesting something for her cough. [facility] contacted and RX for benzonatate called in. Pt education on signs indicating the ER. Pt advised to follow up with pcp. .................. .................. .................. .................. .................. .................. .................. ............... Disposition: Parris Fisher MD [address] [facility], [place], [address], [place] - [employer] 11/03/2023 13:23:00 OBGyn Episode No OBEpisode recorded.
== END 2024-11-28 15:02 | disposition home or self-care (01) ==
LOC: HO.HCS 13:48
PROVIDERS: PCP Internal Medicine
DX: I70.0 Atherosclerosis of aorta (principal); E78.5 Hyperlipidemia, unspecified; Z09 Encounter for follow-up examination after completed treatment for conditions other than malignant neoplasm
CPT/HCPCS: 99214; G2211

== ENCOUNTER → 2024-11-28 13:47 | Outpatient (BNVA) | payer OTHER, SELFPAY | PROVIDERS: PCP Internal Medicine | DX: Z09 Encounter for follow-up examination after completed treatment for conditions other than malignant neoplasm (principal); I70.0 Atherosclerosis of aorta; E78.5 Hyperlipidemia, unspecified | CPT/HCPCS: 99212 ==

== ENCOUNTER 2024-12-04 15:00 | Outpatient (REF) | payer OTHER, SELFPAY ==
--- OUTSIDE RECORDS SUMMARY | 2024-12-04 15:56 | XMS_ITS | Data Portability ---
Author Organization [employer] [facility], [facility] [employer] [facility] Address [address] [place] [phone] Care Team Providers Care Orthopedic Physician Assistant Name Role Phone HIM CCA OTHER Assessment Encounter Date Assessment Date Assessment LastModified by Organization Details LastModified Time 11/03/2023 11/03/2023 I provided real -time medical direction via phone for this encounter and was available for additional phone-based assistance as needed. I have reviewed and agree with the Assessment and Plan as documented by the Cushion Assembler. Patient given the opportunity to ask questions. Our service contacted for an assessment of: cough As per above, patient has had a non-productive cough for approx a week. She was seen yesterday by her PCP who preformed tests and started her on an antibiotic. PCP called patient this AM and told her that all the tests were normal. Per veterinary laboratory diagnostician on the scene, Non-toxic. Stable vitals. No [...] mg-100 mg/5 mL oral liquid 2023 024 [facility]/Pharmacy #[id number], [address] [facility], [place], [address], 13:18:48 Patient TargetsNo targets recorded. Patient InstructionsNo [...] Updated DateTime 4 90 /min 16 /min 68792.8 g 98.9 [degF] 98 % 98 % [...] SNOMED-CT Code Diagnosis ICD10 Code Diagnosis Note [id number] Migdalia Fisher MD Main - [facility] [address] [place] [phone] 11/03/2023 13:13:58 11/04/2023 10:33:41 Cough 50621450 R05.9 Health Concerns Section Related Observation LastModified by Organization Detai ls LastModified Time None Recorded Concern Status LastModified by Organization Details LastModified Time None Recorded Advance Directives Directive None Recorded Payers Insurance Date Sequence Insurance Name Policy Number Policy Scales Covered Member ID Scales Member ID Guarantor Name 11/03/2023 1 [facility] - DOS ON OR AFTER 2022 - DUAL ELIGIBLE - ASSISTED OPTIONS AND ONE CARE (MEDICARE REPLACEMENT/ADV ANTAGE - HMO) Clara Carpio [id number] Clara Carpio Notes Date Note Type Note Provider Name and Address Organization Details Recorded Time 11/03/2023 text/html CRC Nurse Triage Notes (Matias Carrasco): Chief Complaints: ENT, Cough, Headache, Syncope/Dizziness/ Lightheadedness, Chest Pain, Nausea/Vomiting Comments: Cash Teller verified the member's name//address and phone number. Mbr's GENERAL INTERNIST AND PHYSICIAN LEADER, Jada, calling reporting member started with itchy throat a few days ago. GENERAL INTERNIST AND PHYSICIAN LEADER reports symptoms have continued to worsen. Mbr now with loss of voice, body aches, headache, stomachache, chills, and sometimes vomiting due to excessive amount of coughing. Mbr also reports pain in chest from coughing. GENERAL INTERNIST AND PHYSICIAN LEADER reports mbr had Flu, RSV & COVID testing that all came back negative. Education provided on the response time and the member was advised to monitor reported s/s and seek emergency treatment if needed -Michael Carrasco RN .................. .................. .................. .................. .................. .................. .................. ............... Cushion Assembler Note From Carlo Stewart: Pt co cough. [...] .................. ............... Disposition: Parris Fisher MD [address] [facility],[address], [place], [address], [place] - [employer] 11/03/2023 13:23:00 OBGyn Episode No OBEpisode recorded.
--- OUTSIDE RECORDS SUMMARY | 2024-12-04 15:56 | XMS_ITS | Clinical Summary ---
Author Organization [facility] Address [address] [place] [address] Phone Care Team Providers Care Pilates Instructor Name Role Phone Olivia Palmer MD Primary Care Provider [phone] Allergies Active Allergy Reactions Criticality Noted Date Comments Flu Vaccine [id number](36mo,Up) Muscular Issues 03/26/2024 Gabapentin Nausea And Vomiting [...] tablet (50 mg total) by mouth. Active Hospital, Clinic, or Other Facility Administered Medication Ordered Dose Route Frequency Start Date End Date Status triamcinolone acetonide (KENALOG-40) 40 mg/mL injection 10 mgIndications:Acquired trigger finger of right little finger 10 mg syno Once PRN Procedure 11/20/2024 11/20/2024 Ended triamcinolone acetonide (KENALOG-40) 40 mg/mL injection 20 mgIndications:Arthriti s of carpometacarpal (CMC) joint of right thumb 20 mg IAtc Once PRN Procedure 11/20/2024 11/20/2024 Ended Active Problems Problem Noted Date Diagnosed Date Ganglion, tendon sheath 11/20/2024 Trigger finger of left thumb 11/20/2024 Arthritis of carpometacarpal (CMC) joint of righ t thumb 11/20/2024 Pillar pain of extremity 06/26/2024 S/P carpal [...] Encounters Date Type Department Care Team Description 11/20/2024 3:45 PM EDT Office Visit Orthopedic Surgery - [address] [place] [address] Salome Spangler MD Ganglion, tendon sheath (Primary Dx); Trigger finger of left thumb; Acquired trigger finger of right little finger; Arthritis of carpometacarpal (CMC) joint of right thumb from Last 3 Months Surgical History Surgery [...] 83 04/11/2024 1:51 PM EST Temperature 36.5 C (97.7 F) 04/11/2024 1:34 PM EST Respiratory Rate 16 04/11/2024 1:34 PM EST Oxygen Saturation 100% 04/11/2024 1:51 PM EST Inhaled Oxygen Concentration - - Weight 68 kg (150 lb) 11/20/2024 3:46 PM EDT Height 152.4 cm (5') 11/20/2024 3:46 PM EDT Body Mass Index 29.29 11/20/2024 3:46 PM EDT Plan of Treatment Scheduled Procedures Name Priority Associated Diagnoses Date/Ti me RELEASE TRIGGER FINGER Ganglion, tendon sheath Trigger finger of left thumb Health Maintenance Due Date Last Done Comments [...] / MET 08/17 # 6 IMPROVE LEFT NURSE ASSESSOR FROM 2 TO 10 POUNDS = WITH THE RIGHT/ MET AT 15 POUNDS ON 08/17 Procedures Procedure Name Priority Date/Time Associated Diagnosis Comments NC INJECTION SINGLE TENDON SHEATH OR LIGAMENT APONEUROSIS Routine 11/20/2024 3:45 PM EDT Acquired trigger finger of right little finger NC ARTHROCENTESIS/ASPI RATION/INJECTION SMALL JOINT/BURSA WO U/S GUIDANCE Routine 11/20/2024 3:45 PM EDT Arthritis of carpometacarpal (CMC) joint of right thumb from Last 3 Months Results * NC INJECTION SINGLE TENDON SHEATH OR LIGAMENT APONEUROSIS (11/20/2024 3:45 PM EDT) Salome Ross MD - 11/20/2024 3:45 PM EDT Salome Spangler MD 11/20/2024 5:43 PM Hand / UE Inj/Asp: R small A1 for trigger finger Indications: pain Details: 25 G needle, volar approach Medications: 10 mg triamcinolone acetonide 40 mg/mL The patient's skin was prepped with Betadine and alcohol. I injected a small wheal of 1% lidocaine with epinephrine under the skin at the level of the A1 holly of the small finger. After that had a chance to take effect of the prep the area again and then injected 1/4 cc of Kenalog at the A1 holly. A Band-Aid was then applied. Patient tolerated well. Informed Consent: Site: Right small finger A1 holly Laterality: Right Risk/complications/benefits details: Cortisone is an effective medication to treat swelling, inflammation, and pain. It is used frequently for such conditions as arthritis, tendinitis, bursitis, and carpal tunnel syndrome. However, there are risks to the use of cortisone. For diabetics it can raise blood sugars to a dangerous level. It can cause skin thinning, fat atrophy, skin discoloration, and wound healing issues. It can predispose to infection. Chronic use can affect bone metabolism. It can over time and with repeated usage become less effective. Generally it is advisable NOT to have more than 3 injections/year. Patient questions answered: yes Patient agrees, verbalizes understanding, and wants to proceed: yes Consent given by: Patient Informed consent discussion completed by Physician/MONTEZ with patient: Verbal Pre-procedure timeout performed: yes us Salome Spangler MD IN CLINIC/BEDSIDE ORDERABLES Final Result * NC ARTHROCENTESIS/ASPIRATION/INJECTION SMALL JOINT/BURSA WO U/S GUIDANCE (11/20/2024 3:45 PM EDT) Salome Ross MD - 11/20/2024 3:45 PM EDT Salome Spangler MD 11/20/2024 5:43 PM Small Inj/Asp: R thumb CMC Details: 25 G needle, dorsal approach Medications: 20 mg triamcinolone acetonide 40 mg/mL The right thumb was identified and the skin over the dorsum of the CMC joint was prepped with Betadine and alcohol. A small wheal of 1% lidocaine with epinephrine was injected in the skin. After that had a chance to take effect we then prepped the area again. In sterile fashion I then injected the Kenalog into the joint. Bandage was then applied. The patient tolerated this well. Informed Consent: Site: Right basal joint Laterality: Right Relevant images/test results available and reviewed: yes Health status cleared: Yes Procedure/treatment, purpose, treatment alternatives, risks/potential complications and benefits explained: yes Risk/complications/benefits details: Cortisone is an effective medication to treat swelling, inflammation, and pain. It is used frequently for such conditions as arthritis, tendinitis, bursitis, and carpal tunnel syndrome. However, there are risks to the use of cortisone. For diabetics it can raise blood sugars to a dangerous level. It can cause skin thinning, fat atrophy, skin discoloration, and wound healing issues. It can predispose to infection. Chronic use can affect bone metabolism. It can over time and with repeated usage become less effective. Generally it is advisable NOT to have more than 3 injections/year. Patient questions answered: yes Patient agrees, verbalizes understanding, and wants to proceed: yes Consent given by: Patient Informed consent discussion completed by Physician/MONTEZ with patient: Verbal Pre-procedure timeout performed: yes Salome Spangler MD IN CLINIC/BEDSIDE ORDERABLES Final Result from Last 3 Months Insurance [facility] MEDIC[facility] Member Subscriber Plan / Payer (Ef fective 2019-Present) Name:Clara Cruz Relation to Subscriber:Self Name:Clara Cruz Payer ID:[id number] Group ID:[id number] Type:Not on file Address: [facility] [address] [id number] Care Teams Pilates Instructor Relationship Specialty Start Date End Date Olivia Palmer MD [address] [place] [address] PCP - General Internal Medicine 04/10/24
--- OUTSIDE RECORDS SUMMARY | 2024-12-04 15:56 | XMS_ITS | Clinical Summary ---
Author Organization [facility] Address [address] [place] [address] Phone Care Team Providers Care Porcelain Enameling Supervisor Name Role Phone Olivia Andrade MD Primary Care Provider [phone] Allergies Active Allergy Reactions Criticality Noted Date [...] Visit [facility] [address] [place] [address] Ajith Abel MD [address] [facility] [address] [place] [address] Health Maintenance Due Date Last Done Comments Pneumococcal Vaccine: 50+ Ye ars (1 of 2 - PCV) 1969 Influenza Vaccine (Season Ended) 2025 Hepatitis B Vaccine Aged Out No longe r eligible based on patient's age to complete this topic Insurance [facility] ([id number]) [facility] ([id number]) Care Teams Porcelain Enameling Supervisor Relationship Specialty Start Date End Date Olivia Andrade MD [address] [place], [place] PCP - General Internal Medicine 12/08/22
== END 2024-12-04 15:01 | disposition home or self-care (01) ==
LOC: HO.MAMMO 15:00
PROVIDERS: PCP Internal Medicine; Visit Provider Internal Medicine
DX: Z12.31 Encounter for screening mammogram for malignant neoplasm of breast (principal)
CPT/HCPCS: 77063; 77067

== ENCOUNTER → 2024-12-04 15:15 | Outpatient (BNV) | payer OTHER, SELFPAY | PROVIDERS: PCP Internal Medicine; Visit Provider Internal Medicine | DX: Z12.31 Encounter for screening mammogram for malignant neoplasm of breast (principal) | CPT/HCPCS: 77063; 77067 ==

== ENCOUNTER 2024-12-05 07:15 | Outpatient (REF) | payer OTHER, SELFPAY ==
--- NOTE | ~2024-12-05 | XR_ITS ---
EXAMINATION: XR TIBIA AND FIBULA, RIGHT CLINICAL INFORMATION: M79.604 - Pain in right leg COMPARISON: None available. TECHNIQUE: AP and lateral views of the right tibia and fibula were obtained. FINDINGS: No visible fracture or deformity. Joint spaces are grossly preserved. XR/XR tibia fibula RT 2V IMPRESSION: Unremarkable right tibia and fibula. Electronically signed by: Alvarado Rowe MD 12/05/2024 11:06 AM EDT
== END 2024-12-05 07:16 | disposition home or self-care (01) ==
LOC: HO.XRAY 07:15
PROVIDERS: PCP Internal Medicine; Visit Provider Internal Medicine
DX: Z09 Encounter for follow-up examination after completed treatment for conditions other than malignant neoplasm (principal); S22.41XD Multiple fractures of ribs, right side, subsequent encounter for fracture with routine healing; X50.0XXD Overexertion from strenuous movement or load, subsequent encounter; F32.0 Major depressive disorder, single episode, mild; I70.0 Atherosclerosis of aorta; E78.00 Pure hypercholesterolemia, unspecified; M85.80 Other specified disorders of bone density and structure, unspecified site; M54.50 Low back pain, unspecified; M79.604 Pain in right leg; G56.00 Carpal tunnel syndrome, unspecified upper limb; Z79.899 Other long term (current) drug therapy; Z13.31 Encounter for screening for depression; Z13.39 Encounter for screening examination for other mental health and behavioral disorders
CPT/HCPCS: 73590; 96127; 99212

== ENCOUNTER 2024-12-05 07:15 | Outpatient (AMB) | payer OTHER, SELFPAY ==
--- OUTSIDE RECORDS SUMMARY | 2024-12-05 07:17 | XMS_ITS | Clinical Summary ---
Author Organization [facility] Address [address] [place] [address] Phone Care Team Providers Care Medicare Sales Representative Name Role Phone Olivia Palmer MD Primary Care Provider [phone] Allergies Active Allergy Reactions Criticality Noted Date Comments Flu Vaccine [id number](36mo,Up) Muscular Issues 03/26/2024 Gabapentin Nausea And Vomiting [...] PM EDT Office Visit Orthopedic Surgery - [address] [place] [address] Salome Spangler MD Ganglion, tendon [...] / MET 08/17 # 6 IMPROVE LEFT AIRCRAFT HYDRAULIC EQUIPMENT MECHANIC FROM 2 TO 10 POUNDS = WITH THE RIGHT/ MET AT 15 POUNDS ON 08/17 Procedures Procedure Name Priority Date/Time Associated Diagnosis Comments MD INJECTION SINGLE TENDON SHEATH OR LIGAMENT APONEUROSIS Routine 11/20/2024 3:45 PM EDT Acquired trigger finger of right little finger MD ARTHROCENTESIS/ASPI RATION/INJECTION SMALL JOINT/BURSA WO U/S GUIDANCE Routine 11/20/2024 3:45 PM EDT Arthritis of carpometacarpal (CMC) joint of right thumb from Last 3 Months Results * MD INJECTION SINGLE TENDON SHEATH OR LIGAMENT APONEUROSIS [...] MD IN CLINIC/BEDSIDE ORDERABLES Final Result * MD ARTHROCENTESIS/ASPIRATION/INJECTION SMALL JOINT/BURSA WO U/S GUIDANCE (11/20/2024 [...] Final Result from Last 3 Months Insurance [facility] MEDIC[facility] Member Subscriber Plan / Payer (Ef fective 2019-Present) Name:Clara Cruz Relation to Subscriber:Self Name:Clara Cruz Payer ID:[id number] Group ID:[id number] Type:Not on file Address: [facility] [address] [id number] Care Teams Medicare Sales Representative Relationship Specialty Start Date End Date Olivia Palmer MD [address] [place] [address] PCP - General Internal Medicine 04/10/24
--- OUTSIDE RECORDS SUMMARY | 2024-12-05 07:17 | XMS_ITS | Clinical Summary ---
Author Organization [facility] Address [address] [place] [address] Phone Care Team Providers Care Automotive Electrician Helper Name Role Phone Olivia Andrade MD Primary Care Provider [phone] Allergies Active Allergy Reactions Criticality Noted Date [...] Visit [facility] [address] [place] [address] Ajith Abel MD [address] [facility] [address] [place] [address] Health Maintenance Due Date Last Done Comments Pneumococcal Vaccine: 50+ Ye ars (1 of 2 - PCV) 1967 Influenza Vaccine (Season Ended) 2025 Hepatitis B Vaccine Aged Out No longe r eligible based on patient's age to complete this topic Insurance [facility] ([id number]) [facility] ([id number]) Care Teams Automotive Electrician Helper Relationship Specialty Start Date End Date Olivia Andrade MD [address] [place], [place] PCP - General Internal Medicine 12/08/22
--- NOTE | 2024-12-05 07:34 | MHC.PC.OV ---
Vital Signs 12/05/24 07:35 Height 4 ft 11 in Weight 156 lb 4.924 oz BMI 31.6 BP 112/80 Blood Pressure Location Lt brachial Position Sitting Intake Visit [place] [facility] [place] Rib fracture Reconstructive Dentist Required: No Accompanied by: Daughter Allergies gabapentin Allergy (Intermediate, Verified 12/05/24 07:45) somnolence pregabalin Allergy (Intermediate, Verified 12/05/24 07:45) somnolence Influenza Virus Vaccines Adverse Reaction (Intermediate, Verified 12/05/24 07:45) Throat pain Medication List - Last Reconciled 12/05/24 by Olivia Palmer MD acetaminophen 500 mg PO Q6H PRN 30 days [adult diapers pull-ups As directed] cetirizine (All Day Allergy (cetirizine)) 10 mg PO DAILY PRN 90 days cholecalciferol (vitamin D3) (Vitamin D3) 50 mcg PO DAILY 90 days dicyclomine 10 mg PO QID PRN fluoxetine 10 mg PO DAILY latex gloves (Latex Gloves, Large) As directed linaclotide (Linzess) 72 mcg PO QAM methocarbamol 500 mg PO BID PRN 30 days mupirocin 2% 1 appl topical BID 2 weeks naproxen 500 mg PO BID PRN omeprazole 40 mg PO DAILY [over bed table As directed] rosuvastatin 5 mg PO DAILY underpads (Bed Underpads) Use 1 to 4 bed underpads once a day prn [wipes flushable As directed] Tobacco use date assessed: 12/05/24 Fall risk assessment: No Falls in past year Last assessed Fall Risk: 12/05/24 Dental Screening Dental Screen Date: 12/05/24 Did you have a dental visit in the last 12 months?: Yes Did you have a dental problem in the last 6 months where you did not have access to dental care?: No Was dental information given to patient?: Patient has dentist HPI HPI Comments History of Present Illness Details The patient is a 74-year-old female presenting for hospital discharge follow-up in November 14 with rib fractures and management of chronic conditions. The patient sustained fractures to the right fourth and fifth ribs while lifting an object. The fractures are non-displaced, and she reports significant pain in the area, although it is less severe than the pain in her leg. She has a history of hyperlipidemia, previously managed with atorvastatin, which caused muscle pain, leading to a switch to a lower dose of rosuvastatin. A follow-up cholesterol test is planned before her next appointment in February. The patient has allergies to gabapentin and pregabalin, which cause drowsiness. She is currently taking vitamin D due to findings from a bone densitometry conducted in June. She underwent a trigger finger repair on her left hand and reports no current issues with trigger finger, but she has developed cyst-like swellings causing pain. She also experiences involuntary movements in her right leg and has a history of neuropathy, which is exacerbated by certain medications causing gastrointestinal side effects. The patient reports chronic back pain and osteoarthritis, with significant pain in her leg, which she describes as more severe than her rib pain. She has not visited a business analyst sales operations but is under the care of a pain clinic where she received a back block. Her depression with anxiety is managed with fluoxetine, and she occasionally experiences numbness in her hands, which she attributes to past occupational activities. COUNT INCLUDES THE [facility] Medical History (Updated 12/05/24 @ 08:21 by Olivia Palmer MD) Upper abdominal pain Well woman exam Family history of diabetes mellitus Muscle cramps Physical exam Muscle spasm of back H. pylori infection Adult general medical exam Physical exam Obesity (BMI 30-39.9) Osteopenia Pure hypercholesterolemia Hyperkalemia Depression with anxiety Insomnia Hypovitaminosis D Anxiety Hair loss Arm paresthesia, right CKD (chronic kidney disease), stage III Trigger finger Carpal tunnel syndrome Neuropathy Surgical History Hx of blepharoplasty Hx of hand surgery History of carpal tunnel release Hx of colonoscopy Hx of breast reduction, elective History of surgery History of section H/O exploratory laparotomy History of tubal ligation History of cataract surgery Family History Father Prostate cancer Mother No problems noted. Family/Other FH: mental illness Hypertension Tachycardia Maternal Aunt No problems noted. 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 1. Little interest or pleasure in doing things: several days 2. Feeling down, depressed, or hopeless: nearly every day 3. Trouble falling or staying asleep, or sleeping too much: several days 4. Feeling tired or having little energy: several days 5. Poor appetite or overeating: several days 6. Feeling bad about yourself - or that you are a failure or have let yourself or your family down: not at all 7. Trouble concentrating on things, such as reading the newspaper or watching television: not at all 8. Moving or speaking so slowly that other people could have noticed. Or the opposite - being so fidgety or restless that you have been moving around a lot more than usual: several days 9. Thoughts that you would be better off or of hurting yourself in some way: not at all Total score: 8 Depression Screening Interpretation: Positive Depression Screening Follow-up: Existing condition, In treatment, Community Mental Health Worker F/U and Follow-up Visit Requested Depression Screening Done: Yes 47909 - PHQ-9 Billing: Yes Source: Developed by Drs. Oskar Robertson, Jennifer Jernigan, Garcia Doshi and colleagues, with an educational alessandro from [employer]. Thrive Questionnaire Date Thrive assessed: 12/05/24 I am a: Patient What is your living situation today?: I have a steady place to live Within the past 12 months, did the food you bought not last and you didn't have the money to get more?: Never true Within the past 12 months, did you worry whether your food would run out before you got money to buy more?: Never true Do you have trouble paying for medicines?: No Do you have trouble getting transportation to medical appointments?: No Do you have trouble paying your heating and electricity bill?: No Do you have trouble taking care of your child, family member or friend?: Yes Do you have trouble with day-to-day activities such as bathing, preparing meals, shopping, managing finances, etc.?: Yes Are you currently unemployed and looking for a job?: No Are you interested in more education?: No Please select the resources that you would like help with: Daily support Currently or been in a relationship where the following occur: I choose not to answer THRIVE Score: 0 AUDIT C Alcohol Use Questionnaire (AUDIT-C) 1. How often do you have a drink containing alcohol?: Never Total Score: 0 Score Reviewed/Action Taken: No TOBIAS-7 AMB Questionnaire TOBIAS-7 Date TOBIAS - 7 assessed: 12/05/24 Feeling nervous, anxious, or on edge: 1 = Several days Not being able to stop or control worryin = Several days Worrying too much about different things: 1 = Several days Trouble relaxin = Several days Being so restless that it is hard to sit still: 1 = Several days Becoming easily annoyed or irritable: 1 = Several days Feeling afraid as if something awful might happen: 1 = Several days Total TOBIAS-7 score (0-4 normal; 5-9 mild; 10-14 moderate; 15-21 severe): 7 Source: Developed by Drs. Oskar Robertson, Jennifer Jernigan, Garcia Doshi and colleagues, with an educational alessandro from [employer]. TOBIAS-7 Assessment Billing TOBIAS-7 Assessment Tool: TOBIAS-7 Assessment 73749 Review of Systems Const All systems reviewed & are unremarkable except as noted in HPI and below Card Denies chest pain at rest, Denies chest pain with activity, Denies edema, Denies irregular heart rhythm, Denies claudication, Denies dyspnea, Denies dyspnea on exertion, Denies orthopnea, Denies paroxysmal nocturnal dyspnea and Denies slow heart rate Resp Denies cough, Denies dyspnea and Denies dyspnea on exertion GI Denies abdominal pain, Denies change in bowel habits, Denies excessive flatus, Denies nausea and Denies vomiting Denies urinary incontinence, Denies urinary hesitancy and Denies urinary urgency Musc Reports back pain, Reports arthralgias, Reports limited range of motion, Reports muscle weakness, Reports numbness, Reports radiating pain into limb and Reports tingling Neuro Denies behavioral changes, Denies lack of coordination, Reports numbness and Reports tingling Psych Denies behavioral changes Physical exam (Primary Care) Vital Signs: Last Vital Signs BP 112/80 12/05/24 07:35 BMI result Body Mass Index 31.6 BMI Assessment/Plan discussion: High BMI High, discussed plan: lifestyle, weight reduction, dietary and physical activity Tobacco/Smoking Status: Tobacco use Status Tobacco use date assessed 12/05/24 12/05/24 07:40 Patient Tobacco Use Status Former Tobacco user 12/05/24 07:40 Tobacco use type Cigarette 12/05/24 07:40 e-Cigarette/Vaping Use Never Used 12/05/24 07:40 PHQ-9: PHQ-9 Score PHQ-9: Total score 8 12/05/24 07:40 Depression Screening Interpretation: Positive Depression Screening Follow-up: Existing condition, In treatment, Community Mental Health Worker F/U and Follow-up Visit Requested Thrive Assessment: Date of Thrive Assessment Date Thrive assessed 12/05/24 12/05/24 07:40 Currently or been in a relationship where the following occur: I choose not to answer Resp Effort & Inspection: normal respiratory effort Auscultation: clear to auscultation bilaterally Cardio Jugular venous distension: no JVD Rate: regular rate Rhythm: regular rhythm Heart sounds: S1 normal heart sound present and S2 normal heart sound present Back/Spine/Pelvis Thoracic/Lumbar Spine: lumbar spinal tenderness Extrem Left upper extremity: hand Details: tenderness and swelling Psych Appearance: grossly normal Coding Level of Care Code Est Pt Level 4 (22294) Complex EM visit Add On G2211 Diagnoses Hospital discharge follow-up Z09 Rib fractures S22.49XA Mild major depression F32.0 Aortic atherosclerosis I70.0 Pure hypercholesterolemia E78.00 Osteopenia M85.80 Low back pain radiating to right lower extremity M54.50; M79.604 Carpal tunnel syndrome G56.00 Additional Codes PHQ-9 - 56801 - PHQ-9 Billing: Yes ([id number]) TOBIAS-7 Assessment Billing - TOBIAS-7 Assessment Tool: TOBIAS-7 Assessment 45915 ([id number]) Time Spent (min) 24 Assessment & Plan Assessment & Plan (1) Hospital discharge follow-up: Code(s): Z09 - Encounter for follow-up examination after completed treatment for conditions other than malignant neoplasm Category: Medical (2) Rib fractures: Code(s): S22.49XA - Multiple fractures of ribs, unspecified side, initial encounter for closed fracture Category: Medical (3) Mild major depression: Code(s): F32.0 - Major depressive disorder, single episode, mild Category: Medical (4) Aortic atherosclerosis: Code(s): I70.0 - Atherosclerosis of aorta Category: Medical (5) Pure hypercholesterolemia: Code(s): E78.00 - Pure hypercholesterolemia, unspecified Category: Medical (6) Osteopenia: Code(s): M85.80 - Other specified disorders of bone density and structure, unspecified site Category: Medical (7) Low back pain radiating to right lower extremity: Code(s): M54.50 - Low back pain, unspecified; M79.604 - Pain in right leg Category: Medical (8) Carpal tunnel syndrome: Code(s): G56.00 - Carpal tunnel syndrome, unspecified upper limb Category: Medical Plan The patient will continue with her current medication regimen, including fluoxetine for depression and rosuvastatin for hyperlipidemia, with a follow-up cholesterol test scheduled before her next appointment in February. She is advised to avoid activities that may exacerbate her rib fractures and to monitor for any changes in pain or respiratory symptoms. A referral to a business analyst sales operations is considered for further evaluation of her chronic back pain and leg pain, which may be related to her osteoarthritis and neuropathy. The patient is encouraged to continue using her wrist splints at night to manage hand numbness and to prevent further complications from her past occupational activities. Patient was informed and verbally consented to the use of an ambient scribe for clinic note documentation during this visit. Orders: Orders XR tibia fibula RT 2V Today M79.604 - Pain in right leg Referrals Pain Management Referral M54.50 - Low back pain, unspecified, M79.604 - Pain in right leg Thoracic/General Surgery Referral S22.49XA - Multiple fractures of ribs, unspecified side, initial encounter for closed fracture
[2024-12-05 07:35] VITALS: BP 112/80; BMI 31.6
== END 2024-12-05 08:07 | disposition home or self-care (01) ==
LOC: HO.HMCH 07:15
PROVIDERS: PCP Internal Medicine; Visit Provider Internal Medicine
DX: Z09 Encounter for follow-up examination after completed treatment for conditions other than malignant neoplasm (principal); S22.49XA Multiple fractures of ribs, unspecified side, initial encounter for closed fracture; F32.0 Major depressive disorder, single episode, mild; I70.0 Atherosclerosis of aorta; E78.00 Pure hypercholesterolemia, unspecified; M85.80 Other specified disorders of bone density and structure, unspecified site; M54.50 Low back pain, unspecified; M79.604 Pain in right leg; G56.00 Carpal tunnel syndrome, unspecified upper limb

== ENCOUNTER → 2024-12-05 08:22 | Outpatient (BNV) | payer OTHER, SELFPAY | PROVIDERS: PCP Internal Medicine; Visit Provider Radiology Diagnostic Radiology | DX: M79.604 Pain in right leg (principal) | CPT/HCPCS: 73590 ==

== ENCOUNTER 2024-12-24 15:13 | Outpatient (AMB) | payer OTHER, SELFPAY ==
--- NOTE | 2024-12-24 15:15 | MHC.OFFVIS ---
Vital Signs 12/24/24 15:20 Height 4 ft 11 in Weight 158 lb BMI 31.9 BP 100/51 L Blood Pressure Location Lt brachial Position Sitting Pulse 96 Pulse Source Pulse Oximeter Pulse Oximetry (%) 100 Oxygen Delivery Method Room Air Intake Visit Reasons: FU on Low back pain Intake Note: Pain today 01/13 Dental Technician Instructor Required: Yes Dental Technician Instructor Language: Police Stenographer Services: Dental Technician Instructor Present Accompanied by: Other Relationship Allergies gabapentin Allergy (Intermediate, Verified 12/24/24 15:20) somnolence pregabalin Allergy (Intermediate, Verified 12/24/24 15:20) somnolence Influenza Virus Vaccines Adverse Reaction (Intermediate, Verified 12/24/24 15:20) Throat pain HPI Comments Details: The patient is a 74-year-old female presenting for follow up today with sacroiliac joint pain and spinal stenosis related pain. She was last seen a year ago following a right therapeutic sacroiliac joint injection, which provided positive relief for over 8 months. In 2022, she underwent bilateral L4-L5 TFESI, which resulted in substantial left leg pain relief but minimal relief for the right leg. The patient reports involuntary movements in her feet, occurring both during the day and at night, suggestive of restless leg syndrome. She has plans to follow up with her Neurologist, Dr. Guzman for this condition. She reports her recent brain MRI was normal. The patient sustained rib fractures while attempting to reach for an item last month, resulting in nondisplaced fractures of the right 4th and 5th ribs. This incident occurred in November, and she has not reported any significant complications since then. She has pending referral to thoracic surgeon. The patient has a history of osteopenia, confirmed by recent bone scan. She is currently taking calcium and vitamin D supplements. - Pain primarily located in the sacroiliac joint and lower back pain, worse on the right side - Pain radiates to the right leg, with less relief compared to the left leg - Pain exacerbated by standing, bending, walking and relieved by sitting - Associated with cramping and involuntary movements in the feet; numbness and tingling in legs with numbness and tingling. - Affect: Pain impacts sleep, causing awakenings at night - Analgesia: Previously received sacroiliac joint injection with positive relief; currently using methocarbamol - Adverse Effects: Unable to use lidocaine patch due to kidney cyst - Activities of Daily Living: Pain limits walking to 3-5 minutes before needing to rest - Aberrant Drug Related Behaviors: None reported PRIOR 01/20/24: Patient presents today to assess response to Right Therapeutic SIJ injection on 12/27/[address] Bethea. Patient reports 70%ongoing pain relief in right sided low back pain in the projection of right sacroiliac joint area since procedure. She reports better tolerance with walking, prolonged sitting or standing or changing her positions, and improved sleep. Patient is content with outcome of recent therapeutic injection and will continue to monitor longevity of steroidal injection. Denies any recent cough, cold, infection, fever, any significant changes in her medical history, medications or recent hospitalizations. Past Procedures: 12/27/23: Right Therapeutic SIJ injection -70% ongoing pain relief 09/27/23: Right Diagnostic SIJ [id number]% pain relief for 8 hours, 90% for 24 hours the 2nd day after injection 05/11/23: Bilateral L4-L5 TFESI-100% left leg pain relief, 40% right leg pain relief, mild low back pain relief PRIOR: Patient presents today for follow up back pain and to assess response to physical therapy. Patient reports very low tolerance for PT or HEP due to increase symptoms and unbearable pain after PT sessions. She attempted total of 3 sessions of PT with severe exacerbation of axial low back pain with radiation into her right lower extremity anteriorly with weakness, intermittent numbness and tingling. Pain is worse with prolonged walking or standing but does not necessarily go away with rest or sitting. PRIOR: Patient reports she went to [facility] on 10/15/22 with chest pain and ongoing left clavicle pain. Echocardiogram and EKG were normal. Stress tests few months ago was also normal. She has follow up with Cardiology soon. CXR taken in ER showed 5 mm calcified nodule right lower lobe, otherwise no acute process seen. 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 Since then she feels her left clavicle has been disproportionate and asymmetrical and has been causing significant discomfort with deep inspiration or raising her both arms with overhead reaches or carrying heavy objects. We will obtain bilateral shoulder xrays to help us differentiate with costoclavicular syndrome as she does have localized tenderness and pain in AC joint, worse on the left. Patient also reports intermittent numbness and tinglings in both hands, worse on the right and has known right Carpal tunnel syndrome, early on EMG. She follows with Hand Specialist with last visit in 03/2022. Denies any fever, neck or shoulder pain, dizziness, chest pain, shortness of breaths, bladder or bowel incontinence or saddle anesthesia. PRIOR: Patient is a pleasant 72 years Prydeinig speaking female with osteopenia, CKD, presents today for initial evaluation of chronic lower back pain, hips and bilateral hand pain. Denies any recent trauma, injury or falls. Her back pain is mostly axial and also radiates to her right lower extremity laterally and left lower extremity anteriorly and laterally with numbness, tingling and weakness. She also reports bilateral hand pain, worse on the right for which she follows with Dr. Santillan and currently performing OT therapy. For today's visit, we concentrated on her back symptoms. I could not reproduce her bilateral radicular symptoms with seated SLR testing today. She does have significant bilateral hip and sacroiliac joint pain with testing which significantly exacerbate her pain. Patient denies any previous back surgery but received multiple steroid injections in the past while leaving in [place]. Patient has not completed physical therapy for her back pain but is currently undergoing OT for bilateral hand pain. She is in significant pain to pursue PT for her back or hip pain at this time. Patient denies any fever, chills, weight loss, shortness of breaths, chest pain, bladder or bowel incontinence or saddle anesthesia. Reports bilateral weakness in her legs. Ambulates with slow, antalgic gait with mild limping with the use of walker. Location Lower back, bilateral hand pain Duration Constant Characteristics of symptom or complaint Pulsing, stabbing, sharp, pinching, tingling, dull, aching, hurting, heavy Aggravating or associated factors Prolonged sitting, standing, walking, changing positions, weather changes Relieving factors Tylenol, tizanidine, PT in the past for knee pain, OT-presently for hands Treatment Back cortisone injections in [place], last in 1996. [facility] Medical History Upper abdominal pain Well woman exam Family history of diabetes mellitus Muscle cramps Physical exam Muscle spasm of back H. pylori infection Adult general medical exam Physical exam Obesity (BMI 30-39.9) Osteopenia Pure hypercholesterolemia Hyperkalemia Depression with anxiety Insomnia Hypovitaminosis D Anxiety Hair loss Arm paresthesia, right CKD (chronic kidney disease), stage III Trigger finger Carpal tunnel syndrome Neuropathy Surgical History Hx of blepharoplasty Hx of hand surgery History of carpal tunnel release Hx of colonoscopy Hx of breast reduction, elective History of surgery History of section H/O exploratory laparotomy History of tubal ligation History of cataract surgery Family History Father Prostate cancer Mother No problems noted. Family/Other FH: mental illness Hypertension Tachycardia Maternal Aunt No problems noted. 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 Reports numbness and tingling in BLE with intermittent weakness. Denies bladder or bowel dysfunction or saddle anesthesia. All systems reviewed & are unremarkable except as noted in HPI and below Physical Exam Vital Signs: Last Vital Signs Pulse 96 12/24/24 15:20 BP 100/51 L 12/24/24 15:20 Pulse Ox 100 12/24/24 15:20 Oxygen Delivery Method Room Air 12/24/24 15:20 BMI result Body Mass Index 31.9 General: Appears afebrile. Alert and oriented. Mood and affect appropriate. Follows and participates in conversation appropriately. Respiratory effort is unlabored. No cough. Able to transition from sit to stand with assistance of her family. Uses cane with ambulation. Ambulates with normal heel strike and toe off on the left, increased back and right leg pain with right toe/heel standing. General: Yes no CVA tenderness Back/Spine/Pelvis Other: Limited lumbar ROM due to pain. No midline tenderness to palpation in the thoracic or lumbar regions, mild to moderate TTP lower lumbar region. Minimal paraspinal tenderness to palpation in the lumbar spine. Lumbar extension reproduces moderate pain and flexion forward and limited bending reproduces moderate-severe pain. Painful facet loading bilaterally. No groin pain with I/E hip rotations bilaterally. Back: no CVA tenderness Cervical Spine: cervical ROM normal, cervical muscular tenderness and No Cervical spine tenderness Thoracic/Lumbar Spine: thoracic and lumbar spine normal to inspection, No Thoracic/lumbar spine scar(s), Lasegue's sign positive (right>left) bilateral, pain with thoraco-lumbar ROM, paraspinal muscle tenderness on the right greater than left, thoraco-lumbar ROM limited, No thoracic spinal tenderness, lumbar spinal tenderness (L4-S1) and straight leg raise positive bilateral at 40 degrees Pelvis: buttock tenderness on the right Sacroiliac joints: on the right tender to palpation and on the left nontender Extrem General: Yes capillary refill normal, Yes no clubbing, cyanosis or edema and Yes no calf tenderness Results Reviewed Results Reviewed: MR LUMBAR SPINE WITHOUT CONTRAST 02/11/23 CLINICAL INFORMATION: Spondylosis without myelopathy or radiculopathy, DDD COMPARISON: Lumbar spine radiographs on 08/27/2022. TECHNIQUE: MRI of the lumbar spine was obtained using routine sequences without contrast. FINDINGS: There are 5 nonrib-bearing lumbar-type vertebrae. Mild levocurvature of the lumbar spine. Preservation of the normal lumbar lordosis. Grade 1 anterolisthesis at L4-L5 and to a lesser extent at L2-L3 and L3-L4. Mild retrolisthesis at L1-L2. No abnormal bone marrow signal. The vertebral body heights are preserved. Multilevel disc desiccation without significant disc height loss. The visualized spinal cord is normal in caliber. No abnormal cord signal. The conus medullaris terminates at T12-L1. T11-T12: No significant spinal canal or neural foraminal narrowing. T12-L1: No significant spinal canal or neural foraminal narrowing. L1-L2: Diffuse disc bulge. Mild bilateral neural foraminal narrowing. L2-L3: Diffuse disc bulge with superimposed left foraminal disc protrusion. Annular fissure. Right facet arthrosis. Mild spinal canal stenosis. Moderate to severe left and mild right neural foraminal narrowing with impingement of the left L2 exiting nerve roots. L3-L4: Diffuse disc bulge with superimposed left foraminal disc protrusion. Bilateral facet arthrosis. Mild spinal canal stenosis. Mild to moderate left and mild right neural foraminal narrowing with mass effect on the left L3 exiting nerve roots. L4-L5: Diffuse disc bulge with superimposed central disc protrusion. Ligamentum flavum hypertrophy. Moderate spinal canal stenosis with mass effect on the cauda equina nerve roots. Moderate to severe left and mild right neural foraminal narrowing with the disc abutting the exiting L4 nerve roots bilaterally. L5-S1: Diffuse disc bulge and bilateral facet arthrosis. No significant spinal canal or neural foraminal narrowing. The paravertebral soft tissues are unremarkable. Left renal cyst. IMPRESSION: Multilevel lumbar spondylosis as described above, most notable at L4-L5 where there is moderate spinal canal stenosis with mass effect on the cauda equina nerve roots at this level. There is also moderate to severe left L2-L3 and left L4-L5 neural foraminal narrowing with impingement of the left L2 exiting nerve roots. Assessment & Plan Assessment & Plan (1) Lumbar spondylosis: Code(s): M47.816 - Spondylosis without myelopathy or radiculopathy, lumbar region Category: Medical (2) Low back pain radiating to right lower extremity: Code(s): M54.50 - Low back pain, unspecified; M79.604 - Pain in right leg Category: Medical (3) Lumbar degenerative disc disease: Code(s): M51.36 - Other intervertebral disc degeneration, lumbar region Category: Medical (4) Lumbar spinal stenosis: Code(s): M48.061 - Spinal stenosis, lumbar region without neurogenic claudication Category: Medical (5) Lumbar radiculopathy, chronic: Code(s): M54.16 - Radiculopathy, lumbar region Category: Medical Plan The patient will undergo an updated MRI to assess the current status of spinal stenosis at the L4-L5 level, given the previous findings of moderate to severe stenosis. If the MRI indicates significant stenosis, a referral to Dr. Lentz for neurosurgical evaluation will be made. The sacroiliac joint pain will be managed with consideration for repeat injections if necessary. Refill sent for metocarbamol to manage muscle spasms and pain per patient's request. Patient is aware to call if pain worsens or if she develops any red flag symptoms to seek emergency care. All questions and concerns have been answered and patient agreed with the plan. Follow up for MRI results and sooner as needed. Patient was informed and verbally consented to the use of an ambient scribe for clinic note documentation during this visit. Orders: Orders MR lumbar spine wo con Today M47.816 - Spondylosis without myelopathy or radiculopathy, lumbar region, M48.061 - Spinal stenosis, lumbar region without neurogenic claudication, M51.36 - Other intervertebral disc degeneration, lumbar region, M54.16 - Radiculopathy, lumbar region, M54.50 - Low back pain, unspecified, M79.604 - Pain in right leg Medications: Refilled methocarbamol 500 mg PO BID PRN 60 tabs 3RF muscle spasm 30 days G89.4 - Chronic pain syndrome, M47.816 - Spondylosis without myelopathy or radiculopathy, lumbar region, M53.3 - Sacrococcygeal disorders, not elsewhere classified, M62.830 - Muscle spasm of back Coding Level of Care Code Est Pt Level 4 (23948) Complex EM visit Add On G2211 Diagnoses Lumbar spondylosis M47.816 Low back pain radiating to right lower extremity M54.50; M79.604 Lumbar degenerative disc disease M51.36 Lumbar spinal stenosis M48.061 Lumbar radiculopathy, chronic M54.16
[2024-12-24 15:20] VITALS: BP 100/51; PULSE 96; O2SAT 100; BMI 31.9
--- OUTSIDE RECORDS SUMMARY | 2024-12-24 15:50 | XMS_ITS | Clinical Summary ---
Author Organization [facility] Address [address] [place] [address] Phone Care Team Providers Care Behavioral Geneticist Name Role Phone Olivia Palmer MD Primary Care Provider [phone] Allergies Active Allergy Reactions Criticality Noted Date Comments Flu Vaccine [id number](36mo,Up) Muscular Issues 03/26/2024 Gabapentin Nausea And Vomiting [...] PM EDT Office Visit Orthopedic Surgery - [address] [place] [address] Salome Spangler MD Ganglion, tendon [...] 11/20/2024 3:46 PM EDT Plan of Treatment Upcoming Encounters Date Type Department Care Team (Latest Contact Info) Description 01/08/2025 11:45 AM EDT Consult Orthopedic Surgery [address] [phone] Salome Spangler MD [address] [place] [phone] 01/10/2025 11:45 AM EDT Hospital Encounter [facility] [place] [address] [place] [phone] Salome Spangler MD [address] [place] [phone] 01/10/2025 11:45 AM EDT - 01/10/2025 1:45 PM EDT Surgery [facility] [place] [address] [place] [phone] Salome Spangler MD [address] [place] [phone] RELEASE TRIGGER FINGER left thumb And excision of volar retinacular ganglion cyst left ring and small fingers [49158 (CPT ) +1 more] 01/21/2025 11:00 AM EDT Office Visit Orthopedic Surgery [address] [phone] Salome Spangler MD [address] [place] [phone] Scheduled Procedures Name Priority Associated Diagnoses Date/Ti me RELEASE TRIGGER FINGER Ganglion, tendon sheath Trigger finger of left thumb 01/10/2025 11:45 AM EDT Health Maintenance Due Date Last Done Comments RSV Immunization Adult Patients (1 - 1-dose 75+ series) 2023 Hepatitis C Screening 07/05/2023 Medicare Annual Wellness Visit 07/05/2023 Osteoporosis Screening (Bone Density Screening) 07/05/2023 Social Influencers of Health Screening 07/05/2023 Zoster Vaccines (2 of 2) 11/16/2023 09/21/2023 COVID-19 Vaccine (4 - 2023-2 5 season) 2024 11/17/2021, 10/15/2020, 09/17/2020 Depression Screening 06/06/2024 Influenza Vaccine (#1) 2025 05/21/2019 Falls Risk Assessment 04/11/2025 04/11/2024 [...] / MET 08/17 # 6 IMPROVE LEFT GRAIN BLENDER FROM 2 TO 10 POUNDS = WITH THE RIGHT/ MET AT 15 POUNDS ON 08/17 Procedures Procedure Name Priority Date/Time Associated Diagnosis Comments GA INJECTION SINGLE TENDON SHEATH OR LIGAMENT APONEUROSIS Routine 11/20/2024 3:45 PM EDT Acquired trigger finger of right little finger GA ARTHROCENTESIS/ASPI RATION/INJECTION SMALL JOINT/BURSA WO U/S GUIDANCE Routine 11/20/2024 3:45 PM EDT Arthritis of carpometacarpal (CMC) joint of right thumb from Last 3 Months Results * GA INJECTION SINGLE TENDON SHEATH OR LIGAMENT APONEUROSIS [...] MD IN CLINIC/BEDSIDE ORDERABLES Final Result * GA ARTHROCENTESIS/ASPIRATION/INJECTION SMALL JOINT/BURSA WO U/S GUIDANCE (11/20/2024 [...] Final Result from Last 3 Months Insurance [facility] MEDICARE Member Subscriber Plan / Payer (Ef fective 2019-Present) Name:Clara Cruz Relation to Subscriber:Self Name:Clara Cruz Payer ID:[id number] Group ID:[id number] Type:Not on file Address: [facility] [address] [id number] Care Teams Behavioral Geneticist Relationship Specialty Start Date End Date Olivia Palmer MD [address] [place] [phone] PCP - General Internal Medicine 04/10/24
--- OUTSIDE RECORDS SUMMARY | 2024-12-24 15:50 | XMS_ITS | Clinical Summary ---
Author Organization [facility] Address [address] [place] [address] Phone Care Team Providers Care Agricultural Adviser Name Role Phone Olivia Andrade MD Primary Care Provider [phone] Allergies Active Allergy Reactions Criticality Noted Date [...] Visit [facility] [address] [place] [phone] Ajith Abel MD [address] [facility] [address] [place] [phone] Health Maintenance Due Date Last Done Comments Pneumococcal Vaccine: 50+ Ye ars (1 of 2 - PCV) 1969 Influenza Vaccine (#1) 2025 Hepatitis B Vaccine Aged Out No longe r eligible based on patient's age to complete this topic Insurance [facility] ([id number]) [facility] ([id number]) Care Teams Agricultural Adviser Relationship Specialty Start Date End Date Olivia Andrade MD [address] [place], [place] PCP - General Internal Medicine 12/08/22
--- OUTSIDE RECORDS SUMMARY | 2024-12-24 15:50 | XMS_ITS | Data Portability ---
Author Organization [employer] [facility], [facility] Address [address] [place] [phone] Care Team Providers Care Securities Trader Name Role Phone HIM CCA OTHER Assessment Encounter Date Assessment Date Assessment LastModified by Organization Details LastModified Time 11/03/2023 11/03/2023 I provided real -time medical direction via phone for this encounter and was available for additional phone-based assistance as needed. I have reviewed and agree with the Assessment and Plan as documented by the Scout Executive. Patient given the opportunity to ask questions. Our service contacted for an assessment of: cough As per above, patient has had a non-productive cough for approx a week. She was seen yesterday by her PCP who preformed tests and started her on an antibiotic. PCP called patient this AM and told her that all the tests were normal. Per sales strategy manager on the scene, Non-toxic. Stable vitals. [...] mg-100 mg/5 mL oral liquid 2023 024 [id number], [address] [facility], [place], [address], 13:18:48 Patient TargetsNo targets recorded. Patient InstructionsNo [...] in Arterial blood by Pulse oximetry Systolic And Diastolic Provider Name and Address Organization Details Last Updated DateTime 4 90 /min 16 /min 64064.8 g 98.9 [degF] 98 % 98 % 105/68 mm[Hg] Not Available [facility] - production 4 [...] SNOMED-CT Code Diagnosis ICD10 Code Diagnosis Note [id number] Migdalia Fisher MD Main - [facility] [address] [place] [phone] 11/03/2023 13:13:58 11/04/2023 10:33:41 Cough 72791360 R05.9 Health Concerns Section Related Observation LastModified by Organization Detai ls LastModified Time None Recorded Concern Status LastModified by Organization Details LastModified Time None Recorded Advance Directives Directive None Recorded Payers Insurance Date Sequence Insurance Name Policy Number Policy Scales Covered Member ID Scales Member ID Guarantor Name 11/03/2023 1 [facility] - DOS ON OR AFTER 2022 - DUAL ELIGIBLE - NURSING HOME OPTIONS AND ONE CARE (MEDICARE REPLACEMENT/ADV ANTAGE - HMO) Clara Carpio [id number] Clara Carpio Notes Date Note Type Note Provider Name and Address Organization Details Recorded Time 11/03/2023 text/html CRC Nurse Triage Notes (Matias Carrasco): Chief Complaints: ENT, Cough, Headache, Syncope/Dizziness/ Lightheadedness, Chest Pain, Nausea/Vomiting Comments: Bartender Helper verified the member's name//address and phone number. Mbr's B2B SALES EXECUTIVE, Jada, calling reporting member started with itchy throat a few days ago. B2B SALES EXECUTIVE reports symptoms have continued to worsen. Mbr now with loss of voice, body aches, headache, stomachache, chills, and sometimes vomiting due to excessive amount of coughing. Mbr also reports pain in chest from coughing. B2B SALES EXECUTIVE reports mbr had Flu, RSV & COVID testing that all came back negative. Education provided on the response time and the member was advised to monitor reported s/s and seek emergency treatment if needed -Michael Carrasco RN .................. .................. .................. .................. .................. .................. .................. ............... Scout Executive Note From Carlo Stewart: Pt co cough. Pt was seen yesterday and RX for augmentin she started today. Pt denies sob cp fever [place] NVD. Baseline vitals assessed. Lungs clear. Pt sts she Covid and flu strep negative, pt sts pcp called today with results. Pt requesting something for her cough. [facility] contacted and RX for benzonatate called in. Pt education on signs indicating the ER. Pt advised to follow up with pcp. .................. .................. .................. .................. .................. .................. .................. ............... Disposition: Parris Fisher MD [address] [facility],[address], [place], [address], [facility] - [employer] 11/03/2023 13:23:00 OBGyn Episode No OBEpisode recorded.
--- OUTSIDE RECORDS SUMMARY | 2024-12-24 15:50 | XMS_ITS | Clinical Summary ---
Author Organization [facility] Address [address] [facility] [address] [place] [phone] Phone Care Team Providers Care Veneer Taping Machine Operator Name Role Phone Olivia Andrade MD Primary Care Provid er Medications No known medications Active Problems No known active problems Social History Tobacco Use Types Packs/Day Years Used Date Smoking Tobacco: Never Assessed Education Answer Date Recorded Are you interested in more education? Not on linn e 10/02/2022 Are you concerned about learning? Not on file 10/02/2022 No 10/02/2022 No 10/02/2022 Digital Access Answer Date Recorded No 10/31/2022 No 10/31/2022 Reliable internet access at home? Not on file 10/31/2022 Device with a working camera? Not on file Comments Unknown Sex and Gender Information Value Date Recorded Sex Assigned at Not on file Legal Sex Female 10:08 AM EDT Gender Identity Not on file Sexual Orientation Not on file Last Filed Vital Signs Vital Sign Reading Time Taken Comments Blood Pressure 111/75 01/27/2021 12:00 PM EDT Pulse 94 01/27/2021 12:00 PM EDT Temperature 37.1 C (98.7 F) 01/27/2021 12:00 PM EDT Respiratory Rate 18 01/27/2021 12:00 PM EDT Oxygen Saturation 98% 01/27/2021 12:00 PM EDT Inhaled Oxygen Concentration - - Weight 70.3 kg (155 lb) 01/27/2021 12:00 PM EDT Height 152.4 cm (5') 01/27/2021 12:00 PM EDT Body Mass Index 30.27 01/27/2021 12:00 PM EDT Plan of Treatment Health Maintenance Due Date Last Done Comments Adult Td,Tdap Booster 1948 LIPID PANEL 1948 DEPRESSION SCREENING 1960 SMOKING Hx and SMOKELESS TOBACCO SCREENING 1961 HEPATITIS C SCREENING 1966 PNEUMOCOCCAL VACCINES (50+ years) (1 of 1 - PCV) 1998 ZOSTER VACCINES (1 of 2) 1998 OSTEOPOROSIS SCREENING INITI AL (ONE-TIME) 2013 RSV VACCINE (1 - 1-dose 75+ series) 2023 COVID-19 VACCINE ( - 2023-2 5 season) 2024 11/17/2021, 10/15/2020, 09/17/2020 HEPATITIS A VACCINES Aged Out No long er eligible based on patient's age to complete this topic HIB VACCINES Aged Out No longer eligi ble based on patient's age to complete this topic MENINGOCOCCAL VACCINES (ACWY) Aged Out No longer eligible based on patient's age to complete this topic MENINGOCOCCAL VACCINES (B) Aged Out N o longer eligible based on patient's age to complete this topic Medical Devices Not on file Insurance MEDICARE REPLACEMENT [employer] [facility] MEDICARE REPLACEMENT MEDICARE REPLACEMENT MEDICARE REPLACEMENT MEDICARE REPLACEMENT MEDICARE REPLACEMENT MEDICARE REPLACEMENT MEDICARE REPLACEMENT MEDICARE REPLACEMENT Care Teams Veneer Taping Machine Operator Relationship Specialty Start Date End Date Olivia Andrade MD [address] [place] [address] PCP - General Internal Medicine 01/27/21 Additional Source Comments The information contained in this document represents components of the legal health record. It is not the complete legal health record.[facility]
== END 2024-12-24 15:57 | disposition home or self-care (01) ==
LOC: HO.PMC 15:15
PROVIDERS: PCP Internal Medicine; Visit Provider Nurse Practitioner Family
DX: M47.816 Spondylosis without myelopathy or radiculopathy, lumbar region (principal); M54.50 Low back pain, unspecified; M79.604 Pain in right leg; M51.369 Other intervertebral disc degeneration, lumbar region without mention of lumbar back pain or lower extremity pain; M48.061 Spinal stenosis, lumbar region without neurogenic claudication; M54.16 Radiculopathy, lumbar region
CPT/HCPCS: 99214; G2211

== ENCOUNTER → 2024-12-24 15:13 | Outpatient (BNVA) | payer OTHER, SELFPAY | PROVIDERS: PCP Internal Medicine; Visit Provider Nurse Practitioner Family | DX: M47.816 Spondylosis without myelopathy or radiculopathy, lumbar region (principal); M51.360 Other intervertebral disc degeneration, lumbar region with discogenic back pain only; M48.061 Spinal stenosis, lumbar region without neurogenic claudication; M54.16 Radiculopathy, lumbar region | CPT/HCPCS: 99212 ==

== ENCOUNTER 2025-01-06 18:31 | Outpatient (REF) | payer OTHER, SELFPAY ==
--- NOTE | ~2025-01-06 | MR_ITS ---
CLINICAL HISTORY: M47.816 - Spondylosis without myelopathy or radiculopathy, lumbar region MR lumbar spine without gadolinium Comparison: MR/AZ/SR - MR LUMBAR SPINE WO CON - 02/11/23 10:31 EDT CR/SR - XR LUMBAR SPINE 6 OR MORE VIEWS INCLUDING BENDING - 08/27/22 12:09 EDT Findings: There is minimal anterolisthesis of L4 on L5 measuring 0.3 cm. No acute fracture or pathologic bone lesion. Multilevel mild spinal canal narrowing. Moderate spinal canal narrowing at L4-L5 similar to exam from 2022 causing mass effect on the cauda equina. Mild multilevel bilateral neural foraminal narrowing. Multilevel disc desiccation and disc bulges. Similar appearance of degenerative changes of the spinous processes of L4 and L5. Multilevel degenerative changes similar to prior exam greatest at L4-L5. Paraspinous musculature intact. Left renal cyst. Multilevel facet arthrosis. Multilevel ligamentum flavum thickening. Left facet effusion at L5-S1. Bilateral facet effusions at L4-L5. IMPRESSION: 1. No MRI evidence of acute osseous findings. 2. Multilevel degenerative changes similar to prior exam greatest at L4-L5. This document has been electronically signed by: Ignacio Pack DO on 01/06/2025 20:22:16
--- OUTSIDE RECORDS SUMMARY | 2025-01-06 18:40 | XMS_ITS | Clinical Summary ---
Author Organization [facility] Address [address] [facility] [address] [place] [phone] Phone Care Team Providers Care Test Clerk Name Role Phone Olivia Andrade MD Primary [...] on file Insurance MEDICARE REPLACEMENT [employer] [facility] MEDICARE REPLACEMENT MEDICARE REPLACEMENT MEDICARE REPLACEMENT MEDICARE REPLACEMENT MEDICARE REPLACEMENT MEDICARE REPLACEMENT MEDICARE REPLACEMENT MEDICARE REPLACEMENT Care Teams Test Clerk Relationship Specialty Start Date End Date Olivia Andrade MD [address] [place] [address] PCP - General Internal Medicine 01/27/21 Additional Source Comments The information contained in this document represents components of the legal health record. It is not the complete legal health record.[facility]
--- OUTSIDE RECORDS SUMMARY | 2025-01-06 18:41 | XMS_ITS | Clinical Summary ---
Author Organization [facility] Address [address] [place] [address] Phone Care Team Providers Care Mortgage Loan Coordinator Name Role Phone Olivia Palmer MD Primary Care Provider [phone] Allergies Active Allergy Reactions Criticality Noted Date Comments Flu Vaccine [id number](36mo,Up) Muscular Issues 03/26/2024 Gabapentin Nausea And Vomiting [...] tablet (50 mg total) by mouth. Active cyclobenzaprine (FLEXERIL) 5 mg tablet Take by mouth. Activ e Active Problems Problem Noted Date Diagnosed Date [...] Encounters Date Type Department Care Team Description 12/28/2024 Telephone Orthopedic Surgery [facility] [address] [facility] [address] [place] [address] Salome Spangler MD Prior Authorization (01/10/25 Dr. Salome Spangler) 11/20/2024 3:45 PM EDT Office Visit Orthopedic Surgery [facility] [address] [facility] [address] [place] [address] Salome Spangler MD Ganglion, tendon [...] 01/08/2025 11:45 AM EDT Consult Orthopedic Surgery - [address] [phone] Salome Spangler MD [address] [phone] 01/10/2025 11:45 AM EDT Hospital Encounter [facility] OR [address] [place] [phone] Salome Spangler MD [address] [place] [phone] 01/10/2025 11:45 AM EDT - 01/10/2025 1:45 PM EDT Surgery [facility] Main OR [address] [place] [phone] Salome Spangler MD [address] [place] [phone] RELEASE TRIGGER FINGER left thumb, excision of volar retinacular ganglion cyst left ring and small fingers [30607 (CPT ) +1 more] 01/21/2025 11:00 AM EDT Office Visit Orthopedic Surgery - [place] [address] [facility] [address] [place] [address] Salome Spangler MD 175 [facility] [address] [place] [address] Scheduled Procedures Name Priority Associated Diagnoses [...] / MET 08/17 # 6 IMPROVE LEFT NANOFABRICATION SPECIALIST FROM 2 TO 10 POUNDS = WITH THE RIGHT/ MET AT 15 POUNDS ON 08/17 Procedures Procedure Name Priority Date/Time Associated Diagnosis Comments CT INJECTION SINGLE TENDON SHEATH OR LIGAMENT APONEUROSIS Routine 11/20/2024 3:45 PM EDT Acquired trigger finger of right little finger CT ARTHROCENTESIS/ASPI RATION/INJECTION SMALL JOINT/BURSA WO U/S GUIDANCE Routine 11/20/2024 3:45 PM EDT Arthritis of carpometacarpal (CMC) joint of right thumb from Last 3 Months Results * CT INJECTION SINGLE TENDON SHEATH OR LIGAMENT APONEUROSIS [...] MD IN CLINIC/BEDSIDE ORDERABLES Final Result * CT ARTHROCENTESIS/ASPIRATION/INJECTION SMALL JOINT/BURSA WO U/S GUIDANCE (11/20/2024 [...] Final Result from Last 3 Months Insurance [facility] MEDICARE Member Subscriber Plan / Payer (Ef fective 2019-Present) Name:Clara Cruz Relation to Subscriber:Self Name:Clara Cruz Payer ID:[id number] Group ID:[id number] Type:Not on file Address: [place] [address] [address] [id number] Care Teams Mortgage Loan Coordinator Relationship Specialty Start Date End Date Olivia Palmer MD [address] [place] [address] PCP - General Internal Medicine 04/10/24
--- OUTSIDE RECORDS SUMMARY | 2025-01-06 18:41 | XMS_ITS | Clinical Summary ---
Author Organization [facility] Address [address] [place] [address] Phone Care Team Providers Care Configuration Engineer Name Role Phone Olivia Andrade MD Primary Care Provider [phone] Allergies Active Allergy Reactions Criticality Noted Date [...] Visit [facility] [address] [place] [address] Ajith Abel MD [address] [facility] [address] [place] [address] Health Maintenance Due Date Last Done Comments Pneumococcal Vaccine: 50+ Ye ars (1 of 2 - PCV) 1967 Influenza Vaccine (#1) 2025 Hepatitis B Vaccine Aged Out No longe r eligible based on patient's age to complete this topic Insurance [facility] ([id number]) [facility] ([id number]) Care Teams Configuration Engineer Relationship Specialty Start Date End Date Olivia Andrade MD [address] [place], [place] PCP - General Internal Medicine 12/08/22
== END 2025-01-06 18:32 | disposition home or self-care (01) ==
LOC: HO.MRI 18:31
PROVIDERS: PCP Internal Medicine; Visit Provider Nurse Practitioner Family
DX: M47.816 Spondylosis without myelopathy or radiculopathy, lumbar region (principal); M54.50 Low back pain, unspecified; M79.604 Pain in right leg; M48.061 Spinal stenosis, lumbar region without neurogenic claudication; M54.16 Radiculopathy, lumbar region
CPT/HCPCS: 72148

== ENCOUNTER → 2025-01-06 18:50 | Outpatient (BNV) | payer OTHER, SELFPAY | PROVIDERS: PCP Internal Medicine; Visit Provider Family Medicine | DX: M47.816 Spondylosis without myelopathy or radiculopathy, lumbar region (principal) | CPT/HCPCS: 72148 ==

== ENCOUNTER 2025-01-17 08:37 | Outpatient (REF) | payer OTHER, SELFPAY ==
--- OUTSIDE RECORDS SUMMARY | 2025-01-17 08:52 | XMS_ITS | Clinical Summary ---
Author Organization [facility] Address [address] [facility] [address] [place] [address] Phone Care Team Providers Care Flight Readiness Technician Name Role Phone Olivia Andrade MD Primary [...] on file Insurance MEDICARE REPLACEMENT JAC R[employer] [facility] MEDICARE REPLACEMENT MEDICARE REPLACEMENT MEDICARE REPLACEMENT MEDICARE REPLACEMENT MEDICARE REPLACEMENT MEDICARE REPLACEMENT MEDICARE REPLACEMENT MEDICARE REPLACEMENT Care Teams Flight Readiness Technician Relationship Specialty Start Date End Date Olivia Andrade MD [address] [place] [address] PCP - General Internal Medicine 01/27/21 Additional Source Comments The information contained in this document represents components of the legal health record. It is not the complete legal health record.[facility]
--- OUTSIDE RECORDS SUMMARY | 2025-01-17 08:52 | XMS_ITS | Clinical Summary ---
Author Organization [facility] Address [address] [place] [address] Phone Care Team Providers Care Employee Relation Manager Name Role Phone Olivia Andrade MD Primary Care Provider [phone] Allergies Active Allergy Reactions Criticality Noted Date [...] [facility] [address] [place] [address] Ajith Abel MD [address] [facility] [address] [place] [address] Health Maintenance Due Date Last Done Comments Pneumococcal Vaccine: 50+ Ye ars (1 of 2 - PCV) 1967 Influenza Vaccine (#1) 2025 Hepatitis B Vaccine Aged Out No longe r eligible based on patient's age to complete this topic Insurance [facility] ([id number]) [facility] ([id number]) Care Teams Employee Relation Manager Relationship Specialty Start Date End Date Olivia Andrade MD [address] [place], [place] PCP - General Internal Medicine 12/08/22
[2025-01-17 09:31] LABS: Anion Gap 11 (12-20); Blood Urea Nitrogen 17 mg/dL (9-16); Calcium 10.3 mg/dL (8.4-10.2); Carbon Dioxide 31 mmol/L (22-29); Chloride 106 mmol/L (96-108); Estimated Glomerular Filt Rate 55; Potassium 5.0 mmol/L (3.3-5.1); Sodium 143 mmol/L (135-145)
== END 2025-01-17 08:38 | disposition home or self-care (01) ==
LOC: HO.LAB 08:37
PROVIDERS: PCP Internal Medicine
DX: I70.0 Atherosclerosis of aorta (principal); E78.5 Hyperlipidemia, unspecified
CPT/HCPCS: 36415; 80048

== ENCOUNTER 2025-02-20 07:12 | Outpatient (REF) | payer OTHER, SELFPAY ==
--- OUTSIDE RECORDS SUMMARY | 2025-02-20 07:15 | XMS_ITS | Clinical Summary ---
Author Organization [facility] Address [address] [place] [address] Phone Care Team Providers Care Mechanical Research Engineer Name Role Phone Olivia Palmer MD Primary Care Provider [phone] Allergies Active Allergy Reactions Criticality Noted Date Comments Flu Vaccine [id number](36mo,Up) Muscular Issues 03/26/2024 Gabapentin Nausea And Vomiting 03/26/2024 Haemophilus Influenzae Type B 2022 Influenza Virus Vaccines 01/21/2025 Pregabalin 01/11/2023 Medications calcium carbonate 1,500 mg (600 mg elemental calcium) tablet Take 600 mg by mouth. Active cholecalciferol (VITAMIN D-3) 50 mcg (2,000 unit) capsule Take 1 Dose by mouth. Active FLUoxetine (PROzac) 10 mg capsule Take 1 capsule (10 mg total) by mouth 1 (one) time each day. Active acetaminophen (TYLENOL) 500 mg tablet Take 1 tablet (500 mg total) by mouth every 8 (eight) hours if needed for mild pain for up to 30 doses. 30 tablet Active cetirizine (ZyrTEC) 10 mg tablet TAKE 1 TABLET ORALLY DAILY NEEDED FOR ALLERGY SYMPTOMS FOR 90 DAYS Active estradioL (ESTRACE) 0.01 % (0.1 mg/gram) vaginal cream USE DIRECTED: 1 GRAM PER VAGINA 3X PER WEEK Active omeprazole (PriLOSEC) [address] capsule Take 1 capsule (40 mg total) by mouth 2 (two) times a day. Active cyclobenzaprine (FLEXERIL) 5 mg tablet Take by mouth. Activ e busPIRone (BUSPAR) 10 mg tablet TAKE 1 TABLET BY MOUTH TWICE A DAY DIRECTED TAKE 20 MINUTES BEFORE EACH MEAL FOR ANXIETY Active dicyclomine (BENTYL) 10 mg capsule Active Linzess 72 mcg capsule Take 1 capsule (72 mcg total) by mouth 1 (one) time each day in the morning. Active magnesium oxide (MAG-OX) 400 mg magnesium tablet Take 1 tablet (400 mg total) by mouth 1 (one) time each day. Active acetaminophen (TYLENOL 8 HOUR) 650 mg 8 hr tablet Take 1 tablet (650 mg total) by mouth every 8 (eight) hours if needed for mild pain. Do not crush, chew, or split. 30 tablet Active Additional Information Patient not taking.Reported on 01/21/2025 oxyCODONE (ROXICODONE) 5 mg immediate release tablet Take 1 tablet (5 mg total) by mouth every 6 (six) hours if needed for severe pain for up to 3 doses. Max Daily Amount: 20 mg 3 tablet Active Additional Information Patient not taking.Reported on 01/21/2025 Active Problems Problem Noted Date Diagnosed Date [...] 03/22/2023 Chronic kidney disease, stage 2 (mild) 3 Gastroesophageal reflux disease 03/21/2023 Hyperkalemia 03/21/2023 Osteopenia 03/21/2023 Encounters Date Type Department Care Team Description 01/21/2025 11:00 AM EDT Office Visit Orthopedic Surgery - [place] [address] [phone] Salome Spangler MD Ganglion, tendon sheath (Primary Dx); Trigger finger of left thumb 01/10/2025 2:00 PM EDT Anesthesia Event [facility] OR [address] [place] [phone] Tenzin Lomax MD Barnes, Tyanna R, CRNA 01/10/2025 11:45 AM EDT - 01/10/2025 1:45 PM EDT Surgery [facility] OR [address] [place] [phone] Salome Spangler MD RELEASE TRIGGER FINGER left thumb, excision of volar retinacular ganglion cyst left ring and small fingers [[id number] (CPT ) +1 more] 01/10/2025 10:06 AM EDT - 01/10/2025 3:43 PM EDT Hospital Encounter [facility] OR [address] [place] [phone] Salome Spangler MD Ganglion, tendon sheath; Trigger finger of left thumb Discharge Disposition: Home or Self Care 01/08/2025 11:45 AM EDT Consult Orthopedic Surgery [facility] [address] [phone] Salome Spangler MD Ganglion, tendon sheath (Primary Dx); Trigger finger of left thumb 12/28/2024 Telephone Orthopedic Surgery [facility] [address] [phone] Salome Spangler MD 11/20/2024 3:45 PM EDT Office Visit Orthopedic [facility] [address] [phone] Salome Spangler MD Ganglion, tendon sheath (Primary Dx); Trigger finger of left thumb; Acquired trigger finger of right little finger; Arthritis of carpometacarpal (CMC) joint of right thumb from Last 3 Months Surgical History Surgery Date Site/Laterality Comments CARPAL TUNNEL RELEASE 2019 OTHER SURGICAL HISTORY FIRST RIB REMOVAL IRIDOTOMY / IRIDECTOMY CARPAL TUNNEL RELEASE 04/11/2024 Left w/ long finger A1 holly release SECTION, LOW TRANSVERSE COLONOSCOPY TUBAL LIGATION TRIGGER FINGER RELEASE 01/10/2025 Left Left thumb A1 holly release GANGLION CYST EXCISION 01/10/2025 Left Volar retinacular ganglion excision left ring finger and small finger Medical History Medical History Date Comments Chronic pain disorder back and h ands Hyperlipidemia GERD (gastroesophageal reflux disease) Colon polyp Chronic constipation Anxiety Depression Social History Tobacco Use Types Packs/Day Years Used Date Smoking Tobacco: Never Smokeless Tobacco: Never Tobacco Cessation:Counseling Given: Not Answered Alcohol Use Standard Drinks/Week Comments Never 0 (1 standard drink = 0.6 oz pur e alcohol) Interpersonal Safety Answer Date Record ed Physical Abuse 01/10/2025 Verbal Abuse 01/10/2025 Comments No Sex and Gender Information Value Date Recorded Sex Assigned at Female 04/11/2024 11:55 AM EST Legal Sex Female 6:14 PM EST Gender Identity Female 04/11/2024 11:55 AM EST Sexual Orientation Straight 04/11/2024 11 :55 AM EST Obstetrics History Last Filed Vital Signs Vital Sign Reading Time Taken Comments Blood Pressure 99/52 01/10/2025 3:23 PM EDT Pulse 103 01/10/2025 3:23 PM EDT Temperature 36.8 C (98.2 F) 01/10/2025 3:10 PM EDT Respiratory Rate 16 01/10/2025 3:10 PM EDT Oxygen Saturation 98% 01/10/2025 3:23 PM EDT Inhaled Oxygen Concentration - - Weight 70.8 kg (156 lb) 01/10/2025 10:20 AM EDT Height 149.9 cm (4' 11 ) 01/10/2025 10:20 AM EDT Body Mass Index 31.51 01/10/2025 10:20 AM EDT Plan of Treatment Health Maintenance Due Date Last Done Comments RSV Immunization Adult Patients (1 - 1-dose 75+ series) 2023 Hepatitis C Screening 07/05/2023 Medicare Annual Wellness Visit 07/05/2023 Osteoporosis Screening (Bone Density Screening) 07/05/2023 Social Influencers of Health Screening 07/05/2023 Zoster Vaccines (2 of 2) 11/16/2023 09/21/2023 Depression Screening 06/06/2024 COVID-19 Vaccine (4 - 2024-2 6 season) 2025 11/17/2021, 10/15/2020, 09/17/2020 Influenza Vaccine (#1) 2025 05/21/2019 Falls Risk Assessment 01/10/2026 01/10/2025 DTaP,Tdap,and Td Vaccines (2 - Td or [...] / MET 08/17 # 6 IMPROVE LEFT PRODUCTION PAINTER FROM 2 TO 10 POUNDS = WITH THE RIGHT/ MET AT 15 POUNDS ON 08/17 Procedures Procedure Name Priority Date/Time Associated Diagnosis Comments TISSUE EXAM Routine 01/10/2025 2:28 PM EDT Ganglion, tendon sheath Trigger finger of left thumb [place] EXCISION LESION TENDON SHEATH/JOINT CAPSULE HAND/FINGER 01/10/2025 2:00 PM EDT Ganglion, tendon sheath Trigger finger of left thumb Case Notes LOCAL W/IV SED; tourniquet for the upper arm, armboard, have lead hand available Special Needs On the stretcher [place] INCISION TENDON SHEATH 01/10/2025 2:00 PM EDT Ganglion, tendon sheath Trigger finger of left thumb Case Notes LOCAL W/IV SED; tourniquet for the upper arm, armboard, have lead hand available Special Needs On the stretcher PROCEDURAL ECG STAT 01/10/2025 11:44 AM EDT [place] INJECTION SINGLE TENDON SHEATH OR LIGAMENT APONEUROSIS Routine 11/20/2024 3:45 PM EDT Acquired trigger finger of right little finger [place] ARTHROCENTESIS/ PIRATION/INJECTIO N SMALL JOINT/BURSA WO U/S GUIDANCE Routine 11/20/2024 3:45 PM EDT Arthritis of carpometacarpal (CMC) joint of right thumb from Last 3 Months Results * Tissue exam (01/10/2025 2:28 PM EDT) Final Diagnosis Left Hand, Fourth Digit, excision: Ganglion cyst. 01/11/2025 3:15 PM EDT [facility] Gross Description A. Hand, Digit Left, volar retinacular ganglion ring finger: Labeled volar ret finger L . Received in formalin are two soft, bueno-white, potentially cystic portions of tissue measuring approximately 0.5 cm in greatest diameter, which are wrapped in paper and submitted in toto in one cassette, two pieces. TS 01/11/2025 3:15 PM EDT [facility] Disclaimer Unless otherwise specified, all tissue is 10% NB formalin fixed and paraffin embedded. 01/11/2025 3:15 PM EDT [facility] Tissue Structure of digit of left hand / Unknown 01/10/2025 2:28 PM EDT 01/10/2025 3:26 PM EDT Salome Spangler MD LAB PATHOLOGY ORDERABLES Caryl l Result Performing Organization Address City/[facility]/ZIP Co de Phone Number [facility] [address] [place] [address], [place] [phone] * ECG 12 lead - Procedural (No Charge) (01/10/2025 11:44 AM EDT) Ventricular Rate ECG 76 BPM GEMUSE Atrial Rate 76 BPM GEMUSE P-R Interval 168 ms GEMUSE QRS Duration 76 ms GEMUSE Q-T Interval 376 ms GEMUSE QTc 423 ms GEMUSE P Wave Kimberly 72 degrees GEMUSE R Kimberly -2 degrees GEMUSE T Kimberly 15 degrees GEMUSE ECG Interpretation Normal sinus rhythm Normal ECG When compared with ECG of 09-APR-2020 07:50, No significant change was found Confirmed by Meka DANGELO JOHN ([id number]) on 01/10/2025 4:53:34 PM GEMUSE 01/10/2025 11:4 4 AM EDT 01/10/2025 4:53 PM EDT Salome Spangler MD ECG ORDERABLES Final Result Performing Organization Address City/[facility]/ZIP Co de Phone Number GEMUSE * [place] INJECTION SINGLE TENDON SHEATH OR LIGAMENT APONEUROSIS (11/20/2024 3:45 PM EDT) Narrative Salome Spangler MD - 11/20/2024 3:45 PM EDT Salome [...] MD IN CLINIC/BEDSIDE ORDERABLES Final Result * [place] ARTHROCENTESIS/ASPIRATION/INJECTION SMALL JOINT/BURSA WO U/S GUIDANCE (11/20/2024 [...] Final Result from Last 3 Months Insurance [facility] MEDICARE Member Subscriber Plan / Payer (Ef fective 2019-Present) Name:Ludwig Cruza Relation to Subscriber:Self Name:Ba Cavazoszarry Clara Payer ID:[id number] Group ID:[id number] Type:Not on file Address: [place] [address] [place] [id number] Advance Directives * Full Code - Default (Latest Code Status on File) Date Activated Date Inactivated Comments 01/10/2025 10:17 AM 01/10/2025 5:53 PM This is order is used when code status has not been discussed with the patient, or code status is otherwise unknown/unconfirmed To update the patient's code status, place a code status order. Do not modify or discontinue any currently active code status orders. Care Teams Mechanical Research Engineer Relationship Specialty Start Date End Date Olivia Palmer MD NPI: [id number] [place] [id number] PCP - General Internal Medicine 04/10/24
--- OUTSIDE RECORDS SUMMARY | 2025-02-20 07:15 | XMS_ITS | Clinical Summary ---
Author Organization [facility] Address [address] [place] [address] Phone Care Team Providers Care Economic Consultant Name Role Phone Olivia Andrade MD Primary Care Provider Allergies Active Allergy Reactions Criticality Noted Date [...] Care Team (Late st Contact Info) Description 02/24/2025 Orders Only [facility] [address] [place] [phone] Ajith Abel MD [address] [facility] [address] [place] [phone] Chronic kidney disease, stage 2 (mild) 04/01/2025 2:30 PM EDT Office Visit [facility] [address] [place] [phone] Ajith Abel MD [address] [facility] [address] [place] [address] Health Maintenance Due Date Last Done Comments Pneumococcal Vaccine: 50+ Ye ars (1 of 2 - PCV) 1969 Influenza Vaccine (#1) 2025 Hepatitis B Vaccine Aged Out No longe r eligible based on patient's age to complete this topic Insurance [facility] MCR ([id number]) [facility] MCR ([id number]) Care Teams Economic Consultant Relationship Specialty Start Date End Date Olivia Andrade MD [address] [place], [place] PCP - General Internal Medicine 12/08/22
--- OUTSIDE RECORDS SUMMARY | 2025-02-20 07:15 | XMS_ITS | Clinical Summary ---
Author Organization [facility] Address [address] [facility] [address] [place] [phone] Phone Care Team Providers Care Snow Removing Supervisor Name Role Phone Olivia Andrade MD [...] VACCINE (1 - 1-dose 75+ series) 2023 INFLUENZA VACCINE (#1) 2025 05/21/2019 COVID-19 VACCINE ( - 2024-2 6 season) 2025 11/17/2021, 10/15/2020, 09/17/2020 HEPATITIS A VACCINES Aged [...] on file Insurance MEDICARE REPLACEMENT [place] [id number] MEDICARE REPLACEMENT MEDICARE REPLACEMENT MEDICARE REPLACEMENT MEDICARE REPLACEMENT MEDICARE REPLACEMENT Member Subscriber Plan / Payer (Ef fective 2019-Present) Name:Clara Cosme Relation to Subscriber:Self Name:Ba Clara Payer ID:[id number] (NAIC) Group ID:[facility] [place] Type:Medicare Address: [address] [place] [id number] MEDICARE REPLACEMENT MEDICARE REPLACEMENT [facility] [employer] MEDICARE REPLACEMENT [place] [id number] Care Teams Snow Removing Supervisor Relationship Specialty Start Date End Date Olivia Andrade MD [address] [place] [address] PCP - General Internal Medicine 01/27/21 Additional Source Comments The information contained in this document represents components of the legal health record. It is not the complete legal health record.[facility]
[2025-02-20 08:12] LABS: Alanine Aminotransferase 20 U/L (0-31); Albumin Level 4.0 g/dL (3.5-5.0); Alkaline Phosphatase 84 U/L (39-117); Aspartate Amino Transferase 28 U/L (5-31); Cholesterol 144 mg/dL (<200); HDL Cholesterol 57 mg/dL (>40); Total Protein 6.8 g/dL (6.5-8.0); Triglycerides 121 mg/dL (<150)
[2025-02-20 09:34] LABS: Anion Gap 10 (12-20); Blood Urea Nitrogen 14 mg/dL (9-16); Calcium 9.6 mg/dL (8.4-10.2); Carbon Dioxide 27 mmol/L (22-29); Chloride 109 mmol/L (96-108); Estimated Glomerular Filt Rate > 60; Potassium 4.0 mmol/L (3.3-5.1); Sodium 142 mmol/L (135-145)
== END 2025-02-20 07:13 | disposition home or self-care (01) ==
LOC: HO.LAB 07:12
DX: R07.2 Precordial pain (principal); E78.5 Hyperlipidemia, unspecified
CPT/HCPCS: 36415; 80048; 80061; 80076

== ENCOUNTER 2025-03-11 14:41 | Outpatient (AMB) | payer OTHER, SELFPAY ==
[2025-03-11 14:59] VITALS: BP 90/52; PULSE 79; BMI 32.1
--- NOTE | 2025-03-11 14:59 | A.OFFVIS_ITS ---
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 Helper Present Allergies gabapentin Allergy (Intermediate, Verified 03/11/25 15:01) somnolence pregabalin Allergy (Intermediate, Verified 03/11/25 15:01) somnolence Influenza Virus Vaccines Adverse Reaction (Intermediate, Verified 03/11/25 15:01) Throat pain Medication List - Last Reconciled 03/11/25 by HOLLY Abreu acetaminophen 500 mg PO Q6H PRN 30 days [adult diapers pull-ups As directed] buspirone 5 mg PO BID cetirizine (Zyrtec) 10 mg PO DAILY cholecalciferol (vitamin D3) (Vitamin D3) 50 mcg PO DAILY 90 days cyclobenzaprine 5 mg PO BEDTIME PRN dicyclomine 10 mg PO QID PRN diphenhydramine HCl (Benadryl Allergy) 50 mg PO BID fluoxetine 10 mg PO DAILY latex gloves (Latex Gloves, Large) As directed linaclotide (Linzess) 72 mcg PO QAM magnesium aspart,citrate,oxide 400 mg PO DAILY 90 days mupirocin 2% 1 appl topical BID 2 weeks omeprazole 40 mg PO DAILY [over bed table As directed] rosuvastatin 5 mg PO DAILY underpads (Bed Underpads) Use 1 to 4 bed underpads once a day prn [wipes flushable As directed] HPI HPI f/up-cta 02/21: Details: Clara is a 74-year-old female with past medical history of chronic kidney disease, hyperlipidemia, heart palpitations, prior reports of chest discomfort who recently underwent a CTA of the coronary arteries and now presents for follow-up. Today she reports she has been having some issues with lightheadedness. When her blood pressure is low she notices her heart is going faster. No presyncope, syncope, falls. Ambulates with a walker. No chest discomfort at rest or with activity. No shortness of breath, PND, orthopnea or edema. Tries to increase her fluid intake. Takes meds as directed. 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 [facility] Medical History Upper abdominal pain Well woman exam Family history of diabetes mellitus Muscle cramps Physical exam Muscle spasm of back H. pylori infection Adult general medical exam Physical exam Obesity (BMI 30-39.9) Osteopenia Pure hypercholesterolemia Hyperkalemia Depression with anxiety Insomnia Hypovitaminosis D Anxiety Hair loss Arm paresthesia, right CKD (chronic kidney disease), stage III Trigger finger Carpal tunnel syndrome Neuropathy Surgical History Hx of blepharoplasty Hx of hand surgery History of carpal tunnel release Hx of colonoscopy Hx of breast reduction, elective History of surgery History of section H/O exploratory laparotomy History of tubal ligation History of cataract surgery Family History Father Prostate cancer Mother No problems noted. Family/Other FH: mental illness Hypertension Tachycardia Maternal Aunt No problems noted. 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 Cognitive needs: No Hearing needs: No Vision needs: No Female Reproductive History Menstrual Age of Menarche: 11 Review of Systems Const All systems reviewed & are unremarkable except as noted in HPI and below ENT Reports dizziness Card Denies chest pain, Denies chest pain at rest, Denies chest pain with activity, Reports rapid heart rate, Denies pedal edema, Denies edema, Denies leg edema, Denies lightheadedness, Denies palpitations, Denies dyspnea, Denies dyspnea on exertion and Denies orthopnea Resp Denies cough, Denies dyspnea and Denies dyspnea on exertion GI Denies hematochezia and Denies change in stool character Musc Denies abnormal gait, Denies limited range of motion, Denies muscle cramps, Denies muscle weakness, Denies numbness, Denies radiating pain into limb, Denies stiffness and Denies tingling Neuro Denies abnormal gait, Reports dizziness, Denies numbness and Denies tingling Endo Denies palpitations Physical Exam Vital Signs: Last Vital Signs Pulse 79 03/11/25 14:59 BP 90/52 L 03/11/25 14:59 BMI result Body Mass Index 32.1 Const General: cooperative, healthy appearing, comfortable and no acute distress Orientation/consciousness: patient oriented x3 Neck Neck: Yes normal visual inspection Resp Effort & Inspection: normal respiratory effort Auscultation: clear to auscultation bilaterally, no crackles, no rales, no rhonchi and no wheezes Cardio Rate: regular rate Rhythm: regular rhythm Heart sounds: S1 normal heart sound present, S2 normal heart sound present, no gallops, no murmurs and no rubs Neuro General: patient oriented x3 Extrem General: Yes normal to inspection, No no pedal edema and No calf tenderness Psych Appearance: grossly normal Mental Status: mental status grossly normal Speech and movement: Normal speech and movement present Assessment & Plan Assessment & Plan (1) Arterial hypotension: Code(s): I95.9 - Hypotension, unspecified Category: Medical Qualifiers: Hypotension type: idiopathic hypotension Qualified Code(s): I95.0 - I diopathic hypotension Plan: Blood pressure running low today. She reports symptoms of lightheadedness and elevated pulse rates when her blood pressure is low. She is not on any antihypertensives. Labs 02/20/2025 showed potassium 4.0, creatinine 0.83. Instructed to increase fluids up to 64 in daily, add salt to her diet. Suggested Gatorade 3 times weekly. Use caution going sitting to standing. Will update echocardiogram. Cardiology follow-up 3 months, sooner if needed. (2) Heart palpitations: Code(s): R00.2 - Palpitations Category: Medical Plan: Tells me her heartbeats faster when her blood pressure is low. Pulse rate is normal today. EKG done 01/10/2025 showed normal sinus rhythm, rate 76, normal FL, QRS and QTC intervals. A Holter monitor done 01/17/2023 showed frequent PVCs, 4.26%. - will plan to re-evaluate symptom next visit. (3) Pure hypercholesterolemia: Code(s): E78.00 - Pure hypercholesterolemia, unspecified Category: Medical Plan: [place] LDL goal less than 100. Labs done 02/20/2025 showed LDL 63. Continue rosu vastatin. (4) Precordial chest pain: Code(s): R07.2 - Precordial pain Category: Medical Plan: Prior reports of chest discomfort. Currently only with musculoskeletal complaints. A CTA of the coronary arteries done 02/28/2025 shows no coronary artery disease. Offered reassurance. Plan Time spent on chart review, documentation, interview and assessment Coding Level of Care Code Est Pt Level 4 (74379) Complex EM visit Add On G2211 Diagnoses Idiopathic hypotension I95.0 Hypotension type: idiopathic hypotension Heart palpitations R00.2 Pure hypercholesterolemia E78.00 Precordial chest pain R07.2 Time Spent (min) 28
--- OUTSIDE RECORDS SUMMARY | 2025-03-11 17:08 | XMS_ITS | Clinical Summary ---
Author Organization [facility] Address [address] [facility] [address] [place] [phone] Phone Care Team Providers Care C4 Planner Name Role Phone Olivia Andrade MD Primary [...] on file Insurance MEDICARE REPLACEMENT [place] [id number] MEDICARE REPLACEMENT MEDICARE REPLACEMENT MEDICARE REPLACEMENT MEDICARE REPLACEMENT MEDICARE REPLACEMENT MEDICARE REPLACEMENT MEDICARE REPLACEMENT [facility] [facility] MEDICARE REPLACEMENT [place] [id number] Care Teams C4 Planner Relationship Specialty Start Date End Date Olivia Andrade MD [address] [place] [address] PCP - General Internal Medicine 01/27/21 Additional Source Comments The information contained in this document represents components of the legal health record. It is not the complete legal health record.[facility]
--- OUTSIDE RECORDS SUMMARY | 2025-03-11 17:08 | XMS_ITS | Clinical Summary ---
Author Organization [facility] Address [address] [place] [address] Phone Care Team Providers Care Merchandise Coordinator Name Role Phone Olivia Palmer MD Primary Care Provider [phone] Allergies Active Allergy Reactions Criticality Noted Date Comments Flu Vaccine [id number](36mo,Up) Muscular Issues 03/26/2024 Gabapentin Nausea And Vomiting [...] AM EDT Office Visit Orthopedic Surgery - [place] [address] [facility] [address] [place] [address] Salome Spangler MD Ganglion, tendon sheath (Primary Dx); Trigger finger of left thumb 01/10/2025 2:00 PM EDT Anesthesia Event [facility] OR [address] [place] [phone] Tenzin Lomax MD Barnes, Tyanna R, CRNA 01/10/2025 11:45 AM EDT - 01/10/2025 1:45 PM EDT Surgery [facility] OR [address] [place] [phone] Salome Spangler MD RELEASE TRIGGER FINGER left thumb, excision of volar retinacular ganglion cyst left ring and small fingers [[id number] (CPT ) +1 more] 01/10/2025 10:06 AM EDT - 01/10/2025 3:43 PM EDT Hospital Encounter [facility] OR [address] [place] [phone] Salome Spangler MD Ganglion, tendon sheath; Trigger finger of left thumb Discharge Disposition: Home or Self Care 01/08/2025 11:45 AM EDT Consult Orthopedic Surgery [facility] [address] [facility] [address] [place] [phone] Salome Spangler MD Ganglion, tendon sheath (Primary Dx); Trigger finger of left thumb 12/28/2024 Telephone Orthopedic Surgery [facility] [address] [facility] [address] [place] [address] Salome Spangler MD from Last 3 Months Surgical History Surgery Date Site/Laterality Comments CARPAL TUNNEL RELEASE Right 2020 OTHER SURGICAL HISTORY FIRST RIB REMOVAL IRIDOTOMY [...] Safety Answer Date Record ed Physical Abuse Unrecognized value 01/10/2025 Verbal Abuse Unrecognized value 01/10/2025 Comments No Sex and Gender Information [...] / MET 08/17 # 6 IMPROVE LEFT TAX 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 FROM 2 TO 10 POUNDS = WITH THE RIGHT/ MET AT 15 POUNDS ON 08/17 Procedures Procedure Name Priority Date/Time Associated Diagnosis Comments TISSUE EXAM Routine 01/10/2025 2:28 PM EDT Ganglion, tendon sheath Trigger finger of left thumb ID EXCISION LESION TENDON SHEATH/JOINT CAPSULE HAND/FINGER 01/10/2025 2:00 PM EDT Ganglion, tendon sheath Trigger finger of left thumb Case Notes LOCAL W/IV SED; tourniquet for the upper arm, armboard, have lead hand available Special Needs On the stretcher ID INCISION TENDON SHEATH 01/10/2025 2:00 PM EDT Ganglion, tendon sheath Trigger finger of left thumb Case Notes LOCAL W/IV SED; tourniquet for the upper arm, armboard, have lead hand available Special Needs On the stretcher PROCEDURAL ECG STAT 01/10/2025 11:44 AM EDT from Last 3 Months Results * Tissue exam (01/10/2025 2:28 PM EDT) Final Diagnosis Left Hand, Fourth Digit, excision: Ganglion cyst. 01/11/2025 3:15 PM EDT [facility] Gross Description A. Hand, Digit Left, volar retinacular ganglion ring finger: Labeled volar ret finger L . Received in formalin are two soft, bueno-white, potentially cystic portions of tissue measuring approximately 0.5 cm in greatest diameter, which are wrapped in paper and submitted in toto in one cassette, two pieces. TS 01/11/2025 3:15 PM EDT [facility] Disclaimer Unless otherwise specified, all tissue is 10% NB formalin fixed and paraffin embedded. 01/11/2025 3:15 PM EDT [facility] Tissue Structure of digit of left hand / Unknown 01/10/2025 2:28 PM EDT 01/10/2025 3:26 PM EDT us Salome Spangler MD LAB PATHOLOGY ORDERABLES Caryl davis Result [facility] [address] [place] [address], * ECG 12 lead - Procedural (No Charge) (01/10/2025 11:44 AM EDT) Ventricular Rate ECG 76 BPM GEMUSE Atrial Rate 76 BPM GEMUSE P-R Interval 168 ms GEMUSE QRS Duration 76 ms GEMUSE Q-T Interval 376 ms GEMUSE QTc 423 ms GEMUSE P Wave [place] 72 degrees GEMUSE R [place] -2 degrees GEMUSE T [place] 15 degrees GEMUSE ECG Interpretation Normal sinus rhythm Normal ECG When compared with ECG of 09-APR-2020 07:50, No significant change was found Confirmed by Meka DANGELO JOHN ([id number]) on 01/10/2025 4:53:34 PM GEMUSE 01/10/2025 11:4 4 AM EDT 01/10/2025 4:53 PM EDT Salome Spangler MD ECG ORDERABLES Final Result GEMUSE from Last 3 Months Insurance [facility] [employer] Member Subscriber Plan / Payer (Ef fective 2019-Present) Name:Clara Cruz Relation to Subscriber:Self Name:Ba Clara Carpio Payer ID:[id number] Group ID:[id number] Type:Not on file Address: [place] [address] [address] [id number] Advance Directives * Full Code - Default [...] currently active code status orders. Care Teams Merchandise Coordinator Relationship Specialty Start Date End Date Olivia Palmer MD [address] [place] [address] PCP - General Internal Medicine 04/10/24
--- OUTSIDE RECORDS SUMMARY | 2025-03-11 17:08 | XMS_ITS | Clinical Summary ---
Author Organization [facility] Address [address] [place] [address] Phone Care Team Providers Care Project Internship Name Role Phone Olivia Andrade MD Primary Care Provider [phone] Allergies Active Allergy Reactions Criticality Noted Date [...] kidney disease, stage 2 (mild) Osteopenia 03/21/2023 Encounters Date Type Department Care Team Description 02/24/2025 Orders Only [facility] [address] [place] [address] Ajith Abel MD Chronic kidney disease, stage 2 (mild) from Last 3 Months Family History Medical History Relation Comments Cancer [...] Visit [facility] [address] [place] [address] Ajith Abel MD [address] [address] Health Maintenance Due Date Last Done Comments Pneumococcal Vaccine: 50+ Ye ars (1 of 2 - PCV) 1967 Influenza Vaccine (#1) 2025 Hepatitis B Vaccine Aged Out No longe r eligible based on patient's age to complete this topic [place] [address] ([id number]) [place] [address] ([id number]) Care Teams Project Internship Relationship Specialty Start Date End Date Olivia Andrade MD [address] [place] PCP - General Internal Medicine 12/08/22
== END 2025-03-11 15:34 | disposition home or self-care (01) ==
LOC: HO.HCS 14:41
PROVIDERS: PCP Internal Medicine; Visit Provider Nurse Practitioner Family
DX: I95.0 Idiopathic hypotension (principal); R00.2 Palpitations; E78.00 Pure hypercholesterolemia, unspecified; R07.2 Precordial pain
CPT/HCPCS: 99214; G2211

== ENCOUNTER → 2025-03-11 14:41 | Outpatient (BNVA) | payer OTHER, SELFPAY | PROVIDERS: PCP Internal Medicine; Visit Provider Nurse Practitioner Family | DX: I95.0 Idiopathic hypotension (principal); R00.2 Palpitations; R07.2 Precordial pain; E78.00 Pure hypercholesterolemia, unspecified | CPT/HCPCS: 99212 ==

== ENCOUNTER → 2025-04-05 14:53 | Outpatient (REF) | payer OTHER, SELFPAY ==
--- NOTE | 2025-04-05 14:56 | CA_ITS ---
Transthoracic Echocardiogram Patient (Last, First, Middle): Clara Cruz, Gender: Female Date of : 1950 Age: 75 Procedure Date: 04/05/2025 Procedure Type: Transthoracic Echocardiogram Location: OP Height: 152.4 cm Weight: 71.67 kg BSA: 1.69 m2 Heart Rate: bpm BP: 95 / 55 mmHg Nurse Manager: SUNNY Referring MD: Chelsea Larson OPERATOR LIGHTS-C Symptoms: I95.0 - Idiopathic hypotension Study Quality: Good ECG Rhythm: Sinus Conclusions: - The left ventricular systolic function is low normal. The visually estimated ejection fraction is between 50-55%. - No obvious valvular pathology seen on this study. Findings Left Ventricle Normal left ventricular cavity size. There is normal left ventricular wall thickness. The left ventricular systolic function is low normal. The visually estimated ejection fraction is between 50-55%. There is no evidence of regional wall motion abnormalities. Evidence suggests grade I (mild) diastolic dysfunction. Right Ventricle Normal right ventricular cavity size. There is low normal right ventricular systolic function. Atria Both atria are normal in size. Aortic Valve There is a normal trileaflet aortic valve. There is no aortic valve stenosis. There is no aortic valve regurgitation. Mitral Valve The mitral valve appears normal. There is no mitral valve regurgitation. There is no mitral valve stenosis. Pulmonic Valve There is mild pulmonic valve regurgitation. Tricuspid Valve Normal tricuspid valve structure. There is mild tricuspid valve regurgitation. There is no evidence of pulmonary hypertension. Great Vessels The asc aorta is normal in size. Venous The inferior vena cava is normal in size and collapses greater than 50% with inspiration. Pericardium/Pleural There is no evidence of pericardial effusion. Prior Study Comparison No significant change compared to prior study dated: 10/15/2022. Recommendations, Care & Conclusions No obvious valvular pathology seen on this study. Measurements 2D Linear Measurements IVSd: 0.66 0.6-0.9/0.6-1.0 cm LVIDd: 4.44 3.9-5.3/4.2-5.9 cm LVIDd Index: 2.63 2.4-3.2/2.2-3.1 cm/m2 LVIDs: 2.98 2.0-3.6 cm LVPWd: 0.70 0.7-1.1 cm Ao Root: 2.90 2.1-3.5 cm LA Diam: 2.90 2.7-3.8/3.0-4.0 cm LAIDs Index: 1.72 1.5-2.3 cm/m2 LV Mass: 111.57 67-162/88-224 g LV Mass Index: 66.02 43-95/49-115 g/m2 LVOT Diam: 2.00 3.0+(-)1.3 cm 2D Systolic Function EF 4C: 49.50 >55% EF 2C: 58.50 >55% EF BiP: 52.90 >55% Mitral Valve MV Pk E: 0.63 MV PK A: 1.01 MV Decel Time: 162.00 E/A: 0.60 E'Lateral: 6.20 E'Medial: 5.22 E/E' Med: 12.10 E/E' Lat: 10.20 PHT: 47.00 MVA PHT: 4.68 Decel [place]: 3.90 Aortic Valve AoV Pk Galileo: 1.25 AoV Mn Galileo: 0.83 AoV VTI: 0.30 AoV Pk Grad: 6.00 Aov Mn Grad: 3.00 TRINA Cont.VTI: 1.85 LVOT LVOT Pk Galileo: 0.84 LVOT Mn Galileo: 0.54 LVOT VTI: 0.18 LVOT Pk Grad: 3.00 LVOT Mn Grad: 1.00 LVOT Diam: 2.00 LVOT Area: 3.14 Diastolic Function MV Pk E: 0.63 MV Pk A: 1.01 E/A: 0.60 E'Medial: 5.22 E/E' Med: 12.10 E' Laterial: 6.20 E/E' Lat: 10.20 Right Ventricle TAPSE (mm): 19.00 TVS' Galileo: 9.00 Tricuspid Valve TR Pk Galileo: 2.24 TR Pk Grad: 20.00 RA Press: 3.00 RVSP: 23.00 Great Vessels Aorta Ao Root-2D: 2.90 2.0-3.7 cm Ao Asc: 3.00 2.1-3.4 cm Pulmonary Valve PV Pk Galileo: 0.80 Peak PV Grad: 3.00 Updated in Other Vendor System with Status of Final Charles Jean MD electronically signed on 04/06/2025 1:58:34 PM with status of Final
--- OUTSIDE RECORDS SUMMARY | 2025-04-05 15:20 | XMS_ITS | Clinical Summary ---
Author Organization [facility] Address [address] [place] [address] Phone Care Team Providers Care Senior Case Manager Name Role Phone Olivia Palmer MD Primary Care Provider [phone] Allergies Active Allergy Reactions Criticality Noted Date Comments Flu Vaccine [id number](36mo,Up) Muscular Issues 03/26/2024 Gabapentin Nausea And Vomiting [...] AM EDT Office Visit Orthopedic Surgery - [place] 175 [facility] [address] [place] [phone] Salome Spangler MD Ganglion, tendon sheath (Primary Dx); Trigger finger of left thumb 01/10/2025 2:00 PM EDT Anesthesia Event [facility] OR [address] [place] [phone] Tenzin Lomax MD Barnes, Tyanna R, CRNA 01/10/2025 11:45 AM EDT - 01/10/2025 1:45 PM EDT Surgery [facility] OR [address] [place] [phone] Salome Spangler MD RELEASE TRIGGER FINGER left thumb, excision of volar retinacular ganglion cyst left ring and small fingers [[id number] (CPT ) +1 more] 01/10/2025 10:06 AM EDT - 01/10/2025 3:43 PM EDT Hospital Encounter [facility] OR [address] [place] [phone] Salome Spangler MD Ganglion, tendon sheath; Trigger finger of left thumb Discharge Disposition: Home or Self Care 01/08/2025 11:45 AM EDT Consult Orthopedic Surgery [address] [phone] Salome Spangler MD Ganglion, tendon sheath (Primary Dx); Trigger finger of left thumb from Last 3 Months Surgical History [...] / MET 08/17 # 6 IMPROVE LEFT SKI PATROL FROM 2 TO 10 POUNDS = WITH THE RIGHT/ MET AT 15 POUNDS ON 08/17 Procedures Procedure Name Priority Date/Time Associated Diagnosis Comments TISSUE EXAM Routine 01/10/2025 2:28 PM EDT Ganglion, tendon sheath Trigger finger of left thumb VA EXCISION LESION TENDON SHEATH/JOINT CAPSULE HAND/FINGER 01/10/2025 2:00 PM EDT Ganglion, tendon sheath Trigger finger of left thumb Case Notes LOCAL W/IV SED; tourniquet for the upper arm, armboard, have lead hand available Special Needs On the stretcher VA INCISION TENDON SHEATH 01/10/2025 2:00 PM EDT [...] excision: Ganglion cyst. 01/11/2025 3:15 PM EDT [facility] Gross Description A. Hand, Digit Left, volar retinacular ganglion ring finger: Labeled volar ret finger L . Received in formalin are two soft, bueno-white, potentially cystic portions of tissue measuring approximately 0.5 cm in greatest diameter, which are wrapped in paper and submitted in toto in one cassette, two pieces. TS 01/11/2025 3:15 PM EDT [facility] Disclaimer Unless otherwise specified, all tissue is 10% NB formalin fixed and paraffin embedded. 01/11/2025 3:15 PM EDT [facility] Tissue Structure of digit of left hand / Unknown 01/10/2025 2:28 PM EDT 01/10/2025 3:26 PM EDT Salome Spangler MD LAB PATHOLOGY ORDERABLES Caryl susan Result [facility] [address] [place] [address], * ECG 12 lead - Procedural (No Charge) (01/10/2025 11:44 AM EDT) Ventricular Rate ECG 76 BPM GEMUSE Atrial Rate 76 BPM GEMUSE P-R Interval 168 ms GEMUSE QRS Duration 76 ms GEMUSE Q-T Interval 376 ms GEMUSE QTc 423 ms GEMUSE P Wave [place] 72 degrees GEMUSE R [place] -2 degrees GEMUSE T [place] 15 degrees GEMUSE ECG Interpretation Normal sinus rhythm Normal ECG When compared with ECG of 09-APR-2020 07:50, No significant change was found Confirmed by Meka DANGELO JOHN ([id number]) on 01/10/2025 4:53:34 PM GEMUSE 01/10/2025 11:4 4 AM EDT 01/10/2025 4:53 PM EDT us Salome Spangler MD ECG ORDERABLES Final Result [facility] from Last 3 Months Insurance [facility] MEDIC[facility] Member Subscriber Plan / Payer (Ef fective 2019-Present) Name:Clara Cruz Relation to Subscriber:Self Name:Clara Cruz Payer ID:[id number] Group ID:[id number] Type:Not on file Address: [place] [address] [address] [id number] Advance Directives * Full Code - Default [...] currently active code status orders. Care Teams Senior Case Manager Relationship Specialty Start Date End Date Olivia Palmer MD [address] [place] [address] PCP - General Internal Medicine 04/10/24
--- OUTSIDE RECORDS SUMMARY | 2025-04-05 15:20 | XMS_ITS | Data Portability ---
Author Organization [address] [facility] [place] [facility] Address [address] [place] [phone] Care Team Providers Care Legislative Analyst Name Role Phone HIM CCA OTHER Assessment Encounter Date Assessment Date Assessment LastModified by Organization Details LastModified Time 11/03/2023 11/03/2023 I provided real -time medical direction via phone for this encounter and was available for additional phone-based assistance as needed. I have reviewed and agree with the Assessment and Plan as documented by the Vaccine Key Customer Leader. Patient given the opportunity to ask questions. Our service contacted for an assessment of: cough As per above, patient has had a non-productive cough for approx a week. She was seen yesterday by her PCP who preformed tests and started her on an antibiotic. PCP called patient this AM and told her that all the tests were normal. Per skin tanner on the scene, Non-toxic. Stable vitals. No [...] mg-100 mg/5 mL oral liquid 2023 024 [facility][id number], [address] [facility], [place], [address], 13:18:48 Patient TargetsNo targets recorded. Patient InstructionsNo [...] Updated DateTime 4 90 /min 16 /min 45992.8 g 98.9 [degF] 98 % 98 % [...] Diagnosis SNOMED-CT Code Diagnosis ICD10 Code Diagnosis IMO Codes Diagnosis Note [id number] Migdalia Fisher MD Main - [facility] [address] [place] [phone] 11/03/2023 13:13:58 11/04/2023 10:33:41 Cough 83236501 R05.9 Health Concerns Section Related Observation LastModified by Organization Detai ls LastModified Time None Recorded Concern Status LastModified by Organization Details LastModified Time None Recorded Advance Directives Directive None Recorded Payers Insurance Date Sequence Insurance Name Policy Number Policy Scales Covered Member ID Scales Member ID Guarantor Name 11/03/2023 1 [facility] - DOS ON OR AFTER 2022 - DUAL ELIGIBLE - [employer] AND ONE CARE (MEDICARE REPLACEMENT/ADV ANTAGE - HMO) Clara Carpio [id number] Clara Carpio Notes Date Note Type Note Provider Name and Address Organization Details Recorded Time 11/03/2023 text/html CRC Nurse Triage Notes (Matias Carrasco): Chief Complaints: ENT, Cough, Headache, Syncope/Dizziness/ Lightheadedness, Chest Pain, Nausea/Vomiting Comments: Concrete Finisher Apprentice verified the member's name//address and phone number. Mbr's SEISMOGRAPH RECORDER, Jada, calling reporting member started with itchy throat a few days ago. SEISMOGRAPH RECORDER reports symptoms have continued to worsen. Mbr now with loss of voice, body aches, headache, stomachache, chills, and sometimes vomiting due to excessive amount of coughing. Mbr also reports pain in chest from coughing. SEISMOGRAPH RECORDER reports mbr had Flu, RSV & COVID testing that all came back negative. Education provided on the response time and the member was advised to monitor reported s/s and seek emergency treatment if needed -Michael Carrasco RN .................. .................. .................. .................. .................. .................. .................. ............... Vaccine Key Customer Leader Note From Carlo Stewart: Pt co cough. Pt was seen yesterday and RX for augmentin she started today. Pt denies sob cp fever [place] NVD. Baseline vitals assessed. Lungs clear. Pt sts she Covid and flu strep negative, pt sts pcp called today with results. Pt requesting something for her cough. [facility] contacted and RX for benzonatate called in. Pt education on signs indicating the ER. Pt advised to follow up with pcp. .................. .................. .................. .................. .................. .................. .................. ............... Disposition: Parris Fisher MD [address] [facility],[address], [place], [address], LAYNE - Togethera STEPHANIE 11/03/2023 13:23:00 OBGyn Episode No OBEpisode recorded.
--- OUTSIDE RECORDS SUMMARY | 2025-04-05 15:20 | XMS_ITS | Clinical Summary ---
Author Organization [facility] Address [address] [facility] [address] [place] [phone] Phone Care Team Providers Care Sales Analytics Manager Name Role Phone Olivia Andrade MD [...] on file Insurance MEDICARE REPLACEMENT [place] [id number] MEDICARE REPLACEMENT MEDICARE REPLACEMENT MEDICARE REPLACEMENT MEDICARE REPLACEMENT MEDICARE REPLACEMENT MEDICARE REPLACEMENT MEDICARE REPLACEMENT [facility] [employer] MEDICARE REPLACEMENT [place] [id number] Care Teams Sales Analytics Manager Relationship Specialty Start Date End Date Olivia Andrade MD [address] [place] [address] PCP - General Internal Medicine 01/27/21 Additional Source Comments The information contained in this document represents components of the legal health record. It is not the complete legal health record.[facility]
== END ==
LOC: HO.CARD 14:53
PROVIDERS: PCP Internal Medicine; Visit Provider Nurse Practitioner Family
DX: I95.0 Idiopathic hypotension (principal); R00.2 Palpitations
CPT/HCPCS: 93306

== ENCOUNTER → 2025-04-05 14:56 | Outpatient (BNV) | payer OTHER, SELFPAY | PROVIDERS: PCP Internal Medicine; Visit Provider Internal Medicine | DX: I95.0 Idiopathic hypotension (principal); I37.1 Nonrheumatic pulmonary valve insufficiency; I36.1 Nonrheumatic tricuspid (valve) insufficiency | CPT/HCPCS: 93306 ==

== ENCOUNTER 2025-04-30 15:39 | Outpatient (AMB) | payer OTHER, SELFPAY ==
--- NOTE | 2025-04-30 15:51 | MHC.OFFVIS ---
Vital Signs 04/30/25 15:52 Height 4 ft 11 in Weight 159 lb BMI 32.1 BP 111/56 L Blood Pressure Location Lt brachial Position Sitting Pulse 96 Intake Visit Reasons: 6 mo f/u Intake Note: Patient 6 month follow up Patient cc: acid reflux at night time, and constipation Assistant Track And Field Coach Required: No Accompanied by: Family/Other Allergies gabapentin Allergy (Intermediate, Verified 04/30/25 15:51) somnolence pregabalin Allergy (Intermediate, Verified 04/30/25 15:51) somnolence Influenza Virus Vaccines Adverse Reaction (Intermediate, Verified 04/30/25 15:51) Throat pain HPI HPI 6 mo f/u: Details: Assessment & Plan (1) Abdominal cramping: Code(s): R10.9 - Unspecified abdominal pain Category: Medical (2) GERD (gastroesophageal reflux disease): Code(s): K21.9 - Gastro-esophageal reflux disease without esophagitis Category: Medical Qualifiers: Esophagitis presence: esophagitis presence not specified Qualified Code(s): K21.9 - Gastro-esophageal reflux disease without esophagitis (3) Constipation: Code(s): K59.00 - Constipation, unspecified Category: Medical Plan Green[place]ic #friend translates per pt request She feels that the Linzess at 72 micro g is working well to move her bowels. However, she never received the dicyclomine and she really would like to keep it on hand so I will try re sending it as I am not sure what happened. She continues on her omeprazole with good control of her GERD. She says she is now only having epigastric pain randomly in intermittently. Before it was definitely caused by NyQuil so it is possible that what she is eating is at times piquing this symptom. return office visit in 6 months Medications: Refilled dicyclomine 10 mg PO QID PRN 90 caps 3RF abdominal pain R10.9 - Unspecified abdominal pain linaclotide (Linzess) 72 mcg PO QAM 30 caps 6RF K59.00 - Constipation, unspecified, R10.10 - Upper abdominal pain, unspecified omeprazole 40 mg PO DAILY 90 caps 1RF A04.8 - Other specified bacterial intestinal infections TODAY'S VISIT Green[place]ic #dtr translates per pt request [facility] Medical History Upper abdominal pain Well woman exam Family history of diabetes mellitus Muscle cramps Physical exam Muscle spasm of back H. pylori infection Adult general medical exam Physical exam Obesity (BMI 30-39.9) Osteopenia Pure hypercholesterolemia Hyperkalemia Depression with anxiety Insomnia Hypovitaminosis D Anxiety Hair loss Arm paresthesia, right CKD (chronic kidney disease), stage III Trigger finger Carpal tunnel syndrome Neuropathy Surgical History Hx of blepharoplasty Hx of hand surgery History of carpal tunnel release Hx of colonoscopy Hx of breast reduction, elective History of surgery History of section H/O exploratory laparotomy History of tubal ligation History of cataract surgery Family History Father Prostate cancer Mother No problems noted. Family/Other FH: mental illness Hypertension Tachycardia Maternal Aunt No problems noted. 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 Cognitive needs: No Hearing needs: No Vision needs: No Female Reproductive History Menstrual Age of Menarche: 11 Review of Systems Const Denies fatigue, Denies fever(s), Denies night sweats, Denies poor appetite and Denies weight loss ENT Reports Normal hearing present, Denies dental pain, Denies dysphagia, Denies hearing loss, Denies mouth pain, Denies odynophagia, Denies throat swelling, Denies tongue swelling and Reports other (Dentition adequate) Card Reports no additional complaints Resp Reports no additional complaints GI Details: Denies abdominal pain, Denies melena, Denies bloating, Denies hematochezia, Reports constipation, Reports GI cramping, Denies dysphagia, Denies excessive flatus, Denies early satiety, Reports heartburn, Denies diarrhea, Denies nausea, Denies odynophagia, Denies vomiting and Denies hematemesis Skin/Breast Denies pruritus, Denies lesions, Denies rash and Denies jaundice Neuro Reports Normal hearing present and Denies Abnormal speech present Endo Denies fatigue Aller/Immun Denies throat swelling and Denies tongue swelling Physical Exam Vital Signs: Last Vital Signs Pulse 96 04/30/25 15:52 BP 111/56 L 04/30/25 15:52 BMI result Body Mass Index 32.1 Const General: cooperative, no acute distress, well developed and well groomed Nutritional Appearance: well nourished and overweight Orientation/consciousness: oriented to person, oriented to place and oriented to time Limitations: language barrier HEENT Head: Yes normocephalic and Yes atraumatic Eyes General: appearance normal, both eyes and all related structures Pupils: Equal, round and reactive pupils present Neck Neck: Yes normal visual inspection and Yes no lymphadenopathy Thyroid: Thyroid normal Resp Effort & Inspection: normal respiratory effort and able to speak in complete sentences Auscultation: clear to auscultation bilaterally Cardio Rate: regular rate Rhythm: regular rhythm Heart sounds: Normal, physiologic split S2 sound present Peripheral pulses: radial pulses present and posterior tibial pulses present GI Inspection: No distended, No Abdominal panniculus present and Yes obesity Palpation (GI): Soft to palpation, nontender, no guarding, not rigid and No hepatosplenomegaly present Percussion: Yes normal to percussion Auscultation: normal bowel sounds Rectal Exam - Female: deferred Skin General skin exam: no rashes or lesions noted, turgor normal, skin not dry, no jaundice, No spider nevi and no striae Rashes: no rashes Nails: normal Neuro General: oriented to person, oriented to place and oriented to time Cranial nerves: Yes Equal, round and reactive pupils present and Yes Normal hearing present Speech: No Abnormal speech present Extrem General: Yes normal to inspection, No clubbing, No cyanosis and No edema Psych Appearance: grossly normal and well kempt Mental Status: mental status grossly normal Speech and movement: Normal speech and movement present Affect: normal affect Attitude: cooperative Thought process: Normal thought process present and not confabulating Thought content: Normal thought content present Insight: Good insight present (Psych) Judgement: Good judgement present (Psych) Assessment & Plan Assessment & Plan (1) GERD (gastroesophageal reflux disease): Code(s): K21.9 - Gastro-esophageal reflux disease without esophagitis Category: Medical Qualifiers: Esophagitis presence: esophagitis presence not specified Qualified Code(s): K21.9 - Gastro-esophageal reflux disease without esophagitis (2) Tubular adenoma of colon: Comment: 04/2023 negative scope repeat in 5 years; 04/25/2020 scope 8-10 mm sessile tubular adenoma aeb repeat 3 years Code(s): D12.6 - Benign neoplasm of colon, unspecified Category: Medical (3) Constipation: Code(s): K59.00 - Constipation, unspecified Category: Medical (4) Abdominal cramping: Code(s): R10.9 - Unspecified abdominal pain Category: Medical Plan [place]ic #dtr translates per pt request Her GI regimen last visit was Linzess 72 micro g, omeprazole, and dicyclomine. Subjective Patient reports a first-time episode of nocturnal heartburn around 2:30 AM last night, described as acid sensation coming up. She attributes possible trigger to a meal including pork chops and plantains/viandas. She took chewable antacid (Tums) with relief. Reports current medications are working well overall. Notes dicyclomine has been helping with cramping. Objective - Chart review confirms colonoscopy completed in 2022; advised at that time to repeat in five years. Assessment & Plan Gastroesophageal reflux symptoms (heartburn), episodic: Single nocturnal episode following heavier meal, relieved with calcium carbonate; no ongoing symptoms reported. - Continue current medication regimen without changes. - Refill existing prescriptions. - Use calcium carbonate (Tums) as needed for breakthrough heartburn. Health maintenance: Colorectal cancer screening up to date. - Last colonoscopy in 2022; repeat in five years per prior recommendation. Medications: Refilled linaclotide (Linzess) 72 mcg PO QAM 30 caps 6RF K59.00 - Constipation, unspecified, R10.10 - Upper abdominal pain, unspecified omeprazole 40 mg PO DAILY 90 caps 1RF A04.8 - Other specified bacterial intestinal infections dicyclomine 10 mg PO QID PRN 90 caps 1RF for abdominal pain R10.9 - Unspecified abdominal pain Coding Level of Care Code Est Pt Level 3 (36128) Diagnoses Gastroesophageal reflux disease, unspecified whether esophagitis present K21.9 Esophagitis presence: esophagitis presence not specified Tubular adenoma of colon D12.6 Constipation K59.00 Abdominal cramping R10.9
[2025-04-30 15:52] VITALS: BP 111/56; PULSE 96; BMI 32.1
--- OUTSIDE RECORDS SUMMARY | 2025-04-30 19:09 | XMS_ITS | Data Portability ---
Author Organization [facility] [employer] [facility] Address [address] [place] [phone] Care Team Providers Care Clinical Laboratory Aide Name Role Phone HIM CCA OTHER Assessment Encounter Date Assessment Date Assessment LastModified by Organization Details LastModified Time 11/03/2023 11/03/2023 I provided real -time medical direction via phone for this encounter and was available for additional phone-based assistance as needed. I have reviewed and agree with the Assessment and Plan as documented by the Engagement Specialist. Patient given the opportunity to ask questions. Our service contacted for an assessment of: cough As per above, patient has had a non-productive cough for approx a week. She was seen yesterday by her PCP who preformed tests and started her on an antibiotic. PCP called patient this AM and told her that all the tests were normal. Per boring machine feeder on the scene, Non-toxic. Stable vitals. No [...] oral liquid 2023 024 [facility][id number], [address], [place], [address], 13:18:48 Patient TargetsNo targets recorded. Patient InstructionsNo [...] rate Body weight Body temperature Oxygen saturation Systolic And Diastolic Provider Name and Address Organization Details Last Updated DateTime 4 90 /min 16 /min 00036.8 g 98.9 [degF] 98 % 105/68 mm[Hg] Not Available [facility] [...] ICD10 Code Diagnosis IMO Codes Diagnosis Note [id number] Migdalia Fisher MD Main - [facility] [address] [place] [phone] 11/03/2023 13:13:58 11/04/2023 10:33:41 Cough [id number] R05.9 Health Concerns Section Related Observation LastModified by Organization Detai ls LastModified Time None Recorded Concern Status LastModified by Organization Details LastModified Time None Recorded Advance Directives Directive None Recorded Payers Insurance Date Sequence Insurance Name Policy Number Policy Scales Covered Member ID Scales Member ID Guarantor Name 11/03/2023 1 [facility] - DOS ON OR AFTER 2022 - DUAL ELIGIBLE - [employer] AND ONE [employer]ARE (MEDICARE REPLACEMENT/ADV ANTAGE - HMO) Clara Carpio [id number] Clara Carpio Notes Date Note Type Note Provider Name and Address Organization Details Recorded Time 11/03/2023 text/html [facility] Nurse Triage Notes (Matias Carrasco): Chief Complaints: ENT, Cough, Headache, Syncope/Dizziness/ Lightheadedness, Chest Pain, Nausea/Vomiting Comments: Esl Professor verified the member's name//address and phone number. Mbr's CRACKER SPRAYER, Jada, calling reporting member started with itchy throat a few days ago. CRACKER SPRAYER reports symptoms have continued to worsen. Mbr now with loss of voice, body aches, headache, stomachache, chills, and sometimes vomiting due to excessive amount of coughing. Mbr also reports pain in chest from coughing. CRACKER SPRAYER reports mbr had Flu, RSV & COVID testing that all came back negative. Education provided on the response time and the member was advised to monitor reported s/s and seek emergency treatment if needed -Michael Carrasco RN .................. .................. .................. .................. .................. .................. .................. ............... Engagement Specialist Note From Carlo Stewart: Pt co cough. Pt was seen yesterday and RX for augmentin she started today. Pt denies sob cp fever [place] NVD. Baseline vitals assessed. Lungs clear. Pt sts she Covid and flu strep negative, pt sts pcp called today with results. Pt requesting something for her cough. [facility] contacted and RX for benzonatate called in. Pt education on signs indicating the ER. Pt advised to follow up with pcp. .................. .................. .................. .................. .................. .................. .................. ............... Disposition: Parris Fisher MD [address], [place], [address], [facility] 11/03/2023 13:23:00 OBGyn Episode No OBEpisode recorded.
--- OUTSIDE RECORDS SUMMARY | 2025-04-30 19:09 | XMS_ITS | Clinical Summary ---
Author Organization [facility] Address [address] [place] [address] Phone Care Team Providers Care Casket Trimmer Name Role Phone Olivia Palmer MD Primary Care Provider [phone] Allergies Active Allergy Reactions Criticality Noted Date Comments Flu Vaccine [id number](36mo,Up) Muscular Issues 03/26/2024 Gabapentin Nausea And Vomiting [...] reflux disease 03/21/2023 Hyperkalemia 03/21/2023 Osteopenia 03/21/2023 Surgical History Surgery Date Site/Laterality Comments CARPAL [...] / MET 08/17 # 6 IMPROVE LEFT DOPE POURER FROM 2 TO 10 POUNDS = WITH THE RIGHT/ MET AT 15 POUNDS ON 08/17 Insurance [employer] MEDICARE Member Subscriber Plan / Payer (Ef fective 2019-Present) Name:Clara Cruz Relation to Subscriber:Self Name:Clara Cruz Payer ID:[id number] Group ID:[id number] Type:Not on file Address: [place] [address] [place] [id number] Advance Directives * Full Code - Default [...] currently active code status orders. Care Teams Casket Trimmer Relationship Specialty Start Date End Date Olivia Palmer MD [address] [place] [address] PCP - General Internal Medicine 04/10/24
--- OUTSIDE RECORDS SUMMARY | 2025-04-30 19:09 | XMS_ITS | Clinical Summary ---
Author Organization [facility] Address [address] [place] [phone] Phone Care Team Providers Care Animal Anatomist Name Role Phone Olivia Andrade MD Primary [...] on file Insurance MEDICARE REPLACEMENT [place] [id number] MEDICARE REPLACEMENT MEDICARE REPLACEMENT MEDICARE REPLACEMENT MEDICARE REPLACEMENT MEDICARE REPLACEMENT MEDICARE REPLACEMENT MEDICARE REPLACEMENT [employer] MEDICARE REPLACEMENT [place] [id number] Care Teams Animal Anatomist Relationship Specialty Start Date End Date Olivia Andrade MD [address] [place] [address] PCP - General Internal Medicine 01/27/21 Additional Source Comments The information contained in this document represents components of the legal health record. It is not the complete legal health record.[facility]
== END 2025-04-30 16:25 | disposition home or self-care (01) ==
LOC: HO.HGI 15:40
PROVIDERS: PCP Internal Medicine; Visit Provider Nurse Practitioner
DX: K21.9 Gastro-esophageal reflux disease without esophagitis (principal); D12.6 Benign neoplasm of colon, unspecified; K59.00 Constipation, unspecified; R10.9 Unspecified abdominal pain
CPT/HCPCS: 99213

== ENCOUNTER → 2025-04-30 15:39 | Outpatient (BNVA) | payer OTHER, SELFPAY | PROVIDERS: PCP Internal Medicine; Visit Provider Nurse Practitioner | DX: K21.9 Gastro-esophageal reflux disease without esophagitis (principal); K59.00 Constipation, unspecified; D12.6 Benign neoplasm of colon, unspecified; R10.9 Unspecified abdominal pain | CPT/HCPCS: 99212 ==

== ENCOUNTER 2025-05-23 10:57 | Outpatient (AMB) | payer OTHER, SELFPAY ==
[2025-05-23 11:09] VITALS: BP 108/78; PULSE 99; RESP 18; O2SAT 98; BMI 32.0
--- NOTE | 2025-05-23 11:09 | A.OFFPC_ITS ---
Vital Signs 05/23/25 11:09 Height 4 ft 11 in Weight 158 lb 8 oz BMI 32.0 BP 108/78 Blood Pressure Location Rt brachial Position Sitting Respiration 18 Pulse 99 Pulse Source Pulse Oximeter Temp Source Temporal Artery Scan Pulse Oximetry (%) 98 Oxygen Delivery Method Room Air Intake Visit Reasons: pe Director Of Supply Chain Required: No Accompanied by: Self / Same As Patient Allergies gabapentin Allergy (Intermediate, Verified 05/23/25 11:36) somnolence pregabalin Allergy (Intermediate, Verified 05/23/25 11:36) somnolence Influenza Virus Vaccines Adverse Reaction (Intermediate, Verified 05/23/25 11:36) Throat pain Medication List - Last Reconciled 05/23/25 by Olivia Palmer MD acetaminophen 500 mg PO Q6H PRN 30 days [adult diapers pull-ups As directed] buspirone 5 mg PO BID cetirizine (Zyrtec) 10 mg PO DAILY cholecalciferol (vitamin D3) (Vitamin D3) 50 mcg PO DAILY 90 days cyclobenzaprine 5 mg PO BEDTIME PRN dicyclomine 10 mg PO QID PRN diphenhydramine HCl (Benadryl Allergy) 50 mg PO BID fluoxetine 10 mg PO DAILY latex gloves (Latex Gloves, Large) As directed linaclotide (Linzess) 72 mcg PO QAM magnesium aspart,citrate,oxide 400 mg PO DAILY 90 days mupirocin 2% 1 appl topical BID 2 weeks omeprazole 40 mg PO DAILY [over bed table As directed] rosuvastatin 5 mg PO DAILY underpads (Bed Underpads) Use 1 to 4 bed underpads once a day prn [wipes flushable As directed] Tobacco use date assessed: 05/23/25 Fall risk assessment: No Falls in past year Last assessed Fall Risk: 05/23/25 Dental Screening Dental Screen Date: 05/23/25 Did you have a dental visit in the last 12 months?: Yes Did you have a dental problem in the last 6 months where you did not have access to dental care?: No Was dental information given to patient?: Patient has dentist HPI HPI Comments History of Present Illness Details The patient is a 75 year old female presenting for an annual physical examination and to address right arm pain. The patient reports pain in her right arm. Regarding health maintenance, she completed a colonoscopy in 2022, and a mammogram and bone densitometry this year. The bone densitometry revealed osteopenia, and her next scan is scheduled for 2026. The patient's chronic conditions include depression with anxiety managed with fluoxetine 10 mg, acid reflux treated with omeprazole, constipation managed with Linzess and magnesium, and hypercholesterolemia treated with rosuvastatin 5 mg. Her last cholesterol check in March was good. She also takes Tylenol, buspirone, Zyrtec for allergies, vitamin D, Flexeril as needed, and dicyclomine for her stomach. She reports that gabapentin and pregabalin do not agree with her. Her surgical history includes blepharoplasty, carpal tunnel surgery, breast reduction, section, tubal ligation, cataract surgery, and resection of an additional rib. - Colonoscopy: Performed in 2022. - Mammogram: Performed this year. - Bone densitometry: Performed this year , revealing osteopenia. - The next bone densitometry is due in . - Treatment for osteopenia includes calc ium with vitamin D. [facility] Medical History (Updated 05/23/25 @ 12:48 by Olivia Palmer MD) Physical exam Upper abdominal pain Well woman exam Family history of diabetes mellitus Muscle cramps Muscle spasm of back H. pylori infection Adult general medical exam Physical exam Obesity (BMI 30-39.9) Osteopenia Pure hypercholesterolemia Hyperkalemia Depression with anxiety Insomnia Hypovitaminosis D Anxiety Hair loss Arm paresthesia, right CKD (chronic kidney disease), stage III Trigger finger Carpal tunnel syndrome Neuropathy Surgical History Hx of blepharoplasty Hx of hand surgery History of carpal tunnel release Hx of colonoscopy Hx of breast reduction, elective History of surgery History of section H/O exploratory laparotomy History of tubal ligation History of cataract surgery Family History Father Prostate cancer Mother No problems noted. Family/Other FH: mental illness Hypertension Tachycardia Maternal Aunt No problems noted. 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 Cognitive needs: No Hearing needs: No Vision needs: No Female Reproductive History Menstrual Age of Menarche: 11 Questionnaire Thrive Questionnaire Date Thrive assessed: 05/23/25 I am a: Patient What is your living situation today?: I have a steady place to live Within the past 12 months, did the food you bought not last and you didn't have the money to get more?: Never true Within the past 12 months, did you worry whether your food would run out before you got money to buy more?: Never true Do you have trouble paying for medicines?: No Do you have trouble getting transportation to medical appointments?: No Do you have trouble paying your heating and electricity bill?: No Do you have trouble taking care of your child, family member or friend?: Yes Do you have trouble with day-to-day activities such as bathing, preparing meals, shopping, managing finances, etc.?: Yes Are you currently unemployed and looking for a job?: No Are you interested in more education?: No Please select the resources that you would like help with: Daily support Currently or been in a relationship where the following occur: I choose not to answer THRIVE Score: 0 TOBIAS-7 AMB Questionnaire TOBIAS-7 Date TOBIAS - 7 assessed: 12/05/24 Source: Developed by Drs. Oskar Robertson, Jennifer Jernigan, Garcia Doshi and colleagues, with an educational alessandro from [employer]. Review of Systems Const All systems reviewed & are unremarkable except as noted in HPI and below Card Denies chest pain at rest, Denies chest pain with activity, Denies edema, Denies irregular heart rhythm, Denies claudication, Denies dyspnea, Denies dyspnea on exertion, Denies orthopnea, Denies paroxysmal nocturnal dyspnea and Denies slow heart rate Resp Denies cough, Denies dyspnea and Denies dyspnea on exertion Physical exam (Primary Care) Vital Signs: Last Vital Signs Pulse 99 05/23/25 11:09 Resp 18 05/23/25 11:09 BP 108/78 05/23/25 11:09 Pulse Ox 98 05/23/25 11:09 Oxygen Delivery Method Room Air 05/23/25 11:09 BMI result Body Mass Index 32.0 Tobacco/Smoking Status: Tobacco use Status Tobacco use date assessed 05/23/25 05/23/25 11:16 Patient Tobacco Use Status Former Tobacco user 05/23/25 11:16 Tobacco use type Cigarette 05/23/25 11:16 e-Cigarette/Vaping Use Never Used 05/23/25 11:16 Thrive Assessment: Date of Thrive Assessment Date Thrive assessed 05/23/25 05/23/25 11:16 Currently or been in a relationship where the following occur: I choose not to answer [facility] Head: Yes normal to inspection, Yes normocephalic and Yes atraumatic Ears: external ears normal Eyes General: appearance normal, both eyes and all related structures Eyelids: Yes eyelids normal Conjunctivae: conjunctivae normal Neck Neck: Yes normal visual inspection and Yes supple Resp Effort & Inspection: normal respiratory effort Auscultation: clear to auscultation bilaterally Cardio Jugular venous distension: no JVD Rate: regular rate Rhythm: regular rhythm Heart sounds: S1 normal heart sound present and S2 normal heart sound present GI Inspection: Yes normal to inspection Palpation (GI): Soft to palpation and nontender Auscultation: normal bowel sounds Skin General skin exam: no rashes or lesions noted Neuro General: no focal motor deficits Extrem General: Yes full ROM Psych Appearance: grossly normal Coding Level of Care Code New Pt Prev Care >65yr (59971) Diagnoses Physical exam Z00.00 Mild major depression F32.0 Time Spent (min) 30 Assessment & Plan Assessment & Plan (1) Physical exam: Code(s): Z00.00 - Encounter for general adult medical examination without abnormal findings Category: Medical (2) Mild major depression: Code(s): F32.0 - Major depressive disorder, single episode, mild Category: Medical Plan Plan 1. Physical exam The patient is up-to-date with her health screenings, including a colonoscopy in 2022 and a mammogram this year. She will continue her current medications for chronic conditions. 2. Osteopenia A bone densitometry study this year revealed osteopenia. The treatment plan includes supplementation with calcium and vitamin D. A follow-up bone densitometry is scheduled for 2026. 3. Right Arm Pain For the patient's right arm pain, Tylenol was recommended. This recommendation was made because it does not affect the kidneys and has a lower risk of causing bleeding.
--- OUTSIDE RECORDS SUMMARY | 2025-05-23 14:13 | XMS_ITS | Clinical Summary ---
Author Organization [facility] Address [address] [place] [address] Phone Care Team Providers Care Electric Range Assembler Name Role Phone Olivia Andrade MD Primary Care Provider [phone] Allergies Active Allergy Reactions Criticality Noted Date Comments Gabapentin 01/11/2023 Haemophilus B Polysaccharide Vaccine 01/11/2023 Influenza Vaccine Surface Ad juvant, Inactivated 01/11/2023 Pregabalin 01/11/2023 Medications Cholecalciferol 50 MCG (1999 UT) capsule Take 1 Dose by mouth Active [...] mouth 1 (one) time each day Active calcium carbonate 1500 (600 Ca) MG tablet Take 600 mg by mouth Active cyclobenzaprine (FLEXERIL) 5 MG tablet TAKE 1 TABLET ORALLY BEDTIME NEEDED FOR MUSCLE SPASM Active dicyclomine (BENTYL) 10 MG capsule TAKE 1 CAPSULE BY MOUTH 4 TIMES A DAY NEEDED FOR ABDOMINAL PAIN Active Estradiol 0.01 % cream if needed Active linaCLOtide (Linzess) 72 MCG capsule Take 72 mcg by mouth every morning 5 Active magnesium oxide (MAG-OX) 400 MG tablet Take 400 mg by mouth in the morning. 5 Active traMADol (ULTRAM) 50 MG tablet if needed Active Active Problems Problem Noted Date Diagnosed Date Cyst of kidney 03/22/2023 Gastroesophageal reflux disease 03/21/2023 Hyperkalemia 03/21/2023 Chronic kidney disease, stage 2 (mild) 3 Osteopenia 03/21/2023 Encounters Date Type Department Care Team Description 04/01/2025 2:30 PM EDT Office Visit [facility] [address] [place] [phone] Ajith Abel MD Cyst of kidney (Primary Dx); Chronic kidney disease, stage 2 (mild) 02/24/2025 Orders Only [facility] [address] [place] [address] Ajith Abel MD Chronic kidney disease, stage [...] Pressure 111/70 03/26/2024 2:11 PM EDT Pulse 96 04/01/2025 2:09 PM EDT Temperature - - Respiratory Rate - - Oxygen Saturation 98% 04/01/2025 2:09 PM EDT Inhaled Oxygen Concentration - - Weight 73.6 kg (162 lb 3.2 oz) 04/01/2025 2:09 P M EDT Height 152.4 cm (5') 03/26/2024 2:11 PM EDT Body Mass Index 31.68 03/26/2024 2:11 PM EDT Plan of Treatment Upcoming Encounters Date Type Department Care Team (Late st Contact Info) Description 04/07/2026 1:00 PM EST Office Visit [facility] [address] [place] [address] [place] [phone] Ajith Abel MD [address] [facility] [address] [place] [phone] Health Maintenance Due Date Last Done Comments Pneumococcal Vaccine: 50+ Ye ars (1 of 2 - PCV) 1969 Influenza Vaccine (#1) 2025 Hepatitis B Vaccine Aged Out No longe r eligible based on patient's age to complete this topic Insurance [facility] ([id number]) [facility] ([id number]) Care Teams Electric Range Assembler Relationship Specialty Start Date End Date Olivia Andrade MD [address] [place] [address] PCP - General Internal Medicine 12/08/22
--- OUTSIDE RECORDS SUMMARY | 2025-05-23 14:13 | XMS_ITS | Clinical Summary ---
Author Organization [facility] Address [address] [place] [address] Phone Care Team Providers Care Customer Operations Representative Name Role Phone Olivia Palmer MD Primary Care Provider [phone] Allergies Active Allergy Reactions Criticality Noted Date Comments Flu Vaccine [id number](36mo,Up) Muscular Issues 03/26/2024 Gabapentin Nausea And Vomiting [...] Orientation Straight 04/11/2024 11 :55 AM EST Last Filed Vital Signs Vital Sign Reading [...] / MET 08/17 # 6 IMPROVE LEFT EGG AND SPICE MIXER FROM 2 TO 10 POUNDS = WITH THE RIGHT/ MET AT 15 POUNDS ON 08/17 Insurance [employer] MEDICARE Member Subscriber Plan / Payer (Ef fective 2019-Present) Name:Clara Cruz Relation to Subscriber:Self Name:Clara Cruz Payer ID:[id number] Group ID:[id number] Type:Not on file Address: [place] [address] [address] [id number] Advance Directives * Full Code - Default [...] currently active code status orders. Care Teams Customer Operations Representative Relationship Specialty Start Date End Date Olivia Palmer MD [address] [place] [address] PCP - General Internal Medicine 04/10/24
--- OUTSIDE RECORDS SUMMARY | 2025-05-23 14:13 | XMS_ITS | Clinical Summary ---
Author Organization [facility] Address [address] [facility] [address] [place] [phone] Phone Care Team Providers Care Certified Nurse Name Role Phone Olivia Andrade MD Primary [...] on file Insurance MEDICARE REPLACEMENT [place] [id number] MEDICARE REPLACEMENT MEDICARE REPLACEMENT MEDICARE REPLACEMENT MEDICARE REPLACEMENT MEDICARE REPLACEMENT MEDICARE REPLACEMENT MEDICARE REPLACEMENT [employer] MEDICARE REPLACEMENT [place] [id number] Care Teams Certified Nurse Relationship Specialty Start Date End Date Olivia Andrade MD [address] [place] [address] PCP - General Internal Medicine 01/27/21 Additional Source Comments The information contained in this document represents components of the legal health record. It is not the complete legal health record.[facility]
== END 2025-05-23 11:49 | disposition home or self-care (01) ==
LOC: HO.HMCH 10:58
PROVIDERS: PCP Internal Medicine; Visit Provider Internal Medicine
DX: Z00.00 Encounter for general adult medical examination without abnormal findings (principal); F32.0 Major depressive disorder, single episode, mild

== ENCOUNTER → 2025-05-23 10:57 | Outpatient (BNVA) | payer OTHER, SELFPAY | PROVIDERS: PCP Internal Medicine; Visit Provider Internal Medicine | DX: Z01.419 Encounter for gynecological examination (general) (routine) without abnormal findings (principal); Z00.00 Encounter for general adult medical examination without abnormal findings; F32.A Depression, unspecified; F41.9 Anxiety disorder, unspecified; Z79.899 Other long term (current) drug therapy; F32.0 Major depressive disorder, single episode, mild; M85.80 Other specified disorders of bone density and structure, unspecified site; M79.601 Pain in right arm | CPT/HCPCS: 99397 ==

== ENCOUNTER 2025-05-23 14:00 | Outpatient (AMB) | payer OTHER, SELFPAY ==
--- NOTE | 2025-05-23 14:03 | MHC.OFFVIS ---
Vital Signs 05/23/25 14:11 Height 4 ft 11 in Weight 157 lb BMI 31.7 BP 98/60 Intake Visit Reasons: annual Identity Access Management Architect Required: Yes Identity Access Management Architect Language: Guest Services Services: Identity Access Management Architect Present (in person) Identity Access Management Architect Name: Geetha MENDOZA Information Interpreted: non-clinical & clinical Immunology Teacher: Immunology Teacher Present (Geetha MENDOZA) Accompanied by: Self / Same As Patient Allergies gabapentin Allergy (Intermediate, Verified 05/23/25 14:14) somnolence pregabalin Allergy (Intermediate, Verified 05/23/25 14:14) somnolence Influenza Virus Vaccines Adverse Reaction (Intermediate, Verified 05/23/25 14:14) Throat pain Post menopausal: Yes HPI Comments Details: Presenting for annual exam. No complaints. No history of abnormal Pap smear in the past Last Mammogram was BI-RADS 2 in 12/28 Last Colonoscopy was done in 04/28, the recommendation was to repeat in 5-7 years Last DEXA scan was done in 06/30 [facility] Medical History (Updated 05/23/25 @ 14:34 by Jeff Elam MD) Well woman exam Physical exam Upper abdominal pain Family history of diabetes mellitus Muscle cramps Muscle spasm of back H. pylori infection Adult general medical exam Physical exam Obesity (BMI 30-39.9) Osteopenia Pure hypercholesterolemia Hyperkalemia Depression with anxiety Insomnia Hypovitaminosis D Anxiety Hair loss Arm paresthesia, right CKD (chronic kidney disease), stage III Trigger finger Carpal tunnel syndrome Neuropathy Surgical History Hx of blepharoplasty Hx of hand surgery History of carpal tunnel release Hx of colonoscopy Hx of breast reduction, elective History of surgery History of section H/O exploratory laparotomy History of tubal ligation History of cataract surgery Family History Father Prostate cancer Mother No problems noted. Family/Other FH: mental illness Hypertension Tachycardia Maternal Aunt No problems noted. 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 Sexual orientation: Straight/Heterosexual Gender identity: Female Cognitive needs: No Hearing needs: No Vision needs: No Female Reproductive History Menstrual Age of Menarche: 11 control method: permanent sterilization Total pregnancies: 2 Full term: 1 Number of Living Children: 1 Ab spontaneous: 1 Review of Systems Const All systems reviewed & are unremarkable except as noted in HPI and below Card Reports as per HPI Resp Reports as per HPI GI Reports as per HPI and Reports no additional complaints Reports as per HPI Physical Exam Vital Signs: Last Vital Signs BP 98/60 05/23/25 14:11 BMI result Body Mass Index 31.7 Const General: cooperative, healthy appearing and comfortable Chest Chest palpation & inspection: normal inspection of the chest and normal palpation of entire chest wall Breast/axilla inspection: normal inspection of the breasts and normal inspection of the axillae Breast/axilla palpation: normal palpation of the breasts, normal palpation of the axillae and no axillary lymphadenopathy Resp Effort & Inspection: normal respiratory effort Auscultation: clear to auscultation bilaterally Percussion: percussion normal Cardio Palpation: normal PMI Rate: regular rate Rhythm: regular rhythm Heart sounds: no murmurs and no rubs Peripheral pulses: Peripheral pulses 2+ throughout GI Inspection: Yes normal to inspection Palpation (GI): Soft to palpation, nontender, no guarding, not rigid and No hepatosplenomegaly present Percussion: Yes normal to percussion Auscultation: normal bowel sounds Rectal Exam - Female: deferred General: Yes bladder normal to palpation External Female Exam: No lesion Speculum Exam - Vagina: normal appearance of the vagina, normal palpation, normal vaginal discharge and not erythematous Speculum Exam - Cervix: normal appearance of the cervix and normal palpation Bimanual exam- vagina & uterus: normal bimanual exam, normal palpation, uterine size normal, bladder normal to palpation, consistency normal and normal palpation Bimanual Exam- Adnexa, other: normal adnexae, no masses and no tenderness Assessment & Plan Assessment & Plan (1) Well woman exam: Code(s): Z01.419 - Encounter for gynecological examination (general) (routine) without abnormal findings Category: Medical Plan: Co testing not indicated since the patient 's age is above 65 with no history of abnormal Pap smears last 25 years, adequately screen for the last 10 years with no history of immunosuppression. Counseled the patient about the recommended dietary allowance of 1200 mg of Calcium & 800 IU of vitamin D. Instructions given the patient to schedule next screening Mammogram in 12/29. The patient was instructed to perform monthly self-breast exams and to schedule an annual exam in a year; All questions answered and the patient verbalized understanding. Coding Level of Care Code Est Pt Prev Care >65y(56056) Diagnoses Well woman exam Z01.419
[2025-05-23 14:11] VITALS: BP 98/60; BMI 31.7
--- OUTSIDE RECORDS SUMMARY | 2025-05-23 18:16 | XMS_ITS | Data Portability ---
Author Organization [facility] [place] [facility] [employer] Display [employer] Medical [facility] Address [address] [place] [phone] Care Team Providers Care Statistics Manager Name Role Phone HIM CCA OTHER Assessment Encounter Date Assessment Date Assessment LastModified by Organization Details LastModified Time 11/03/2023 11/03/2023 I provided real -time medical direction via phone for this encounter and was available for additional phone-based assistance as needed. I have reviewed and agree with the Assessment and Plan as documented by the Air Defense Art[employer] Senior Sergeant. Patient given the opportunity to ask questions. Our service contacted for an assessment of: cough As per above, patient has had a non-productive cough for approx a week. She was seen yesterday by her PCP who preformed tests and started her on an antibiotic. PCP called patient this AM and told her that all the tests were normal. Per disposal man on the scene, Non-toxic. Stable vitals. No [...] mg-100 mg/5 mL oral liquid 2023 024 [facility][id number], [address] [facility], [place], [address], 13:18:48 Patient TargetsNo targets recorded. Patient InstructionsNo [...] Updated DateTime 4 90 /min 16 /min 09073.8 g 98.9 [degF] 98 % 105/68 mm[Hg] [...] ICD10 Code Diagnosis IMO Codes Diagnosis Note [id number] Migdalia Fisher MD Main - [facility] [address] [place] [phone] 11/03/2023 13:13:58 11/04/2023 10:33:41 Cough [id number] R05.9 Health Concerns Section Related Observation LastModified by Organization Detai ls LastModified Time None Recorded Concern Status LastModified by Organization Details LastModified Time None Recorded Advance Directives Directive None Recorded Payers Insurance Date Sequence Insurance Name Policy Number Policy Scales Covered Member ID Scales Member ID Guarantor Name 11/03/2023 1 [facility] - DOS ON OR AFTER 2022 - DUAL ELIGIBLE - ALF OPTIONS AND ONE CARE (MEDICARE REPLACEMENT/ADV ANTAGE - HMO) Clara Carpio [id number] Clara Carpio Notes Date Note Type Note Provider Name and Address Organization Details Recorded Time 11/03/2023 text/html [facility] Nurse Triage Notes (Matias Carrasco): Chief Complaints: ENT, Cough, Headache, Syncope/Dizziness/ Lightheadedness, Chest Pain, Nausea/Vomiting Comments: Landscape Maintenance Intern[employer] verified the member's name//address and phone number. Mbr's BLOW DOWN HELPER, Jada, calling reporting member started with itchy throat a few days ago. BLOW DOWN HELPER reports symptoms have continued to worsen. Mbr now with loss of voice, body aches, headache, stomachache, chills, and sometimes vomiting due to excessive amount of coughing. Mbr also reports pain in chest from coughing. BLOW DOWN HELPER reports mbr had Flu, RSV & COVID testing that all came back negative. Education provided on the response time and the member was advised to monitor reported s/s and seek emergency treatment if needed -Michael Carrasco RN .................. .................. .................. .................. .................. .................. .................. ............... [employer] Senior Sergeant Note From Carlo Stewart: Pt co cough. [...] .................. ............... Disposition: Parris Fisher MD [address] [facility],[address], [place], [address], [employer] [place] 11/03/2023 13:23:00 OBGyn Episode No OBEpisode recorded.
== END 2025-05-23 14:44 | disposition home or self-care (01) ==
LOC: HO.HWS 14:01
PROVIDERS: PCP Internal Medicine; Visit Provider Obstetrics & Gynecology
DX: Z01.419 Encounter for gynecological examination (general) (routine) without abnormal findings (principal)
CPT/HCPCS: 99397; 99459